=== PATIENT | female | born 1955 | race Caucasian/White ===

== ENCOUNTER → 2017-08-10 06:49 | Outpatient (CLI) | payer OTHER, SELFPAY ==
[2017-07-29 10:19] VITALS: BP 130/80; BMI 18.7
--- NOTE | 2017-08-10 08:55 | STRESSREP_ITS ---
Stress Test Report 61-year-old lady with a history of chest pain and coronary artery disease. Stress protocol: Resting EKG demonstrates normal sinus rhythm with a rate of 60 bpm. Normal intervals noted. Resting blood pressure is 110/72 mmHg. 0.4 mg of regadenoson was infused per usual protocol followed by rapid intravenous saline flush injection. Continuous EKG monitoring was performed. The maximum heart rate attained was 102 bpm which was 64% of maximum predicted heart rate the maximum workload attained was 1 metabolic equivalent. There were no ST or T-wave changes noted to suggest abnormal flow reserve and at peak infusion no ST or T- wave changes were noted to suggest abnormal flow reserve. No clinical angina was noted no arrhythmias were present. Myocardial perfusion protocol. 11.1 mCi of technetium 99m sestamibi was injected at rest. 0.4 mg of regadenoson was infused per usual protocol. At peak infusion 32.1 mCi of technetium 99m sestamibi was injected. Stress images were obtained. Stress and rest images were reconstructed and compared in the short axis vertical long and horizontal long axis. Gated images were also obtained. Perfusion SPECT analysis: Review of the stress images demonstrate normal uptake of tracer noted in all areas of the myocardium. The resting images similarly demonstrated normal uptake of tracer noted in all areas of the myocardium. A previous inferolateral infarct cannot be completely excluded. Conclusion: Normal pharmacologic myocardial perfusion stress test. Previous inferolateral infarct cannot be excluded. Preserved ejection fraction.
== END ==
PROVIDERS: Family Provider Family Medicine; PCP Family Medicine; Visit Provider Physician Assistant Medical
DX: I25.119 Atherosclerotic heart disease of native coronary artery with unspecified angina pectoris (principal); I10 Essential (primary) hypertension
CPT/HCPCS: 78452; 93017; A9500; A4216; J2785

== ENCOUNTER 2017-12-26 08:53 | Day surgery (SDC) | payer OTHER, SELFPAY ==
[2017-12-21 10:19] VITALS: BP 99/65; PULSE 59; RESP 16; TEMP 36.4; O2SAT 98; BMI 18.7
--- NOTE | 2017-12-21 10:43 | SDCEKG_ITS ---
Test Reason : Blood Pressure : / mmHG Vent. Rate : 058 BPM Atrial Rate : 058 BPM P-R Int : 232 ms QRS Dur : 094 ms QT Int : 494 ms P-R-T Axes : 059 045 040 degrees QTc Int : 484 ms Sinus bradycardia with 1st degree A-V block Septal infarct , age undetermined Abnormal ECG Confirmed by RENETTA MATUTE, LAVONNE ([id number]), editor news RUIZ ANDREW ([id number]) on 12/23/2017 9:29:00 AM Referred By: Dao Adkins Confirmed By:LAVONNE JACKSON MD
[2017-12-21 11:06] LABS: Hematocrit 35.3 % (37-47); Hemoglobin 11.6 g/dl (12.0-15.0); Mean Corp Hgb Conc 32.9 g/gl (32-36); Mean Corpuscular Hgb 34.4 pg (27.0-32.0); Mean Corpuscular Volume 104.7 fL (81-99); Platelet Count 166 K/mm3 (150-450); RBC Distribution Width CV 15.3 % (11.6-14.6); RBC Distribution Width SD 58.1 fl (35.1-43.9); Red Blood Count 3.37 M/mm3 (4.2-5.4)
[2017-12-21 11:07] LABS: Scan Indicated on CBC? Y/N NO
[2017-12-21 11:31] LABS: Anion Gap 7 (5-15); BUN 9 mg/dL (7-18); BUN/Creat Ratio 11.1 RATIO (10-20); Calcium,Total 8.1 mg/dL (8.5-10.1); Chloride 104 mmol/L (98-107); Creatinine, Serum 0.81 mg/dL (0.55-1.02); EST Glomerular Filtration Rate 76 mL/min (>60); Est Glom Filt Rate - Afr Amer 92 mL/min (>60); Estimated Creatinine Clearance 61.81 ml/min; Glucose 82 mg/dL (74-106); Potassium 4.1 mmol/L (3.5-5.1); Sodium Level 137 mmol/L (136-145)
[2017-12-26 09:15] VITALS: BP 113/68; PULSE 61; RESP 16; TEMP 36.1; O2SAT 98; BMI 18.7
[2017-12-26] MEDS: Bacitracin 500 UNITS/GM PACKET (10:35)
--- NOTE | 2017-12-26 10:35 | LES_PTH ---
PATIENT: DEEDEE,September [place] [facility] [place][id number] AGE/SX: 62/F ROOM: RE12/26/[address]: Dr. Dao Adkins MD : 1955 BED: DIS: 12/26/2017 SPEC #: [id number] RECD: 12/26/17 10:40 STATUS: SUJATHA ALEX #: [id number] MARY: 12/26/17 10:[address]: Dao Adkins DEPT: SURGICAL PATHOLOGY RECD BY: Odessa Randall ENTERED: 12/26/17 11:18 SP TYPE: Lesion OTHR DR: Dr. Maxx Hewitt, DO Tissues: Skin of external ear, NOS Procedures: Frozen Section (charge) Surgery Specimen Level IV Frozen (no charge) HEADER OPERATION: Excision, lesion, frozen section, ear PRE-OP DIAGNOSIS: Lesion right ear TISSUE SUBMITTED: Lesion right ear for frozen section FROZEN SECTION DIAGNOSIS Lesion right ear, excision: Negative for malignancy, hyperkeratosis SJ:delfino 12/26/17 MICROSCOPIC DIAGNOSIS Right ear lesion, excisional biopsy: Hyperkeratosis, parakeratosis, solar elastosis. Negative for malignancy. DHRUV:dary 12/27/17 MICROSCOPIC DESCRIPTION Slides are reviewed. GROSS DESCRIPTION Received fresh for frozen section diagnosis labeled with the patient's name is a specimen designated lesion right ear. The specimen consists of fung-white skin ellipse measuring 1 x 0.5 x 0.1 cm. This specimen is oriented as follows. Short stitch is inferior at 6 o?clock and long stitch is at 9 o?clock. The specimen is inked as follows: 12 o?clock tip ? yellow, 6 o?clock tip ? green, 3 o?clock margin ? black, 9 o?clock margin ? blue. The specimen is serially sectioned and submitted entirely for frozen section diagnosis in one cassette. DHRUV:dary 12/26/17 TC: 5 CPT: 14469, 66966
--- NOTE | 2017-12-26 10:55 | PCM.DC ---
You will use the following diet at home:: Regular Your food should be the consistency of: Regular Discharge Activity: No Restrictions Additional Activity Instructions:: Remove the band aid tomorrow morning. Apply antibiotic ointment twice a day. May get the sutures wet on Tuesday. Allergies/Adverse Reactions: Allergies codeine Allergy (Verified 12/21/17 10:10) Other STOMACH PAIN sulfamethoxazole [From Septra] Allergy (Verified 12/21/17 10:10) Rash trimethoprim [From Septra] Allergy (Verified 12/21/17 10:10) Unknown prasugrel [From Effient] Adverse Reaction (Severe, Verified 12/21/17 10:10) Not advised in pt's who have had CVA Onset 09/06/2016 Medications to take at Discharge Atorvastatin Calcium [Lipitor] 80 mg PO QHS 10/03/15 Cyanocobalamin [Vitamin B12] 1,000 mcg PO DAILY@0800 10/03/15 Nitroglycerin [Nitrostat] 0.4 mg SUBLINGUAL Q5M PRN 10/03/15 Nortriptyline HCl [Pamelor] 25 mg PO QHS 10/03/15 Potassium 99 mg PO DAILY PRN 10/03/15 Primidone [Mysoline] 50 mg PO BID 10/03/15 Propranolol HCl [Inderal LA] 80 mg PO DAILY 10/03/15 amlodipine 5 mg-benazepril 10 mg capsule 1 cap PO DAILY #90 cap 09/09/17 mirtazapine 15 mg tablet 15 mg PO QHS #90 tab 09/09/17 pantoprazole 40 mg tablet,delayed release 40 mg PO DAILY #90 tab 09/09/17 alprazolam 0.5 mg tablet 0.5 mg PO BID PRN PRN #60 tab 10/07/17 clopidogrel 75 mg tablet 75 mg PO QDAY #90 tab 12/19/17 Mupirocin Calcium [Bactroban] 1 applic TOPICAL BID 12/21/17 Tiotropium [place] [Spiriva 18 MCG] 2 puff INHALATION DAILY 12/21/17 Primary Care Physician: Maxx Hewitt DO [Primary Care Provider] - Test Results:
--- NOTE | 2017-12-26 10:56 | PCM.OPRPT ---
Report of Operation Date of Procedure: 12/26/17 Pre-Operative Diagnosis: right ear wound Post-Operative Diagnosis: same Surgery/Procedure Performed:: excision right ear wound. simple repair (1 x .8 cm) Type of Anesthesia:: General Anesthesiologist: Maverick Haskins Specimen's removed: ear lesion Drains: none Estimated Blood Loss (mL): minimal Description of Procedure: The patient was taken to the OR on 12/26/17. She was placed in the supine position on the OR table. She was given sufficient general anesthesia. The right ear was prepped and draped steriley. The wound was excised in an ellipse with a 15 blade. A short suture was used to sakshi the inferior border and long stitch laterally at 9 oclock. Frozen section came back negative for carcinoma. Extensive undermining was accomplished with iris scissors. The skin was then closed with interrupted 6-0 nylon. Antibiotic ointment was applied as well as bandaid. The patient was then awoken and brought to the recovery room in stable condition. Blood loss minimal. Replacement none. Sponge, needle and instrument count were correct a the end of the procedure.
[2017-12-26 11:00] VITALS: BP 113/68; BP 114/56; PULSE 62; RESP 18; TEMP 36.4; O2SAT 100
[2017-12-26 11:15] VITALS: BP 103/70; BP 113/68; PULSE 64; RESP 18; O2SAT 97
[2017-12-26 11:20] VITALS: BP 112/61; BP 113/68; PULSE 64; RESP 18; TEMP 36.6; O2SAT 97
[2017-12-26 11:54] VITALS: BP 113/68
== END 2017-12-26 12:05 | disposition home or self-care (01) ==
LOC: SDC 08:55 → AC 08:55
PROVIDERS: Family Provider Family Medicine; PCP Family Medicine; Visit Provider Otolaryngology
PROC: (CPT 11442; principal; 2017-12-26 10:15)
DX: L57.0 Actinic keratosis (principal); L57.8 Other skin changes due to chronic exposure to nonionizing radiation; I25.10 Atherosclerotic heart disease of native coronary artery without angina pectoris; I10 Essential (primary) hypertension; J44.9 Chronic obstructive pulmonary disease, unspecified; K21.9 Gastro-esophageal reflux disease without esophagitis; F32.9 Major depressive disorder, single episode, unspecified; F41.9 Anxiety disorder, unspecified; F17.200 Nicotine dependence, unspecified, uncomplicated; Z95.5 Presence of coronary angioplasty implant and graft; Z86.73 Personal history of transient ischemic attack (TIA), and cerebral infarction without residual deficits; Z79.01 Long term (current) use of anticoagulants; Z79.899 Other long term (current) drug therapy
CPT/HCPCS: 00300; 11442; 80048; 85027; 88305; 88331; 93005; J7120; J2405

== ENCOUNTER → 2018-01-24 10:50 | Outpatient (CLI) | payer OTHER, SELFPAY ==
[2018-01-24 11:57] LABS: AST(SGOT) 49 U/L (15-37); Alanine Aminotransfer ALT/SGPT 23 U/L (13-56); Albumin, Serum 2.9 g/dL (3.2-5.0); Alkaline Phosphatase 177 U/L (45-117); Bilirubin, Direct 0.22 mg/dL (0.00-0.30); Cholesterol 87 mg/dL (200); Globulin 4.2 g/dL (2.2-4.2); High Density Lipoprotein 46 mg/dL; Protein, Total 7.1 g/dL (6.4-8.2); Triglycerides 71 mg/dL; Very Low Density Lipoprotein 14 mg/dL (5-40)
== END ==
PROVIDERS: Family Provider Family Medicine; PCP Family Medicine; Visit Provider Nurse Practitioner Family
DX: E78.5 Hyperlipidemia, unspecified (principal); Z79.899 Other long term (current) drug therapy
CPT/HCPCS: 36415; 80061; 80076

== ENCOUNTER → 2018-04-03 08:47 | Outpatient (CLI) | payer OTHER, SELFPAY ==
--- NOTE | 2018-04-03 08:51 | CT_ITS ---
STUDY: CT ABDOMEN AND PELVIS WITH AND WITHOUT CONTRAST REASON FOR EXAM: Female, 62 years old. Hematuria. RADIATION DOSAGE (If Supplied By Facility): CTDIvol = ( 8.14 ) mGy, DLP = ( 650.8 ) mGycm TECHNIQUE: Transaxial images were obtained from the dome of the diaphragm to the symphysis pubis without oral contrast. 100 ml of Isovue 300 contrast was administered. Sagittal and coronal images were reconstructed. Individualized dose optimization techniques were used for this CT. COMPARISON: Prior comparison studies are not available for review at this time. FINDINGS: The visualized lung bases are unremarkable. The visualized portions of the heart are within normal limits. There appears to be a loculated collection adjacent to the distal right lobe the liver. This apparent loculated collection measures approximately 8.4 x 1.6 x 5.8 cm in size. There is gas within this apparent collection. This is located near the hepatic flexure of the colon but does not appear to be connected to the colon. The differential considerations include a contained perforation or abscess. The liver otherwise has a grossly normal appearance. The gallbladder has a grossly normal appearance. There is mild dilatation of the common hepatic duct measuring approximately 7.9 mm in transverse dimension. Normal spleen. There is diffuse atrophy of the pancreas. Normal bilateral adrenal glands. Normal right kidney. Normal left kidney. There is abnormal thickening of the mcgill of the gastric fundus measuring up to 2.8 cm. There is no evidence for dilated bowel, ascites or pneumoperitoneum. The small bowel has a grossly normal appearance. The descending colon is not distended which gives the appearance of mild thickened mcgill. The cecum is distended with gas and stool. There is non-visualization of the appendix. There is diffuse atherosclerotic calcification of the abdominal aorta, without a demonstrated aneurysm. Normal inferior vena cava. Normal retroperitoneum. Normal urinary bladder. There is absence of the uterus consistent with a prior hysterectomy. Normal abdominal wall. The bones appear osteopenic. There is degenerative disc disease at L4-5. There is some chondrocalcinosis of the disc at L5-S1. CT/CT Abd/Pelvis W/WO Contrast IMPRESSION: Apparent loculated collection located lateral to the right lobe of liver. This does not have the typical appearance of the hepatic flexure of the colon and it is unclear if this is actually connected to the colon. Differential considerations include contained perforation or abscess. Abnormal appearing hepatic flexure of the colon is possible as well but no previous studies are available for comparison. N.B. : The above information has been verbally conveyed by Deyanira Davis MD to LASHON SHERIDAN MD, on 04/03/2018 12:01:08 (ET). Electronically Signed: Deyanira Davis MD at 12:10 EDT , Service support ,
[2018-04-03 09:01] LABS: CREATININE FINGERSTICK 0.7 mg/dL (0.55-1.02); EGFR FINGERSTICK > 60.0000 mL/min (>60)
== END ==
PROVIDERS: Family Provider Family Medicine; PCP Family Medicine; Referring Provider Urology; Visit Provider Urology
DX: R31.0 Gross hematuria (principal)
CPT/HCPCS: 74178; Q9967

== ENCOUNTER 2018-04-03 13:05 | Emergency (ER) | payer OTHER, SELFPAY ==
[2018-04-03 13:06] VITALS: BP 135/64; PULSE 70; RESP 18; TEMP 37.1; O2SAT 100; BMI 17.9
[2018-04-03 15:40] VITALS: BP 113/63; PULSE 67; RESP 16; O2SAT 99
[2018-04-03 16:02] LABS: Absolute Lymphocyte Count 1.61 X10^3/ul (0.83-4.51); Absolute Neutrophil Count 3.1 X10^3/uL (2.0-7.7); Basophil# 0.03 X10^3/uL; Basophil% 0.6 % (0-1); Eosinophil# 0.07 X10^3/uL; Eosinophils% 1.3 % (0-5); Hematocrit 30.8 % (37-47); Hemoglobin 10.6 g/dl (12.0-15.0); Lymphocyte # 1.61 X10^3/ul (4.0); Lymphocyte % 29.6 % (19-41); Mean Corp Hgb Conc 34.4 g/gl (32-36); Mean Corpuscular Hgb 37.7 pg (27.0-32.0); Mean Corpuscular Volume 109.6 fL (81-99); Mean Platelet Vol. 9.1 fl (6.2-12.0); Monocyte# 0.67 X10^3/uL; Monocyte% 12.3 % (0-10); Neutrophil # 3.05 X10^3/uL (2.7-7.7); Platelet Count 177 K/mm3 (150-450); RBC Distribution Width CV 15.9 % (11.6-14.6); Red Blood Count 2.81 M/mm3 (4.2-5.4); White Blood Count 5.4 K/mm3 (4.4-11.0)
[2018-04-03 16:04] LABS: POSITIVE COUNT NO; POSITIVE DIFFERENTIAL NO; POSITIVE MORPHOLOGY NO
[2018-04-03 16:06] LABS: ALB/GLOB Ratio 0.8 RATIO (0.9-2.4); AST(SGOT) 44 U/L (15-37); Alanine Aminotransfer ALT/SGPT 23 U/L (13-56); Albumin, Serum 3.1 g/dL (3.2-5.0); Alkaline Phosphatase 174 U/L (45-117); Anion Gap 7 (5-15); BUN 8 mg/dL (7-18); BUN/Creat Ratio 10.8 RATIO (10-20); Calcium,Total 8.5 mg/dL (8.5-10.1); Chloride 103 mmol/L (98-107); Creatinine, Serum 0.74 mg/dL (0.55-1.02); EST Glomerular Filtration Rate 83 mL/min (>60); Est Glom Filt Rate - Afr Amer 101 mL/min (>60); Globulin 4.1 g/dL (2.2-4.2); Glucose 94 mg/dL (74-106); Lipase 35 U/L (73-393); Potassium 3.9 mmol/L (3.5-5.1); Protein, Total 7.2 g/dL (6.4-8.2); Sodium Level 137 mmol/L (136-145)
--- NOTE | 2018-04-03 16:28 | ED.VISSUMM ---
- ER Visit Summary Date of Service: 04/03/18 Chief Complaint: abnormal CT findings History of Present Illness: The patient is a 62 F who has no symptoms other than dyspareunia, she presents with abnormal CT findings, she was seen by her urologist, CT was ordered for delineation of her pelvic contents, it was found that the patient has a loculated collection lateral to the right lobe of the right liver. Again patient has no right upper quadrant pain, no lower quadrant pain she has no abdominal pain, she has no fever or chills she has no back pain. She has no chest pain or shortness of breath. Physical Examination: Not appear in acute distress. Moist mucous membranes, no obvious facial deformity No C-spine tenderness supple neck. Regular rate and rhythm without any obvious murmurs Clear lungs bilaterally speaking in full sentences without any obvious respiratory distress Abdomen soft and nontender no guarding or rebound. Pelvic exam is deferred Moves all extremities without any difficulty or pain. Skin does not show any obvious rashes or lesions, no trauma. Alert oriented ?3 with no gross focal deficit Emergency Department Course and Treatment: Patient has a normal white count of 5 without any shift. She has no abdominal pain does not look toxic appears well. She needs interventional radiology to drain the cystic structure, I talked to general surgery is for the patient to get a repeat CT with p.o. contrast and follow-up with Dr. Hogan. If she has fever chills or pain she needs to return. She understands this. Disposition: [Discharge stable condition] Impression: [Abnormal CT findings] This note was generated with [employer] dictation software. It may contain incorrect words, spelling, and punctuation that were not noted in review of the chart prior to signing ED Disposition - Plan for ED Patient: Disposition: Home or Assisted Living Chief Complaint: Abn Labs Referrals: Marina Meadows MD [STAFF PHYSICIAN] - 3-5 Days Additional Instructions: Fever chills he needs to return to the emergency department. If you develop any abdominal pain need to return to the emergency department. You will need to get a CAT scan with oral contrast, he will need to wait at least 2 hours before getting the CAT scan after he drink contrast.
[2018-04-03 17:27] VITALS: BP 115/71; PULSE 78; RESP 16; O2SAT 99
== END 2018-04-03 17:28 | disposition home or self-care (01) ==
PROVIDERS: Emergency Provider Emergency Medicine; Family Provider Family Medicine; PCP Family Medicine
DX: R93.5 Abnormal findings on diagnostic imaging of other abdominal regions, including retroperitoneum (principal); I25.10 Atherosclerotic heart disease of native coronary artery without angina pectoris; I10 Essential (primary) hypertension; Z79.899 Other long term (current) drug therapy; Z72.0 Tobacco use; Z86.73 Personal history of transient ischemic attack (TIA), and cerebral infarction without residual deficits
CPT/HCPCS: 80053; 83690; 85025; 99282; A4216

== ENCOUNTER → 2018-04-05 09:26 | Outpatient (CLI) | payer OTHER, SELFPAY ==
--- NOTE | 2018-04-05 09:28 | CT_ITS ---
STUDY: CT ABDOMEN AND PELVIS WITHOUT CONTRAST REASON FOR EXAM: Female, 62 years old. Abdominal abscess. Follow-up prior CT scan. RADIATION DOSAGE (If Supplied By Facility): CTDIvol = ( 6.04 ) mGy, DLP = ( 294.46 ) mGycm TECHNIQUE: Transaxial images were obtained from the dome of the diaphragm to the symphysis pubis with oral contrast, and without intravenous contrast. Sagittal and coronal images were reconstructed. Individualized dose optimization techniques were used for this CT. COMPARISON: CT abdomen and pelvis 04/03/2018. FINDINGS: Body wall soft tissues: No acute process. Osseous structures: No acute process. Inferior chest: No acute process. Hepatobiliary: Minimal intrahepatic biliary ductal ectasia. Slight ectasia of the common bile duct, stable. Normal gallbladder. Normal liver parenchyma. Pancreas: Moderate atrophy. Spleen: Normal. Adrenal glands: Normal. Urogenital: Normal kidneys, collecting systems, ureters, urinary bladder. Uterus absent. No adnexal mass or cyst or cul-de-sac free fluid. Pelvic floor and sidewalls and retroperitoneum: No mass or adenopathy. Vasculature: No acute process. Stomach: No acute process. Small bowel and mesentery: No acute process. Large bowel: There is mild circumferential thickening of the wall of the sigmoid colon and ascending colon, normalizing in the hepatic flexure. No acute inflammatory induration the surrounding fat. On the prior study of 04/03/2018 There is diverticulosis of the proximal to mid sigmoid without diverticulitis. There is mild chronic-appearing thickening of the wall the sigmoid colon with low-density fatty infiltration that is most consistent with sequela from prior inflammation without evidence of acute inflammation at this time. The rectum is normal. Free fluid or free air: None. CT/Abdomen/Pelvis without Cont IMPRESSION: No definitive acute abdominopelvic process is evident at this time. Notably, there is no abscess. The apparent loculated complex fluid collection adjacent to the lateral margin of the distal right liver was a loop of the patient's cecum, deflected upward at the time of that examination, and presenting a very unusual appearance. The sigmoid colon has now dropped inferiorly into a more normal position in the right paracolic gutter. Also on the study of 04/03/2018, there was evidence of mild acute inflammation of the terminal ileum, and of the ascending colon, an appearance consistent with mild colitis and terminal ileitis that appears to be resolved at this time. Electronically Signed: Robby Izaguirre, at 14:27 EDT Tel , Service support ,
== END ==
PROVIDERS: Family Provider Family Medicine; PCP Family Medicine; Referring Provider Surgery; Visit Provider Surgery
DX: L02.211 Cutaneous abscess of abdominal wall (principal)
CPT/HCPCS: 74176

== ENCOUNTER 2018-04-11 08:03 | Day surgery (SDC) | payer OTHER, SELFPAY ==
[2018-04-11] VITALS (11 sets, daily range): BP systolic 86–127; BP diastolic 53–79; PULSE 64–75; RESP 14–16; TEMP 35.9–37.3; O2SAT 92–100; BMI 17.2
--- NOTE | 2018-04-11 | FLU_PTH ---
PATIENT: DEEDEE,September [place] [facility] [facility] [place][id number] AGE/SX: 62/F ROOM: RE04/11/[address]: Dr. Ariadna Yang MD : 1955 BED: DIS: 04/11/2018 SPEC #: [id number] RECD: 04/11/18 11:28 STATUS: SUJATHA ALEX #: [id number] MARY: 04/11/18 00:[address]: Ariadna Yang DEPT: CYTOLOGY RECD BY: Asa Monge ENTERED: 04/11/18 11:29 SP TYPE: Fluid OTHR DR: Dr. Maxx Hewitt DO Tissues: A - Ureter, NOS B - Ureter, NOS C - Urinary bladder, NOS Procedures: Pap Stain (control) Special Stain Group II Surgery Specimen Level IV Cell Block Cytospin Fluid HEADER OPERATION: Cysto, pelvic exam under anesthesia, urethral dilation PRE-OP DIAGNOSIS: Urethral stricture, gross hematuria TISSUE SUBMITTED: A - Ureter fluid, B - Ureter fluid, C - Urinary bladder fluid for cytology DIAGNOSIS CYTOLOGY A. Ureteral fluid for cytology (cytospin and cell block): Negative for malignant cells. See cytology study and comment. B. Ureteral fluid for cytology (cytospin and cell block): Negative for malignant cells. See cytology study and comment. C. Bladder fluid for cytology (cytospin and cell block): Negative for malignant cells. See cytology study and comment. SJ:radhika 04/12/18 COMMENT Correlation with clinical, cystoscopic findings and appropriate follow up are necessary. CYTOLOGY STUDY Slides are reviewed. A. The specimen consists of clusters of benign urothelial cells. B. The specimen is paucicellular and consists of benign urothelial cells. C. The specimen is bloody and consists of benign urothelial cells. CYTOLOGY GROSS A - Received is 5 ml of cloudy fluid labeled with the patient's name and and designated per the requisition as ureter. Submitted for cytology preparation including cell block. B - Received is 1 ml of cloudy fluid labeled with the patient's name and and designated per the requisition as ureter. Submitted for cytology preparation including cell block. C - Received is 15 ml of pink cloudy fluid labeled with the patient's name and and designated per the requisition as urinary bladder. Submitted for cytology preparation including cell block. 04/11/18 TC:5 CPT: 43662 x3, 82233 x3
[2018-04-11] MEDS: Cefazolin 2 GM in 0.9% Normal Saline 100 ML IV (08:59)
--- NOTE | 2018-04-11 09:47 | DCINST_ITS ---
Discharge Diet: No Restrictions Discharge Activity: Return to Normal Activity, May not drive while taking narcotic pain medications. May resume sexual activity in: 1 week Additional Activity Instructions:: ok to shower, no tub bath for 1 week Call your doctor if you observe: Fever of 101 or Higher, Inability to urinate, Inability to have a bowel movement, Shortness of breath, Chest pain, Calf discomfort, Uncontrolled pain Allergies/Adverse Reactions: Allergies codeine Allergy (Verified 04/11/18 08:24) Other STOMACH PAIN sulfamethoxazole [From Septra] Allergy (Verified 04/11/18 08:24) Rash trimethoprim [From Septra] Allergy (Verified 04/11/18 08:24) Unknown prasugrel [From Effient] Adverse Reaction (Severe, Verified 04/11/18 08:24) Not advised in pt's who have had CVA Onset 09/06/2016 Medications to take at Discharge Cyanocobalamin [Vitamin B12] 1,000 mcg PO DAILY@0800 10/03/15 Nitroglycerin [Nitrostat] 0.4 mg SUBLINGUAL Q5M PRN 10/03/15 Nortriptyline HCl [Pamelor] 25 mg PO QHS 10/03/15 Potassium 99 mg PO DAILY PRN 10/03/15 Primidone [Mysoline] 50 mg PO BID 10/03/15 Propranolol HCl [Inderal LA] 80 mg PO DAILY 10/03/15 amlodipine 5 mg-benazepril 10 mg capsule 1 cap PO DAILY #90 cap 09/09/17 mirtazapine 15 mg tablet 15 mg PO QHS #90 tab 09/09/17 pantoprazole 40 mg tablet,delayed release 40 mg PO DAILY #90 tab 09/09/17 clopidogrel 75 mg tablet 75 mg PO QDAY #90 tab 12/19/17 albuterol sulfate 90 mcg/actuation breath activated powder inhaler 2 puff INHALATION Q6H PRN #1 ea 03/08/18 alprazolam 0.5 mg tablet 0.5 mg PO BID PRN PRN #60 tab 03/08/18 dicyclomine 20 mg tablet 20 mg PO TID #60 tab 03/15/18 tiotropium bromide 2.5 mcg/actuation mist for inhalation 2 puff INHALATION DAILY #4 g 03/15/18 atorvastatin 80 mg tablet 80 mg PO QHS #30 tab 03/20/18 Eluxadoline [Viberzi] 75 mg PO DAILY 04/04/18 Primary Care Physician: Maxx Hewitt DO [Primary Care Provider] - Test Results: Test results from this visit will be discussed in further detail at your follow- up appointment, if applicable. Please Follow Up With: Ariadna Yang MD When: 1 week, call for appt Proposed Discharge Date: 04/11/18
--- NOTE | 2018-04-11 09:47 | PCM.IMDPSTOP ---
Immediate Post-Op Note Date of Procedure: 04/11/18 Primary Surgeon/Physician: Ariadna Yang MD playground worker: Ariadna Yang Pre-Operative Diagnosis: gross hematuria, urethral stricture Post-Operative Diagnosis: same Surgery/Procedure Performed:: cystoscopy, urethral dilation, bilateral renal pelvic washings Description of Surgical Findings:: urethra dilated to 26Fr. cystoscopy normal. ureteral catheters used for bilateral renal pelvic washings, and cytology also sent from bladder. Estimated Blood Loss: 2cc Specimen's removed: urine for cytology from each kidney and bladder Type of Anesthesia:: MAC Special Medications: ancef - Admit VTE Documentation VTE Present on Admission: Yes VTE Mechan Device Prophylaxis: SCD's VTE Pharm Prophylaxis ordered?: No Reason prophylaxis not ordered:: Treatment Not Indicated
--- NOTE | 2018-04-11 09:50 | OP.PN_ITS ---
Immediate Post-Op Note Date of Procedure: 04/11/18 Primary Surgeon/Physician: Ariadna Yang MD assistant plant control operator: Ariadna Yang Pre-Operative Diagnosis: gross hematuria, urethral stricture Post-Operative Diagnosis: same Surgery/Procedure Performed:: cystoscopy, urethral dilation, bilateral renal pelvic washings Description of Surgical Findings:: urethra dilated to 26Fr. cystoscopy normal. ureteral catheters used for bilateral renal pelvic washings, and cytology also sent from bladder. Estimated Blood Loss: 2cc Specimen's removed: urine for cytology from each kidney and bladder Type of Anesthesia:: MAC Special Medications: ancef - Admit VTE Documentation VTE Present on Admission: Yes VTE Mechan Device Prophylaxis: SCD's VTE Pharm Prophylaxis ordered?: No Reason prophylaxis not ordered:: Treatment Not Indicated
[2018-04-11 10:13] LABS: Cytology, Body Fluid / CSF SEE PATHOLOGY REPORT
--- NOTE | 2018-04-11 11:33 | OP.PCM_ITS ---
Problem List (1) Gross hematuria Status: Acute (2) Urethral stricture Status: Acute Report of Operation Date of Procedure: 04/11/18 Pre-Operative Diagnosis: gross hematuria, urethral stricture Post-Operative Diagnosis: same Surgery/Procedure Performed:: cystoscopy, urethral dilation, bilateral renal pelvic washings Description of Surgical Findings:: urethra dilated to 26Fr. cystoscopy normal. ureteral catheters used for bilateral renal pelvic washings, and cytology also sent from bladder. wireless sales manager: Ariadna Yang Type of Anesthesia:: MAC Special Medications: ancef Specimen's removed: urine for cytology from each kidney and bladder Estimated Blood Loss (mL): 2cc Description of Procedure: Patient is a 62-year-old female who I am evaluating for gross hematuria. We were unable to proceed with cystoscopy in the office secondary to a tight urethral meatus. After discussing the risks benefits and alternatives, she agreed to proceed with urethral dilation and cystoscopy under anesthesia. The patient was taken to the operating room and placed in the operating room table. Anesthesia monitored the head, neck, airway and IV access throughout the case. Once anesthesia was appropriately administered the patient was placed into dorsal lithotomy position was prepped and draped in usual sterile fashion. The urethra was then dilated from 16 Japanese to 26 Japanese without difficulty. The cystoscope with 70 degree lens was inserted into the urinary bladder under direct visualization. The bladder in its entirety was inspected. There were no masses, lesions, areas of erythema or ulceration, or foreign bodies identified. At this time using a 30 degree lens, a an open ended ureteral catheter was inserted into the patient's right renal pelvis and washings were obtained and sent for cytologic evaluation. Using a brand-new ureteral catheter and 10 cc syringe, this process was repeated on the patient's left side. Cytology was also sent from the urinary bladder. At this time the patient's bladder was emptied and she was awakened and taken to the recovery room in good condition. There were no complications during this procedure. Grafts/Implants Used: none - Complications none - Admit VTE Documentation VTE Present on Admission: Yes VTE Mechan Device Prophylaxis: SCD's VTE Pharm Prophylaxis ordered?: No Reason prophylaxis not ordered:: Treatment Not Indicated
== END 2018-04-11 10:45 | disposition home or self-care (01) ==
LOC: SDC 08:03 → AC 08:04
PROVIDERS: Family Provider Family Medicine; PCP Family Medicine; Referring Provider Urology; Visit Provider Urology
PROC: 0TJB8ZZ Inspection of Bladder, Via Natural or Artificial Opening Endoscopic (ICD-10-PCS; CPT 52000; principal; 2018-04-11 09:10)
DX: N35.92 Unspecified urethral stricture, female (principal); N94.10 Unspecified dyspareunia; N39.3 Stress incontinence (female) (male); N95.2 Postmenopausal atrophic vaginitis; N76.0 Acute vaginitis; R31.0 Gross hematuria; I10 Essential (primary) hypertension; F17.210 Nicotine dependence, cigarettes, uncomplicated; Z95.5 Presence of coronary angioplasty implant and graft; Z79.899 Other long term (current) drug therapy; Z86.73 Personal history of transient ischemic attack (TIA), and cerebral infarction without residual deficits
CPT/HCPCS: 52281; 88108; 88305; 88313; J7120; C1758; J2405

== ENCOUNTER → 2018-10-23 09:09 | Outpatient (CLI) | payer MEDICARE, OTHER, SELFPAY ==
[2018-10-17 11:03] VITALS: BMI 17.9
[2018-10-23 12:50] LABS: AST(SGOT) 41 U/L (15-37); Alanine Aminotransfer ALT/SGPT 28 U/L (13-56); Albumin, Serum 3.2 g/dL (3.2-5.0); Alkaline Phosphatase 197 U/L (45-117); Bilirubin, Direct 0.06 mg/dL (0.00-0.30); Cholesterol 125 mg/dL (200); Globulin 4.5 g/dL (2.2-4.2); High Density Lipoprotein 49 mg/dL; Protein, Total 7.7 g/dL (6.4-8.2); Triglycerides 102 mg/dL; Very Low Density Lipoprotein 20 mg/dL (5-40)
== END ==
PROVIDERS: Family Provider Family Medicine; PCP Family Medicine; Visit Provider Nurse Practitioner Family
DX: E78.5 Hyperlipidemia, unspecified (principal)
CPT/HCPCS: 36415; 80061; 80076

== ENCOUNTER → 2018-12-26 11:07 | Outpatient (CLI) | payer MEDICARE, SELFPAY ==
[2018-12-26 10:37] VITALS: BMI 17.8
--- NOTE | 2018-12-26 11:09 | VDLE_ITS ---
Reason For Study: pain Procedure LEFT Exam performed in department. GSV is normal. The exam was diagnostic. CFV is compressible, spontaneous, phasic, A preliminary report was called and/or faxed competent, and demonstrates normal to Dr. Hewitt. augmentation. FV is compressible, spontaneous, phasic, competent and demonstrates normal augmentation. POP V is compressible, spontaneous, phasic, competent and demonstrates normal augmentation. T/P Trunk is compressible. PTV is compressible. LT PerV is compressible. Interpretation Summary There is no evidence of left lower extremity deep vein thrombosis. Left greater saphenous vein appears patent and compressible segmentally. Ordering Physician: Maxx Hewitt Performed By: Gibran Heaton RVT
== END ==
PROVIDERS: Family Provider Family Medicine; PCP Family Medicine; Referring Provider Family Medicine; Visit Provider Family Medicine
DX: M79.89 Other specified soft tissue disorders (principal)
CPT/HCPCS: 93971

== ENCOUNTER → 2019-01-08 | Outpatient (CLI) | payer MEDICARE, SELFPAY ==
[2019-01-04 13:14] VITALS: BMI 17.8
--- NOTE | 2019-01-08 13:01 | ART_ITS ---
Reason For Study: bilateral leg pain Procedure A bilateral lower extremity continuous wave Doppler with analog waveform analysis and ankle brachial indexes. Left Segmental Pressures Left brachial= 127mmHg. Left posterior tibial artery = 138mmHg. Left dorsalis pedis artery = 142mmHg. The left dorsalis pedis waveforms are triphasic. The left posterior tibial artery waveforms are triphasic. Right Segmental Pressures Right brachial= 132mmHg. Right posterior tibial artery = 135mmHg. Right dorsalis pedis artery = 129mmHg. The right dorsalis pedis waveforms are triphasic. The right posterior tibial artery waveforms are triphasic. Indices The right ankle brachial index by the dorsalis pedis is 0.98. The right ankle brachial index by the posterior tibial artery is 1.02. The left ankle brachial index by the dorsalis pedis is 1.08. The left ankle brachial index by the posterior tibial artery is 1.05. Interpretation Summary Normal bilateral lower extremity ankle brachial indices and waveforms. No evidence for clinically significant disease at rest. Ordering Physician: Maxx Hewitt Referring Physician: Maxx Hewitt Performed By: Elizabeth Diaz RVT, RDCS
== END | disposition home or self-care (01) ==
LOC: CVS 13:00
PROVIDERS: Family Provider Family Medicine; PCP Family Medicine; Referring Provider Family Medicine; Visit Provider Family Medicine
DX: I73.9 Peripheral vascular disease, unspecified (principal); M79.604 Pain in right leg; M79.605 Pain in left leg
CPT/HCPCS: 93922

== ENCOUNTER → 2019-01-24 12:04 | Outpatient (CLI) | payer MEDICARE, SELFPAY ==
[2019-01-24 11:08] VITALS: BMI 17.8
--- NOTE | 2019-01-24 12:18 | RAD_ITS ---
STUDY: X-RAY - PELVIS REASON FOR EXAM: Female, 63 years old. Hip pain TECHNIQUE: One view of the pelvis was obtained. COMPARISON: None. FINDINGS: There is a non-specific bowel gas pattern. Normal visualized soft tissue structures. Normal bilateral iliac wings, sacroiliac joints and visualized sacrum. Normal visualized bilateral superior and inferior pubic rami. Normal pubic symphysis. Normal ischial tuberosities. Normal visualized right femoral head. Normal right acetabulum. Normal right hip joint. Normal visualized left femoral head. Normal left acetabulum. Normal left hip joint. RAD/Pelvis 1 or 2 Views IMPRESSION: Normal x-ray examination of the pelvis. Electronically Signed: Robby Dubose MD at 13:13 EDT Tel , Service support ,
--- NOTE | 2019-01-24 12:18 | RAD_ITS ---
STUDY: X-RAY - LEFT FEMUR REASON FOR STUDY: Female, 63 years old. Pain TECHNIQUE: 2 view(s) of the femur. COMPARISON: None. FINDINGS: Normal visualized femur. Normal visualized soft tissue structure. RAD/Femur Min 2 Views IMPRESSION: Normal x-ray examination of the femur. Electronically Signed: Robby Dubose MD at 13:13 EDT Tel , Service support ,
--- NOTE | 2019-01-24 12:21 | RAD_ITS ---
STUDY: X-RAY - RIGHT FEMUR REASON FOR STUDY: Female, 63 years old. Pain TECHNIQUE: 2 view(s) of the femur. COMPARISON: None. FINDINGS: Normal visualized femur. Normal visualized soft tissue structure. RAD/Femur Min 2 Views IMPRESSION: Normal x-ray examination of the femur. Electronically Signed: Robby Dubose MD at 13:12 EDT Tel , Service support ,
== END ==
PROVIDERS: Family Provider Family Medicine; PCP Family Medicine; Referring Provider Family Medicine; Visit Provider Family Medicine
DX: M79.605 Pain in left leg (principal); M79.604 Pain in right leg; M79.89 Other specified soft tissue disorders
CPT/HCPCS: 72170; 73552

== ENCOUNTER → 2019-01-25 11:10 | Outpatient (CLI) | payer MEDICARE, SELFPAY ==
[2019-01-24 11:08] VITALS: BMI 17.8
[2019-01-25 13:02] LABS: Rheumatoid Factor < 10.0 IU/mL (<15)
[2019-01-25 13:09] LABS: Erythrocyte Sedimentation Rate 43 mm/hr (0-30)
[2019-01-29 10:21] LABS: ANTINUCLEAR ANTIBODIES DIRECT Negative (Negative)
== END ==
PROVIDERS: Family Provider Family Medicine; PCP Family Medicine; Visit Provider Family Medicine
DX: M79.605 Pain in left leg (principal); R10.31 Right lower quadrant pain; R10.32 Left lower quadrant pain
CPT/HCPCS: 36415; 85652; 86038; 86431

== ENCOUNTER 2019-01-28 10:47 | Emergency (ER) | payer MEDICARE, SELFPAY ==
[2019-01-24 11:08] VITALS: BMI 17.8
[2019-01-28 10:47] VITALS: BP 121/74; PULSE 81; RESP 18; TEMP 36.5; O2SAT 100; BMI 18.1
--- NOTE | 2019-01-28 11:20 | RAD_ITS ---
STUDY: X-RAY CHEST REASON FOR EXAM: Female, 63 years old. Anasarca, swelling TECHNIQUE: AP COMPARISON: 10/06/2015 FINDINGS: The lungs are clear and expanded. There is no demonstrated pleural abnormality. Normal size heart. Normal mediastinum and quinton. Normal visualized pulmonary arteries. Normal visualized aortic arch and descending thoracic aorta. Normal visualized thoracic spine. Normal visualized ribs, clavicles, and shoulders. There is no demonstrated abnormality of the visualized soft tissue structures of the upper abdomen. RAD/Chest 1 View (Portable) IMPRESSION: Stable, nonacute portable x-ray examination of the chest. Electronically Signed: Chris De Oliveira MD at 12:25 EDT , Service support ,
--- NOTE | 2019-01-28 11:20 | EKG12_ITS ---
Test Reason : ILLNESS Blood Pressure : / mmHG Vent. Rate : 069 BPM Atrial Rate : 069 BPM P-R Int : 202 ms QRS Dur : 076 ms QT Int : 390 ms P-R-T Axes : 062 053 055 degrees QTc Int : 417 ms Normal sinus rhythm Septal infarct (cited on or before 21-DEC-2017), age undetermined Abnormal ECG Confirmed by LISA MATUTE, JOSE ([id number]), metropolitan editor ALFONZO HILL ([id number]) on 01/31/2019 10:16:33 AM Referred By: CL Confirmed By:JOSE GONZALEZ MD
[2019-01-28 11:46] LABS: Absolute Lymphocyte Count 1.37 X10^3/uL (0.83-4.51); Basophil# 0.04 X10^3/uL; Basophil% 0.7 % (0-1); Eosinophil# 0.91 X10^3/uL; Eosinophils% 15.6 % (0-5); Hematocrit 28.6 % (37-47); Hemoglobin 9.6 g/dL (12.0-15.0); Lymphocyte # 1.37 X10^3/ul (4.0); Lymphocyte % 23.5 % (19-41); Mean Corp Hgb Conc 33.6 g/dL (32-36); Mean Corpuscular Hgb 31.9 pg (27.0-32.0); Mean Platelet Vol. 9.2 fl (6.2-12.0); Monocyte# 0.48 X10^3/uL; Monocyte% 8.2 % (0-10); NRBC Flagged by Analyzer 0 % (0-5); Neutrophil % 51.7 % (47-70); Platelet Count 258 K/mm3 (150-450); RBC Distribution Width CV 12.8 % (11.6-14.6); RBC Distribution Width SD 44.2 fl (35.1-43.9); Red Blood Count 3.01 M/mm3 (4.2-5.4); White Blood Count 5.8 K/mm3 (4.4-11.0)
[2019-01-28 12:04] LABS: ALB/GLOB Ratio 0.6 RATIO (0.9-2.4); AST(SGOT) 191 U/L (15-37); Alanine Aminotransfer ALT/SGPT 105 U/L (13-56); Albumin, Serum 2.2 g/dL (3.2-5.0); Alkaline Phosphatase 167 U/L (45-117); Anion Gap 5 (5-15); BUN 10 mg/dL (7-18); BUN/Creat Ratio 16.4 RATIO (10-20); Chloride 104 mmol/L (98-107); Creatinine, Serum 0.61 mg/dL (0.55-1.02); EST Glomerular Filtration Rate 105 mL/min (>60); Est Glom Filt Rate - Afr Amer 127 mL/min (>60); Estimated Creatinine Clearance 78.74 ml/min; Globulin 3.9 g/dL (2.2-4.2); Glucose 86 mg/dL (74-106); Protein, Total 6.1 g/dL (6.4-8.2); Sodium Level 135 mmol/L (136-145)
[2019-01-28 12:28] LABS: Mucous, Urine 0 SEEN /hpf (<or=2+); Red Blood Cells-Urine 0 SEEN /hpf (0-5); White Blood Cells 0 SEEN /hpf (0-5)
[2019-01-28 12:34] LABS: Color, Urine Yellow (Yellow); Glucose, Dipstick Normal (Normal); Ketone-Dipstick Negative (Negative); Leukocyte Esterase-Dipstick Negative /ul (Negative); Nitrite-Dipstick Negative (Negative); Occult Blood-Urine Negative /ul (Negative); Protein-Dipstick Negative (Negative); Specific Gravity, Urine 1.005 (1.002-1.030); Urine Bilirubin Dipstick Negative (Negative); Urine Clarity Clear (Clear); Urine Urobilinogen Normal (Normal)
[2019-01-28 12:37] LABS: Bacteria RARE /hpf (None Seen); Squamous Epithelial Cells - UA 0-5 SEEN /hpf (5-10)
[2019-01-28 12:44] LABS: International Normalized Ratio 1.1; Prothrombin Time (Protime)PT. 13.9 SECONDS (11.7-14.9)
[2019-01-28 12:54] VITALS: BP 111/62; PULSE 71; RESP 18; O2SAT 100
--- NOTE | 2019-01-28 13:05 | ED.VIS.GEN ---
History of Present Illness Informant: Patient Narrative: 63-year-old female with concern for swelling. States that she has had swelling in her lower extremities as well as arms over the past 1 month. States that she did have an episode when she is approximately 11 where she is losing protein through her urine. [place] any other symptoms at this time including chest pain, shortness of breath, nausea, vomiting, abdominal pain, urinary symptoms. Spoke with primary care physician's office who directed her to the emergency department. States that she drinks 3 alcoholic beverages per night which she has a small amount of wine with 7-Up. Denies any drugs or alcohol. <Naveen Bean - Last Filed: 01/28/19 13:15> <Samy Balderrama - Last Filed: 01/28/19 13:35> Chief Complaint: General Illness Past Medical History Prior records reviewed: Yes Smoking Status: Light Smoker (<10/day) <Naveen Bean - Last Filed: 01/28/19 13:15> <Samy Balderrama - Last Filed: 01/28/19 13:35> - Allergies and Home Meds Allergies/Adverse Reactions: Allergies codeine Allergy (Verified 01/28/19 10:47) Other STOMACH PAIN sulfamethoxazole [From Septra] Allergy (Verified 01/28/19 10:47) Rash trimethoprim [From Septra] Allergy (Verified 01/28/19 10:47) Unknown prasugrel [From Effient] Adverse Reaction (Severe, Verified 01/28/19 10:47) Not advised in pt's who have had CVA Onset 09/06/2016 Primary Care Physician: Maxx Hewitt DO [Primary Care Provider] - Review of Systems General: Denies: Chills, Fever, Sweats Eyes: Denies: Visual changes - bilaterally, Diplopia ENT: Denies: Rhinorrhea, Sore throat Cardiovascular: Denies: Chest pain, Palpitations Respiratory: Denies: Dyspnea, Cough, Dyspnea on exertion Gastrointestinal: Denies: Abdominal pain, Nausea, Vomiting, Diarrhea, Melena, Hematochezia Genitourinary: Denies: Dysuria, Hematuria, Frequency Musculoskeletal: Reports: Swelling. Denies: Back pain, Extremity Pain Skin: Denies: Rash, Wounds Neurological: Denies: Headache, Weakness, Numbness <Naveen Bean - Last Filed: 01/28/19 13:15> Physical Exam Vital Signs/Narrative: Vital Signs Temp Pulse Resp BP Pulse Ox 01/28/19 12:54 71 18 111/62 100 01/28/19 10:47 97.7 F L 81 18 121/74 H 100 Inital Vital Signs reviewed: Yes General: Well nourished, Well developed, No Acute Distress Head: Normocephalic, Atraumatic Eyes: Perrl, EOMI ENT: Moist mucous membranes, No rhinorrhea Neck: Supple, Nontender Cardiovascular: Regular rate, Regular rhythm, No murmurs Respiratory: No distress, CTA bilaterally, Chest nontender Abdomen: Soft, Nontender, Nondistended, Normal bowel sounds Back: Nontender, Normal Inspection Extremities: Nontender, Edema Skin: Normal color, No rash Neurological: Alert, Oriented x3, Cranial nerves II-XII grossly intact, Normal Strength, Normal Sensation Psychological: Normal affect, Normal Mood <Naveen Bean - Last Filed: 01/28/19 13:15> Vital Signs/Narrative: Vital Signs Temp Pulse Resp BP Pulse Ox 01/28/19 12:54 71 18 111/62 100 01/28/19 10:47 97.7 F L 81 18 121/74 H 100 <Samy Balderrama - Last Filed: 01/28/19 13:35> Diagnostic/Tx/Re-eval Chest X-Ray - ED: 1 View, Normal - Rhythm Strip Rhythm Strip: Sinus Rhythm Rate: 69 Ectopy: None - EKG Initial EKG Interpretation: Sinus Rhythm, - - Normal sinus rhythm at 69 bpm. VA interval 202 ms. QTc 417 ms. T wave inversion in V2. No evidence of ST elevation or depression. - Medical Decision Making Patient appears well nontoxic. Vital signs within normal limits. 1+ pitting edema bilaterally. No tenderness to the calf. Urine shows no evidence of proteinuria. Transaminitis present without elevation in INR. Hepatitis panel pending. I did discuss with the patient alcohol abuse after discussion patient does wish to be discharged home. She will follow-up with her primary care provider Dr. Hewitt within the next 2 days. Asked to return for new or worsening symptoms. Patient was discharged home in stable condition Home stable. Impression: 1. weakness 2. transaminitis 3. alcohol abuse <Naveen Bean - Last Filed: 01/28/19 13:15> - Medical Decision Making The patient was seen with Dr. Park I agree with history and physical as above complaining of generalized edema her lungs clear heart tones normal abdomen soft she has 2+ to 3+ edema lower extremities that really seem old and chronic in nature as she reports her doctors have working up for all the above at this time screening labs we obtained and will proceed with further management see the note for full details <Samy Balderrama - Last Filed: 01/28/19 13:35> ED Disposition <Naveen Bean - Last Filed: 01/28/19 13:15> <Samy Balderrama - Last Filed: 01/28/19 13:35> - Plan for ED Patient: Disposition: Home or Assisted Living Diagnosis: Transaminitis Instructions: ED Peripheral Edema, Bilateral Referrals: Maxx Hewitt DO [Primary Care Provider] -
[2019-01-28 13:42] VITALS: RESP 16
[2019-01-30 04:07] LABS: HEPATITIS B SURFACE AG Negative (Negative); Hepatitis A IgM Antibody Negative (Negative); Hepatitis B Core AB IgM Negative (Negative)
[2019-01-30 16:49] LABS: Hep C Antibodies <0.1 s/co ratio (0.0-0.9)
== END 2019-01-28 13:43 | disposition home or self-care (01) ==
PROVIDERS: Emergency Provider Emergency Medicine; Family Provider Family Medicine; PCP Family Medicine
DX: R53.1 Weakness (principal); R74.0 Nonspecific elevation of levels of transaminase and lactic acid dehydrogenase [LDH]; F10.10 Alcohol abuse, uncomplicated; F17.200 Nicotine dependence, unspecified, uncomplicated
CPT/HCPCS: 71045; 80053; 80074; 81001; 84484; 85025; 85610; 93005; 99283; A4216

== ENCOUNTER → 2019-01-29 15:25 | Outpatient (CLI) | payer MEDICARE, SELFPAY ==
[2019-01-24 11:08] VITALS: BMI 17.8
[2019-01-28 10:47] VITALS: BMI 18.1
--- NOTE | 2019-01-29 15:27 | MRI_ITS ---
HISTORY:BILATERAL Leg Weakness AND SWELLING , MUSCLE TIGHTNESS, X 30 DAYS MR Spine Lumbar W/O Contrast Technique:Sagittal T1-T2 and STIR and axial T1 and T2-weighted imaging # of images including paperwork:108 Comparison:none Findings: The conus ends at the T12-L1 disc space and appears within normal limits. T12-L1: Only imaged in the sagittal plane Disc height and hydration are preserved. There is no evidence of the disc contour abnormality or canal stenosis. No significant neural foraminal narrowing or nerve root impingement. L1-2:Minimal annular bulge. There is a Schmorl's node at this level. No canal stenosis or neural foraminal narrowing. No nerve root impingement L2-3:Mild annular bulge effacing the ventral thecal sac but no evidence of canal stenosis or neuroforaminal narrowing. No nerve impingement L3-4:There is grade 1 anterior spondylolisthesis of L3 on L4 with diffuse annual bulge asymmetric to the left. There is a trefoil appearance the canal. Facet arthrosis. No significant nerve impingement L4-5:Modic type II changes at the endplates. There is a right foraminal disc protrusion. This does extend laterally. There is effacement of the right L4 nerve root within the neural foramen. There is also diffuse annular bulge asymmetric to the left. There is mild to moderate left neuroforaminal narrowing. There is effacement of left greater than right L5 nerve roots within thecal sac L5-S1:There is central and left central disc protrusion with disc material extending into the neural foramen on the left. Moderate left and mild right neural foraminal narrowing. There is effacement of the left L5 nerve root within the foramen as well as abutment of the left S1 nerve root as it exits the thecal sac MRI/Spine Lumbar (Routine) IMPRESSION: Grade 1 anterior spondylolisthesis L3 on L4. Trefoil appearance the canal. L4-5 right foraminal disc protrusion extending laterally. Effacement of the right L4 nerve root within the neural foramen. Diffuse annual bulge asymmetric to the left with mild to moderate left neuroforaminal narrowing effacement of the left greater than right L5 nerve roots within the thecal sac L5-S1 central and left central disc protrusion with disc material extending into the neural foramen on the left. Effacement of the left L5 nerve root within the foramen and abutment of the left S1 nerve root as exits the thecal sac at 1821 Reported and signed by: Leticia Rolon DO Electronically Signed: Leticia Rolon DO at 18:20 EDT Tel , Service support ,
== END ==
PROVIDERS: Family Provider Family Medicine; PCP Family Medicine; Referring Provider Family Medicine; Visit Provider Family Medicine
DX: M43.16 Spondylolisthesis, lumbar region (principal); M51.27 Other intervertebral disc displacement, lumbosacral region; R26.2 Difficulty in walking, not elsewhere classified
CPT/HCPCS: 72148

== ENCOUNTER → 2020-01-22 09:44 | Outpatient (CLI) | payer MEDICARE, SELFPAY ==
[2020-01-02 14:52] VITALS: BMI 18.1
--- NOTE | 2020-01-22 10:05 | RAD_ITS ---
STUDY: X-RAY CHEST REASON FOR EXAM: Female, 64 years old. SOB HX OF PA 01/08/2020 HX OF 3 STENTS PLACED. TECHNIQUE: PA and lateral views of the chest. COMPARISON: Comparison is made with prior study dated 01-28-19. FINDINGS: Hyperinflation. The lungs are clear. There is no demonstrated pleural abnormality. There is evidence of coronary artery stenting. Normal mediastinum and quinton. Normal visualized pulmonary arteries. There is atherosclerotic calcification of the aortic arch with tortuosity. There are diffuse degenerative changes of the visualized thoracic spine. Normal visualized ribs, clavicles, and shoulders. There is no demonstrated abnormality of the visualized soft tissue structures of the upper abdomen. RAD/Chest PA and Lateral IMPRESSION: No acute abnormalities. Electronically Signed: Félix Sofia, at 14:55 EDT , Service support ,
[2020-01-22 10:31] LABS: Absolute Lymphocyte Count 1.47 X10^3/uL (0.83-4.51); Absolute Neutrophil Count 2.1 X10^3/uL (2.0-7.7); Basophil# 0.02 X10^3/uL; Basophil% 0.4 % (0-1); Eosinophil# 0.18 X10^3/uL; Hematocrit 29.6 % (37-47); Hemoglobin 9.4 g/dL (12.0-15.0); Lymphocyte # 1.47 X10^3/ul (4.0); Lymphocyte % 32.7 % (19-41); Mean Corp Hgb Conc 31.8 g/dL (32-36); Mean Corpuscular Hgb 30.2 pg (27.0-32.0); Mean Corpuscular Volume 95.2 fL (81-99); Mean Platelet Vol. 9.3 fl (6.2-12.0); Monocyte# 0.72 X10^3/uL; NRBC Flagged by Analyzer 0 % (0-5); Neutrophil # 2.09 X10^3/uL (2.7-7.7); Neutrophil % 46.7 % (47-70); Platelet Count 504 K/mm3 (150-450); RBC Distribution Width CV 16.1 % (11.6-14.6); RBC Distribution Width SD 55.7 fl (35.1-43.9); Red Blood Count 3.11 M/mm3 (4.2-5.4); White Blood Count 4.5 K/mm3 (4.4-11.0)
[2020-01-22 10:48] LABS: BNP,B-Type NATRIURETIC PEPTIDE 4424.2 pg/mL (0-100)
[2020-01-22 10:53] LABS: AST(SGOT) 49 U/L (15-37); Alanine Aminotransfer ALT/SGPT 59 U/L (13-56); Albumin, Serum 3.1 g/dL (3.2-5.0); Alkaline Phosphatase 169 U/L (45-117); Anion Gap 4 (5-15); BUN 4 mg/dL (7-18); Bilirubin, Direct 0.12 mg/dL (0.00-0.30); Calcium,Total 8.7 mg/dL (8.5-10.1); Chloride 109 mmol/L (98-107); Cholesterol 174 mg/dL (200); Creatinine, Serum 0.66 mg/dL (0.55-1.02); EST Glomerular Filtration Rate 94 mL/min (>60); Est Glom Filt Rate - Afr Amer 114 mL/min (>60); Globulin 4.3 g/dL (2.2-4.2); Glucose 92 mg/dL (74-106); High Density Lipoprotein 32 mg/dL; Magnesium 1.7 mg/dL (1.6-2.6); Potassium 3.3 mmol/L (3.5-5.1); Protein, Total 7.4 g/dL (6.4-8.2); Sodium Level 139 mmol/L (136-145); Triglycerides 162 mg/dL; Very Low Density Lipoprotein 32 mg/dL (5-40)
== END ==
PROVIDERS: PCP Family Medicine; Referring Provider Nurse Practitioner Family; Visit Provider Nurse Practitioner Family
DX: E78.5 Hyperlipidemia, unspecified (principal); R06.00 Dyspnea, unspecified; I25.10 Atherosclerotic heart disease of native coronary artery without angina pectoris; Z95.5 Presence of coronary angioplasty implant and graft; R06.02 Shortness of breath
CPT/HCPCS: 36415; 71046; 80048; 80061; 80076; 83735; 83880; 85025

== ENCOUNTER → 2020-01-23 12:26 | Outpatient (CLI) | payer MEDICARE, SELFPAY ==
[2020-01-23 09:42] VITALS: BMI 20.5
--- NOTE | 2020-01-23 12:27 | CT_ITS ---
STUDY: CT BRAIN WITH AND WITHOUT CONTRAST REASON FOR EXAM: Female, 64 years old. HEADACHE, VISION CHANGES RADIATION DOSAGE (If Supplied By Facility): CTDIvol = ( 44.99 ) mGy, DLP = ( 1547.23 ) mGycm TECHNIQUE: Transaxial CT imaging of the brain was performed pre and post contrast administration. The examination was performed with intravenous administration of IV 50mL Isovue-370. Individualized dose optimization techniques were used for this CT. COMPARISON: None. FINDINGS: Normal soft tissue structures. Normal calvarium. There is mild cerebral atrophy with widening of the extra-axial spaces and ventricular dilatation. Normal white matter tracts of the cerebral hemispheres. Small old lacunar infarct in the left thalamus. Normal brainstem. Normal cerebellum. There is no intracranial hemorrhage. There are no findings of an acute ischemic infarction. Normal visualized paranasal sinuses. CT/Brain/Head W/WO Contrast IMPRESSION: Chronic involutional changes of the brain. Small old lacunar infarct in the left thalamus. Electronically Signed: Félix Sofia, at 13:15 EDT , Service support ,
== END ==
PROVIDERS: PCP Family Medicine; Referring Provider Nurse Practitioner Family; Visit Provider Nurse Practitioner Family
DX: R51 Headache (principal)
CPT/HCPCS: 70470; Q9967

== ENCOUNTER → 2020-01-24 14:56 | Outpatient (CLI) | payer MEDICARE, SELFPAY ==
[2020-01-23 09:42] VITALS: BMI 20.5
[2020-01-24 10:04] VITALS: BMI 20.5
--- NOTE | 2020-01-24 14:56 | ECHOCS_ITS ---
Reason For Study: CHF Procedure This was a 2D Doppler, Color Flow transthoracic echocardiogram. Contrast injection was performed. Exam performed in department. Left Ventricle Normal LV size. Moderate concentric left ventricular hypertrophy. The estimated ejection fraction is 47 %. Mild segmental systolic dysfunction (see wall motion). Septal [place] : Hypokinetic. There are regional wall motion abnormalities as specified. Right Ventricle Normal RV size. Normal systolic function. Atria Normal left atrium. Normal right atrium. Mitral Valve Normal mitral valve. Tricuspid Valve Normal tricuspid valve. Unable to estimate RV systolic pressure due to insufficient tricuspid regurgitant envelope. Aortic Valve Normal aortic valve. Trisinus/trileaflet aortic valve. Pulmonic Valve Normal pulmonic valve. Great Vessels Normal aortic root. The pulmonary artery is normal size. Normal inferior vena cava. Pericardium/Pleural Small pericardial effusion. There are no echocardiographic indications of cardiac tamponade. Medication Diluted definity 4ml given slow IV push to enhance endocardial definition. MMode/2D Measurements & Calculations LVIDd: 4.7 cm IVSd: 1.3 cm LAV(MOD-bp): 33.9 ml LVIDs: 2.7 cm LVPWd: 1.4 cm RVDd: 2.7 cm FS: 42.1 % LAV(MOD-bp) Indexed: 19.5 ml/m2 LAV(MOD-sp2): 36.2 ml LAV(MOD-sp4): 31.1 ml LA dimension(2D): 4.0 cm LA A4 area: 13.6 cm2 RA A4 area: 10.8 cm2 Doppler Measurements & Calculations MV E max francesco: 47.2 cm/sec Lat Peak E' Francesco: 4.6 cm/sec Med Peak E' Francesco: 2.8 cm/sec MV A max francesco: 79.6 cm/sec E/E' lat: 10.3 E/E' med: 16.6 MV E/A: 0.59 Ao V2 max: 124.0 cm/sec LV V1 max: 86.4 cm/sec PA V2 max: 96.4 cm/sec Ao max P.2 mmHg LV V1 max P.0 mmHg Ao V2 mean: 82.7 cm/sec Ao mean P.1 mmHg Ao V2 VTI: 20.1 cm Interpretation Summary Normal LV size. Moderate concentric left ventricular hypertrophy. The estimated ejection fraction is 47 %. Mild segmental systolic dysfunction (see wall motion). Small pericardial effusion. There are no echocardiographic indications of cardiac tamponade. Contrast injection was performed. Ordering Physician: Martín Hayes Referring Physician: Maxx Hewitt Performed By: Nadira Hayes RDCS, RVT
== END ==
PROVIDERS: PCP Family Medicine; Referring Provider Nurse Practitioner Family; Visit Provider Nurse Practitioner Family
DX: I50.9 Heart failure, unspecified (principal); I51.7 Cardiomegaly
CPT/HCPCS: 93306; Q9957; A4216; C8929

== ENCOUNTER → 2020-03-06 14:37 | Outpatient (CLI) | payer MEDICARE, SELFPAY ==
[2020-03-06 14:10] VITALS: BMI 20.5
[2020-03-06 16:54] LABS: Absolute Lymphocyte Count 1.97 X10^3/uL (0.83-4.51); Absolute Neutrophil Count 3.1 X10^3/uL (2.0-7.7); Basophil# 0.02 X10^3/uL; Basophil% 0.3 % (0-1); Eosinophil# 0.08 X10^3/uL; Eosinophils% 1.3 % (0-5); Hematocrit 21.8 % (37-47); Hemoglobin 7.2 g/dL (12.0-15.0); Lymphocyte # 1.97 X10^3/ul (4.0); Mean Corpuscular Hgb 31.9 pg (27.0-32.0); Mean Corpuscular Volume 96.5 fL (81-99); Mean Platelet Vol. 8.7 fl (6.2-12.0); Monocyte# 0.72 X10^3/uL; Monocyte% 12.1 % (0-10); NRBC Flagged by Analyzer 0 % (0-5); Neutrophil # 3.14 X10^3/uL (2.7-7.7); Neutrophil % 52.6 % (47-70); Platelet Count 405 K/mm3 (150-450); RBC Distribution Width CV 18.4 % (11.6-14.6); RBC Distribution Width SD 63.6 fl (35.1-43.9); Red Blood Count 2.26 M/mm3 (4.2-5.4)
[2020-03-06 17:02] LABS: Anion Gap 9 (5-15); BUN 28 mg/dL (7-18); Calcium,Total 8.7 mg/dL (8.5-10.1); Chloride 96 mmol/L (98-107); Creatinine, Serum 1.22 mg/dL (0.55-1.02); EST Glomerular Filtration Rate 47 mL/min (>60); Est Glom Filt Rate - Afr Amer 57 mL/min (>60); Glucose 106 mg/dL (74-106); Potassium 4.9 mmol/L (3.5-5.1); Sodium Level 127 mmol/L (136-145)
== END ==
PROVIDERS: PCP Family Medicine; Referring Provider Family Medicine; Visit Provider Family Medicine
DX: E87.6 Hypokalemia (principal); M79.10 Myalgia, unspecified site; T46.6X5A Adverse effect of antihyperlipidemic and antiarteriosclerotic drugs, initial encounter
CPT/HCPCS: 36415; 80048; 85025

== ENCOUNTER → 2020-03-28 | Outpatient (CLI) | payer MEDICARE, SELFPAY ==
[2020-03-27 11:46] VITALS: BMI 19.2
[2020-03-28 15:56] LABS: Amphetamine Urine VISTA NEGATIVE (<1000 ng/mL); Barbiturate Urine VISTA POSITIVE (< 200 ng/mL); Benzodiazepine Urine VISTA POSITIVE (< 200 ng/mL); Cocaine Urine VISTA NEGATIVE (< 300 ng/mL); Ecstacy Urine VISTA NEGATIVE (< 500 ng/mL); Methadone Urine VISTA NEGATIVE (< 300 ng/mL); PCP Urine VISTA NEGATIVE (< 25 ng/mL); THC Urine VISTA NEGATIVE (< 50 ng/mL); Vista UDS pH Range 6
== END | disposition home or self-care (01) ==
PROVIDERS: PCP Family Medicine; Referring Provider Anesthesiology; Visit Provider Anesthesiology
DX: F11.20 Opioid dependence, uncomplicated (principal)
CPT/HCPCS: 80307

== ENCOUNTER → 2020-04-01 07:52 | Outpatient (CLI) | payer MEDICARE, SELFPAY ==
[2020-03-06 14:10] VITALS: BMI 20.5
[2020-03-27 11:46] VITALS: BMI 19.2
--- NOTE | 2020-04-01 07:53 | BI_ITS ---
MAMMOGRAPHY - BILATERAL SCREENING REASON FOR EXAM: Female, 64 years old. Routine annual screening examination. PERTINENT HISTORY: FAM HX OF MOTHER @ AGE 60 Tamp; SISTER @ AGE LATE 50''S - LT EXC BX TECHNIQUE: Digital bilateral breast rosa (3D mammographic acquisition) in the CC and MLO projections. 2-D mediolateral oblique (MLO) and craniocaudad (CC) views of both breasts were obtained. CAD: Full Field Digital Mammography with Computer Added Detection was performed. COMPARISON: 02/03/2018 and 02/18/2017 FINDINGS: Breast Composition: The breasts are heterogeneously dense, which may obscure small masses. There are no dominant masses or suspicious calcifications. No other significant abnormalities are identified. BI/SCREEN MAMM (CAD) W/ROSA BILAT IMPRESSION: Stable bilateral screening mammogram. Yearly follow-up mammogram recommended. (A) ASSESSMENT CATEGORY: BIRADS Category 2: Benign. A letter regarding these results will be sent to the patient by the facility within 30 days. Approximately 10% of breast cancers are not detected by mammography. A normal mammogram should not delay biopsy of a clinically suspicious abnormality. [id number] Electronically Signed: Shona Castillo, at 15:46 EDT Tel , Service support ,
== END ==
PROVIDERS: PCP Family Medicine; Referring Provider Internal Medicine Hematology & Oncology; Visit Provider Internal Medicine Hematology & Oncology
DX: Z12.31 Encounter for screening mammogram for malignant neoplasm of breast (principal)
CPT/HCPCS: 77063; 77067

== ENCOUNTER → 2020-04-08 13:09 | Outpatient (CLI) | payer MEDICARE, SELFPAY ==
[2020-03-13 08:01] VITALS: BMI 19.2
[2020-04-02 10:05] VITALS: BMI 19.8
--- NOTE | 2020-04-08 13:12 | CT_ITS ---
STUDY: LOW DOSE CT LUNG CANCER SCREENING REASON FOR EXAM: Female, 64 years old. Previous smoker. Quit in duly of this year. 1/2 pack a day since she was 12 RADIATION DOSAGE (If Supplied By Facility): CTDIvol = ( 2.01 ) mGy, DLP = ( 66.95 ) mGycm TECHNIQUE: No contrast was administered. Low dose technique was utilized (average mAS-38 and kVp 120). 1.25 mm axial source images with a slice interval of 1.25-mm were reconstructed in lung windows. 2.5 mm axial source images with a slice interval of 2.5-mm were reconstructed in lung windows. 5.0 mm axial source images with a slice interval of 5.0-mm were reconstructed in soft tissue windows. Nodule measured using lung windows on PACS and/or independent workstation with automated measurement of minimum and maximum diameter. Nodule measurement reported as average diameter rounded to the nearest whole number. Growth is defined as an increase ins size of greater than 1.5 mm. COMPARISON: None. NODULES: No suspicious nodule is seen. Emphysema: Hyperinflation. Emphysematous changes seen in the upper lobes. Minimal scarring in the peripheral aspect of the right upper lobe. Endobronchial lesion: No endobronchial lesion is seen. Aorta: Atherosclerotic plaque formation. Coronary arteries: Coronary artery calcification. Heart: Unremarkable. Pulmonary artery: Unremarkable. Mediastinal nodes: Multiple small benign appearing mediastinal lymph nodes. Other chest and abdominal findings: CT/Low Dose CT Lung Screening IMPRESSION: Lung-RADS category 2 - Continue annual screening with LDCT in 12 months. IMPORTANT NOTES FOR USE: ACR Lung-RADS Version 1.0 Assessment Categories Release Date: October 22, 2013 Category: Coded 0-4 bases on nodule(s) with highest degree of suspicion. Negative screen is defined as categories 1 and 2; a positive screen is defined as categories 3 and 4. Category 3 and 4A nodules that are unchanged on interval CT should be coded as category 2, and individuals returned to screening in 12 months. Category 4X: Category 3 or 4 nodules with additional imaging findings that increase the suspicion of lung cancer, such as spiculation, GGN that doubles in size in 1 year, enlarged lymph notes, etc. Category Modifiers: S (significant finding unrelated to lung cancer) and C (prior history of treated lung cancer) may be added to the 0-4 Lung-RADS Electronically Signed: Félix Sofia, at 14:18 EDT , Service support ,
== END ==
PROVIDERS: PCP Family Medicine; Referring Provider Nurse Practitioner Family; Visit Provider Nurse Practitioner Family
DX: Z12.2 Encounter for screening for malignant neoplasm of respiratory organs (principal); Z87.891 Personal history of nicotine dependence
CPT/HCPCS: G0297

== ENCOUNTER 2020-04-28 07:20 | Day surgery (SDC) | payer MEDICARE, SELFPAY ==
[2020-03-25 10:08] VITALS: BMI 19.2
[2020-04-17 13:31] VITALS: BMI 20.2
[2020-04-28 07:43] VITALS: BP 131/67; PULSE 72; RESP 14; TEMP 35.9; O2SAT 100; BMI 20.5
[2020-04-28] MEDS: Lactated Ringers 1,000 ML 100 ML IV (07:57)
--- NOTE | 2020-04-28 08:24 | HP.PCM_ITS ---
History and Physical Date of Admission: 04/28/20 [facility] [address] [place] [address] MR#: [id number] Acct: [id number] Name: JANETT MARK I Rep #: [id number] : 1955 Provider: Dr. Dustin Ricardo MD Age/Sex: 64/F Location: [facility] Status: Signed Intake Vital Signs 03/25/20 BMI 19.2 03/25/20 Height 5 ft 9 in 03/25/20 Weight: 130 lb 03/25/20 BMI 19.2 03/25/20 BP 90/65 03/25/20 Blood Pressure Location Rt brachial 03/25/20 Position Sitting 03/25/20 Respiration 18 03/25/20 Pulse 74 03/25/20 Pulse Source Monitor 03/25/20 Temp 95.6 F L 03/25/20 Temp Source Temporal 03/25/20 Oxygen Delivery Method room air Intake Visit Reasons: Esophagogastroduodenoscopy Chief Complaint: EGD Consult Bakery Worker Required: No Is patient in pain?: No Allergies amlodipine [From Norvasc] Allergy (Verified 03/25/20 10:07) severe BLE edema codeine Allergy (Verified 03/25/20 10:07) Other sulfamethoxazole [From Septra] Allergy (Verified 03/25/20 10:07) Rash trimethoprim [From Septra] Allergy (Verified 03/25/20 10:07) Unknown prasugrel [From Effient] Adverse Reaction (Severe, Verified 03/25/20 10:07) Not advised in pt's who have had CVA Medications aspirin 81 mg tablet,delayed release 81 mg PO DAILY 07/31/18 [History Confirmed 03/25/20] nitroglycerin 0.4 mg sublingual tablet 0.4 mg SUBLINGUAL Q5M PRN #25 tab 06/04/19 [Rx Confirmed 03/25/20] mirtazapine 15 mg tablet 15 mg PO QHS #90 tab 01/08/20 [Rx Confirmed 03/25/20] nicotine 21mg/24hr-14mg/24hr-7mg/24hr daily transderm patch,sequential 1 patch TRANSDERMAL DAILY #56 patch 01/17/20 [Rx Confirmed 03/25/20] clopidogrel 75 mg tablet 75 mg PO QDAY #90 tab 01/23/20 [Rx Confirmed 03/25/20] diphenoxylate-atropine 2.5 mg-0.025 mg tablet 1 tab PO BID 01/24/20 [History Confirmed 03/25/20] nortriptyline 25 mg capsule 25 mg PO DAILY cap 01/24/20 [History Confirmed 03/25/20] sucralfate 1 gram tablet 1 g PO .qid tab 01/24/20 [History Confirmed 03/25/20] albuterol sulfate 90 mcg/actuation aerosol inhaler 2 puff INHALATION Q6H #8 g 02/04/20 [Rx Confirmed 03/25/20] tiotropium bromide 2.5 mcg/actuation mist for inhalation 2 puff INHALATION DAILY #4 g 02/04/20 [Rx Confirmed 03/25/20] albuterol sulfate 90 mcg/actuation breath activated powder inhaler 2 inh INHALATION Q6H PRN #1 ea 03/06/20 [Rx Confirmed 03/25/20] alprazolam 0.5 mg tablet 0.5 mg PO TID PRN #90 tab 03/06/20 [Rx Confirmed 03/25/20] iron, carbonyl 45 mg tablet 45 mg PO DAILY #90 tab 03/06/20 [Rx Confirmed 03/25/20] pantoprazole 40 mg tablet,delayed release See Rx Instructions .ROUTE .COMPLEX #30 tab 03/06/20 [Rx Confirmed 03/25/20] nortriptyline 50 mg capsule 50 mg PO QHS #30 cap 03/20/20 [Rx Confirmed 03/25/20] PFSH Medical History Atherosclerosis of coronary artery of [place] heart without angina pectoris (Chronic) Essential (primary) hypertension (Chronic) Hyperlipidemia (Chronic) CVA (cerebral vascular accident) (Chronic) Iron deficiency anemia (Acute) Atrophic vaginitis (Chronic) IBS (irritable bowel syndrome) (Chronic) Urethral stricture (Chronic) History of benign breast tumor (Resolved) Irritable bowel syndrome with diarrhea (Resolved) Surgical History History of coronary artery stent placement (Chronic 04/12/16) History of ear surgery (Resolved) History of hysterectomy (Resolved) Family History Mother CVA (cerebral vascular accident) Breast cancer Anxiety and depression Grandmother CVA (cerebral vascular accident) Sister Breast cancer Anxiety and depression Social History (Updated 03/25/20 @ 10:[address] Patrick Ricardo MD) Smoking Status: Former smoker alcohol intake: current alcohol intake frequency: a few times a week Alcohol type: wine substance use type: does not use caffeine: No what type of physical activity do you participate in: bicycling frequency: daily seatbelt use: always do you feel safe at home: Yes HPI HPI Surgical H&P: Yes HPI: JANETT MARK, is a 64 F who presents to the office today for Evaluation of iron deficiency anemia due to chronic blood loss.Patient was admitted to [facility] in December 2019. She had a heart attack and underwent a coronary stenting. She was noted to be anemic with guaiac positive stools. She was subsequently transferred 1 unit of packed red blood cells and underwent a an attempted colonoscopy which was incomplete due to redundant colon and a suboptimal prep. It was recommended that she undergo a barium enema which I do not have the results of but reportedly was incomplete as well.She was noted to have sigmoid diverticulosis and hemorrhoids even with the suboptimal prep. A few days following the discharge from the hospitalization she experienced 1 episode of amber red rectal bleeding and no further investigation was done at that time. She was seen by hematology oncology and referred to lung cancer screening program. It was of noted that she had not had a screening mammogram for several years and a mammogram was scheduled. She is going to be converted over to IV iron treatment to get her ferritin over 100. Following back up with hematology in 1 month. She is referred to me for GI work-up. ROS General General: Yes weight change and fatigue; no appetite, colon cancer, breast cancer or weakness HEENT HEENT: No difficulty swallowing, eye injury, eye surgery, swollen glands or hoarseness Endo Endocrine: No thyroid disease, diabetes mellitus, thyroid cancer, Hair loss, heat intolerance or cold intolerance Skin Skin: No rash or changing moles Breast Breast: No left breast lump, right breast lump, nipple discharge, breast pain, abnormal mammogram, abnormal US or breast enlargement Musc Musculoskeletal: Yes back problems and arthritis; no rheumatoid arthritis, gout or joint pain Cardio Cardiovascular: Yes heart disease, heart attack and heart stent; no murmur, pacemaker, atrial fibrillation, high blood pressure, palpitations, shortness of breat with exertion or chest pain Psych Psychiatric: Yes depression and anxiety; no hearing voices Resp Respiratory: Yes shortness of breath, No sleep apnea, No cough, No COPD, No asthma, No emphysema, No wheezing Gastro Gastrointestinal: No abdominal pain, No nausea or vomiting, Yes diarrhea, No constipation, Yes blood in stool, No acid reflux, Yes hemorrhoids, Yes ulcers, No gallbladder problem, No black,tarry stools Additional Details: Pancreatitis Norm Hematologic: Yes blood thinners, No blood disorders, Yes bleeding, No anemia, No blood clots Neuro Neurologic: No system reviewed and no additional complaints, except as docu, No as per HPI, No abnormal walking, No abnormal hearing, No abnormal movements, No abnormal speech, No behavioral changes, No burning sensations, No confusion, No seizure-like activity, No unsteadiness, No dizziness, No localized weakness, No frequent falls, No headache(s), No lack of coordination, No loss of vision, No memory loss, No numbness, No other visual disturbances, No radiating pain, No restless legs, No sensory deficit, No fainting, No tingling, No tremor(s), No weakness, Yes other (Stroke) Exam Const General: no acute distress, well developed, well hydrated Orientation: oriented to person, oriented to place, oriented to time [facility] Head: normocephalic, atraumatic Ears: external ears normal Mouth: moist mucous membranes Eyes Sclera: sclerae normal Pupils: normal by confrontation Neck Neck: no lymphadenopathy noted Neck mass: No Thyroid: thyroid normal, symmetrical Chest Chest palpation & inspection: normal inspection of the chest Breast Palpation: No nipple discharge Resp Effort & Inspection: normal respiratory effort Auscultation: clear to auscultation bilaterally Percussion: percussion normal Cardio Rate: regular rate Rhythm: regular rhythm Heart Sounds: no murmurs GI Palpation: soft, no hepatosplenomegaly, no masses, nontender Rectal Exam: other Other: Rectal exam deferred. Extrem General: normal to inspection, no clubbing, cyanosis or edema Assessment & Plan Problems 1. Iron deficiency anemia due to chronic blood loss D50.0 2. Heme positive stool R19.5 Plan I have discussed the above with the patient. I have offered the patient esophagogastroduodenoscopy for evaluation. I have explained the risks/benefits of the procedure and described the procedure. I have discussed the risks with the patient, including but not limited to: infection, bleeding, perforation of the GI tract requiring emergency surgery, inability to complete the procedure, injury to any internal organs, complications of anesthesia, etc. - the patient understands and agrees to proceed. I have answered all the patient's questions to the patient's satisfaction and the patient has no further questions. The patient has been given instructions for the colon cleansing preparation. I need to retrieve the barium enema report. I am not sure that I am going to do any better with trying to do a colonoscopy on her than she did back in [place] even with a good bowel prep. And probably going to have to reschedule her for a repeat barium enema. We will do a bowel prep for that as well. Coding Level of Care Code Off vis,new,level 3 Diagnoses Iron deficiency anemia due to chronic blood loss D50.0 Heme positive stool R19.5 COVID (Procedure Consent) Procedure Criteria Procedure Criteria: Yes Elective The surgeon/proceduralist and patient have discussed in detail the risk of exposure to and/or potential harm posed by the COVID-19 virus with having a surgery/procedure at this time versus the risk of? delaying the surgery/procedure. It is not possible to know either the risk of delaying the surgery or procedure or chance of getting an infection with perfect accuracy, but a joint decision was made between the patient and the surgeon/proceduralist ?to proceed at this time with the scheduled s urgery/procedure as indicated on the consent form. <Electronically signed by Patrick Ricardo MD> Date _ Patrick Ricardo MD Cosigner Signature: Date (if applicable) CC: Dr. Maxx Hewitt, DO; Dr. Lydia Sparks MD ~ I have re-examined the patient. There are no clinical changes since date of exam.
--- NOTE | 2020-04-28 08:30 | EGD_PTH ---
PATIENT: DEEDEE,September LOC: EN U#:[id number] AGE/SX: 64/F ROOM: RE04/28/[address]: Dr. Patrick Ricardo MD : 1955 BED: DIS: 04/28/2020 SPEC #: [id number] RECD: 04/28/20 11:37 STATUS: SUJATHA ALEX #: [id number] MARY: 04/28/20 08:[address]: Patrick Ricardo DEPT: SURGICAL PATHOLOGY RECD BY: Odessa Randall ENTERED: 04/28/20 13:24 SP TYPE: EGD BIOPSY OTHR DR: Dr. Maxx Hewitt, DO Tissues: Gastric mucous membrane Procedures: Surgery Specimen Level IV HEADER OPERATION: [place] PRE-OP DIAGNOSIS: Iron deficiency anemia, heme-positive stool TISSUE SUBMITTED: Antrum biopsy for histo and H. pylori MICROSCOPIC DIAGNOSIS Antrum biopsy: Mild gastritis. See microscopic description and comment. SJ:radhika 04/29/20 COMMENT The results of immunohistochemistry for Helicobacter pylori will be reported separately ([id number]). MICROSCOPIC DESCRIPTION Slides are reviewed. The specimen shows fragments of gastric mucosa with chronic inflammatory cell infiltrates in the lamina propria consisting of lymphocytes and plasma cells, consistent with mild chronic gastritis. GROSS DESCRIPTION Received in fixative is one container labeled with the patient's name and designated antrum biopsy. The specimen consists of one irregular fragment of light fung soft tissue that measures 0.3 x 0.3 x 0.1 cm. The specimen is totally submitted in one cassette. / DHRUV:radhika 04/28/20 TC:5 CPT: 96920
--- NOTE | 2020-04-28 08:30 | IMM_PTH ---
PATIENT: DEEDEE,September LOC: EN U#:[id number] AGE/SX: 64/F ROOM: RE04/28/[address]: Dr. Patrick Ricardo MD : 1955 BED: DIS: 04/28/2020 SPEC #: [id number] RECD: 04/28/20 13:43 STATUS: SOUDedrick REQ #: [id number] MARY: 04/28/20 08:[address]: Patrick Ricardo DEPT: IMMUNOHISTOCHEMISTRY RECD BY: Guillermina Carter ENTERED: 04/28/20 13:45 SP TYPE: IMMUNO OTHR DR: Dr. Maxx Hewitt, DO Tissues: Stomach, NOS Procedures: H Pylori (initial) PHYSICIAN & INSTITUTION [place] [address] SPECIMEN INFORMATION: Tissue Source: Antrum biopsy Clinical Info: Iron deficiency anemia, heme-positive stool Specimen Number: [id number] CPT code: 83041 METHODOLOGY: Deparaffinized sections of prefer/formalin-fixed tissue or PAP/DQ stained slides are incubated with monoclonal/polyclonal antibodies/oligonucleotide probes. Localization is made via biotin free immunoperoxidase method. Appropriate controls are performed and reacted as expected. Results on target cell population are indicated in the following table: RESULTS: ANTIBODY / CLONE RESULT H Pylori (polyclonal) negative These tests were developed and their performance characteristics determined by [facility]. They may not have been cleared or approved by the U.S. Food and Drug Administration. The FDA has determined that such clearance or approval is not necessary. INTERPRETATION: Antrum biopsy: Negative for Helicobacter pylori organisms. SJ:radhika 04/29/20
--- NOTE | 2020-04-28 08:42 | OP.CCLET_ITS ---
04/28/2020 Maxx Hewitt Re : Upper GI endoscopy procedure for September Lenin Dear Dr. Hewitt This procedure was performed on Tuesday, April 28, 2020. My impressions and recommendations are as follows: Impressions : - Normal esophagus. No specimens collected. - Gastritis. Biopsied. - Normal examined duodenum. No specimens collected. Recommendations : - Discharge patient to home. - Resume previous diet. - Continue present medications. - Await pathology results. - Repeat upper endoscopy (date not yet determined) for surveillance based on pathology results. - Telephone my office for pathology results in 1 week. My findings are described in the full procedure note, which is enclosed. If I can be of further assistance, please feel free to contact me at Doctor phone number(s): , Fax: [phone], Work: . Sincerely, MD Patrick Lopez MD 04/28/2020 8:41:58 AM This report has been signed electronically.
--- NOTE | 2020-04-28 08:42 | OP.EGD_ITS ---
Patient Name: Tyra Phelps Procedure Date: 04/28/2020 8:28 AM Date of : 1955 Age: 64 Procedure: Upper GI endoscopy Indications: Iron deficiency anemia, Heme positive stool Providers: Patrick Ricardo MD Referring MD: Maxx Hewitt Medicines: See the Anesthesia note for documentation of the administered medications Patient Profile: This is a 64 year old female. Refer to note in patient chart for documentation of history and physical. Complications: No immediate complications. Procedure: Pre-Anesthesia Assessment: - Prior to the procedure, a History and Physical was performed, and patient medications and allergies were reviewed. The patient's tolerance of previous anesthesia was also reviewed. The risks and benefits of the procedure and the sedation options and risks were discussed with the patient. All questions were answered, and informed consent was obtained. Prior Anticoagulants: The patient has taken aspirin, last dose was 7 days prior to procedure. ASA Grade Assessment: II - A patient with mild systemic disease. After reviewing the risks and benefits, the patient was deemed in satisfactory condition to undergo the procedure. After obtaining informed consent, the endoscope was passed under direct vision. Throughout the procedure, the patient's blood pressure, pulse, and oxygen saturations were monitored continuously. The Endoscope was introduced through the mouth, and advanced to the second part of duodenum. The upper GI endoscopy was accomplished without difficulty. The patient tolerated the procedure well. Scope In: 8:34:44 AM Scope Out: 8:37:36 AM Total Procedure Duration Time 0 hours 2 minutes 52 seconds Findings: The examined esophagus was normal. No biopsies or other specimens were collected for this exam. Localized mild inflammation characterized by congestion (edema), erythema and granularity was found in the prepyloric region of the stomach. Biopsies were taken with a cold forceps for Helicobacter pylori testing. The examined duodenum was normal. No biopsies or other specimens were collected for this exam. Impression: - Normal esophagus. No specimens collected. - Gastritis. Biopsied. - Normal examined duodenum. No specimens collected. Recommendation: - Discharge patient to home. - Resume previous diet. - Continue present medications. - Await pathology results. - Repeat upper endoscopy (date not yet determined) for surveillance based on pathology results. - Telephone my office for pathology results in 1 week. Procedure Code(s): --- Professional --- 45028, Esophagogastroduodenoscopy, flexible, transoral; with biopsy, single or multiple Diagnosis Code(s): --- Professional --- K29.70, Gastritis, unspecified, without bleeding D50.9, Iron deficiency anemia, unspecified R19.5, Other fecal abnormalities CPT copyright 2017 [employer]. All rights reserved. The codes documented in this report are preliminary and upon senior interaction designer review may be revised to meet current compliance requirements. MD Partick Lopez MD 04/28/2020 8:41:58 AM This report has been signed electronically. Number of Addenda: 0 Note Initiated On: 04/28/2020 8:28 AM
[2020-04-28 08:45] VITALS: BP 131/67; BP 143/71; PULSE 76; RESP 16; TEMP 36.8; O2SAT 100
[2020-04-28 08:50] VITALS: BP 126/70; BP 131/67; PULSE 76; RESP 16; O2SAT 100
[2020-04-28 08:55] VITALS: BP 131/67; BP 135/73; PULSE 73; RESP 16; O2SAT 99
[2020-04-28 09:00] VITALS: BP 131/67; BP 138/71; PULSE 73; RESP 16; TEMP 37.1; O2SAT 99
[2020-04-28 09:21] VITALS: BP 131/67
== END 2020-04-28 09:29 | disposition home or self-care (01) ==
LOC: EN 07:20 → AC 07:21
PROVIDERS: Anesthesiology; PCP Family Medicine; Referring Provider Family Medicine; Visit Provider Surgery
PROC: 0DJ08ZZ Inspection of Upper Intestinal Tract, Via Natural or Artificial Opening Endoscopic (ICD-10-PCS; CPT 43235; principal; 2020-04-28 08:25)
DX: K29.70 Gastritis, unspecified, without bleeding (principal); D50.0 Iron deficiency anemia secondary to blood loss (chronic); R19.5 Other fecal abnormalities; K21.9 Gastro-esophageal reflux disease without esophagitis; I25.10 Atherosclerotic heart disease of native coronary artery without angina pectoris; I25.2 Old myocardial infarction; I10 Essential (primary) hypertension; J44.9 Chronic obstructive pulmonary disease, unspecified; E78.00 Pure hypercholesterolemia, unspecified; F32.9 Major depressive disorder, single episode, unspecified; F41.9 Anxiety disorder, unspecified; Z95.5 Presence of coronary angioplasty implant and graft; Z79.82 Long term (current) use of aspirin; Z79.01 Long term (current) use of anticoagulants; Z79.899 Other long term (current) drug therapy; Z20.828 Contact with and (suspected) exposure to other viral communicable diseases; Z87.891 Personal history of nicotine dependence; Z86.73 Personal history of transient ischemic attack (TIA), and cerebral infarction without residual deficits
CPT/HCPCS: 43239; 87635; 88305; 88342; C9803; J7120; U0003

== ENCOUNTER → 2020-06-03 10:33 | Outpatient (CLI) | payer MEDICARE, SELFPAY ==
[2020-06-03 09:34] VITALS: BMI 21.5
--- NOTE | 2020-06-03 10:43 | VDLE_ITS ---
Reason For Study: pain RIGHT LEFT GSV is normal. GSV is normal. CFV is compressible, spontaneous, phasic, CFV is compressible, spontaneous, phasic, competent and demonstrates normal competent, and demonstrates normal augmentation. augmentation. FV is compressible, spontaneous, phasic, FV is compressible, spontaneous, phasic, competent and demonstrates normal competent and demonstrates normal augmentation. augmentation. POP V is compressible, spontaneous, phasic, POP V is compressible, spontaneous, phasic, competent and demonstrates normal competent and demonstrates normal augmentation. augmentation. T/P Trunk is compressible. T/P Trunk is compressible. PTV is compressible. PTV is compressible. RT PerV is compressible. LT PerV is compressible. Procedure This is a venous duplex using B-mode, color flow and spectral Doppler. Exam performed in department. The exam was diagnostic. A preliminary report was called and/or faxed to Liyah Romo. Interpretation Summary No evidence for acute deep venous thrombosis bilateral lower extremities with patent and compressible bilateral great saphenous veins. Ordering Physician: Liyah Romo Performed By: Gibran Heaton, RVT
[2020-06-03 12:01] LABS: BNP,B-Type NATRIURETIC PEPTIDE 79.2 pg/mL (0-100)
[2020-06-03 12:58] LABS: ALB/GLOB Ratio 0.6 RATIO (0.9-2.4); AST(SGOT) 162 U/L (15-37); Alanine Aminotransfer ALT/SGPT 76 U/L (13-56); Albumin, Serum 2.5 g/dL (3.2-5.0); Alkaline Phosphatase 176 U/L (45-117); Anion Gap 11 (5-15); BUN 21 mg/dL (7-18); BUN/Creat Ratio 25.5 RATIO (10-20); CPK Total, Creatine Kinase 6443 U/L (26-192); Calcium,Total 7.1 mg/dL (8.5-10.1); Chloride 83 mmol/L (98-107); Creatinine, Serum 0.82 mg/dL (0.55-1.02); EST Glomerular Filtration Rate 74 mL/min (>60); Est Glom Filt Rate - Afr Amer 89 mL/min (>60); Free T3 2.1 pg/mL (2.18-3.98); Globulin 4.1 g/dL (2.2-4.2); Glucose 103 mg/dL (74-106); Magnesium 1.2 mg/dL (1.6-2.6); Potassium 2.3 mmol/L (3.5-5.1); Protein, Total 6.6 g/dL (6.4-8.2); Sodium Level 126 mmol/L (136-145); T4 Free Direct 1.05 ng/dL (0.76-1.46); Thyroid Stim Hormone (TSH) 1.62 uIU/mL (0.358-3.74)
== END ==
PROVIDERS: PCP Family Medicine; Referring Provider Physician Assistant Medical; Visit Provider Physician Assistant Medical
DX: M79.661 Pain in right lower leg (principal); M79.662 Pain in left lower leg; R60.9 Edema, unspecified; R06.00 Dyspnea, unspecified; E78.00 Pure hypercholesterolemia, unspecified
CPT/HCPCS: 36415; 80053; 82550; 83735; 83880; 84439; 84443; 84481; 93970

== ENCOUNTER → 2020-06-06 11:06 | Outpatient (CLI) | payer MEDICARE, SELFPAY ==
[2020-06-03 09:34] VITALS: BMI 21.5
[2020-06-06 12:54] LABS: Anion Gap 9 (5-15); BUN 17 mg/dL (7-18); BUN/Creat Ratio 24.1 RATIO (10-20); CPK Total, Creatine Kinase 7205 U/L (26-192); Calcium,Total 7.6 mg/dL (8.5-10.1); Chloride 81 mmol/L (98-107); EST Glomerular Filtration Rate 88 mL/min (>60); Est Glom Filt Rate - Afr Amer 107 mL/min (>60); Glucose 105 mg/dL (74-106); Magnesium 1.4 mg/dL (1.6-2.6); Potassium 2.9 mmol/L (3.5-5.1); Sodium Level 119 mmol/L (136-145)
== END ==
PROVIDERS: PCP Family Medicine; Referring Provider Physician Assistant Medical; Visit Provider Physician Assistant Medical
DX: M79.661 Pain in right lower leg (principal); M79.662 Pain in left lower leg; R74.8 Abnormal levels of other serum enzymes
CPT/HCPCS: 36415; 80048; 82550; 83735

== ENCOUNTER → 2020-06-12 14:49 | Outpatient (CLI) | payer MEDICARE, SELFPAY ==
[2020-06-12 14:48] VITALS: BMI 20.2
[2020-06-12 17:44] LABS: Anion Gap 7 (5-15); BUN 16 mg/dL (7-18); BUN/Creat Ratio 25.4 RATIO (10-20); CPK Total, Creatine Kinase 2446 U/L (26-192); Calcium,Total 8.2 mg/dL (8.5-10.1); Chloride 96 mmol/L (98-107); Creatinine, Serum 0.63 mg/dL (0.55-1.02); EST Glomerular Filtration Rate 100 mL/min (>60); Est Glom Filt Rate - Afr Amer 121 mL/min (>60); Glucose 98 mg/dL (74-106); Potassium 5.4 mmol/L (3.5-5.1); Sodium Level 131 mmol/L (136-145)
== END ==
PROVIDERS: PCP Family Medicine; Referring Provider Family Medicine; Visit Provider Family Medicine
DX: E87.1 Hypo-osmolality and hyponatremia (principal); M33.20 Polymyositis, organ involvement unspecified
CPT/HCPCS: 36415; 80048; 82550

== ENCOUNTER → 2020-06-17 14:44 | Outpatient (CLI) | payer MEDICARE, SELFPAY ==
[2020-06-17 14:19] VITALS: BMI 21.8
[2020-06-17 17:01] LABS: Absolute Lymphocyte Count 1.61 X10^3/uL (0.83-4.51); Absolute Neutrophil Count 7.3 X10^3/uL (2.0-7.7); Basophil# 0.02 X10^3/uL; Basophil% 0.2 % (0-1); Eosinophil# 0.06 X10^3/uL; Eosinophils% 0.6 % (0-5); Hematocrit 25.9 % (37-47); Hemoglobin 8.2 g/dL (12.0-15.0); Lymphocyte # 1.61 X10^3/ul (4.0); Lymphocyte % 16.4 % (19-41); Mean Corp Hgb Conc 31.7 g/dL (32-36); Mean Corpuscular Hgb 32.3 pg (27.0-32.0); Mean Platelet Vol. 8.8 fl (6.2-12.0); Monocyte# 0.79 X10^3/uL; NRBC Flagged by Analyzer 0.2 % (0-5); Neutrophil # 7.29 X10^3/uL (2.7-7.7); Neutrophil % 74.1 % (47-70); Platelet Count 226 K/mm3 (150-450); RBC Distribution Width CV 16.8 % (11.6-14.6); RBC Distribution Width SD 62.3 fl (35.1-43.9); Red Blood Count 2.54 M/mm3 (4.2-5.4); White Blood Count 9.8 K/mm3 (4.4-11.0)
[2020-06-17 17:08] LABS: ALB/GLOB Ratio 0.6 RATIO (0.9-2.4); AST(SGOT) 112 U/L (15-37); Alanine Aminotransfer ALT/SGPT 69 U/L (13-56); Albumin, Serum 2.7 g/dL (3.2-5.0); Alkaline Phosphatase 281 U/L (45-117); Anion Gap 7 (5-15); BUN 20 mg/dL (7-18); Calcium,Total 8.3 mg/dL (8.5-10.1); Chloride 97 mmol/L (98-107); Creatinine, Serum 0.84 mg/dL (0.55-1.02); EST Glomerular Filtration Rate 72 mL/min (>60); Est Glom Filt Rate - Afr Amer 88 mL/min (>60); Globulin 4.4 g/dL (2.2-4.2); Glucose 122 mg/dL (74-106); Protein, Total 7.1 g/dL (6.4-8.2); Sodium Level 128 mmol/L (136-145)
== END ==
PROVIDERS: PCP Family Medicine; Referring Provider Nurse Practitioner Family; Visit Provider Nurse Practitioner Family
DX: E53.8 Deficiency of other specified B group vitamins (principal); R06.01 Orthopnea
CPT/HCPCS: 36415; 80053; 83880; 85025

== ENCOUNTER 2020-06-17 15:04 | Inpatient (IN) | payer MEDICARE, SELFPAY ==
[2020-06-17] VITALS (21 sets, daily range): BP systolic 82–110; BP diastolic 41–92; PULSE 79–92; RESP 12–42; TEMP 35.2–36.4; O2SAT 93–100; BMI 21.8; BMI 22.4; BMI 22.5
--- NOTE | 2020-06-17 15:39 | EKG12_ITS ---
Test Reason : AM EKG Blood Pressure : / mmHG Vent. Rate : 093 BPM Atrial Rate : 093 BPM P-R Int : 164 ms QRS Dur : 098 ms QT Int : 366 ms P-R-T Axes : -09 -44 006 degrees QTc Int : 455 ms Normal sinus rhythm Left axis deviation Low voltage QRS ICRBBB Nonspecific T wave abnormality Abnormal ECG Confirmed by LISA MATUTE, JOSE ([id number]), business editor AMINATA SANTIAGO ([id number]) on 06/23/2020 8:09:24 AM Referred By: SAL Confirmed By:JOSE GONZALEZ MD
--- NOTE | 2020-06-17 15:40 | ED.DCSUM_ITS ---
- ER Visit Summary Date of Service: 06/17/20 Chief Complaint: [Shortness of breath and generalized weakness] History of Present Illness: The patient is a 64 F [presents to the emergency department with complaint of shortness of breath over the last 8 days. Patient has had a dry cough. Patient complains of weakness and exertional dyspnea. She describes a chest tightness. Patient with recent diagnosis of polymyositis. Patient states that times over the last week or so she has had numbness and tingling in the hands and feet. Patient states that she tested negative for COVID-19 2 to 3 months ago. She denies any known exposures to COVID-19. Patient has history of prior stroke, coronary artery disease, hypertension, high cholesterol, anxiety, anemia, and B12 deficiency.] Physical Examination: [HEENT-PERRLA, EOMI. Cranial nerves II through XII grossly intact. TMs clear. Mucous membranes moist. No adenopathy. Cardiovascular-regular rate and rhythm without murmur or ectopy Lungs-clear to auscultation, chest wall stable without crepitus or subcu emphysema Abdomen-normoactive bowel sounds, soft, nontender, no rebound or rigidity, no peritoneal signs. Extremities-intact ?4, normal range of motion, normal pulses, atraumatic] Test Results: [EKG obtained arrival shows sinus rhythm with a ventricular rate of 90 bpm with some nonspecific ST changes noted. CBC with differential showed a white count of 9.8, hemoglobin 8.2, hematocrit 26, placed 209. Chemistry showed a sodium 129, potassium 4.5, chloride 97, CO2 24, BUN 20 and creatinine 0.84. Troponin was 13.3. BNP was 3134. Lactate was 2.2. Chest x-ray obtained showed a right lower lobe effusion with early infiltrate.] Emergency Department Course and Treatment: [IV line established on arrival. Patient placed on construction engineering manager. Patient received normal saline. Patient case was discussed with medical equipment repair technician on-call Dr. Carlos Price who recommended heparin drip. Patient will have a CT of the chest to rule out PE and COVID-19 testing ordered and pending.] Treatment Plan: [Care of patient turned over to evening physician awaiting CTA chest and COVID-19 testing. Ultimately patient will require admission for possible heart catheterization for non-ST [place]] Disposition: [Admit] Impression: [Non-ST elevation [place] Dyspnea Pneumonia with left pleural effusion] This note was generated with [employer] dictation software. It may contain incorrect words, spelling, and punctuation that were not noted in review of the chart prior to signing <Brian Dhaliwal - Last Filed: 06/17/20 17:25> - ER Visit Summary This patient was signed out to me to follow-up on COVID-[address] angiogram and reevaluate. COVID-19 testing is negative. CTA shows no evidence of pulmonary embolism. However I was called to the room as the patient had became acutely dyspneic. She suddenly became severely dyspneic pale and diaphoretic. I repeated an EKG which shows sinus rhythm with T wave inversions in V1 V2 similar to prior. A one-view portable chest x-ray was repeated. On my interpretation the shows a right lower infiltrate which appears slightly worse from prior, radiology read pending. I also performed a [id number] bedside transthoracic cardiac ultrasound. This shows a trace pericardial effusion no tamponade. Patient was started on a nitroglycerin infusion. I spoke to Dr. Price. I am concerned given her decompensation symptoms and the fact that we already know she has an NSTEMI with a troponin of 13. Cardiology at bedside evaluating the patient did review the EKGs. This note was generated with [employer] software. It may contain incorrect words, spelling, and punctuation that were not noted in review of the chart prior to signing <Calixto Polk - Last Filed: 06/17/20 20:03> ED Disposition <Brian Dhaliwal - Last Filed: 06/17/20 17:25> <Calixto Polk - Last Filed: 06/17/20 20:03> - Plan for ED Patient: Referrals: Maxx Hewitt, [Primary Care Provider] -
[2020-06-17] MEDS: 0.9% Normal Saline 1,000 ML 150 ML IV (16:02)
[2020-06-17 16:17] LABS: Absolute Lymphocyte Count 1.49 X10^3/uL (0.83-4.51); Absolute Neutrophil Count 7.2 X10^3/uL (2.0-7.7); Basophil# 0.03 X10^3/uL; Basophil% 0.3 % (0-1); Eosinophil# 0.06 X10^3/uL; Eosinophils% 0.6 % (0-5); Hematocrit 25.7 % (37-47); Hemoglobin 8.2 g/dL (12.0-15.0); Lymphocyte # 1.49 X10^3/ul (4.0); Lymphocyte % 15.2 % (19-41); Mean Corp Hgb Conc 31.9 g/dL (32-36); Mean Corpuscular Hgb 32.5 pg (27.0-32.0); Mean Platelet Vol. 8.9 fl (6.2-12.0); Monocyte# 0.94 X10^3/uL; Monocyte% 9.6 % (0-10); NRBC Flagged by Analyzer 0.2 % (0-5); Neutrophil # 7.22 X10^3/uL (2.7-7.7); Neutrophil % 73.5 % (47-70); Platelet Count 209 K/mm3 (150-450); RBC Distribution Width CV 16.7 % (11.6-14.6); RBC Distribution Width SD 61.4 fl (35.1-43.9); Red Blood Count 2.52 M/mm3 (4.2-5.4); White Blood Count 9.8 K/mm3 (4.4-11.0)
--- NOTE | 2020-06-17 16:20 | RAD_ITS ---
STUDY: X-RAY CHEST REASON FOR EXAM: Female, 64 years old. Shortness of breath with fatigue and weakness. TECHNIQUE: Single frontal view of the chest. COMPARISON: 01/22/2020 FINDINGS: Interval development of patchy opacity at the right base with small right pleural effusion. Stable cardiomegaly. Normal mediastinum and quinton. Normal visualized pulmonary arteries. Normal visualized aortic arch and descending thoracic aorta. Normal visualized thoracic spine. Normal visualized ribs, clavicles, and shoulders. There is no demonstrated abnormality of the visualized soft tissue structures of the upper abdomen. RAD/Chest 1 View (Portable) IMPRESSION: Patchy opacity at the right base with small right effusion. Findings are compatible with early/developing right lower lobe pneumonia. Follow-up to resolution recommended. Electronically Signed: Jamey Spears MD at 16:45 EST , Service support ,
[2020-06-17 16:35] LABS: Anion Gap 8 (5-15); BUN 20 mg/dL (7-18); BUN/Creat Ratio 23.8 RATIO (10-20); Calcium,Total 8.1 mg/dL (8.5-10.1); Chloride 97 mmol/L (98-107); Creatinine, Serum 0.84 mg/dL (0.55-1.02); EST Glomerular Filtration Rate 72 mL/min (>60); Est Glom Filt Rate - Afr Amer 87 mL/min (>60); Estimated Creatinine Clearance 68.85 ml/min; Glucose 106 mg/dL (74-106); Potassium 4.5 mmol/L (3.5-5.1); Sodium Level 129 mmol/L (136-145)
[2020-06-17 16:36] LABS: Lactic Acid 2.2 mmol/L (0.4-1.9)
--- NOTE | 2020-06-17 17:00 | CT_ITS ---
STUDY: CTA CHEST REASON FOR EXAM: Female, 64 years old. CHEST PAIN/SOB/COUGH RADIATION DOSAGE (If Supplied By Facility): CTDIvol = ( 19.99 ) mGy, DLP = ( 387.98 ) mGycm TECHNIQUE: The examination was performed with the intravenous administration of IV 100mL Isovue-370. Post-processing of the angiographic images was performed, with multiplanar reformation and 3D reconstruction. Individualized dose optimization techniques were used for this CT. COMPARISON: CT chest dated 04/08/20 FINDINGS: There is a small left pleural effusion moderate right pleural effusion with overlying atelectasis. There is septal thickening in the lungs, consistent with pulmonary vascular congestion. There are no focal infiltrates. There are stable emphysematous changes noted in the lungs. There is no evidence of pulmonary embolus. There is no evidence of thoracic aortic aneurysm. The contrast bolus is insufficient to evaluate for thoracic aortic dissection. The heart is normal in size. There is a small pericardial effusion. There are coronary artery calcifications noted. There is no thoracic lymphadenopathy. Images through the upper abdomen demonstrate trace perihepatic ascites. There are no destructive osseous lesions. CT/CTA Chest W/WO Contrast IMPRESSION: No evidence pulmonary embolus. Mild pulmonary vascular congestion. Moderate right pleural effusion and small left pleural effusion with overlying atelectasis. No focal infiltrates. Stable emphysema. Coronary artery disease. Small pericardial effusion. Trace perihepatic ascites. Electronically Signed: Fidencio Wise, at 17:39 EST Tel , Service support ,
[2020-06-17 17:02] LABS: D-Dimer Quantitative (DVT/PE) 1.99 FEU/ug/m (0.27-0.49)
[2020-06-17] MEDS: Ceftriaxone 1 GM/50 ML BAG IV (17:23)
[2020-06-17 17:24] LABS: CPK Total, Creatine Kinase 2648 U/L (26-192)
--- NOTE | 2020-06-17 17:50 | ED.RN ---
THIS RN CALLED PT TO NOTIFY HIM OF PT WORK UP THUS FAR WITH PT VERBAL CONSENT PERMISSION TO SHARE. PT LIKELY TO BE ADMITTED. AWAITING CT RESULTS.
[2020-06-17] MEDS: HEPARIN/D5w 25,000 UNITS 25,000 UNITS/250 ML IV.SOLN. 10 UNITS IV (18:10)
[2020-06-17 18:22] LABS: Partial Thromboplast Time 31.6 Seconds (24.1-36.2)
--- NOTE | 2020-06-17 19:13 | ED.RN ---
PT rings call light. this rn at bedside. pt reports increased sob. pt diaphoretic. 93% room air. 2l nc applied by meenu goyal rn, spo2 95%. dr. gallegos informed of pt sx repeat ekg ordered. respiratory notified of repeat ekg.
--- NOTE | 2020-06-17 19:22 | RAD_ITS ---
STUDY: X-RAY CHEST REASON FOR EXAM: Female, 64 years old. Shortness of breath TECHNIQUE: Frontal view of the chest COMPARISON: 06/17/20 at 4:12 PM FINDINGS: There is a stable right lower lobe infiltrate with a stable small right pleural effusion. The left lung is clear. There is no pneumothorax. The heart is stable in size. The visualized osseous structures are within normal limits. RAD/Chest 1 View (Portable) IMPRESSION: Stable exam. Electronically Signed: Fidencio Wise, at 19:42 EST Tel , Service support ,
--- NOTE | 2020-06-17 19:34 | PCM.CONS.C ---
Problem List (1) NSTEMI (non-ST elevated myocardial infarction) Status: Acute (2) CAD (coronary artery disease) Status: Chronic Qualifiers: Coronary Disease-Associated Artery/Lesion type: [place] artery [place] vs. transplanted heart: [place] heart (3) History of coronary artery stent placement Status: Chronic Comment: PCI-Cutting Balloon PTCA of ISR Prox LAD w/ BTH-Vtta-Ven LAD w/ 3.5 mm x 20 mm Synergy Stent 10/07/2015; CPX-NOC-Ggkt- Mid LAD 06/15/2011; drug-eluting stent to mid LAD at [facility] on 01/08/2020; (4) CHF (congestive heart failure) Status: Acute Qualifiers: Heart failure type: unspecified Heart failure chronicity: acute Qualified Code(s): I50.9 - Heart failure, unspecified (5) Hyperlipidemia Status: Chronic Qualifiers: (6) Essential (primary) hypertension Status: Chronic (7) Polymyositis Status: Acute (8) Anemia of chronic disease Status: Chronic Reason for Consult Date of Consultation: 06/17/20 History of Present Illness: The patient is a 64 year old white female with a past cardiovascular history of CAD, status post LAD PCI x3 (2010, 2015, and 2019), hyperlipidemia, hypertension, polymyositis, and chronic anemia, who presents for concerns of progressive shortness of breath/dyspnea with findings of abnormal troponin I levels and abnormal ECGs concerning for an acute non-ST segment elevation CO. The patient states over the last week she has been progressively short of breath and dyspneic. She has had an associated discomfort in her chest she states is somewhat different from discomfort she has had in her chest before when she has undergone LAD PCI. Her shortness of breath has been both at rest and with exertion. She has also had orthopnea. She denies any lower extremity peripheral pitting edema. There has been no near syncope or syncope. She states she has been taking her medications as prescribed. She presented to the emergency department this day based upon her ongoing concerns. She was initially found to be hypotensive. Her initial troponin I level was positive. Her initial ECG demonstrated sinus rhythm with low voltage QRS with an incomplete right bundle branch block pattern with ST and T wave abnormality concerning for myocardial ischemia-anteroseptal distribution. Her chest x-ray demonstrated a right sided pleural effusion. She had a chest CT scan performed which demonstrated no thromboembolic disease or great vessel disease. She was being treated with IV fluids and based upon concerns of a possible underlying hidden pulmonary infectious etiology IV antibiotics. She did undergo a COVID-19 PCR test which was resulted as nondetected. During her evaluation she appeared to be more acutely pale and diaphoretic appearing. Her blood pressure was reported as demonstrating systolic blood pressures around 100 mmHg. Is being treated by the ED staff with IV nitroglycerin and IV heparin. She was also being treated with a CPAP device. A repeat chest x-ray was performed which demonstrated no acute changes. According to the [facility] ED staff a quick look hand-held bedside transthoracic echocardiogram was performed that did not demonstrate any obvious compromising pericardial effusion. Her troponin, which initially was 13.3, was repeated at 14.3. Her BNP level was reported greater than 3000. Her CPK level was reported greater than 2000. A repeat ECG was performed which demonstrated continued sinus rhythm with low voltage QRS with an incomplete right bundle branch block pattern and continued nonspecific ST/T wave changes similar to her original ECG. She was referred for cardiovascular evaluation including diagnostic cardiac catheterization. [] Past Medical History Allergies/Adverse Reactions: Allergies amlodipine [From Norvasc] Allergy (Verified 06/17/20 15:08) severe BLE edema codeine Allergy (Verified 06/17/20 15:08) Other STOMACH PAIN sulfamethoxazole [From Septra] Allergy (Verified 06/17/20 15:08) Rash trimethoprim [From Septra] Allergy (Verified 06/17/20 15:08) Unknown prasugrel [From Effient] Adverse Reaction (Severe, Verified 06/17/20 15:08) Not advised in pt's who have had CVA Onset 09/06/2016 Home Medications: Ambulatory Orders Medication Instructions Recorded aspirin 81 mg tablet,delayed 81 mg PO DAILY 07/31/18 release nitroglycerin 0.4 mg sublingual 0.4 mg SUBLINGUAL Q5M PRN #25 tab 06/04/19 tablet mirtazapine 15 mg tablet 15 mg PO QHS #90 tab 01/08/20 albuterol sulfate 90 mcg/actuation 2 puff INHALATION Q6H #8 g 02/04/20 aerosol inhaler tiotropium bromide 2.5 2 puff INHALATION DAILY #4 g 02/04/20 mcg/actuation mist for inhalation albuterol sulfate 90 mcg/actuation 2 inh INHALATION Q6H PRN #1 ea 03/06/20 breath activated powder inhaler Pantoprazole Sodium 40 mg PO DAILY 04/22/20 Primidone [Mysoline] 150 mg PO BID 04/22/20 Propranolol HCl [Inderal Xl] 80 mg PO DAILY 04/22/20 diphenoxylate-atropine 2.5 1 tab PO BID #60 tab 04/29/20 mg-0.025 mg tablet alprazolam 0.5 mg tablet 0.5 mg PO TID PRN #90 tab 06/09/20 Clopidogrel Bisulfate [Clopidogrel] 75 mg PO DAILY 06/17/20 Prednisone See Taper PO DAILY 06/17/20 Past Medical History (Chronic Problems): Chronic Problems (Last Reviewed 06/17/20 @ 14:09 by Patricia Del Valle) B12 deficiency (Chronic) CAD (coronary artery disease) (Chronic) Anemia of chronic disease (Chronic) Iron deficiency anemia due to chronic blood loss (Chronic) Diverticular disease (Chronic) Degenerative joint disease of spine (Chronic) Anemia (Chronic) Chronic diarrhea (Chronic) Leg pain, left (Chronic) Swelling of left lower extremity (Chronic) Given her history and physical examination even though she is on Plavix I think she is a high probability of this being a significant DVT of the left lower extremity venous Doppler studies were ordered and if they are positive will switch her from Plavix to probably Eliquis. Atherosclerosis of coronary artery of [place] heart without angina pectoris (Chronic) PCI-Cutting Balloon PTCA of ISR Prox LAD w/ STP-Lrem-Gwp LAD w/ 3.5 mm x 20 mm Synergy Stent 10/07/2015; QRW-TLP-Biyv- Mid LAD 06/15/2011; drug-eluting stent to mid LAD at [facility] on 01/08/2020; History of coronary artery stent placement (Chronic 10/07/15) PCI-Cutting Balloon PTCA of ISR Prox LAD w/ JLR-Hltf-Lxv LAD w/ 3.5 mm x 20 mm Synergy Stent 10/07/2015; GFJ-QDZ-Tipg- Mid LAD 06/15/2011; drug-eluting stent to mid LAD at [facility] on 01/08/2020; Essential (primary) hypertension (Chronic) Hyperlipidemia (Chronic) CVA (cerebral vascular accident) (Chronic) Lives: Spouse/ Significant Other Smoking Status: Former smoker Alcohol: None Drugs: None Review of Systems - Review of Systems General: Denies: Fever, Night Sweats, Fatigue Cardiovascular: Reports: Chest Discomfort, Chest Discomfort at Rest, Shortness of Breath, Shortness of Breath at Rest, Shortness of Breath with Exertion, Orthopnea Respiratory: Reports: Shortness of Breath Gastrointestinal: Denies: Hematemesis, Hematochezia, Melena Genitourinary: Denies: Dysuria, Hematuria Skin: Denies: Rash Subjectve: Is a 64-year-old white female who appears to be somewhat pale and diaphoretic appearing and uncomfortable appearing. Objective: Vital Signs Temp Pulse Resp BP Pulse Ox 97.6 F L 87 21 H 99/68 93 06/17/20 18:12 06/17/20 18:12 06/17/20 18:12 06/17/20 18:12 06/17/20 18:12 Oxygen Delivery Method Room Air Weight: 148 lb Body Mass Index (BMI) 21.8 Intake and Output for Last 24 Hours 06/15/20 06/16/20 06/17/20 23:59 23:59 23:59 Intake Total 507.5 / 507.5 Balance 507.5 / 507.5 General: Awake, Alert, Oriented x 3, Cooperative, Ill Appearing HEENT: Atraumatic, Normocephalic, PERRL, EOMI, Sclera Non Icteric, Pallor Neck: Supple, Good ROM, No JVD Lungs: Diminished Right Base, Rales - Right Base Cardiovascular: Regular Rhythm, Normal S1, Normal S2 Vascular: No Carotid Bruits Abdomen: Bowel Sounds Present, Soft Extremities: No edema, Cyanosis - Upper extremity digits: Cyanotic appearing Psych/Mental Status: Anxious 06/17/20 15:50: WBC 9.8, RBC 2.52 L, Hgb 8.2 L, Hct 25.7 L, MCV 102.0 H, MCH 32.5 H, MCHC 31.9 L, Plt Count 209, MPV 8.9, Immature Gran % (Auto) 0.800, Neut % (Auto) 73.5 H, Lymph % (Auto) 15.2 L, [place] % (Auto) 9.6, Eos % (Auto) 0.6, Baso % (Auto) 0.3, Absolute Neuts (auto) 7.2, Nucleated RBC % 0.2 06/17/20 15:50: D-Dimer Quant (PE/DVT) 1.99 H* 06/17/20 15:50: Sodium 129 L, Potassium 4.5, Chloride 97 L, Carbon Dioxide 24.0, Anion Gap 8, BUN 20 H, Creatinine 0.84, Est GFR (MDRD) Af Amer 87, Est GFR (MDRD) Non-Af 72, BUN/Creatinine Ratio 23.8 H, Glucose 106, Calcium 8.1 L, Troponin I 13.300 H* 06/17/20 15:50: B-Natriuretic Peptide 3134.8 H 06/17/20 15:50: APTT 31.6 06/17/20 16:01: Lactic Acid 2.2 H* Rhythm: Sinus rhythm EKG: As noted above ECHO: 01-24-2020 Interpretation Summary Normal LV size. Moderate concentric left ventricular hypertrophy. The estimated ejection fraction is 47 %. Mild segmental systolic dysfunction (see wall motion). Small pericardial effusion. There are no echocardiographic indications of cardiac tamponade. Contrast injection was performed. Stress Test: 08-10-2017 Stress Test Report 61-year-old lady with a history of chest pain and coronary artery disease. Stress protocol: Resting EKG demonstrates normal sinus rhythm with a rate of 60 bpm. Normal intervals noted. Resting blood pressure is 110/72 mmHg. 0.4 mg of regadenoson was infused per usual protocol followed by rapid intravenous saline flush injection. Continuous EKG monitoring was performed. The maximum heart rate attained was 102 bpm which was 64% of maximum predicted heart rate the maximum workload attained was 1 metabolic equivalent. There were no ST or T-wave changes noted to suggest abnormal flow reserve and at peak infusion no ST or T-wave changes were noted to suggest abnormal flow reserve. No clinical angina was noted no arrhythmias were present. Myocardial perfusion protocol. 11.1 mCi of technetium 99m sestamibi was injected at rest. 0.4 mg of regadenoson was infused per usual protocol. At peak infusion 32.1 mCi of technetium 99m sestamibi was injected. Stress images were obtained. Stress and rest images were reconstructed and compared in the short axis vertical long and horizontal long axis. Gated images were also obtained. Perfusion SPECT analysis: Review of the stress images demonstrate normal uptake of tracer noted in all areas of the myocardium. The resting images similarly demonstrated normal uptake of tracer noted in all areas of the myocardium. A previous inferolateral infarct cannot be completely excluded. Conclusion: Normal pharmacologic myocardial perfusion stress test. Previous inferolateral infarct cannot be excluded. Preserved ejection fraction. Cardiac Cath: 10-06-2015 CONCLUSION: 1. Normal left main coronary artery. 2. Left anterior descending artery with a previously placed stent with 90-95% in-stent stenosis noted. 3. Left circumflex artery with no high-grade stenosis. 4. Nondominant left circumflex artery with no high-grade stenosis. 5. Dominant right coronary artery with no high-grade stenosis. Based on the above angiographic findings, I would recommend transfer for patient to undergo angioplasty. Cardiac cath: 01-08-2020: [place], [place] Per office notes: Left ventricle: Normal; LVEDP 15 LAD: Mid: 60 to 70% stenosis just distal to the previous placed stent with intravascular ultrasound revealing ulcerated plaque/rupture RCA: 50% stenosis PCI: 01-08-2020: [place], [place] LAD PCI/LUIS ALBERTO CXR: Preliminary evaluation: Right sided pleural effusion: Please see official report Chest CT Scan: FINDINGS: There is a small left pleural effusion moderate right pleural effusion with overlying atelectasis. There is septal thickening in the lungs, consistent with pulmonary vascular congestion. There are no focal infiltrates. There are stable emphysematous changes noted in the lungs. There is no evidence of pulmonary embolus. There is no evidence of thoracic aortic aneurysm. The contrast bolus is insufficient to evaluate for thoracic aortic dissection. The heart is normal in size. There is a small pericardial effusion. There are coronary artery calcifications noted. There is no thoracic lymphadenopathy. Images through the upper abdomen demonstrate trace perihepatic ascites. There are no destructive osseous lesions. CT/CTA Chest W/WO Contrast IMPRESSION: No evidence pulmonary embolus. Mild pulmonary vascular congestion. Moderate right pleural effusion and small left pleural effusion with overlying atelectasis. No focal infiltrates. Stable emphysema. Coronary artery disease. Small pericardial effusion. Trace perihepatic ascites. Electronically Signed: Fidencio Wise, at 17:39 EST Assessment/Plan 1. Non-ST segment elevation CO The patient demonstrates findings between her history, her laboratory studies, and her ECG compatible with an acute non-ST segment elevation CO. The concern is that this may be related to her history of LAD disease status post PCI x3. Thus far there is been no etiology to explain a secondary event. At the present time there is concern based on the patient's ongoing clinical status, appearance, and objective changes, for an unstable cardiovascular event including concerns as to whether or not the patient was attempting some degree of cardiogenic shock, that she should be evaluated in the cardiac catheterization laboratory sooner than later. Based upon her clinical scenario the patient has been recommended for diagnostic cardiac catheterization. Her case was discussed with Dr. Epps interventional cardiology. He agreed to evaluate the patient for cardiac catheterization this day. The procedure and risks were discussed with the patient and she was agreeable to this approach. In the interim the patient will continue medical management as deemed appropriate. She states she already took her aspirin and clopidogrel/Plavix therapy this day along with her beta-chaz. She is receiving IV nitrates and IV heparin. She is also receiving IV diuretics. She has had O2 support with a CPAP device. 2. CAD status post LAD PCI The patient has undergone LAD PCI x3. Her most recent PCI was performed in [place], [place]. That time per the outpatient office note she had an LAD ulcerated plaque just distal to her LAD stent that underwent intravascular ultrasound and subsequent PCI/LUIS ALBERTO. At the present time there is concerned that the patient's clinical scenario may be related to LAD in-stent restenosis which she has experienced twice in the past. At the present time she will continue her evaluation. She will continue medical therapy. She is being recommended for cardiac catheterization this day. 3. CHF/pleural effusion The patient demonstrates findings based upon history and examination and radiologic studies compatible with CHF. This may be secondary to a change in her underlying CAD status and left ventricular wall motion and systolic function and LVEF. From a cardiac standpoint she will continue to be monitored. She will continue her ongoing evaluation. She will continue medical therapy which will include diuretic therapy and respiratory support as deemed appropriate. 4. Hyperlipidemia She reportedly has a history of hyperlipidemia. However she has not been on lipid-lowering therapy based upon concerns of her polymyositis. 5. Hypertension Her blood pressure was noted to be low during her initial evaluation in the emergency department. She did receive IV fluids. Her blood pressure is being followed closely based upon her cardiovascular concerns. 6. Polymyositis He has a history of polymyositis. Her CPK levels have been elevated. She continues to follow with her other physicians for this. 7. Anemia of chronic disease She also has a history of anemia of chronic disease. Her hemoglobin levels have waxed and waned. Depending upon her cardiovascular course and findings she may need to be considered for PRBC transfusion to assist with her oxygen carrying capacity. Procedure Criteria Procedure Type: Elective COVID Risk Discussion: The surgeon/proceduralist and patient have discussed in detail the risk of exposure to and/or potential harm posed by the COVID-19 virus with having a surgery/procedure at this time versus the risk of delaying the surgery/procedure. It is not possible to know either the risk of delaying the surgery or procedure or chance of getting an infection with perfect accuracy, but a joint decision was made between the patient and the surgeon/proceduralist to proceed at this time with the scheduled surgery/procedure as indicated on the consent form.
[2020-06-17] MEDS: Nitroglycerin Infusion 250 ML 3 MG CONT INF (19:59)
[2020-06-17 20:01] LABS: Allen Test Positive; Base Excess -9 mmol/L (-2 to +2); Bicarbonate 14.2 mmol/L (22-26); Blood Gas Specimen Type ART; FI02 100; O2 Delivery Device BiPAP; PEEP 8; PO2 247 mmHG (75-100); PS 14; RR 12; SITE L Radial; SO2 100 % (95-99); Total Carbon Dioxide 15 mmol/L; pCO2 19.4 mmHg (35-45); pH 7.47 (7.35-7.45)
[2020-06-17 20:07] LABS: Reflex Lactate? Y
[2020-06-17] MEDS: Furosemide 40 MG/4 ML Vial IV ×2 (20:10→23:06)
[2020-06-17 20:58] LABS: Lactic Acid 4.4 mmol/L (0.4-1.9)
--- NOTE | 2020-06-17 21:52 | PCM.OP.PRO ---
Procedure Report Periodicals Library Assistant: Yusuf Epps DO History: This is a 64 years old female with past medical history of coronary disease presented inpatient due to an NSTEMI. We have explained to the patient risks and benefits of cardiac catheterization plus any other necessary procedures with a view towards revascularization, if necessary. Risks, including but not limited to anesthesia, infection, organ(s) damage, bleeding, vessel injury, arrhythmia, stroke, PA and , including the need for urgent surgery were discussed in detail. The patient accepts these risks and verbalized understanding and is willing to proceed with the procedure. Viable alternatives if applicable have thoroughly been discussed and the patient agrees with the planned procedure(s). We also discussed with the patient regarding different treatment modalities including but not limited to drug-eluting stent/balloons. The patient was agreeable to any therapy that is considered necessary by my clinical judgment. Pre-op Diagnosis: + NSTEMI Post-op Diagnosis: + Nonobstructive coronary disease + NSTEMI type II Procedures performed: Left Heart Catheterization Right & Left Selective Coronary Angiography Left Ventriculogram Moderate Sedation Right femoral access with Ultrasound guidance Perclose to access site Implants: -see above Estimated Blood Loss (EBL): minimal Specimen Removed: None Supplies: please see list Procedure details: After informed consent was obtained, the patient was brought to the Cardiac Catheterization Lab in a fasting state. All appropriate labs had been reviewed. Femoral and radial regions were prepped and draped in the usual sterile fashion. A time-out procedure was performed with appropriate identification of the patient, procedure, physician, position, and documentation. There were no safety issues raised by the staff. The right femoral area was anesthetized with lidocaine and a 6-[place] vascular sheath was placed via a modified Seldinger technique using Ultrasound guidance. -Left system coronary angiography performed using a JL4 catheter. -Right system coronary angiography performed using a JR4 catheter. -Left heart catheterization and left ventriculography were performed using a pigtail catheter. Following the procedure, all wires & catheters were removed. The arteriotomy site was closed using Perclose with patent hemostasis achieved and the patient was sent to recovery in stable condition. There were no apparent complications. Contrast: See intra-procedure logs. Fluoroscopy: See intra-procedure logs. Anesthesia/medications: See intra-procedure log for details. Under my supervision, Versed and Fentanyl were administered intravenously for moderate sedation. Pulse oximetry, heart rate, and blood pressure were continuously monitored by a labor relations director registered nurse and myself. The history and physical exam were reviewed prior to the procedure and the airway was assessed. Coronary Findings: +Left Main: Patent vessel without any significant focal disease giving rise to LCx and LAD. +Left Anterior Descending: Widely patent stents, type 3 vessel, patent without any significant focal disease. Gives rise to diagonal and septal branches which appear patent. +Left Circumflex: Patent vessel without any significant focal disease. Gives rise to OM1 and OM2 which appear patent. +Right Coronary Artery: Mid: 20 to 30% same as previous angiogram from December,; dominant vessel giving rise to postero-lateral and posterior descending arteries which appear patent. Left Ventriculography: Left ventriculography was performed in 30 degree ROSENBAUM position. The ejection fraction was estimated at 55% %. There was no significant mitral regurgitation. Hemodynamics: -Opening aortic pressure was 115/65. -Left ventricular pressure was 115, left ventricular end-diastolic pressure was 25 mmHg. -Aortic pullback pressure was 115/75. -There was no significant gradient on pullback from the left ventricle into the ascending aorta. Conclusions: + Nonobstructive coronary disease + NSTEMI type II Plan: + We recommend continue with aspirin and Plavix as tolerated. + Recommend continue treating the ongoing illness. + Likewise, we will continue to optimize the patient medical therapy as tolerated. The patient received Lasix and is diuresing well. We do not recommend continue with heparin therapy or nitro therapy at this time. +Ice Access sites twice daily for 15 minutes each time. +Aggressive Risk Factor Modification + Continue with ICU protocol DO GISELE Estevez FASE, JEROME, FASJAZMÍN Date: 06/17/2020 at 9:57PM
--- NOTE | 2020-06-17 22:37 | PCM.HP.STD ---
Problem List (1) COPD (chronic obstructive pulmonary disease) Status: Chronic (2) NSTEMI (non-ST elevated myocardial infarction) Status: Acute (3) CAD (coronary artery disease) Status: Chronic Qualifiers: Coronary Disease-Associated Artery/Lesion type: nome artery Nikolai vs. transplanted heart: nome heart (4) Polymyositis Status: Chronic (5) CHF (congestive heart failure) Status: Acute Qualifiers: Heart failure type: unspecified Heart failure chronicity: acute Qualified Code(s): I50.9 - Heart failure, unspecified (6) Macrocytic anemia Status: Chronic (7) Atherosclerosis of coronary artery of nome heart without angina pectoris Status: Chronic Qualifiers: Coronary Disease-Associated Artery/Lesion type: nome artery Qualified Code(s): I25.10 - Atherosclerotic heart disease of nome coronary artery without angina pectoris Comment: PCI-Cutting Balloon PTCA of ISR Prox LAD w/ MSS-Yxps-Xon LAD w/ 3.5 mm x 20 mm Synergy Stent 10/07/2015; RAO-LJK-Pems- Mid LAD 06/15/2011; drug-eluting stent to mid LAD at [facility] on 01/08/2020; (8) History of coronary artery stent placement Status: Chronic Comment: PCI-Cutting Balloon PTCA of ISR Prox LAD w/ JLY-Spfp-Sfq LAD w/ 3.5 mm x 20 mm Synergy Stent 10/07/2015; LHL-ELH-Alau- Mid LAD 06/15/2011; drug-eluting stent to mid LAD at [facility] on 01/08/2020; (9) Essential (primary) hypertension Status: Chronic (10) Hyperlipidemia Status: Chronic Qualifiers: (11) CVA (cerebral vascular accident) Status: Chronic History of Present Illness Date of Admission: 06/17/20 Chief Complaint: Shortness of breath. The patient is a 64 year old F with past medical history as mentioned above presented to the emergency room because of shortness of breath. Today, patient went to see her PCP for shortness of breath, she was given prescription for tapering prednisone and she was discharged home. She decided to come to the emergency department for evaluation. She states that she has been having this shortness of breath for the last 7 to 8 days, comes on with even minimal exertion, aggravated by activity, somewhat relieved by rest, associated with significant weakness and fatigue as well as mild dry cough and sometimes chest tightness. She denies fever or chills. She denied exposure to COVID-19 or recent travel. She stated that she was tested negative for COVID-19 around 2 to 3 months ago. Upon arrival to ED, she was afebrile, heart rate stable, blood pressure was borderline, pulse ox is 94% on room air. Initial EKG revealed normal sinus rhythm and there was no acute ischemic changes.initial chest x-ray revealed patchy opacity of the right base with small right pleural effusion. While in the ED, patient became acutely dyspneic and tachypneic as well as diaphoretic. She was started on BiPAP. Repeat EKG done and revealed T wave inversion in leads I and V2. Her routine blood work was remarkable for hemoglobin of 8.2 g/dL, sodium of 129. Initial lactic acid was 2.2 and then went up to 4.4. Troponin was elevated at 13.3 and went up to 14.3. BNP was 3134. Repeat chest x-ray showed no significant new changes. COVID-19 PCR was negative. Because of the EKG changes and acute dyspnea and tachypnea, cardiology was consulted and patient underwent emergent cardiac catheterization. Cardiology reported that her coronaries are patent without evidence of acute lesions. Currently, patient is in the ICU. She is afebrile, blood pressure stable, she is off oxygen and maintaining her pulse ox on room air. She is being admitted for acute congestive heart failure, unspecified type, suspected pneumonia and lactic acidosis as well as hyponatremia. Past Medical History Past Medical History (Chronic Problems): Chronic Problems (Last Reviewed 06/17/20 @ 14:09 by Patricia Del Valle) COPD (chronic obstructive pulmonary disease) (Chronic) B12 deficiency (Chronic) CAD (coronary artery disease) (Chronic) Polymyositis (Chronic) Elevated CPK (Chronic) Macrocytic anemia (Chronic) Anemia of chronic disease (Chronic) Iron deficiency anemia due to chronic blood loss (Chronic) Degenerative joint disease of spine (Chronic) Anemia (Chronic) Chronic diarrhea (Chronic) Atherosclerosis of coronary artery of nome heart without angina pectoris (Chronic) PCI-Cutting Balloon PTCA of ISR Prox LAD w/ ZBJ-Mkir-Rsg LAD w/ 3.5 mm x 20 mm Synergy Stent 10/07/2015; UMZ-GTA-Jqmu- Mid LAD 06/15/2011; drug-eluting stent to mid LAD at [facility] on 01/08/2020; History of coronary artery stent placement (Chronic 10/07/15) PCI-Cutting Balloon PTCA of ISR Prox LAD w/ TUA-Ypuk-Cxe LAD w/ 3.5 mm x 20 mm Synergy Stent 10/07/2015; CVQ-TFS-Jjrm- Mid LAD 06/15/2011; drug-eluting stent to mid LAD at [facility] on 01/08/2020; Essential (primary) hypertension (Chronic) Hyperlipidemia (Chronic) CVA (cerebral vascular accident) (Chronic) Medical History: Medical History (Last Reviewed 06/17/20 @ 14:09 by Patricia Del Valle) Atherosclerosis of coronary artery of nome heart without angina pectoris (Chronic) I25.10 PCI-Cutting Balloon PTCA of ISR Prox LAD w/ QTT-Wcbd-Dlv LAD w/ 3.5 mm x 20 mm Synergy Stent 10/07/2015; GUO-XPR-Vuhq- Mid LAD 06/15/2011; drug-eluting stent to mid LAD at [facility] on 01/08/2020; Essential (primary) hypertension (Chronic) I10 Hyperlipidemia (Chronic) E78.5 CVA (cerebral vascular accident) (Chronic) I63.9 Iron deficiency anemia D50.9 Atrophic vaginitis N95.2 IBS (irritable bowel syndrome) K58.9 Urethral stricture History of benign breast tumor Z86.018 Irritable bowel syndrome with diarrhea (Inactive) K58.0 Allergies amlodipine [From Norvasc] Allergy (Verified 06/17/20 15:08) severe BLE edema codeine Allergy (Verified 06/17/20 15:08) Other STOMACH PAIN sulfamethoxazole [From Septra] Allergy (Verified 06/17/20 15:08) Rash trimethoprim [From Septra] Allergy (Verified 06/17/20 15:08) Unknown prasugrel [From Effient] Adverse Reaction (Severe, Verified 06/17/20 15:08) Not advised in pt's who have had CVA Onset 09/06/2016 Home Medications: Ambulatory Orders Medication Instructions Recorded aspirin 81 mg tablet,delayed 81 mg PO DAILY 07/31/18 release nitroglycerin 0.4 mg sublingual 0.4 mg SUBLINGUAL Q5M PRN #25 tab 06/04/19 tablet mirtazapine 15 mg tablet 15 mg PO QHS #90 tab 01/08/20 albuterol sulfate 90 mcg/actuation 2 puff INHALATION Q6H #8 g 02/04/20 aerosol inhaler tiotropium bromide 2.5 2 puff INHALATION DAILY #4 g 02/04/20 mcg/actuation mist for inhalation albuterol sulfate 90 mcg/actuation 2 inh INHALATION Q6H PRN #1 ea 03/06/20 breath activated powder inhaler Pantoprazole Sodium 40 mg PO DAILY 04/22/20 Primidone [Mysoline] 150 mg PO BID 04/22/20 Propranolol HCl [Inderal Xl] 80 mg PO DAILY 04/22/20 diphenoxylate-atropine 2.5 1 tab PO BID #60 tab 04/29/20 mg-0.025 mg tablet alprazolam 0.5 mg tablet 0.5 mg PO TID PRN #90 tab 06/09/20 Clopidogrel Bisulfate [Clopidogrel] 75 mg PO DAILY 06/17/20 Surgical History: Surgical History (Last Reviewed 06/17/20 @ 14:09 by Patricia Del Valle) History of coronary artery stent placement (Chronic) Onset Date: 10/07/15 Z95.5 PCI-Cutting Balloon PTCA of ISR Prox LAD w/ QTB-Wcfk-Gad LAD w/ 3.5 mm x 20 mm Synergy Stent 10/07/2015; FFD-TQS-Tjtn- Mid LAD 06/15/2011; drug-eluting stent to mid LAD at [facility] on 01/08/2020; History of ear surgery Z98.890 2018, Rt ear had an ulcer. History of hysterectomy Z90.710 Surgical History: hysterectomy Psychiatric History: Anxiety Lives: Spouse/ Significant Other Smoking Status: Former smoker Tobacco Use: Non-smoker Alcohol: None Drugs: None - *Family History Maternal Family History: Family History (Last Reviewed 06/17/20 @ 14:09 by Patricia Del Valle) Mother CVA (cerebral vascular accident) Breast cancer Anxiety and depression Grandmother CVA (cerebral vascular accident) Sister Breast cancer Anxiety and depression Review of Systems Constitutional: Reports: Anorexia, Weakness, Fatigue. Denies: Chills, Fever Eyes: Denies: Blurred vision, Double vision, Drainage, Redness HEENT: Denies: Difficulty Hearing, Ear Pain, Eye Pain, Nasal Congestion, Sore Throat Cardiovascular: Denies: Chest Pain, Chest Pressure, Edema, Heaviness, Palpitations, Syncope Respiratory: Reports: Cough, Shortness of Breath, Shortness of breath upon exertion. Denies: Sputum production, Wheezing Gastrointestinal: Denies: Abdominal Pain, Constipation, Diarrhea, Nausea, Vomiting Genitourinary: Denies: Dysuria, Frequency, Hematuria Musculoskeletal: Reports: Back Pain. Denies: Arm Pain, Foot Pain Skin: Denies: Dryness, Rash Neurological: Denies: Balance problems, Blurred vision, Double vision, Change in Speech, Confusion, Headaches, Numbness Psychiatric: Reports: Anxiety. Denies: Depression Endocrine: Denies: Change in Body Habitus, Polydipsia, Polyuria VTE Information - Inpt Only VTE Present on Admission: No VTE Mechan Device Prophylaxis: None VTE Pharm Prophylaxis ordered?: Yes Patient Problems: Active and Suspected Problems (Last Updated 06/17/20 @ 22:[address] Ashlie Thompson MD) NSTEMI (non-ST elevated myocardial infarction) (Acute) CHF (congestive heart failure) (Acute) - Physical Exam Vitals/I&O's: Vital Signs Temp Pulse Resp BP Pulse Ox 96.3 F L 86 20 H 99/70 100 06/17/20 20:49 06/17/20 22:28 06/17/20 20:49 06/17/20 20:49 06/17/20 20:49 Oxygen Delivery Method Bi-pap Weight: 152 lb 4.8 oz Body Mass Index (BMI) 22.4 Intake and Output for Last 24 Hours 06/15/20 06/16/20 06/17/20 23:59 23:59 23:59 Intake Total 507.5 / 507.5 Balance 507.5 / 507.5 General: Alert, Oriented x3, Cooperative, No apparent distress HEENT: Atraumatic, PERRLA, EOMI, Normocephalic Oral: Moist Mucosa, No Gingival or Mucosal Lesions/ Ulcerations Neck: Supple, No JVD, Negative Carotid Bruits, Trachea Midline, Thyroid Normal Size and Texture Lungs: No rhonchi, No wheeze, No rales, Diminished, - - Decreased breath sounds at the bases, more to the right base. Cardiovascular: Regular rate, Regular Rhythm, Normal S1, Normal S2, PMI Normal Abdomen: Bowel Sounds Present, Soft, Non Tender, Non-Distended, No Hepato-splenomegaly Extremities: No clubbing, No cyanosis, No edema Skin: No rashes, No breakdown Lymphatic: No Cervical, Supraclavicular, or Inguinal Adenopathy Neurological: Cranial nerves II-XII grossly intact, Motor Exam 5/5 strength throughout Psych/Mental Status: Normal Affect, Appropriate, Alert and oriented to time, place, person, mood and affect Laboratory Results 06/17/20 15:50: WBC 9.8, RBC 2.52 L, Hgb 8.2 L, Hct 25.7 L, MCV 102.0 H, MCH 32.5 H, MCHC 31.9 L, RDW Std Deviation 61.4 H, RDW Coeff of Sammy 16.7 H, Plt Count 209, MPV 8.9, Immature Gran % (Auto) 0.800, Neut % (Auto) 73.5 H, Lymph % (Auto) 15.2 L, Hernando % (Auto) 9.6, Eos % (Auto) 0.6, Baso % (Auto) 0.3, Absolute Neuts (auto) 7.2, Absolute Lymphs (auto) 1.49, Nucleated RBC % 0.2 06/17/20 15:50: D-Dimer Quant (PE/DVT) 1.99 H* 06/17/20 15:50: Sodium 129 L, Potassium 4.5, Chloride 97 L, Carbon Dioxide 24.0, Anion Gap 8, BUN 20 H, Creatinine 0.84, Estim Creat Clear Calc 68.85, Est GFR (MDRD) Af Amer 87, Est GFR (MDRD) Non-Af 72, BUN/Creatinine Ratio 23.8 H, Glucose 106, Calcium 8.1 L, Troponin I 13.300 H* 06/17/20 15:50: B-Natriuretic Peptide 3134.8 H 06/17/20 15:50: Total Creatine Kinase 2648 H 06/17/20 15:50: APTT 31.6 06/17/20 16:01: Lactic Acid 2.2 H* 06/17/20 16:10: COVID-19 (RICHI) Not Detected 06/17/20 19:45: Troponin I 14.300 H* 06/17/20 19:54: Specimen Type ART, Sample Site L Radial, pH 7.47 H, Bicarbonate Actual 14.2 L, Total CO2 15, Base Excess -9 L, O2 Saturation 100 H, O2 % 100, ABG pCO2 19.4 L, ABG pO2 247 H, Chapito Test Positive, Respiration Rate 12, O2 Delivery Device BiPAP, POC PEEP 8, POC Pressure Suppt 14 06/17/20 20:18: Lactic Acid 4.4 H* Clinical Impression(s) from Imaging Studies Chest X-Ray 06/17/20 16:20 IMPRESSION: Patchy opacity at the right base with small right effusion. Findings are compatible with early/developing right lower lobe pneumonia. Follow-up to resolution recommended. Electronically Signed: Jamey Spears MD at 16:45 EST , Service support , Chest CTA 06/17/20 17:00 IMPRESSION: No evidence pulmonary embolus. Mild pulmonary vascular congestion. Moderate right pleural effusion and small left pleural effusion with overlying atelectasis. No focal infiltrates. Stable emphysema. Coronary artery disease. Small pericardial effusion. Trace perihepatic ascites. Electronically Signed: Fidencio Wise, at 17:39 EST Tel , Service support , Chest X-Ray 06/17/20 19:22 IMPRESSION: Stable exam. Electronically Signed: Fidencio Wise, at 19:42 EST Tel , Service support , Current Medications Albuterol Sulfate (Albuterol 2.5 Mg/3 Ml Vial.Neb.) 2.5 mg INHALATION Q2H PRN PRN PRN Reason: Shortness of breath, wheezing Albuterol/Ipratropium (Ipratropium/Albuterol Sulfate 3 Ml Ampul.Neb) 3 ml INHALATION Q6H.RT ELVIRA Alprazolam (Alprazolam 0.5 Mg Tablet) 0.5 mg PO TID PRN PRN PRN Reason: anxiety Aspirin (Aspirin E.C. 81 Mg Tablet) 81 mg PO DAILY@0800 ELVIRA Clopidogrel Bisulfate (Clopidogrel Bisulfate 75 Mg Tablet) 75 mg PO DAILY ELVIRA Diphenoxylate HCl/Atropine (Diphenoxylate/Atrop 1 Tablet) 1 tablet PO BID ELVIRA Furosemide (Furosemide 40 Mg/4 Ml Vial) 40 mg IV Q12 ELVIRA Azithromycin 500 mg/ Dextrose 255 mls @ 250 mls/hr IV Q24 ELVIRA Ceftriaxone Sodium (Rocephin) 1 gm in 50 mls @ 100 mls/hr IV Q24 ELVIRA Mirtazapine (Mirtazapine 15 Mg Tablet) 15 mg PO QHS ELVIRA Pantoprazole Sodium (Pantoprazole Sodium 40 Mg Tablet) 40 mg PO DAILY ELVIRA Primidone (Primidone 50 Mg Tablet) 150 mg PO BID ELVIRA Sodium Chloride (0.9% Saline Lock 10 Ml Syringe) 10 - 40 ml IV UD PRN PRN Reason: SALINE FLUSH Assessment/Plan All Active Problems (Last Updated 06/17/20 @ 22:[address] Ashlie Thompson MD) NSTEMI (non-ST elevated myocardial infarction) (Acute) CHF (congestive heart failure) (Acute) This is a 64 years old female patient presented to the emergency room because of shortness of breath for 8 days with mild cough, became acutely dyspneic and tachypneic in the ED and developed new EKG changes, found to have elevated troponin consistent with acute non-STEMI, underwent emergent cardiac catheterization and she is being admitted for acute congestive heart failure, suspected community-acquired pneumonia and elevated lactic acid. #1 acute congestive heart failure: Based on chest x-ray findings, highly elevated BNP and patient symptoms. Patient underwent emergent cardiac catheterization and findings are below. Currently, patient is on room air, blood pressure stabilized, afebrile, heart rate stable. Plan: Admit to ICU, complete bedrest, critical care monitoring, start IV Lasix, fluid restriction, 2D echocardiogram, start beta-blockers when blood pressure allows, cardiology consult, repeat CBC and BMP tomorrow morning, PT OT evaluation and treatment. #2 acute non-ST relation CA: Status post emergent cardiac catheterization that revealed patent coronary arteries without evidence of acute lesions. Patient was on IV heparin drip and IV nitroglycerin drip which was discontinued. Currently, she denied any chest pain. Repeat EKG reviewed, was unremarkable. Plan to continue aspirin, Plavix, 2D echocardiogram, cardiology consult which already seen the patient, start beta-blockers when blood pressure allows. #3 suspected community-acquired pneumonia: Chest x-ray reviewed, revealed questionable right basilar infiltrate. Patient has no leukocytosis, afebrile. She received 1 dose of IV Rocephin and Zithromax in the ED. CTA chest showed no PE or dissection. Lactic acid was 2.2, went up to 4.4. Plan: Blood culture, urinalysis, urine culture, start IV Rocephin and Zithromax. #4 lactic acidosis: Not sure if this is due to septic shock because of pneumonia or because of acute hypoxia. Currently, patient is off oxygen, on room air. She is afebrile. Plan: Cultures as above, IV Rocephin and Zithromax, repeat lactic acid. #5 chronic anemia: Combination of iron deficiency and B12 deficiency anemia. Admission hemoglobin as 8.2 g/dL, stable at baseline. No active bleeding. Plan to monitor. #6 CAD status post stents: Plan as above, continue aspirin and Plavix,, start beta-blockers when blood pressure allows. #7 COPD: Currently, she is off oxygen. Plan for albuterol as needed, DuoNeb every 6 hours, incentive spirometer. #8 recent diagnosis of polymyositis: She was referred to rheumatology by her PCP but she did not see the director building yet. #9 hypertension: Currently, blood pressure stable. At home, patient is on Inderal XL which will be held for now. #10 anxiety: Continue alprazolam. #11 DVT prophylaxis: Subcu Lovenox. This note was generated with [employer]ico[employer] dictation software. It may contain incorrect words, spelling, and punctuation that were not noted in checking the note before signing. Inpatient E&M: 55879 Init Hosp L3
[2020-06-17 22:43] LABS: Mucous, Urine 0 SEEN /hpf (<or=2+); Red Blood Cells-Urine 0 SEEN /hpf (0-5); Squamous Epithelial Cells - UA 0 SEEN /hpf (5-10)
[2020-06-17 22:55] LABS: Color, Urine Yellow (Yellow); Glucose, Dipstick Normal (Normal); Ketone-Dipstick Negative (Negative); Leukocyte Esterase-Dipstick 100 /ul (Negative); Nitrite-Dipstick Negative (Negative); Occult Blood-Urine Negative /ul (Negative); Protein-Dipstick 30 mg/dl (Negative); Urine Bilirubin Dipstick Negative (Negative); Urine Clarity Clear (Clear); Urine Urobilinogen Normal (Normal); Urine pH 6.5 (5.0 - 8.0)
--- NOTE | 2020-06-17 22:55 | CPS ---
PT returned from [employer] and bipap not needed.
[2020-06-17 23:04] LABS: Bacteria 1+ /hpf (None Seen); White Blood Cells 0-5 SEEN /hpf (0-5)
[2020-06-17] MEDS: ALPRAZolam 0.5 MG Tablet PO (23:05)
[2020-06-17] MEDS: Mirtazapine 15 MG Tablet PO (23:05)
[2020-06-17] MEDS: Primidone 50 MG Tablet 150 MG PO (23:05)
[2020-06-17] MEDS: 0.9% Saline Lock 10 ML Syringe IV (23:06)
[2020-06-18] VITALS (30 sets, daily range): BP systolic 92–121; BP diastolic 54–82; PULSE 84–104; RESP 12–28; TEMP 36.3–37.3; O2SAT 90–100
[2020-06-18 04:51] LABS: Reflex Lactate? Y
[2020-06-18 05:04] LABS: AST(SGOT) 98 U/L (15-37); Alanine Aminotransfer ALT/SGPT 65 U/L (13-56); Albumin, Serum 2.6 g/dL (3.2-5.0); Alkaline Phosphatase 279 U/L (45-117); Anion Gap 10 (5-15); BUN 22 mg/dL (7-18); BUN/Creat Ratio 25.4 RATIO (10-20); Bilirubin, Direct 0.32 mg/dL (0.00-0.30); CPK Total, Creatine Kinase 1868 U/L (26-192); Chloride 94 mmol/L (98-107); Cholesterol 152 mg/dL (200); Creatinine, Serum 0.87 mg/dL (0.55-1.02); EST Glomerular Filtration Rate 69 mL/min (>60); Est Glom Filt Rate - Afr Amer 84 mL/min (>60); Estimated Creatinine Clearance 66.47 ml/min; Globulin 4.2 g/dL (2.2-4.2); Glucose 99 mg/dL (74-106); High Density Lipoprotein 56 mg/dL; Magnesium 1.6 mg/dL (1.6-2.6); Potassium 4.3 mmol/L (3.5-5.1); Protein, Total 6.8 g/dL (6.4-8.2); Sodium Level 127 mmol/L (136-145); Triglycerides 163 mg/dL; Very Low Density Lipoprotein 33 mg/dL (5-40)
[2020-06-18 05:42] LABS: Lactic Acid 2.3 mmol/L (0.4-1.9)
--- NOTE | 2020-06-18 05:55 | ECHOCS_ITS ---
Reason For Study: S/P [place] Procedure This was a 2D Doppler, Color Flow transthoracic echocardiogram. The study was technically difficult. Contrast injection was performed. Exam performed portable in ICU/CCU. Left Ventricle Normal LV size. Severe concentric left ventricular hypertrophy. Mild segmental systolic dysfunction (see wall motion). The estimated ejection fraction is 45 %. No evidence for diastolic dysfunction. Posterior-Basal: Hypokinetic. Mid-Anterior : Hypokinetic. Mid-Posterior: Hypokinetic. Mid- anteroseptal : Hypokinetic. Anterior Lena : Hypokinetic. Inferior Lena : Hypokinetic. Septal Lena : Hypokinetic. Right Ventricle Normal RV size. Normal systolic function. Atria Normal left atrium. Normal right atrium. No doppler evidence for ASD. Mitral Valve There is no mitral annular calcification. Normal mitral valve. Mild (1+) mitral valve insufficiency. Tricuspid Valve Normal tricuspid valve. Mild tricuspid valve insufficiency. Aortic Valve Trisinus/trileaflet aortic valve. Normal aortic valve. Pulmonic Valve The pulmonic valve is not well visualized. Trivial pulmonic valve insufficiency. Great Vessels The aortic root is not well visualized. Pericardium/Pleural Small pericardial effusion. There are no echocardiographic indications of cardiac tamponade. Medication Diluted definity 3ml given slow IV push to enhance endocardial definition. MMode/2D Measurements & Calculations LVIDd: 4.3 cm IVSd: 1.7 cm LA dimension: 3.9 cm LVIDs: 3.4 cm LVPWd: 2.2 cm FS: 19.5 % LAV(MOD-sp4): 46.5 ml LA A4 area: 18.3 cm2 RA A4 area: 15.9 cm2 Doppler Measurements & Calculations MV E max francesco: 32.3 cm/sec Lat Peak E' Francesco: 3.7 cm/sec Med Peak E' Francesco: 3.5 cm/sec MV A max francesco: 101.5 cm/sec E/E' lat: 8.8 E/E' med: 9.3 MV E/A: 0.32 Ao V2 max: 104.9 cm/sec LV V1 max: 98.8 cm/sec PA V2 max: 58.7 cm/sec Ao max P.4 mmHg LV V1 max P.9 mmHg Interpretation Summary The study was technically difficult. Contrast injection was performed. Mild segmental systolic dysfunction (see wall motion). The estimated ejection fraction is 45 %. Severe concentric left ventricular hypertrophy. Mild (1+) mitral valve insufficiency. Mild tricuspid valve insufficiency. Trivial pulmonic valve insufficiency. Small pericardial effusion. There are no echocardiographic indications of cardiac tamponade. No evidence for diastolic dysfunction. Ordering Physician: Carlos Price Referring Physician: Maxx Hewitt Performed By: Alexandr Mcbride RCS
--- NOTE | 2020-06-18 05:55 | EKG12_ITS ---
Test Reason : Blood Pressure : / mmHG Vent. Rate : 083 BPM Atrial Rate : 083 BPM P-R Int : 174 ms QRS Dur : 096 ms QT Int : 396 ms P-R-T Axes : 070 104 082 degrees QTc Int : 465 ms Normal sinus rhythm Low Voltage QRS Rightward [place] ICRBBB Nonspecific ST/T wave abnormality Abnormal ECG Confirmed by LISA MATUTE, JOSE ([id number]), script editor AMINATA SANTIAGO ([id number]) on 06/23/2020 8:11:01 AM Referred By: SAL Confirmed By:JOSE GONZALEZ MD
[2020-06-18] MEDS: Ipratropium/Albuterol Sulfate 3 ML AMPUL.NEB INHALATION ×2 (07:30→19:40)
[2020-06-18] MEDS: Aspirin E.C. 81 MG Tablet PO (08:06)
[2020-06-18] MEDS: Furosemide 40 MG/4 ML Vial IV ×2 (08:07→21:07)
[2020-06-18] MEDS: 0.9% Saline Lock 10 ML Syringe IV ×2 (08:07→21:12)
[2020-06-18] MEDS: Clopidogrel Bisulfate 75 MG Tablet PO (08:07)
[2020-06-18] MEDS: Primidone 50 MG Tablet 150 MG PO ×2 (08:07→21:07)
[2020-06-18] MEDS: Pantoprazole Sodium 40 MG Tablet PO (08:07)
[2020-06-18] MEDS: Diphenoxylate/Atrop 1 Tablet PO ×2 (08:12→21:11)
[2020-06-18] MEDS: Enoxaparin 30 MG/0.3 ML Syringe SC (08:12)
[2020-06-18] MEDS: predniSONE 20 MG Tablet 40 MG PO (10:06)
[2020-06-18 10:10] LABS: Absolute Lymphocyte Count 1.97 X10^3/uL (0.83-4.51); Absolute Neutrophil Count 7.2 X10^3/uL (2.0-7.7); Basophil# 0.03 X10^3/uL; Basophil% 0.3 % (0-1); Eosinophil# 0.04 X10^3/uL; Eosinophils% 0.4 % (0-5); Hematocrit 25.5 % (37-47); Lymphocyte # 1.97 X10^3/ul (4.0); Mean Corp Hgb Conc 31.4 g/dL (32-36); Mean Corpuscular Hgb 32.1 pg (27.0-32.0); Mean Corpuscular Volume 102.4 fL (81-99); Mean Platelet Vol. 9.2 fl (6.2-12.0); Monocyte# 1.07 X10^3/uL; Monocyte% 10.3 % (0-10); NRBC Flagged by Analyzer 0 % (0-5); Neutrophil # 7.15 X10^3/uL (2.7-7.7); Platelet Count 235 K/mm3 (150-450); RBC Distribution Width CV 17.1 % (11.6-14.6); RBC Distribution Width SD 63.9 fl (35.1-43.9); Red Blood Count 2.49 M/mm3 (4.2-5.4); White Blood Count 10.4 K/mm3 (4.4-11.0)
[2020-06-18] MEDS: Ceftriaxone 1 GM/50 ML BAG IV (10:23)
--- NOTE | 2020-06-18 13:30 | CASEMGMT ---
Addendum entered by Manjit Leyva 06/18/20 16:57: 1520: Call placed to [facility] and spoke w/Javier. He was made aware pt may d/c in 1-2 days. Referral made, packet faxed. Javier called back to this RN CM and able to accept pt. Per Javier, pt was recently active with them. Pt made aware [facility] able to accept her, and that this was the [facility] agency she had previously. Pt states she is agreeable to trying this agency again. Original Note: RN CM [employer]MIN[employer] CM to room to meet with patient for initial transition planning/care coordination assessment. RN CM introduced self and role at [facility].? Pt voices understanding and consents to assessment at this time.? Pt resting in bed in no distress at this time.? BIPAP in place, but pt able to talk to RN CM. Pt is A/O at this time and answers all questions appropriately.?? Care providers, pharmacy, and demographics verified/updated at this time. PCP: Dr Maxx Hewitt Preferred Pharmacy: [facility] Retail Insurance: [employer] Prescription Benefit:? Yes Living Will/HPOA:? States does not have LW or HCPOA .? Interested in more information and would like to talk with SW. Made aware, once pt off of BIPAP, SW may be able to meet with her for AD info. Living Arrangements: Lives w/her and son who is legally blind, lives with them. They live in a 2-story home. [employer]. 5-6 steps to enter. works full-time and is gone most of the day. Pt states usually just sponge baths d/t her is gone a lot and she prefers for him to be home w/her. Son goes with a friend to get groceries. Son/ do meals and laundry. Pt states she is able to manage her own medications and appts. Has 5 sisters who provide emotional support. Transportation: Pt states drives self and states no transportation concerns at this time.? will take her home @ d/c. DME: ? States has the following DME:? shower chair, rails/grab bars, walker. No home O2. Denies preference of DME company if need O2 @ d/c. HHC/SNF: No history of SNF. Hx of [facility]. Pt states would like HHC again, but prefers different agency than she had before, although she does not remember the name of the agency. Pt wishes to return home and states has no concerns with going home at time of discharge.? CM to follow for home oxygen needs and any further discharge planning/needs.? Pt voices no further concerns/needs at this time.? Advised pt to ask for CM if any further questions/concerns/needs arise.? Voices understanding. PLAN: ?Home w/HHC Follow for O2 needs @ d/c. Deborah JIMENEZN RN CM
[2020-06-18] MEDS: ALPRAZolam 0.5 MG Tablet PO ×2 (13:57→21:15)
--- NOTE | 2020-06-18 16:17 | CASEMGMT ---
SW met w/pt briefly, pt on phone. SW gave pt the LW/POA forms, inquired if she wanted to complete them. She does not want to complete them right now, but did accept the information. SW explained can check back with her tomorrow, and also gave her this SW number to call should she want to come back and complete them after discharge. LAURI Lyles
--- NOTE | 2020-06-18 16:49 | NURSING ---
REPORT CALLED TO MIKEY CHANEY RN AT [phone]
--- NOTE | 2020-06-18 16:55 | PN_ITS ---
Patient Problems: Active and Suspected Problems (Last Updated 06/17/20 @ 22:[address] Ashlie Thompson MD) NSTEMI (non-ST elevated myocardial infarction) (Acute) CHF (congestive heart failure) (Acute) Subjective: Feeling much better, breathing much easier after the Lasix today. Vitals/I&O's: Vital Signs Temp Pulse Resp BP Pulse Ox 97.5 F L 100 21 H 116/78 96 06/18/20 12:00 06/18/20 16:00 06/18/20 15:00 06/18/20 15:00 06/18/20 16:21 Oxygen Delivery Method Room Air Weight: 152 lb 4.725 oz Body Mass Index (BMI) 22.4 Intake and Output for Last 24 Hours 06/16/20 06/17/20 06/18/20 23:59 23:59 23:59 Intake Total 627.5 / 627.5 785 / 785 Output Total 500 / 500 1600 / 1600 Balance 127.5 / 127.5 -815 / -815 General: Alert, Oriented x3, Cooperative, No apparent distress HEENT: Atraumatic, PERRLA, EOMI, Normocephalic Oral: Moist Mucosa Neck: Supple, No JVD Lungs: Normal air movement, No rhonchi, No wheeze, No rales, Diminished Cardiovascular: Regular rate, Regular Rhythm, Normal S1, Normal S2, No murmurs Abdomen: Soft, Non Tender, Non-Distended, No Hepato-splenomegaly Extremities: No edema, Capillary Refill Less than 3 Seconds Skin: No rashes, No breakdown Neurological: Neuro grossly intact, Sensory exam intact to light touch and pain Psych/Mental Status: Normal Affect, Appropriate Microbiology Past 72 Hours 06/17/20 22:30 Urine Catheter - Catheter Urine Culture - Preliminary Culture exhibits no growth. Laboratory Results 06/17/20 15:50: MCV 102.0 H, MCHC 31.9 L 06/17/20 15:50: D-Dimer Quant (PE/DVT) 1.99 H* 06/17/20 15:50: Total Creatine Kinase 2648 H 06/17/20 15:50: APTT 31.6 06/17/20 16:10: COVID-19 ([facility]) Not Detected 06/17/20 19:45: Troponin I 14.300 H* 06/17/20 19:54: Specimen Type ART, Sample Site L Radial, pH 7.47 H, Bicarbonate Actual 14.2 L, Total CO2 15, Base Excess -9 L, O2 Saturation 100 H, O2 % 100, ABG pCO2 19.4 L, ABG pO2 247 H, [place] Test Positive, Respiration Rate 12, O2 Delivery Device BiPAP, POC PEEP 8, POC Pressure Suppt 14 06/17/20 20:18: Lactic Acid 4.4 H* 06/17/20 22:30: Urine Color Yellow, Urine Clarity Clear, Urine pH 6.5, Ur Specific [place] 1.010, Urine Protein 30 H, Urine Glucose (UA) Normal, Urine Ketones Negative, Urine Occult Blood Negative, Urine Nitrite Negative, Urine Bilirubin Negative, Urine Urobilinogen Normal, Ur Leukocyte Esterase 100 H, Urine RBC 0 SEEN, Urine WBC 0-5 SEEN, Ur Squamous Epith Cells 0 SEEN, Urine Bacteria 1+, Urine Mucus 0 SEEN 06/18/20 00:15: Lactic Acid 2.0 06/18/20 04:05: WBC 10.4, RBC 2.49 L, Hgb 8.0 L, Hct 25.5 L, MCV 102.4 H, MCH 32.1 H, MCHC 31.4 L, RDW Std Deviation 63.9 H, RDW Coeff of Sammy 17.1 H, Plt Count 235, MPV 9.2, Immature Gran % (Auto) 1.000 H, Neut % (Auto) 69.0, Lymph % (Auto) 19.0, [place] % (Auto) 10.3 H, Eos % (Auto) 0.4, Baso % (Auto) 0.3, Absolute Neuts (auto) 7.2, Absolute Lymphs (auto) 1.97, Nucleated RBC % 0 06/18/20 04:05: Sodium 127 L, Potassium 4.3, Chloride 94 L, Carbon Dioxide 23.0, Anion Gap 10, BUN 22 H, Creatinine 0.87, Estim Creat Clear Calc 66.47, Est GFR (MDRD) Af Amer 84, Est GFR (MDRD) Non-Af 69, BUN/Creatinine Ratio 25.4 H, Glucose 99, Calcium 8.0 L, Magnesium 1.6, Total Bilirubin 0.50, Direct Bilirubin 0.32 H, AST 98 H, ALT 65 H, Alkaline Phosphatase 279 H, Total Creatine Kinase 1868 H, Total Protein 6.8, Albumin 2.6 L, Globulin 4.2, Triglycerides 163, Cholesterol 152, LDL Cholesterol 63, VLDL Cholesterol 33, HDL Cholesterol 56 06/18/20 05:00: Lactic Acid 2.3 H* Current Medications Albuterol Sulfate (Albuterol 2.5 Mg/3 Ml Vial.Neb.) 2.5 mg INHALATION Q2H PRN PRN PRN Reason: Shortness of breath, wheezing Albuterol/Ipratropium (Ipratropium/Albuterol Sulfate 3 Ml Ampul.Neb) 3 ml INHALATION Q6H.RT [facility] Last Admin: 06/18/20 07:30 Dose: 3 ml Documented by: Alprazolam (Alprazolam 0.5 Mg Tablet) 0.5 mg PO TID PRN PRN PRN Reason: anxiety Last Admin: 06/18/20 13:57 Dose: 0.5 mg Documented by: Aspirin (Aspirin E.C. 81 Mg Tablet) 81 mg PO DAILY@0800 [facility] Last Admin: 06/18/20 08:06 Dose: 81 mg Documented by: Clopidogrel Bisulfate (Clopidogrel Bisulfate 75 Mg Tablet) 75 mg PO DAILY [facility] Last Admin: 06/18/20 08:07 Dose: 75 mg Documented by: Diphenoxylate HCl/Atropine (Diphenoxylate/Atrop 1 Tablet) 1 tablet PO BID [facility] Last Admin: 06/18/20 08:12 Dose: 1 tablet Documented by: Enoxaparin Sodium (Enoxaparin 30 Mg/0.3 Ml Syringe) 30 mg SC DAILY [facility] Last Admin: 06/18/20 08:12 Dose: 30 mg Documented by: Furosemide (Furosemide 40 Mg/4 Ml Vial) 40 mg IV Q12 [facility] Last Admin: 06/18/20 08:07 Dose: 40 mg Documented by: Azithromycin 500 mg/ Dextrose 255 mls @ 250 mls/hr IV Q24 [facility] Last Infusion: 06/18/20 11:25 Dose: Infused Documented by: Ceftriaxone Sodium (Rocephin) 1 gm in 50 mls @ 100 mls/hr IV Q24 [facility] Last Infusion: 06/18/20 10:53 Dose: Infused Documented by: Mirtazapine (Mirtazapine 15 Mg Tablet) 15 mg PO QHS [facility] Last Admin: 06/17/20 23:05 Dose: 15 mg Documented by: Pantoprazole Sodium (Pantoprazole Sodium 40 Mg Tablet) 40 mg PO DAILY [facility] Last Admin: 06/18/20 08:07 Dose: 40 mg Documented by: Prednisone (Prednisone 20 Mg Tablet) 40 mg PO DAILY@0800 [facility] Last Admin: 06/18/20 10:06 Dose: 40 mg Documented by: Primidone (Primidone 50 Mg Tablet) 150 mg PO BID [facility] Last Admin: 06/18/20 08:07 Dose: 150 mg Documented by: Sodium Chloride (0.9% Saline Lock 10 Ml Syringe) 10 - 40 ml IV UD PRN PRN Reason: SALINE FLUSH Last Admin: 06/18/20 08:07 Dose: 10 ml Documented by: STROKE Vital Signs/Narrative: Vital Signs Pulse Resp BP Pulse Ox 06/18/20 16:21 96 06/18/20 16:00 100 06/18/20 15:00 100 21 H 116/78 99 06/18/20 14:00 99 22 H 107/54 L 100 06/18/20 13:25 100 28 H 06/18/20 13:22 99 22 H 06/18/20 13:00 99 24 H 94/74 100 Medical Necessity - Tobacco Use Smoking Status: Former smoker Tobacco Use: Non-smoker Assessment/Plan All Active Problems (Last Updated 06/17/20 @ 22:[address] Ashlie Thompson MD) NSTEMI (non-ST elevated myocardial infarction) (Acute) CHF (congestive heart failure) (Acute) 1. Acute respiratory failure secondary to pulmonary edema secondary to acute non-STEMI/CAD status post stents/HTN/lactic acidosis -EF on echo was only mildly reduced but she does have concentric ventricular hypertrophy on the left without any diastolic dysfunction. -The fact that she improved with Lasix lends credence to this diagnosis, her BNP was severely elevated to over 3000 on admission as well as an elevated troponin. -Cardiac cath was not significant for any cardiac lesion that needed stenting -Continue with aspirin and Lasix, she has pleural effusions as well as a small pericardial effusion -She is afebrile without a leukocytosis and on my review of the CTA of the chest, there is dependent atelectasis secondary to the pleural effusions therefore will discontinue antibiotics and monitor -Continue to hold her propranolol 2. Polymyositis -Her creatinine kinase is elevated to over 2000 and is improving -We will start her on prednisone as she is having pain and weakness -She will need to follow-up with her PCP as well as rheumatology as an outpatient 3. COPD -Given her rapid improvement with Lasix I do not believe that this is a COPD exacerbation -Can continue with her home inhalers as necessary 4. Chronic anemia -This combination of vitamin B12 deficiency as well as iron deficiency -She is managing as an outpatient by hematology, does not appear that she is on any iron or B12 supplementation -Need to follow-up with her PCP and her oncologist for this 5. Anxiety/depression -Continue with Ativan and Remeron -Stable DVT: Lovenox Inpatient E&M: 51944 Subs Hosp L2
--- NOTE | 2020-06-18 17:34 | PCS.PANDOC ---
PANDEMIC DOCUMENTATION INITIATED: Date: 06/18/20 Time: 5967
--- NOTE | 2020-06-18 18:15 | PN.CARD_ITS ---
Subjectve: The patient was evaluated earlier this day. She did appear to be symptomatically improved with respect to her respiratory status. She stated she just did not feel good overall with her muscle skeletal discomfort. Objective: Vital Signs Temp Pulse Resp BP Pulse Ox 97.7 F L 95 20 H 108/75 96 06/18/20 17:30 06/18/20 17:30 06/18/20 17:30 06/18/20 17:30 06/18/20 17:30 Oxygen Flow Rate (L/min) 2 Oxygen Delivery Method Nasal Cannula Weight: 152 lb 4.725 oz Body Mass Index (BMI) 22.4 Intake and Output for Last 24 Hours 06/16/20 06/17/20 06/18/20 23:59 23:59 23:59 Intake Total 627.5 / 627.5 785 / 785 Output Total 500 / 500 2049 / 2049 Balance 127.5 / 127.5 -1265 / -1265 General: Awake, Alert, Oriented x 3, Cooperative, Ill Appearing HEENT: Atraumatic, Normocephalic, PERRL, EOMI, Sclera Non Icteric Neck: Supple, No JVD Cardiovascular: Regular Rhythm, Normal S1, Normal S2 Vascular: Normal Femoral Pulses Abdomen: Bowel Sounds Present, Soft Neurological: No Focal Motor or Sensory Deficit Psych/Mental Status: Appropriate 06/17/20 15:50: APTT 31.6 06/17/20 19:45: Troponin I 14.300 H* 06/17/20 19:54: pH 7.47 H, Bicarbonate Actual 14.2 L, Base Excess -9 L, O2 Saturation 100 H, ABG pCO2 19.4 L, ABG pO2 247 H, Chapito Test Positive 06/17/20 20:18: Lactic Acid 4.4 H* 06/17/20 22:30: Urine Color Yellow, Urine Clarity Clear, Urine pH 6.5, Ur Specific [place] 1.010, Urine Protein 30 H, Urine Glucose (UA) Normal, Urine Ketones Negative, Urine Occult Blood Negative, Urine Nitrite Negative, Urine Bilirubin Negative, Urine Urobilinogen Normal, Ur Leukocyte Esterase 100 H, Urine RBC 0 SEEN, Urine WBC 0-5 SEEN 06/18/20 00:15: Lactic Acid 2.0 06/18/20 04:05: WBC 10.4, RBC 2.49 L, Hgb 8.0 L, Hct 25.5 L, MCV 102.4 H, MCH 32.1 H, MCHC 31.4 L, Plt Count 235, MPV 9.2, Immature Gran % (Auto) 1.000 H, Neut % (Auto) 69.0, Lymph % (Auto) 19.0, [place] % (Auto) 10.3 H, Eos % (Auto) 0.4, Baso % (Auto) 0.3, Absolute Neuts (auto) 7.2, Nucleated RBC % 0 06/18/20 04:05: Sodium 127 L, Potassium 4.3, Chloride 94 L, Carbon Dioxide 23.0, Anion Gap 10, BUN 22 H, Creatinine 0.87, Est GFR (MDRD) Af Amer 84, Est GFR (MDRD) Non-Af 69, BUN/Creatinine Ratio 25.4 H, Glucose 99, Calcium 8.0 L, Magnesium 1.6, Total Bilirubin 0.50, Direct Bilirubin 0.32 H, Triglycerides 163, Cholesterol 152, LDL Cholesterol 63, VLDL Cholesterol 33, HDL Cholesterol 56 06/18/20 05:00: Lactic Acid 2.3 H* Rhythm: Sinus rhythm EKG: Sinus rhythm; left axis deviation; low voltage QRS; incomplete right bundle branch block; nonspecific ST/T wave abnormality ECHO: Interpretation Summary The study was technically difficult. Contrast injection was performed. Mild segmental systolic dysfunction (see wall motion). The estimated ejection fraction is 45 %. Severe concentric left ventricular hypertrophy. Mild (1+) mitral valve insufficiency. Mild tricuspid valve insufficiency. Trivial pulmonic valve insufficiency. Small pericardial effusion. There are no echocardiographic indications of cardiac tamponade. No evidence for diastolic dysfunction. Medical Necessity - Tobacco Use Smoking Status: Former smoker Tobacco Use: Non-smoker Assessment/Plan 1. Non-ST segment elevation [place] The patient had laboratory findings compatible with a non-ST segment elevation [place]. She underwent evaluation with diagnostic cardiac catheterization yesterday evening. Her cardiac catheterization did not reveal angiographically significant appearing CAD or LAD in-stent restenosis. She is also had a follow-up transthoracic echocardiogram. Her overall LV systolic function/LVEF remains mildly diminished. At the present time it appears her non-ST segment elevation [place] is a type II event secondary to supply demand mismatch and not from a new CAD lesion/event. She will need continued medical management as she is able to based upon her vital signs, multiple comorbidities, etc. 2. CAD status post LAD PCI The patient has undergone LAD PCI x3. Her most recent PCI was performed in [place], [place]. That time per the outpatient office note she had an LAD ulcerated plaque just distal to her LAD stent that underwent intravascular ultrasound and subsequent PCI/LUIS ALBERTO. She has undergone subsequent evaluation as noted. She will continue medical therapy. 3. CHF/pleural effusion The patient demonstrates findings based upon history and examination and radiologic studies compatible with CHF. Her LV systolic and diastolic function was reviewed. Her LV systolic function remains mildly decreased and her diastolic function appears to be with no evidence of diastolic dysfunction. The exact etiology of her CHF/pleural effusion scenario appears to be somewhat unclear. This may be multifactorial with a combination of her somewhat diminished LV systolic function along with her noncardiac conditions such as her polymyositis with concerns of possible serositis superimposed upon her anemia, etc. At the moment she will need continued medical management such as her diuretics which she has been responding to. 4. Hyperlipidemia She reportedly has a history of hyperlipidemia. However she has not been on lipid-lowering therapy based upon concerns of her polymyositis. 5. Hypertension Her blood pressure will be followed with medications being adjusted as needed. 6. Polymyositis He has a history of polymyositis. Her CPK levels have been elevated. She continues to follow with her other physicians for this. 7. Anemia of chronic disease She also has a history of anemia of chronic disease. Her hemoglobin levels have waxed and waned. Depending upon her cardiovascular course and findings she may need to be considered for PRBC transfusion to assist with her oxygen carrying capacity. Comment: The patient's case has been discussed and reviewed with the patient and Dr. John. This note was generated using a voice recognition system and there may be incorrect words, spelling or punctuation that were not noted when reviewing the office note prior to saving.
[2020-06-18] MEDS: Mirtazapine 15 MG Tablet PO (21:07)
[2020-06-19] VITALS (12 sets, daily range): BP systolic 102–107; BP diastolic 66–73; PULSE 96–110; RESP 16–20; TEMP 36.5–37.5; O2SAT 94–100
[2020-06-19 05:36] LABS: Absolute Lymphocyte Count 1.52 X10^3/uL (0.83-4.51); Absolute Neutrophil Count 8.7 X10^3/uL (2.0-7.7); Basophil# 0.01 X10^3/uL; Basophil% 0.1 % (0-1); Eosinophil# 0.01 X10^3/uL; Eosinophils% 0.1 % (0-5); Hematocrit 25.5 % (37-47); Hemoglobin 8.4 g/dL (12.0-15.0); Lymphocyte # 1.52 X10^3/ul (4.0); Lymphocyte % 12.9 % (19-41); Mean Corp Hgb Conc 32.9 g/dL (32-36); Mean Corpuscular Hgb 32.8 pg (27.0-32.0); Mean Corpuscular Volume 99.6 fL (81-99); Mean Platelet Vol. 9.6 fl (6.2-12.0); Monocyte# 1.39 X10^3/uL; Monocyte% 11.8 % (0-10); NRBC Flagged by Analyzer 0 % (0-5); Neutrophil # 8.74 X10^3/uL (2.7-7.7); Neutrophil % 74.3 % (47-70); Platelet Count 295 K/mm3 (150-450); RBC Distribution Width CV 16.8 % (11.6-14.6); RBC Distribution Width SD 60.4 fl (35.1-43.9); Red Blood Count 2.56 M/mm3 (4.2-5.4); White Blood Count 11.8 K/mm3 (4.4-11.0)
[2020-06-19 06:11] LABS: Anion Gap 10 (5-15); BUN 34 mg/dL (7-18); BUN/Creat Ratio 38.1 RATIO (10-20); CPK Total, Creatine Kinase 3854 U/L (26-192); Calcium,Total 8.2 mg/dL (8.5-10.1); Chloride 95 mmol/L (98-107); Creatinine, Serum 0.89 mg/dL (0.55-1.02); EST Glomerular Filtration Rate 67 mL/min (>60); Est Glom Filt Rate - Afr Amer 81 mL/min (>60); Estimated Creatinine Clearance 64.98 ml/min; Glucose 117 mg/dL (74-106); Potassium 4.3 mmol/L (3.5-5.1); Sodium Level 129 mmol/L (136-145)
--- NOTE | 2020-06-19 09:25 | CASEMGMT ---
SW spoke with patient to see if she would like to complete advance directives. She did not want to do the documents. Sarita GILLIS MSW
--- NOTE | 2020-06-19 09:33 | PN.CARD_ITS ---
Subjectve: The patient is awake and alert. She has been up in the chair. She continues to have an element of shortness of breath and continues to require O2 therapy. Objective: Vital Signs Temp Pulse Resp BP Pulse Ox 97.7 F L 104 H 18 102/70 96 06/19/20 09:32 06/19/20 09:32 06/19/20 09:32 06/19/20 09:32 06/19/20 09:32 Oxygen Flow Rate (L/min) 2 Oxygen Delivery Method Nasal Cannula Weight: 152 lb 4.725 oz Body Mass Index (BMI) 22.4 Intake and Output for Last 24 Hours 06/17/20 06/18/20 06/19/20 23:59 23:59 23:59 Intake Total 627.5 / 627.5 785 / 885 100 / 100 Output Total 500 / 500 2050 / 2150 150 / 150 Balance 127.5 / 127.5 -1265 / -1265 -50 / -50 General: Awake, Alert, Oriented x 3, Cooperative, No Acute Distress HEENT: Atraumatic, Normocephalic, PERRL, EOMI, Sclera Non Icteric Neck: Supple, Good ROM Lungs: Diminished Right Base Cardiovascular: Regular Rhythm, Normal S1, Normal S2 Abdomen: Bowel Sounds Present, Soft Extremities: No edema Psych/Mental Status: Appropriate 06/18/20 04:05: WBC 10.4, RBC 2.49 L, Hgb 8.0 L, Hct 25.5 L, MCV 102.4 H, MCH 32.1 H, MCHC 31.4 L, Plt Count 235, MPV 9.2, Immature Gran % (Auto) 1.000 H, Neut % (Auto) 69.0, Lymph % (Auto) 19.0, [place] % (Auto) 10.3 H, Eos % (Auto) 0.4, Baso % (Auto) 0.3, Absolute Neuts (auto) 7.2, Nucleated RBC % 0 06/19/20 05:25: WBC 11.8 H, RBC 2.56 L, Hgb 8.4 L, Hct 25.5 L, MCV 99.6 H, MCH 32.8 H, MCHC 32.9, Plt Count 295, MPV 9.6, Immature Gran % (Auto) 0.800, Neut % (Auto) 74.3 H, Lymph % (Auto) 12.9 L, [place] % (Auto) 11.8 H, Eos % (Auto) 0.1, Baso % (Auto) 0.1, Absolute Neuts (auto) 8.7 H, Nucleated RBC % 0 06/19/20 05:25: Sodium 129 L, Potassium 4.3, Chloride 95 L, Carbon Dioxide 24.0, Anion Gap 10, BUN 34 H, Creatinine 0.89, Est GFR (MDRD) Af Amer 81, Est GFR (MDRD) Non-Af 67, BUN/Creatinine Ratio 38.1 H, Glucose 117 H, Calcium 8.2 L Rhythm: Sinus rhythm Medical Necessity - Tobacco Use Smoking Status: Former smoker Tobacco Use: Non-smoker Assessment/Plan 1. Non-ST segment elevation [place] The patient had laboratory findings compatible with a non-ST segment elevation [place]. She underwent evaluation with diagnostic cardiac catheterization. Her cardiac catheterization did not reveal angiographically significant appearing CAD or LAD in-stent restenosis. She is also had a follow-up transthoracic echocardiogram. Her overall LV systolic function/LVEF remains mildly diminished. At the present time it appears her non-ST segment elevation [place] is a type II event secondary to supply demand mismatch and not from a new CAD lesion/event. She will need continued medical management as she is able to based upon her vital signs, multiple comorbidities, etc. 2. CAD status post LAD PCI The patient has undergone LAD PCI x3. Her most recent PCI was performed in [place], [place]. That time per the outpatient office note she had an LAD ulcerated plaque just distal to her LAD stent that underwent intravascular ultrasound and subsequent PCI/LUIS ALBERTO. She has undergone subsequent evaluation as noted. She will continue medical therapy. 3. CHF/pleural effusion The patient demonstrates findings based upon history and examination and radiologic studies compatible with CHF. Her LV systolic and diastolic function was reviewed. Her LV systolic function remains mildly decreased and her diastolic function appears to be with no evidence of diastolic dysfunction. The exact etiology of her CHF/pleural effusion scenario appears to be somewhat unclear. This may be multifactorial with a combination of her somewhat dim inished LV systolic function along with her noncardiac conditions such as her polymyositis with concerns of possible serositis superimposed upon her anemia, etc. At the moment she will need continued medical management which will include doing reinitiation of low-dose beta-chaz therapy with carvedilol/Coreg as long as she tolerates this, continuation of diuretic therapy with adjustment as needed, and hopefully if she tolerates her other medications in the future addition of an afterload reducing agent such as an MADDIE inhibitor or ARB or Entresto. Also depending upon her clinical course she may need additional evaluation of her pleural effusion with a thoracentesis to assist with diagnosis and therapy. 4. Hyperlipidemia She reportedly has a history of hyperlipidemia. However she has not been on lipid-lowering therapy based upon concerns of her polymyositis. 5. Hypertension Her blood pressure will be followed with medications being adjusted as needed. 6. Polymyositis He has a history of polymyositis. Her CPK levels have been elevated. She continues to follow with her other physicians for this. 7. Anemia of chronic disease She also has a history of anemia of chronic disease. Her hemoglobin levels have waxed and waned. Depending upon her cardiovascular course and findings she may need to be considered for PRBC transfusion to assist with her oxygen carrying capacity. Comment: The patient's case has been discussed and reviewed with the patient and Dr. John. This note was generated using a voice recognition system and there may be incorrect words, spelling or punctuation that were not noted when reviewing the office note prior to saving.
--- NOTE | 2020-06-19 09:33 | CASEMGMT ---
Pt already set up with [facility] and green sheet left on chart at this time. SStaten RN CM
[2020-06-19] MEDS: Primidone 50 MG Tablet 150 MG PO ×2 (09:36→21:26)
[2020-06-19] MEDS: predniSONE 20 MG Tablet 40 MG PO (09:36)
[2020-06-19] MEDS: Enoxaparin 30 MG/0.3 ML Syringe SC (09:36)
[2020-06-19] MEDS: Aspirin E.C. 81 MG Tablet PO (09:36)
[2020-06-19] MEDS: Clopidogrel Bisulfate 75 MG Tablet PO (09:36)
[2020-06-19] MEDS: Pantoprazole Sodium 40 MG Tablet PO (09:37)
[2020-06-19] MEDS: ALPRAZolam 0.5 MG Tablet PO ×3 (09:41→21:26)
[2020-06-19] MEDS: Furosemide 40 MG Tablet PO ×2 (10:34→17:12)
[2020-06-19] MEDS: Carvedilol 3.125 MG TABLET PO (10:34)
[2020-06-19] MEDS: Diphenoxylate/Atrop 1 Tablet PO ×2 (10:34→21:26)
--- NOTE | 2020-06-19 15:59 | PN_ITS ---
Patient Problems: Active and Suspected Problems (Last Updated 06/17/20 @ 22:[address] Ashlie Thompson MD) NSTEMI (non-ST elevated myocardial infarction) (Acute) CHF (congestive heart failure) (Acute) Subjective: Still feels tired with some back pain now requiring 2 L nasal cannula Vitals/I&O's: Vital Signs Temp Pulse Resp BP Pulse Ox 98.2 F 109 H 16 103/73 98 06/19/20 14:55 06/19/20 15:00 06/19/20 14:55 06/19/20 14:55 06/19/20 14:55 Oxygen Flow Rate (L/min) 2 Oxygen Delivery Method Nasal Cannula Weight: 152 lb 4.725 oz Body Mass Index (BMI) 22.4 Intake and Output for Last 24 Hours 06/17/20 06/18/20 06/19/20 23:59 23:59 23:59 Intake Total 627.5 / 627.5 785 / 885 100 / 100 Output Total 500 / 500 2050 / 2150 150 / 150 Balance 127.5 / 127.5 -1265 / -1265 -50 / -50 General: Alert, Oriented x3, Cooperative, No apparent distress HEENT: Atraumatic, PERRLA, EOMI, Normocephalic Oral: Moist Mucosa Neck: Supple, No JVD Lungs: Normal air movement, No rhonchi, No wheeze, No rales, Diminished Cardiovascular: Regular rate, Regular Rhythm, Normal S1, Normal S2, No murmurs Abdomen: Soft, Non Tender, Non-Distended, No Hepato-splenomegaly Extremities: No edema, Capillary Refill Less than 3 Seconds Skin: No rashes, No breakdown Neurological: Neuro grossly intact, Sensory exam intact to light touch and pain Psych/Mental Status: Normal Affect, Appropriate Microbiology Past 72 Hours 06/17/20 22:30 Urine Catheter - Catheter Urine Culture - Preliminary Culture exhibits no growth. Laboratory Results 06/19/20 05:25: WBC 11.8 H, RBC 2.56 L, Hgb 8.4 L, Hct 25.5 L, MCV 99.6 H, MCH 32.8 H, MCHC 32.9, RDW Std Deviation 60.4 H, RDW Coeff of Sammy 16.8 H, Plt Count 295, MPV 9.6, Immature Gran % (Auto) 0.800, Neut % (Auto) 74.3 H, Lymph % (Auto) 12.9 L, [place] % (Auto) 11.8 H, Eos % (Auto) 0.1, Baso % (Auto) 0.1, Absolute Neuts (auto) 8.7 H, Absolute Lymphs (auto) 1.52, Nucleated RBC % 0 06/19/20 05:25: Sodium 129 L, Potassium 4.3, Chloride 95 L, Carbon Dioxide 24.0, Anion Gap 10, BUN 34 H, Creatinine 0.89, Estim Creat Clear Calc 64.98, Est GFR (MDRD) Af Amer 81, Est GFR (MDRD) Non-Af 67, BUN/Creatinine Ratio 38.1 H, Glucose 117 H, Calcium 8.2 L, Total Creatine Kinase 3854 H Current Medications Albuterol Sulfate (Albuterol 2.5 Mg/3 Ml Vial.Neb.) 2.5 mg INHALATION Q2H PRN PRN PRN Reason: Shortness of breath, wheezing Albuterol/Ipratropium (Ipratropium/Albuterol Sulfate 3 Ml Ampul.Neb) 3 ml INHALATION Q6H.RT [facility] Last Admin: 06/18/20 19:40 Dose: 3 ml Documented by: Alprazolam (Alprazolam 0.5 Mg Tablet) 0.5 mg PO TID PRN PRN PRN Reason: anxiety Last Admin: 06/19/20 15:03 Dose: 0.5 mg Documented by: Aspirin (Aspirin E.C. 81 Mg Tablet) 81 mg PO DAILY@0800 [facility] Last Admin: 06/19/20 09:36 Dose: 81 mg Documented by: Carvedilol ([facility] 3.125 Mg Tablet) [facility] Last Admin: 06/19/20 10:34 Dose: 3.125 mg Documented by: Clopidogrel Bisulfate (Clopidogrel Bisulfate 75 Mg Tablet) 75 mg PO DAILY [facility] Last Admin: 06/19/20 09:36 Dose: 75 mg Documented by: Diphenoxylate HCl/Atropine (Diphenoxylate/Atrop 1 Tablet) 1 tablet PO BID [facility] Last Admin: 06/19/20 10:34 Dose: 1 tablet Documented by: Enoxaparin Sodium (Enoxaparin 30 Mg/0.3 Ml Syringe) 30 mg SC DAILY [facility] Last Admin: 06/19/20 09:36 Dose: 30 mg Documented by: Furosemide (Furosemide 40 Mg Tablet) 40 mg PO BID@1000,1800 [facility] Last Admin: 06/19/20 10:34 Dose: 40 mg Documented by: Mirtazapine (Mirtazapine 15 Mg Tablet) 15 mg PO QHS [facility] Last Admin: 06/18/20 21:07 Dose: 15 mg Documented by: Pantoprazole Sodium (Pantoprazole Sodium 40 Mg Tablet) 40 mg PO DAILY [facility] Last Admin: 06/19/20 09:37 Dose: 40 mg Documented by: Prednisone (Prednisone 20 Mg Tablet) 40 mg PO DAILY@0800 [facility] Last Admin: 06/19/20 09:36 Dose: 40 mg Documented by: Primidone (Primidone 50 Mg Tablet) 150 mg PO BID [facility] Last Admin: 06/19/20 09:36 Dose: 150 mg Documented by: Sodium Chloride (0.9% Saline Lock 10 Ml Syringe) 10 - 40 ml IV UD PRN PRN Reason: SALINE FLUSH Last Admin: 06/18/20 21:12 Dose: 10 ml Documented by: STROKE Vital Signs/Narrative: Vital Signs Temp Pulse Resp BP Pulse Ox 06/19/20 15:00 109 H 06/19/20 14:55 98.2 F 106 H 16 103/73 98 06/19/20 13:25 109 H 16 Medical Necessity - Tobacco Use Smoking Status: Former smoker Tobacco Use: Non-smoker Assessment/Plan All Active Problems (Last Updated 06/17/20 @ 22:[address] Ashlie Thompson MD) NSTEMI (non-ST elevated myocardial infarction) (Acute) CHF (congestive heart failure) (Acute) 1. Acute respiratory failure secondary to pulmonary edema secondary to acute non-STEMI/CAD status post stents/HTN/lactic acidosis -EF on echo was only mildly reduced but she does have concentric ventricular hypertrophy on the left without any diastolic dysfunction. -The fact that she improved with Lasix lends credence to this diagnosis, her BNP was severely elevated to over 3000 on admission as well as an elevated troponin. -Cardiac cath was not significant for any cardiac lesion that needed stenting -Continue with aspirin and Lasix, she has pleural effusions as well as a small pericardial effusion, impression unable to obtain a thoracentesis due to the holidays -She is afebrile without a leukocytosis and on my review of the CTA of the chest, there is dependent atelectasis secondary to the pleural effusions therefore will discontinue antibiotics and monitor -We will discontinue her Coreg and transition her propranolol, as she does appear to have some episode of rebound tachycardia which given her severe concentric hypertrophy on echo may be causing further congestion 2. Polymyositis -Her creatinine kinase is elevated to over 2000 improved to 1800 but today is up to 3800 -We will start her on prednisone but increased from 40 mg to 60 mg to be around 1 mg/kg -She will need to follow-up with her PCP as well as rheumatology as an outpatient 3. COPD -Given her rapid improvement with Lasix I do not believe that this is a COPD exacerbation -Can continue with her home inhalers as necessary 4. Chronic anemia -This combination of vitamin B12 deficiency as well as iron deficiency -She is managing as an outpatient by hematology, does not appear that she is on any iron or B12 supplementation -Need to follow-up with her PCP and her oncologist for this 5. Anxiety/depression -Continue with Ativan and Remeron -Stable DVT: Lovenox Inpatient E&M: 07634 Subs Hosp L2
[2020-06-19] MEDS: Ipratropium/Albuterol Sulfate 3 ML AMPUL.NEB INHALATION (18:54)
[2020-06-19] MEDS: Mirtazapine 15 MG Tablet PO (21:26)
[2020-06-19] MEDS: Propranolol 10 MG Tablet 20 MG PO (21:26)
[2020-06-20] VITALS (11 sets, daily range): BP systolic 92–107; BP diastolic 59–73; PULSE 86–105; RESP 18–22; TEMP 36.6–36.9; O2SAT 92–100
[2020-06-20 06:51] LABS: Absolute Neutrophil Count 6.8 X10^3/uL (2.0-7.7); Basophil# 0.01 X10^3/uL; Basophil% 0.1 % (0-1); Eosinophil# 0.01 X10^3/uL; Eosinophils% 0.1 % (0-5); Hematocrit 23.8 % (37-47); Hemoglobin 7.8 g/dL (12.0-15.0); Lymphocyte % 17.3 % (19-41); Mean Corp Hgb Conc 32.8 g/dL (32-36); Mean Corpuscular Hgb 32.6 pg (27.0-32.0); Mean Corpuscular Volume 99.6 fL (81-99); Mean Platelet Vol. 9.4 fl (6.2-12.0); Monocyte# 1.25 X10^3/uL; Monocyte% 12.7 % (0-10); NRBC Flagged by Analyzer 0.7 % (0-5); Neutrophil # 6.81 X10^3/uL (2.7-7.7); Neutrophil % 69.2 % (47-70); Platelet Count 296 K/mm3 (150-450); RBC Distribution Width CV 16.9 % (11.6-14.6); RBC Distribution Width SD 62.2 fl (35.1-43.9); Red Blood Count 2.39 M/mm3 (4.2-5.4); White Blood Count 9.8 K/mm3 (4.4-11.0)
[2020-06-20 07:16] LABS: Anion Gap 10 (5-15); BUN 36 mg/dL (7-18); BUN/Creat Ratio 41.2 RATIO (10-20); Calcium,Total 8.5 mg/dL (8.5-10.1); Chloride 94 mmol/L (98-107); Creatinine, Serum 0.87 mg/dL (0.55-1.02); EST Glomerular Filtration Rate 69 mL/min (>60); Est Glom Filt Rate - Afr Amer 83 mL/min (>60); Estimated Creatinine Clearance 66.47 ml/min; Glucose 109 mg/dL (74-106); Potassium 4.1 mmol/L (3.5-5.1); Sodium Level 129 mmol/L (136-145)
[2020-06-20 07:45] LABS: CPK Total, Creatine Kinase 4863 U/L (26-192)
--- NOTE | 2020-06-20 07:46 | PCM.PN.HOSP ---
Patient Problems: Active and Suspected Problems (Last Updated 06/17/20 @ 22:[address] Ashlie Thompson MD) NSTEMI (non-ST elevated myocardial infarction) (Acute) CHF (congestive heart failure) (Acute) Subjective: Patient with no acute events overnight per self and per nursing report. Patient continues to complain of dyspnea, worse with exertion and some cough which she notes has been mildly increased with aerosol regimen. Patient today with special procedures nurse and with hospitalist physician noting significant concern for discharge to home as she does not have any help despite living with her and son. Patient initially had declined therapies but this morning was evaluated with recommendation for continued skilled therapies, awaiting clarification but from discussions likely care home facility would be appropriate. Patient denies fevers, chills, nausea, emesis, abdominal pain, chest pain. Objective: Physical Examination: General: awake, alert, oriented x 3 and cooperative, seated upright in the bedside chair, fatigued appearance otherwise no acute distress. Skin: normal color, turgor, no icterus, cyanosis. HEENT: AT/NC, EOMI, PERRLA, MMM. Lungs: Diminished breath sounds, greater bases, right greater, mild rales right base, no obvious rhonchi or wheezing, appropriate effort. Heart: Mildly tachycardic with regular rhythm; no gallop, rub audible. Abdomen: soft, NTTP, ND, normal BS. Extremities: no cyanosis or clubbing, no severe lower extremity edema noted. Neurological: patient awake, alert, oriented as noted; cognitive function intact; pupils equally reactive to light and accomodation; cranial nerves II-XII grossly normal, moving all 4 extremities, no focal deficits, strength moderately to severely global decrease secondary to acute presentation. Psychiatric: affect appears fatigued otherwise normal, no acute evidence of depressive or anxiety feelings, does admit she is not pleased with the assistance she gets at home from her spouse. Vitals/I&O's: Vital Signs Temp Pulse Resp BP Pulse Ox 98.4 F 95 18 107/73 95 06/20/20 02:55 06/20/20 07:00 06/20/20 02:55 06/20/20 02:55 06/20/20 07:29 Oxygen Flow Rate (L/min) 2 Oxygen Delivery Method Nasal Cannula Weight: 152 lb 4.725 oz Body Mass Index (BMI) 22.4 Intake and Output for Last 24 Hours 06/18/20 06/19/20 06/20/20 23:59 23:59 23:59 Intake Total 785 / 885 100 / 100 Output Total 2049 / 2149 150 / 150 Balance -1265 / -1265 -50 / -50 Microbiology Past 72 Hours 06/17/20 16:01 Blood Culture (Wb) #2 - Anticubital Left Blood Culture - Preliminary No growth in 48 hours. 06/17/20 15:50 Blood Culture (Wb) - Anticubital Right Blood Culture - Preliminary No growth in 48 hours. 06/17/20 22:30 Urine Catheter - Catheter Urine Culture - Preliminary Culture exhibits no growth. Laboratory Results 06/20/20 06:30: Sodium 129 L, Potassium 4.1, Chloride 94 L, Carbon Dioxide 25.0, Anion Gap 10, BUN 36 H, Creatinine 0.87, Estim Creat Clear Calc 66.47, Est GFR (MDRD) Af Amer 83, Est GFR (MDRD) Non-Af 69, BUN/Creatinine Ratio 41.2 H, Glucose 109 H, Calcium 8.5 06/20/20 06:30: WBC 9.8, RBC 2.39 L, Hgb 7.8 L, Hct 23.8 L, MCV 99.6 H, MCH 32.6 H, MCHC 32.8, RDW Std Deviation 62.2 H, RDW Coeff of Sammy 16.9 H, Plt Count 296, MPV 9.4, Immature Gran % (Auto) 0.600, Neut % (Auto) 69.2, Lymph % (Auto) 17.3 L, [place] % (Auto) 12.7 H, Eos % (Auto) 0.1, Baso % (Auto) 0.1, Absolute Neuts (auto) 6.8, Absolute Lymphs (auto) 1.70, Nucleated RBC % 0.7 06/20/20 06:30: Total Creatine Kinase 4863 H Current Medications Albuterol Sulfate (Albuterol 2.5 Mg/3 Ml Vial.Neb.) 2.5 mg INHALATION Q2H PRN PRN PRN Reason: Shortness of breath, wheezing Albuterol/Ipratropium (Ipratropium/Albuterol Sulfate 3 Ml Ampul.Neb) 3 ml INHALATION Q6H.RT [facility] Last Admin: 06/19/20 18:54 Dose: 3 ml Documented by: Alprazolam (Alprazolam 0.5 Mg Tablet) 0.5 mg PO TID PRN PRN PRN Reason: anxiety Last Admin: 06/19/20 21:26 Dose: 0.5 mg Documented by: Aspirin (Aspirin E.C. 81 Mg Tablet) 81 mg PO DAILY@0800 [facility] Last Admin: 06/19/20 09:36 Dose: 81 mg Documented by: Clopidogrel Bisulfate (Clopidogrel Bisulfate 75 Mg Tablet) 75 mg PO DAILY [facility] Last Admin: 06/19/20 09:36 Dose: 75 mg Documented by: Diphenoxylate HCl/Atropine (Diphenoxylate/Atrop 1 Tablet) 1 tablet PO BID [facility] Last Admin: 06/19/20 21:26 Dose: 1 tablet Documented by: Enoxaparin Sodium (Enoxaparin 30 Mg/0.3 Ml Syringe) 30 mg SC DAILY [facility] Last Admin: 06/19/20 09:36 Dose: 30 mg Documented by: Furosemide (Furosemide 40 Mg Tablet) 40 mg PO BID@1000,1800 [facility] Last Admin: 06/19/20 17:12 Dose: 40 mg Documented by: Lidocaine (Lidocaine 5% Patch) 1 patch TOPICAL DAILY [facility]; Protocol Mirtazapine (Mirtazapine 15 Mg Tablet) 15 mg PO QHS [facility] Last Admin: 06/19/20 21:26 Dose: 15 mg Documented by: Pantoprazole Sodium (Pantoprazole Sodium 40 Mg Tablet) 40 mg PO DAILY [facility] Last Admin: 06/19/20 09:37 Dose: 40 mg Documented by: Prednisone (Prednisone 20 Mg Tablet) 60 mg PO DAILY@0800 [facility] Primidone (Primidone 50 Mg Tablet) 150 mg PO BID [facility] Last Admin: 06/19/20 21:26 Dose: 150 mg Documented by: Propranolol HCl (Propranolol 10 Mg Tablet) 20 mg PO BID [facility] Last Admin: 06/19/20 21:26 Dose: 20 mg Documented by: Sodium Chloride (0.9% Saline Lock 10 Ml Syringe) 10 - 40 ml IV UD PRN PRN Reason: SALINE FLUSH Last Admin: 06/18/20 21:12 Dose: 10 ml Documented by: STROKE Vital Signs/Narrative: Vital Signs Pulse Pulse Ox 06/20/20 07:29 95 06/20/20 07:00 95 Medical Necessity - Tobacco Use Smoking Status: Former smoker Tobacco Use: Non-smoker Assessment/Plan All Active Problems (Last Updated 06/17/20 @ 22:[address] Ashlie Thompson MD) NSTEMI (non-ST elevated myocardial infarction) (Acute) CHF (congestive heart failure) (Acute) The patient is a 64 y/o F w/ PMHx: Chronic COPD, HTN, HLD, CAD s/p PCI, Known Polymyositis following w/ Rheumatology in [place] but no confirmed muscle bx per her report, Hx prior CVA who presents to the [facility] ED on 06/17/20 secondary to progressively worsening dyspnea with PCP evaluation with recent tapering course of prednisone but not improving. 1. Acute hypoxic respiratory failure, multifactorial, secondary to pulmonary edema with Acute Systolic CHF, complicated by moderate R sided effusion, Acute NSTEMI with underlying CAD status post PCI previously with lactic acidosis: Patient status post PCI at presentation given history with nonobstructive coronary disease with recommended continued aspirin, Plavix, optimization of medical therapy, transition to propranolol from Coreg, if able to tolerate we will add MADDIE inhibitor/ARB, defer any statin therapy given acute on chronic polymyositis as noted, may consider in future, 06/18/2020 echocardiogram with mild segmental systolic dysfunction, EF 45%, severe concentric LVH, mild MVI, mild TVI, trivial PVI, CTPA at presentation with no evidence of pulmonary emboli with mild pulmonary vascular congestion and a moderate right-sided pleural effusion as well as a small left pleural effusion with overlying atelectasis and stable appearing emphysema, small pericardial effusion with no evidence of tamponade, no evidence for diastolic dysfunction, cardiology consulted and following, transition from IV Lasix to oral Lasix 40 mg twice daily with now 06/20/2020 plan transition to single daily dosing per discussion with cardiology. PT/OT/case management consultations with likely care home facility placement needs. Depending on presentation may consider thoracentesis right-sided if necessary following the holiday weekend. 2. Acute on chronic polymyositis: Patient with significantly elevated creatinine kinase, initially improved but upward trend, admission presentation 1867-->06/20/2020 4863, initiated on prednisone therapy, increased to approximately 60 mg daily, plan continued follow-up outpatient with comparison shopper, notes need for biopsy but difficulty obtaining physician to perform in this region. We will continue to trend creatinine kinase and alter regimen as needed, complicates presentation as #1, defer any fluids. 3. Chronic anemia, normocytic, vitamin B12 deficiency and iron deficiency: Following with hematology outpatient although not on any supplementation regimen, requested iron panel, ferritin, vitamin B12 and folic acid levels, initial presentation hemoglobin 8.2, 06/20 hemoglobin 7.8, continue to monitor and add regimen as needed. Given cardiac presentation may require transfusion. 4. Hyponatremia, acute, hypervolemic: Secondary to #1, improving, initial presentation with sodium 127, ongoing diuresis, 06/20/2020 sodium level 129. 5. CAD: Status post prior PCI, recent cardiac catheterization as noted with nonobstructive disease, maximizing therapy, continue aspirin, Plavix, defer any statin given polymyositis with acute presentation as noted, added beta-chaz propranolol per prior hospitalist, if able will attempt MADDIE inhibitor/ARB addition. 6. Hypertension: Continue home regimen including propranolol, add MADDIE inhibitor/ARB if able, PRN hydralazine. 7. Hyperlipidemia: Not on statin, defer to outpatient especially given myositis with elevated creatinine kinase. 8. Chronic COPD: Will maintain on oxygen with wean as tolerated to room air, continue ATC duonebs, PRN albuterol, HOB, IS parameters. 9. Anxiety and depression: We will continue patient home mirtazapine and Xanax regimen. 10. GERD: We will continue PPI. 11. DVT prophylaxis: SCDs, Lovenox. 12. CODE STATUS: Full code. Updated patient spouse, Martín Phelps about her clinical status as well as plan of care including possible SNF placement at discharge. Inpatient E&M: 60629 Subs Hosp L2
[2020-06-20] MEDS: predniSONE 20 MG Tablet 60 MG PO (08:23)
[2020-06-20] MEDS: Aspirin E.C. 81 MG Tablet PO (08:23)
[2020-06-20] MEDS: ALPRAZolam 0.5 MG Tablet PO ×3 (08:26→21:51)
[2020-06-20] MEDS: Propranolol 10 MG Tablet 20 MG PO ×2 (09:18→21:51)
[2020-06-20] MEDS: Furosemide 40 MG Tablet PO (09:18)
[2020-06-20] MEDS: Enoxaparin 30 MG/0.3 ML Syringe SC (09:18)
[2020-06-20] MEDS: Primidone 50 MG Tablet 150 MG PO ×2 (09:18→21:51)
[2020-06-20] MEDS: Diphenoxylate/Atrop 1 Tablet PO ×2 (09:18→21:51)
[2020-06-20] MEDS: Clopidogrel Bisulfate 75 MG Tablet PO (09:18)
[2020-06-20] MEDS: Pantoprazole Sodium 40 MG Tablet PO (09:18)
[2020-06-20] MEDS: Lidocaine 5% Patch 1 PATCH TOPICAL (09:18)
--- NOTE | 2020-06-20 10:25 | PN.CARD_ITS ---
Subjectve: The patient is doing better this morning. She denied typical anginal symptoms. She does have some shortness of breath. She is currently on 2 L. Objective: Vital Signs Temp Pulse Resp BP Pulse Ox 98.3 F 100 18 106/70 97 06/20/20 09:00 06/20/20 09:00 06/20/20 09:00 06/20/20 09:00 06/20/20 09:00 Oxygen Flow Rate (L/min) 2 Oxygen Delivery Method Nasal Cannula Weight: 152 lb 4.725 oz Body Mass Index (BMI) 22.4 Intake and Output for Last 24 Hours 06/18/20 06/19/20 06/20/20 23:59 23:59 23:59 Intake Total 785 / 885 100 / 100 Output Total 2049 / 0 150 / 150 Balance -1265 / -1265 -50 / -50 Physical Exam GENERAL: This is a well-nourished who is appropriate and articulate at the time of evaluation. VITAL SIGNS: please see collected data HEENT: Exam is benign. Normocephalic and atraumatic. Oral mucosa is pink and moist. NECK: Jugular venous pulsations are normal. Carotid upstrokes are palpable bilaterally. There is no audible bruit. LUNGS: Decreased breath sounds to Auscultation Bilaterally, No rales, rhonchi or wheezes CARDIAC: Regular rhythm and rate. S1 and S2 with ACACIA at apex, no rub, or gallop appreciated. The point of maximal impulse is normal. ABDOMEN: Obese, soft with active bowel sounds. No organomegaly. No audible bruit. Nontender To Palpation EXTREMITIES: Femoral pulses were deferred. trace Lower extremities edema. Pulse +2/4 OMM: Patient was examined in supine position; there was no acute tissue changes other stated in Lymphs: No lymphadenopathy Neuro: CN 2-12 are grossly intact, no focal neurological deficit. Psych: anxiety 06/20/20 06:30: Sodium 129 L, Potassium 4.1, Chloride 94 L, Carbon Dioxide 25.0, Anion Gap 10, BUN 36 H, Creatinine 0.87, Est GFR (MDRD) Af Amer 83, Est GFR (MDRD) Non-Af 69, BUN/Creatinine Ratio 41.2 H, Glucose 109 H, Calcium 8.5 06/20/20 06:30: WBC 9.8, RBC 2.39 L, Hgb 7.8 L, Hct 23.8 L, MCV 99.6 H, MCH 32.6 H, MCHC 32.8, Plt Count 296, MPV 9.4, Immature Gran % (Auto) 0.600, Neut % (Auto) 69.2, Lymph % (Auto) 17.3 L, [place] % (Auto) 12.7 H, Eos % (Auto) 0.1, Baso % (Auto) 0.1, Absolute Neuts (auto) 6.8, Nucleated RBC % 0.7 Rhythm: EKG: ECHO: Stress Test: Cardiac Cath: PCI: CT Surgery: Holter monitor: EPS: PPM: CXR: Chest CT Scan: Medical Necessity - Tobacco Use Smoking Status: Former smoker Tobacco Use: Non-smoker Assessment/Plan + June 20, 2020 -The patient is doing better clinically. She does not have any typical anginal symptoms. She is requiring 2 L of oxygen. The patient is currently on Lasix 40 mg twice daily. We recommend changing it to 40 mg daily. Cardiovascular medication include Aspirin 81 mg daily Plavix 75 mg daily Lasix 40 mg daily Toprol 12.5 mg daily We will continue to optimize the patient medical therapy as tolerated. 1. Non-ST segment elevation IN The patient had laboratory findings compatible with a non-ST segment elevation IN. She underwent evaluation with diagnostic cardiac catheterization. Her cardiac catheterization did not reveal angiographically significant appearing CAD or LAD in-stent restenosis. She is also had a follow-up transthoracic echocardiogram. Her overall LV systolic function/LVEF remains mildly diminished. At the present time it appears her non-ST segment elevation IN is a type II event secondary to supply demand mismatch and not from a new CAD lesion/event. She will need continued medical management as she is able to based upon her vital signs, multiple comorbidities, etc. 2. CAD status post LAD PCI The patient has undergone LAD PCI x3. Her most recent PCI was performed in [place], [place]. That time per the outpatient office note she had an LAD ulcerated plaque just distal to her LAD stent that underwent intravascular ultrasound and subsequent PCI/LUIS ALBERTO. She has undergone subsequent evaluation as noted. She will continue medical therapy. 3. CHF/pleural effusion The patient demonstrates findings based upon history and examination and radiolo gic studies compatible with CHF. Her LV systolic and diastolic function was reviewed. Her LV systolic function remains mildly decreased and her diastolic function appears to be with no evidence of diastolic dysfunction. The exact etiology of her CHF/pleural effusion scenario appears to be somewhat unclear. This may be multifactorial with a combination of her somewhat diminished LV systolic function along with her noncardiac conditions such as her polymyositis with concerns of possible serositis superimposed upon her anemia, etc. At the moment she will need continued medical management which will include doing reinitiation of low-dose beta-chaz therapy with carvedilol/Coreg as long as she tolerates this, continuation of diuretic therapy with adjustment as needed, and hopefully if she tolerates her other medications in the future addition of an afterload reducing agent such as an MADDIE inhibitor or ARB or Entresto. Also depending upon her clinical course she may need additional evaluation of her pleural effusion with a thoracentesis to assist with diagnosis and therapy. 4. Hyperlipidemia She reportedly has a history of hyperlipidemia. However she has not been on lipid-lowering therapy based upon concerns of her polymyositis. 5. Hypertension Her blood pressure will be followed with medications being adjusted as needed. 6. Polymyositis He has a history of polymyositis. Her CPK levels have been elevated. She continues to follow with her other physicians for this. 7. Anemia of chronic disease She also has a history of anemia of chronic disease. Her hemoglobin levels have waxed and waned. Depending upon her cardiovascular course and findings she may need to be considered for PRBC transfusion to assist with her oxygen carrying capacity. Comment: The patient's case has been discussed and reviewed with the patient and Dr. John. This note was generated using a voice recognition system and there may be incorrect words, spelling or punctuation that were not noted when reviewing the office note prior to saving.
[2020-06-20] MEDS: Ipratropium/Albuterol Sulfate 3 ML AMPUL.NEB INHALATION ×2 (10:30→18:33)
[2020-06-20 14:15] LABS: Ferritin 363 ng/mL (8-252); Iron 72 ug/dL (50-170); Iron Binding Capacity,Total 272 ug/dL (250-450); PERCENT IRON SATURATION 26.5 % (15.0-55.0)
[2020-06-20] MEDS: Mirtazapine 15 MG Tablet PO (21:51)
[2020-06-21] VITALS (18 sets, daily range): BP systolic 81–129; BP diastolic 56–78; PULSE 81–102; RESP 14–20; TEMP 36.2–37.6; O2SAT 93–100
[2020-06-21] MEDS: Ipratropium/Albuterol Sulfate 3 ML AMPUL.NEB INHALATION ×4 (00:25→19:32)
[2020-06-21 06:39] LABS: Absolute Lymphocyte Count 1.97 X10^3/uL (0.83-4.51); Absolute Neutrophil Count 6.6 X10^3/uL (2.0-7.7); Basophil# 0.02 X10^3/uL; Basophil% 0.2 % (0-1); Eosinophil# 0.04 X10^3/uL; Eosinophils% 0.4 % (0-5); Hematocrit 22.3 % (37-47); Hemoglobin 7.2 g/dL (12.0-15.0); Lymphocyte # 1.97 X10^3/ul (4.0); Lymphocyte % 19.8 % (19-41); Mean Corp Hgb Conc 32.3 g/dL (32-36); Mean Corpuscular Hgb 31.9 pg (27.0-32.0); Mean Corpuscular Volume 98.7 fL (81-99); Monocyte# 1.25 X10^3/uL; Monocyte% 12.6 % (0-10); NRBC Flagged by Analyzer 1.7 % (0-5); Neutrophil % 66.3 % (47-70); Platelet Count 342 K/mm3 (150-450); RBC Distribution Width CV 16.8 % (11.6-14.6); RBC Distribution Width SD 60.5 fl (35.1-43.9); Red Blood Count 2.26 M/mm3 (4.2-5.4)
--- NOTE | 2020-06-21 08:20 | PN_ITS ---
Patient Problems: Active and Suspected Problems (Last Updated 06/17/20 @ 22:[address] Ashlie Thompson MD) NSTEMI (non-ST elevated myocardial infarction) (Acute) CHF (congestive heart failure) (Acute) Subjective: Patient with ongoing issues with dyspnea, primarily when she is exerting herself she notes. She notes if she is up and moving even with supplemental oxygen she needs to sit and rest. She does again note significant concerns for home going plan because her does not assist her much and give several prior hi storical examples from her admission at [facility] earlier the year prior with heart attack at that time. Upon further discussion she is now declining any consideration for prison facility but is amenable to some home health which per discussions with case management is already set up. Given ongoing dyspnea and hemoglobin slight decline discussed with patient and she is amenable to PRBC administration which was also discussed with cardiology. Patient denies fevers, chills, nausea, emesis, abdominal pain, chest pain. Objective: Physical Examination: General: awake, alert, oriented x 3 and cooperative, seated upright in the bed, improved appearance, mildly irritable otherwise no acute distress. Skin: normal color, turgor, no icterus, cyanosis. HEENT: AT/NC, EOMI, PERRLA, MMM. Lungs: Diminished breath sounds, greater bases, right greater, mild rales right base, no obvious rhonchi or wheezing, appropriate effort. Heart: Regular rate and regular rhythm; no gallop, rub audible. Abdomen: soft, NTTP, ND, normal BS. Extremities: no cyanosis or clubbing, no severe lower extremity edema noted. Neurological: patient awake, alert, oriented as noted; cognitive function intact; pupils equally reactive to light and accomodation; cranial nerves II-XII grossly normal, moving all 4 extremities, no focal deficits, strength improving but remains, moderately to severely global decrease secondary to acute presentation. Psychiatric: affect appears irritable otherwise normal, no acute evidence of depressive or anxiety feelings, extremely hesitant to discharge to home but refusing any skilled facility. Vitals/I&O's: Vital Signs Temp Pulse Resp BP Pulse Ox 99.6 F H 93 16 81/56 L 98 06/21/20 05:48 06/21/20 07:20 06/21/20 07:20 06/21/20 05:48 06/21/20 07:20 Oxygen Flow Rate (L/min) 2 Oxygen Delivery Method Nasal Cannula Weight: 150 lb 5.684 oz Body Mass Index (BMI) 22.4 Intake and Output for Last 24 Hours 06/19/20 06/20/20 06/21/20 23:59 23:59 23:59 Intake Total 100 / 100 600 / 600 140 / 140 Output Total 150 / 150 400 / 400 400 / 400 Balance -50 / -50 200 / 200 -260 / -260 Microbiology Past 72 Hours 06/17/20 22:30 Urine Catheter - Catheter Urine Culture - Final Culture exhibits no growth. 06/17/20 16:01 Blood Culture (Wb) #2 - Anticubital Left Blood Culture - Preliminary No growth in 48 hours. 06/17/20 15:50 Blood Culture (Wb) - Anticubital Right Blood Culture - Prelim inary No growth in 48 hours. Laboratory Results 06/20/20 06:30: Vitamin B12 Pending 06/20/20 06:30: Iron 72, TIBC 272, Iron Saturation 26.5, Ferritin 363 H, Folate 4.40 06/21/20 05:55: WBC 10.0, RBC 2.26 L, Hgb 7.2 L, Hct 22.3 L, MCV 98.7, MCH 31.9, MCHC 32.3, RDW Std Deviation 60.5 H, RDW Coeff of Sammy 16.8 H, Plt Count 342, MPV 10.0, Immature Gran % (Auto) 0.700, Neut % (Auto) 66.3, Lymph % (Auto) 19.8, [place] % (Auto) 12.6 H, Eos % (Auto) 0.4, Baso % (Auto) 0.2, Absolute Neuts (auto) 6.6, Absolute Lymphs (auto) 1.97, Nucleated RBC % 1.7 06/21/20 05:55: Sodium Pending, Potassium Pending, Chloride Pending, Carbon Dioxide Pending, Anion Gap Pending, BUN Pending, Creatinine Pending, Est GFR (MDRD) Af Amer Pending, Est GFR (MDRD) Non-Af Pending, BUN/Creatinine Ratio Pending, Glucose Pending, Calcium Pending, Total Bilirubin Pending, AST Pending, ALT Pending, Alkaline Phosphatase Pending, Total Creatine Kinase Pending, Total Protein Pending, Albumin Pending Current Medications Albuterol Sulfate (Albuterol 2.5 Mg/3 Ml Vial.Neb.) 2.5 mg INHALATION Q2H PRN P RN PRN Reason: Shortness of breath, wheezing Albuterol/Ipratropium (Ipratropium/Albuterol Sulfate 3 Ml Ampul.Neb) 3 ml INHALATION Q6H.RT [facility] Last Admin: 06/21/20 07:20 Dose: 3 ml Documented by: Alprazolam (Alprazolam 0.5 Mg Tablet) 0.5 mg PO TID PRN PRN PRN Reason: anxiety Last Admin: 06/20/20 21:51 Dose: 0.5 mg Documented by: Aspirin (Aspirin E.C. 81 Mg Tablet) 81 mg PO DAILY@0800 [facility] Last Admin: 06/20/20 08:23 Dose: 81 mg Documented by: Clopidogrel Bisulfate (Clopidogrel Bisulfate 75 Mg Tablet) 75 mg PO DAILY [facility] Last Admin: 06/20/20 09:18 Dose: 75 mg Documented by: Diphenoxylate HCl/Atropine (Diphenoxylate/Atrop 1 Tablet) 1 tablet PO BID [facility] Last Admin: 06/20/20 21:51 Dose: 1 tablet Documented by: Enoxaparin Sodium (Enoxaparin 30 Mg/0.3 Ml Syringe) 30 mg SC DAILY [facility] Last Admin: 06/20/20 09:18 Dose: 30 mg Documented by: Furosemide (Furosemide 40 Mg Tablet) 40 mg PO DAILY [facility] Last Admin: 06/20/20 10:21 Dose: Not Given Documented by: Lidocaine (Lidocaine 5% Patch) 1 patch TOPICAL DAILY [facility]; Protocol Last Admin: 06/20/20 09:18 Dose: 1 patch Documented by: Metoprolol Succinate (Metoprolol(Xl)Succ 25 Mg Tablet) 12.5 mg PO DAILY [facility] Mirtazapine (Mirtazapine 15 Mg Tablet) 15 mg PO QHS [facility] Last Admin: 06/20/20 21:51 Dose: 15 mg Documented by: Pantoprazole Sodium (Pantoprazole Sodium 40 Mg Tablet) 40 mg PO DAILY [facility] Last Admin: 06/20/20 09:18 Dose: 40 mg Documented by: Prednisone (Prednisone 20 Mg Tablet) 60 mg PO DAILY@0800 [facility] Last Admin: 06/20/20 08:23 Dose: 60 mg Documented by: Primidone (Primidone 50 Mg Tablet) 150 mg PO BID [facility] Last Admin: 06/20/20 21:51 Dose: 150 mg Documented by: Propranolol HCl (Propranolol 10 Mg Tablet) 20 mg PO BID [facility] Last Admin: 06/20/20 21:51 Dose: 20 mg Documented by: Sodium Chloride (0.9% Saline Lock 10 Ml Syringe) 10 - 40 ml IV UD PRN PRN Reason: SALINE FLUSH Last Admin: 06/18/20 21:12 Dose: 10 ml Documented by: STROKE Vital Signs/Narrative: Vital Signs Temp Pulse Resp BP Pulse Ox 06/21/20 07:20 93 16 98 06/21/20 07:00 92 06/21/20 05:48 99.6 F H 90 18 81/56 L 97 Medical Necessity - Tobacco Use Smoking Status: Former smoker Tobacco Use: Non-smoker Assessment/Plan All Active Problems (Last Updated 06/17/20 @ 22:[address] Ashlie Thompson MD) NSTEMI (non-ST elevated myocardial infarction) (Acute) CHF (congestive heart failure) (Acute) The patient is a 64 y/o F w/ PMHx: Chronic COPD, HTN, HLD, CAD s/p PCI, Known Polymyositis following w/ Rheumatology in [place] but no confirmed muscle bx per her report, Hx prior CVA who presents to the [facility] ED on 06/17/20 secondary to progressively worsening dyspnea with PCP evaluation with recent tapering course of prednisone but not improving. 1. Acute hypoxic respiratory failure, multifactorial, secondary to pulmonary edema with Acute Systolic CHF, complicated by moderate R sided effusion, Acute NSTEMI with underlying CAD status post PCI previously with lactic acidosis: Patient status post PCI at presentation given history with nonobstructive coronary disease with recommended continued aspirin, Plavix, optimization of medical therapy, transition to [place] [facility] if able to tolerate we wi ll add MADDIE inhibitor/ARB, defer any statin therapy given acute on chronic polymyositis as noted, may consider in future, 06/18/2020 echocardiogram with mild segmental systolic dysfunction, EF 45%, severe concentric LVH, mild MVI, mild TVI, trivial PVI, CTPA at presentation with no evidence of pulmonary emboli with mild pulmonary vascular congestion and a moderate right-sided pleural effusion as well as a small left pleural effusion with overlying atelectasis and stable appearing emphysema, small pericardial effusion with no evidence of tamponade, no evidence for diastolic dysfunction, cardiology consulted and following, transitioned from IV Lasix to oral Lasix 40 mg twice daily-->06/20/2020 single daily dosing-->06/21/20 D/C per Cardiology recommendation given appropriate diuresed, mild ECHO findings and #2, #3 with onset 06/21/20 lower BPs. 06/21/20 Hgb decreased further to 7.2, discussed with Cardiology and 1 u PRBC ordered, allowance low dose MIVF, d/c lasix. PT/OT/case management consultations with now refusal of any prison facility placement needs. 2. Acute on chronic polymyositis: Patient with significantly elevated creatinine kinase, initially improved but upward trend, admission presentation 1868-->06/20/2020 4863-->06/21/20 3388, initiated on prednisone therapy, increased to approximately 60 mg daily, plan continued follow-up outpatient with [facility], notes need for biopsy but difficulty obtaining physician to perform in this region. Given #1 had been diuresing, discussed with Cardiology 06/21/20 and given PRBC plans with low BP, stopped lasix given non-overloaded appearance and mild ECHO findings with allowance low MIVF, small bolus. Will continue to trend creatinine kinase. 3. Acute on Chronic anemia, normocytic, vitamin B12 deficiency and iron deficiency: Following with hematology outpatient although not on any supplementation regimen, iron panel w/ Fe normal range 72, TIBC 272 low normal range, Fe saturation range low normal range 26.5%, ferritin elevated 363, vitamin B12 pending and folic acid level very low normal range w/ likely combined etiology, initial presentation hemoglobin 8.2-->06/20 hemoglobin 7.8-->06/21/20 Hgb 7.2, discussed with Cardiology and will administer 1 u PRBC, plan repeat HH following. Folic acid supplementation initiated. Patient does receive monthly SC vitamin B12. 4. Hyponatremia, acute, hypervolemic: Secondary to #1, improving, initial presentation with sodium 127, ongoing diuresis, 06/20/2020 sodium level 129. 5. CAD: Status post prior PCI, recent cardiac catheterization as noted with nonobstructive disease, maximizing therapy, continue aspirin, Plavix, defer any statin given polymyositis with acute presentation as noted, added beta-chaz propranolol per prior hospitalist, if able will attempt MADDIE inhibitor/ARB addition. 6. Hypertension: Continue home regimen including propranolol, d/c lasix as noted, add MADDIE inhibitor/ARB if able once BPs improved, PRN hydralazine. 7. Hyperlipidemia: Not on statin, defer to outpatient especially given myositis with elevated creatinine kinase. 8. Chronic COPD: Will maintain on oxygen with wean as tolerated to room air, continue ATC duonebs, PRN albuterol, HOB, IS parameters. 9. Anxiety and depression: We will continue patient home mirtazapine and Xanax regimen. 10. GERD: We will continue PPI. 11. DVT prophylaxis: SCDs, holding Lovenox given PRBC plans and decreased Hgb. 12. CODE STATUS: Full code. Inpatient E&M: 85205 Subs Hosp L3
[2020-06-21 08:22] LABS: ALB/GLOB Ratio 0.6 RATIO (0.9-2.4); AST(SGOT) 174 U/L (15-37); Alanine Aminotransfer ALT/SGPT 99 U/L (13-56); Albumin, Serum 2.5 g/dL (3.2-5.0); Alkaline Phosphatase 277 U/L (45-117); Anion Gap 12 (5-15); BUN 38 mg/dL (7-18); BUN/Creat Ratio 44.9 RATIO (10-20); CPK Total, Creatine Kinase 3388 U/L (26-192); Calcium,Total 8.5 mg/dL (8.5-10.1); Chloride 93 mmol/L (98-107); Creatinine, Serum 0.85 mg/dL (0.55-1.02); EST Glomerular Filtration Rate 71 mL/min (>60); Est Glom Filt Rate - Afr Amer 86 mL/min (>60); Estimated Creatinine Clearance 68.04 ml/min; Globulin 4.3 g/dL (2.2-4.2); Glucose 93 mg/dL (74-106); Potassium 3.7 mmol/L (3.5-5.1); Protein, Total 6.8 g/dL (6.4-8.2); Sodium Level 128 mmol/L (136-145)
[2020-06-21] MEDS: Pantoprazole Sodium 40 MG Tablet PO (09:14)
[2020-06-21] MEDS: Aspirin E.C. 81 MG Tablet PO (09:15)
[2020-06-21] MEDS: predniSONE 20 MG Tablet 60 MG PO (09:15)
[2020-06-21] MEDS: Clopidogrel Bisulfate 75 MG Tablet PO (09:15)
[2020-06-21] MEDS: Lidocaine 5% Patch 1 PATCH TOPICAL (09:15)
[2020-06-21] MEDS: Primidone 50 MG Tablet 150 MG PO ×2 (09:15→21:29)
[2020-06-21] MEDS: Acetaminophen 325 MG Tablet 650 MG PO ×2 (09:55→21:30)
[2020-06-21] MEDS: Diphenoxylate/Atrop 1 Tablet PO (09:55)
[2020-06-21] MEDS: ALPRAZolam 0.5 MG Tablet PO ×3 (09:55→21:29)
[2020-06-21] MEDS: 0.9% Normal Saline 1,000 ML 75 ML IV (10:03)
[2020-06-21] MEDS: 0.9% Saline Lock 10 ML Syringe IV (10:03)
--- NOTE | 2020-06-21 10:57 | PN.CARD_ITS ---
Subjectve: Patient is feeling better. She is breathing better as well. She is working with PT. Objective: Vital Signs Temp Pulse Resp BP Pulse Ox 98.1 F 94 18 89/58 L 99 06/21/20 09:05 06/21/20 09:05 06/21/20 09:05 06/21/20 09:05 06/21/20 09:05 Oxygen Flow Rate (L/min) 2 Oxygen Delivery Method Nasal Cannula Weight: 150 lb 5.684 oz Body Mass Index (BMI) 22.4 Intake and Output for Last 24 Hours 06/19/20 06/20/20 06/21/20 23:59 23:59 23:59 Intake Total 100 / 100 600 / 600 140 / 140 Output Total 150 / 150 400 / 400 400 / 400 Balance -50 / -50 200 / 200 -260 / -260 Physical Exam GENERAL: This is a well-nourished who is appropriate and articulate at the time of evaluation. VITAL SIGNS: please see collected data HEENT: Exam is benign. Normocephalic and atraumatic. Oral mucosa is pink and moist. NECK: Jugular venous pulsations are normal. Carotid upstrokes are palpable bilaterally. There is no audible bruit. LUNGS: Clear to Auscultation Bilaterally, No rales, rhonchi or wheezes CARDIAC: Regular rhythm and rate. S1 and S2 with ACACIA at apex, no rub, or gallop appreciated. The point of maximal impulse is normal. ABDOMEN: Obese, soft with active bowel sounds. No organomegaly. No audible bruit. Nontender To Palpation EXTREMITIES: Femoral pulses were deferred. No Lower extremities edema. Pulse +2/4 OMM: Patient was examined in supine position; there was no acute tissue changes other stated in Lymphs: No lymphadenopathy Neuro: CN 2-12 are grossly intact, no focal neurological deficit. Psych: No anxiety 06/20/20 06:30: Iron 72, TIBC 272, Iron Saturation 26.5, Ferritin 363 H 06/21/20 05:55: WBC 10.0, RBC 2.26 L, Hgb 7.2 L, Hct 22.3 L, MCV 98.7, MCH 31.9, MCHC 32.3, Plt Count 342, MPV 10.0, Immature Gran % (Auto) 0.700, Neut % (Auto) 66.3, Lymph % (Auto) 19.8, [place] % (Auto) 12.6 H, Eos % (Auto) 0.4, Baso % (Auto) 0.2, Absolute Neuts (auto) 6.6, Nucleated RBC % 1.7 06/21/20 05:55: Sodium 128 L, Potassium 3.7, Chloride 93 L, Carbon Dioxide 23.0, Anion Gap 12, BUN 38 H, Creatinine 0.85, Est GFR (MDRD) Af Amer 86, Est GFR (MDRD) Non-Af 71, BUN/Creatinine Ratio 44.9 H, Glucose 93, Calcium 8.5, Total Bilirubin 0.60 Rhythm: EKG: ECHO: Stress Test: Cardiac Cath: PCI: CT Surgery: Holter monitor: EPS: PPM: CXR: Chest CT Scan: Medical Necessity - Tobacco Use Smoking Status: Former smoker Tobacco Use: Non-smoker Assessment/Plan + June 21, 2020 -The patient is doing better clinically. She does not have any typical anginal symptoms. Her breathing is improving. The patient is euvolemic, will stop the Lasix for now. The patient hemoglobin is also trending down. Primary team is giving her 1 unit of blood. We recommend give Lasix afterward blood transfusion. Primary team is working on managing the patient polymyositis. Cardiovascular medication include Aspirin 81 mg daily Plavix 75 mg daily Toprol 12.5 mg daily We will continue to optimize the patient medical therapy as tolerated. 1. Non-ST segment elevation HI The patient had laboratory findings compatible with a non-ST segment elevation HI. She underwent evaluation with diagnostic cardiac catheterization. Her cardiac catheterization did not reveal angiographically significant appearing CAD or LAD in-stent restenosis. She is also had a follow-up transthoracic echocardiogram. Her overall LV systolic function/LVEF remains mildly diminished. At the present time it appears her non-ST segment elevation HI is a type II event secondary to supply demand mismatch and not from a new CAD lesion/event. She will need continued medical management as she is able to based upon her vital signs, multiple comorbidities, etc. 2. CAD status post LAD PCI The patient has undergone LAD PCI x3. Her most recent PCI was performed in [place], [place]. That time per the outpatient office note she had an LAD ul cerated plaque just distal to her LAD stent that underwent intravascular ultrasound and subsequent PCI/LUIS ALBERTO. She has undergone subsequent evaluation as noted. She will continue medical therapy. 3. CHF/pleural effusion The patient demonstrates findings based upon history and examination and radiologic studies compatible with CHF. Her LV systolic and diastolic function was reviewed. Her LV systolic function remains mildly decreased and her diastolic function appears to be with no evidence of diastolic dysfunction. The exact etiology of her CHF/pleural effusion scenario appears to be somewhat unclear. This may be multifactorial with a combination of her somewhat diminished LV systolic function along with her noncardiac conditions such as her polymyositis with concerns of possible serositis superimposed upon her anemia, etc. At the moment she will need continued medical management which will include doing reinitiation of low-dose beta-chaz therapy with carvedilol/Coreg as miguel g as she tolerates this, continuation of diuretic therapy with adjustment as needed, and hopefully if she tolerates her other medications in the future addition of an afterload reducing agent such as an MADDIE inhibitor or ARB or Entresto. Also depending upon her clinical course she may need additional evaluation of her pleural effusion with a thoracentesis to assist with diagnosis and therapy. 4. Hyperlipidemia She reportedly has a history of hyperlipidemia. However she has not been on lipid-lowering therapy based upon concerns of her polymyositis. 5. Hypertension Her blood pressure will be followed with medications being adjusted as needed. 6. Polymyositis He has a history of polymyositis. Her CPK levels have been elevated. She continues to follow with her other physicians for this. 7. Anemia of chronic disease She also has a history of anemia of chronic disease. Her hemoglobin levels have waxed and waned. Depending upon her cardiovascular course and findings she may need to be considered for PRBC transfusion to assist with her oxygen carrying capacity. Comment: The patient's case has been discussed and reviewed with the patient and Dr. John. This note was generated using a voice recognition system and there may be incorrect words, spelling or punctuation that were not noted when reviewing the office note prior to saving.
--- NOTE | 2020-06-21 17:08 | NURSING ---
Notified lab of need to draw post transfusion hbg at 1800.
[2020-06-21] MEDS: Folic Acid 1 MG Tablet PO (17:25)
[2020-06-21 19:50] LABS: Hematocrit 29.3 % (37-47); Hemoglobin 9.5 g/dL (12.0-15.0)
[2020-06-21] MEDS: Mirtazapine 15 MG Tablet PO (21:29)
[2020-06-22] VITALS (7 sets, daily range): BP systolic 110–130; BP diastolic 68–82; PULSE 94–104; RESP 16–18; TEMP 36.8–36.9; O2SAT 91–96
[2020-06-22] MEDS: 0.9% Normal Saline 1,000 ML 75 ML IV (01:11)
[2020-06-22 06:39] LABS: Absolute Neutrophil Count 5.7 X10^3/uL (2.0-7.7); Basophil# 0.01 X10^3/uL; Basophil% 0.1 % (0-1); Eosinophil# 0.03 X10^3/uL; Eosinophils% 0.3 % (0-5); Hematocrit 26.2 % (37-47); Hemoglobin 8.6 g/dL (12.0-15.0); Lymphocyte % 20.8 % (19-41); Mean Corp Hgb Conc 32.8 g/dL (32-36); Mean Corpuscular Hgb 32.5 pg (27.0-32.0); Mean Corpuscular Volume 98.9 fL (81-99); Mean Platelet Vol. 9.6 fl (6.2-12.0); Monocyte# 1.05 X10^3/uL; Monocyte% 12.1 % (0-10); NRBC Flagged by Analyzer 0.9 % (0-5); Neutrophil # 5.68 X10^3/uL (2.7-7.7); Neutrophil % 65.5 % (47-70); Platelet Count 367 K/mm3 (150-450); RBC Distribution Width CV 16.4 % (11.6-14.6); Red Blood Count 2.65 M/mm3 (4.2-5.4); White Blood Count 8.7 K/mm3 (4.4-11.0)
--- NOTE | 2020-06-22 06:54 | PCM.PN.HOSP ---
Patient Problems: Active and Suspected Problems (Last Updated 06/17/20 @ 22:[address] Ashlie Thompson MD) NSTEMI (non-ST elevated myocardial infarction) (Acute) CHF (congestive heart failure) (Acute) Vitals/I&O's: Vital Signs Temp Pulse Resp BP Pulse Ox 98.2 F 102 H 18 110/68 93 06/22/20 03:49 06/22/20 03:49 06/22/20 03:49 06/22/20 03:49 06/22/20 03:49 Oxygen Flow Rate (L/min) 2 Oxygen Delivery Method Room Air Weight: 150 lb 5.684 oz Body Mass Index (BMI) 22.4 Intake and Output for Last 24 Hours 06/20/20 06/21/20 06/22/20 23:59 23:59 23:59 Intake Total 600 / 600 2036.25 / 2036.25 610 / 610 Output Total 400 / 400 700 / 700 Balance 200 / 200 1336.25 / 1336.25 610 / 610 Microbiology Past 72 Hours 06/17/20 22:30 Urine Catheter - Catheter Urine Culture - Final Culture exhibits no growth. 06/17/20 16:01 Blood Culture (Wb) #2 - Anticubital Left Blood Culture - Preliminary No growth in 48 hours. 06/17/20 15:50 Blood Culture (Wb) - Anticubital Right Blood Culture - Preliminary No growth in 48 hours. Laboratory Results 06/21/20 05:55: Sodium 128 L, Potassium 3.7, Chloride 93 L, Carbon Dioxide 23.0, Anion Gap 12, BUN 38 H, Creatinine 0.85, Estim Creat Clear Calc 68.04, Est GFR (MDRD) Af Amer 86, Est GFR (MDRD) Non-Af 71, BUN/Creatinine Ratio 44.9 H, Glucose 93, Calcium 8.5, Total Bilirubin 0.60, AST 174 H, ALT 99 H, Alkaline Phosphatase 277 H, Total Creatine Kinase 3388 H, Total Protein 6.8, Albumin 2.5 L, Globulin 4.3 H, Albumin/Globulin Ratio 0.6 L 06/21/20 09:40: Blood Type O POSITIVE, Antibody Screen NEGATIVE, Crossmatch See Detail 06/21/20 19:35: Hgb 9.5 L, Hct 29.3 L 06/22/20 06:05: WBC 8.7, RBC 2.65 L, Hgb 8.6 L, Hct 26.2 L, MCV 98.9, MCH 32.5 H, MCHC 32.8, RDW Std Deviation 58.0 H, RDW Coeff of Sammy 16.4 H, Plt Count 367, MPV 9.6, Immature Gran % (Auto) 1.200 H, Neut % (Auto) 65.5, Lymph % (Auto) 20.8, [place] % (Auto) 12.1 H, Eos % (Auto) 0.3, Baso % (Auto) 0.1, Absolute Neuts (auto) 5.7, Absolute Lymphs (auto) 1.80, Nucleated RBC % 0.9 06/22/20 06:05: Sodium Pending, Potassium Pending, Chloride Pending, Carbon Dioxide Pending, Anion Gap Pending, BUN Pending, Creatinine Pending, Est GFR (MDRD) Af Amer Pending, Est GFR (MDRD) Non-Af Pending, BUN/Creatinine Ratio Pending, Glucose Pending, Calcium Pending, Total Bilirubin Pending, AST Pending, ALT Pending, Alkaline Phosphatase Pending, Total Creatine Kinase Pending, Total Protein Pending, Albumin Pending Current Medications Acetaminophen (Acetaminophen 325 Mg Tablet) 650 mg PO Q4H PRN PRN PRN Reason: fever, pain 1-10 Last Admin: 06/21/20 21:30 Dose: 650 mg Documented by: Albuterol Sulfate (Albuterol 2.5 Mg/3 Ml Vial.Neb.) 2.5 mg INHALATION Q2H PRN PRN PRN Reason: Shortness of breath, wheezing Albuterol/Ipratropium (Ipratropium/Albuterol Sulfate 3 Ml Ampul.Neb) 3 ml INHALATION Q6H.RT [facility] Last Admin: 06/21/20 19:32 Dose: 3 ml Documented by: Alprazolam (Alprazolam 0.5 Mg Tablet) 0.5 mg PO TID PRN PRN PRN Reason: anxiety Last Admin: 06/21/20 21:29 Dose: 0.5 mg Documented by: Aspirin (Aspirin E.C. 81 Mg Tablet) 81 mg PO DAILY@0800 [facility] Last Admin: 06/21/20 09:15 Dose: 81 mg Documented by: Clopidogrel Bisulfate (Clopidogrel Bisulfate 75 Mg Tablet) 75 mg PO DAILY [facility] Last Admin: 06/21/20 09:15 Dose: 75 mg Documented by: Diphenoxylate HCl/Atropine (Diphenoxylate/Atrop 1 Tablet) 1 tablet PO BID [facility] Last Admin: 06/21/20 21:28 Dose: Not Given Documented by: Enoxaparin Sodium (Enoxaparin 40 Mg/0.4 Ml Syringe) 40 mg SC DAILY [facility] Folic Acid ([facility] 1 Mg [facility]) [facility] Last Admin: 06/21/20 17:25 Dose: 1 mg Documented by: Sodium Chloride () 1,000 mls @ 75 mls/hr IV .[id number] [facility] Last Admin: 06/22/20 01:11 Dose: 75 mls/hr Documented by: Lidocaine (Lidocaine 5% Patch) 1 patch TOPICAL DAILY [facility]; Protocol Last Admin: 06/21/20 09:15 Dose: 1 patch Documented by: Metoprolol Succinate (Metoprolol(Xl)Succ 25 Mg Tablet) 12.5 mg PO DAILY [facility] Last Admin: 06/21/20 09:11 Dose: Not Given Documented by: Mirtazapine (Mirtazapine 15 Mg Tablet) 15 mg PO QHS [facility] Last Admin: 06/21/20 21:29 Dose: 15 mg Documented by: Pantoprazole Sodium (Pantoprazole Sodium 40 Mg Tablet) 40 mg PO DAILY [facility] Last Admin: 06/21/20 09:14 Dose: 40 mg Documented by: Prednisone (Prednisone 20 Mg Tablet) 60 mg PO DAILY@0800 [facility] Last Admin: 06/21/20 09:15 Dose: 60 mg Documented by: Primidone (Primidone 50 Mg Tablet) 150 mg PO BID [facility] Last Admin: 06/21/20 21:29 Dose: 150 mg Documented by: Propranolol HCl (Propranolol 10 Mg Tablet) 20 mg PO BID [facility] Last Admin: 06/21/20 21:27 Dose: Not Given Documented by: Sodium Chloride (0.9% Saline Lock 10 Ml Syringe) 10 - 40 ml IV UD PRN PRN Reason: SALINE FLUSH Last Admin: 06/21/20 10:03 Dose: 10 ml Documented by: STROKE Vital Signs/Narrative: Vital Signs Temp Pulse Resp BP Pulse Ox 06/22/20 03:49 98.2 F 102 H 18 110/68 93 06/22/20 03:00 100 Medical Necessity - Tobacco Use Smoking Status: Former smoker Tobacco Use: Non-smoker Assessment/Plan All Active Problems (Last Updated 06/17/20 @ 22:[address] Ashlie Thompson MD) NSTEMI (non-ST elevated myocardial infarction) (Acute) CHF (congestive heart failure) (Acute)
[2020-06-22] MEDS: Ipratropium/Albuterol Sulfate 3 ML AMPUL.NEB INHALATION (06:55)
[2020-06-22 07:24] LABS: ALB/GLOB Ratio 0.6 RATIO (0.9-2.4); AST(SGOT) 132 U/L (15-37); Alanine Aminotransfer ALT/SGPT 97 U/L (13-56); Albumin, Serum 2.4 g/dL (3.2-5.0); Alkaline Phosphatase 292 U/L (45-117); Anion Gap 9 (5-15); BUN 35 mg/dL (7-18); CPK Total, Creatine Kinase 2236 U/L (26-192); Calcium,Total 8.2 mg/dL (8.5-10.1); Chloride 100 mmol/L (98-107); Creatinine, Serum 0.74 mg/dL (0.55-1.02); EST Glomerular Filtration Rate 83 mL/min (>60); Est Glom Filt Rate - Afr Amer 100 mL/min (>60); Estimated Creatinine Clearance 57.83 ml/min; Glucose 94 mg/dL (74-106); Potassium 3.5 mmol/L (3.5-5.1); Protein, Total 6.4 g/dL (6.4-8.2); Sodium Level 131 mmol/L (136-145)
[2020-06-22] MEDS: Aspirin E.C. 81 MG Tablet PO (08:11)
[2020-06-22] MEDS: Acetaminophen 325 MG Tablet 650 MG PO (08:11)
[2020-06-22] MEDS: Folic Acid 1 MG Tablet PO (08:11)
[2020-06-22] MEDS: predniSONE 20 MG Tablet 60 MG PO (08:11)
[2020-06-22] MEDS: Lidocaine 5% Patch 1 PATCH TOPICAL (08:12)
[2020-06-22] MEDS: ALPRAZolam 0.5 MG Tablet PO (08:21)
--- NOTE | 2020-06-22 09:46 | PCM.DC ---
- Discharge Diagnoses Current Active Problems: Current Active and Chronic Problems (Last Updated 06/17/20 @ 22:[address] Ashlie Thompson MD) 1. Acute hypoxic respiratory failure, multifactorial, secondary to pulmonary edema with Acute Systolic CHF, complicated by moderate R sided effusion, Acute NSTEMI with underlying CAD status post PCI previously with lactic acidosis 2. Acute on chronic polymyositis 3. Acute on Chronic anemia, normocytic, vitamin B12 deficiency and iron deficiency 4. Hyponatremia, acute, hypervolemic 5. CAD s/p prior PCI with stable appearing cardiac catheterization during admission without PCI need 6. Hypertension 7. Hyperlipidemia 8. Chronic COPD 9. Anxiety and depression 10. GERD You will use the following diet at home:: Cardiac Your food should be the consistency of: Regular Your liquids should be the consistency of: Regular/Thin Discharge Activity: - - Encourage routine moderate activity. Usage of devices as needed. Advance activities following evaluation per Cardiology. Call your doctor if you observe: Fever of 101 or Higher, Inability to urinate, Inability to have a bowel movement, Shortness of breath, Dizziness, Fainting spells, Chest pain, Uncontrolled pain Instructions: Heart Attack, Exercise: Measuring Your Effort, Exercising After a Heart Attack, ED Heart Failure, Congestive (CHF), Anemia, ED Anemia, Iron-Deficiency (Adult), Muscle Biopsy Additional Instructions: Please continue newly initiated regimen per Cardiology. May monitor blood pressures and if low normal may contact Cardiology office early prior to visit for alteration plan. Please continue to use your incentive spirometer daily at least 10/x hour every hour from waking to bedtime for the next 3-5 days and then following may discontinue as long as routine activity increasing. Cardiology office will evaluation you at your follow-up and will set you up for cardiac rehab/ongoing therapies. Please follow-up with Rheumatology and in the interim continue taking the prednisone therapy daily. This will be altered per their discretion. They will continue to work on obtaining outpatient muscle biopsy to further investigate the etiology. Continue to follow also with Hematology to continue to treatment and evaluate your ongoing anemia. Allergies/Adverse Reactions: Allergies amlodipine [From Norvasc] Allergy (Verified 06/17/20 15:08) severe BLE edema codeine Allergy (Verified 06/17/20 15:08) Other STOMACH PAIN sulfamethoxazole [From Septra] Allergy (Verified 06/17/20 15:08) Rash trimethoprim [From Septra] Allergy (Verified 06/17/20 15:08) Unknown prasugrel [From Effient] Adverse Reaction (Severe, Verified 06/17/20 15:08) Not advised in pt's who have had CVA Onset 09/06/2016 Medications to take at Discharge aspirin 81 mg tablet,delayed release 81 mg PO DAILY 07/31/18 nitroglycerin 0.4 mg sublingual tablet 0.4 mg SUBLINGUAL Q5M PRN #25 tab 06/04/19 mirtazapine 15 mg tablet 15 mg PO QHS #90 tab 01/08/20 albuterol sulfate 90 mcg/actuation aerosol inhaler 2 puff INHALATION Q6H #8 g 02/04/20 tiotropium bromide 2.5 mcg/actuation mist for inhalation 2 puff INHALATION DAILY #4 g 02/04/20 albuterol sulfate 90 mcg/actuation breath activated powder inhaler 2 inh INHALATION Q6H PRN #1 ea 03/06/20 Pantoprazole Sodium 40 mg PO DAILY 04/22/20 Primidone [Mysoline] 150 mg PO BID 04/22/20 diphenoxylate-atropine 2.5 mg-0.025 mg tablet 1 tab PO BID #60 tab 04/29/20 alprazolam 0.5 mg tablet 0.5 mg PO TID PRN #90 tab 06/09/20 Clopidogrel Bisulfate [Clopidogrel] 75 mg PO DAILY 06/17/20 Folic Acid 1 mg PO BIDCM #60 tab 06/22/20 Metoprolol(XL)Succ [Toprol Xl (Beta Johan)] 12.5 mg PO DAILY #30 tab 06/22/20 predniSONE tablet 60 mg PO DAILY@0800 #90 tab 06/22/20 The following prescriptions were given: Folic Acid 1 mg PO BIDCM #60 tab Transmission Status: [facility]ending to [id number] predniSONE tablet 60 mg PO DAILY@0800 #90 tab Transmission Status: Pending to [id number] Metoprolol(XL)Succ [Toprol Xl (Beta Johan)] 12.5 mg PO DAILY #30 tab Transmission Status: [facility]ending [id number] Primary Care Physician: Maxx Hewitt DO [Primary Care Provider] - Please follow up with your Primary Care Physician in: Follow-up within 3-5 days to review admission. Test Results: Test results from this visit will be discussed in further detail at your follow-up appointment, if applicable. Please Follow Up With: Mary Burciaga MD When: Follow-up within 3-5 days to review admission, discuss recent steroid start Please Follow Up With: Carlos Price MD When: Follow-up within 1 week, may see CONTENT MANAGEMENT CONSULTANT in the office. Please Follow Up With: Lydia Sparks MD When: Follow-up within 1 week, may see CONTENT MANAGEMENT CONSULTANT in the office. Proposed Discharge Date: 06/22/20
--- NOTE | 2020-06-22 09:56 | PCM.DC.SUM ---
Discharge Date and Diagnosis - Problem List Patient Problems: Active and Suspected Problems (Last Updated 06/17/20 @ 22:[address] Ashlie Thompson MD) NSTEMI (non-ST elevated myocardial infarction) (Acute) CHF (congestive heart failure) (Acute) Date of Admission: 06/17/20 Date of Discharge: 06/22/20 - Primary Discharge Diagnosis Acute Problems: Active Problems (Last Updated 06/17/20 @ 22:[address] Ashlie Thompson MD) 1. Acute hypoxic respiratory failure, multifactorial, secondary to pulmonary edema with Acute Systolic CHF, complicated by moderate R sided effusion, Acute NSTEMI with underlying CAD status post PCI previously with lactic acidosis 2. Acute on chronic polymyositis 3. Acute on Chronic anemia, normocytic, vitamin B12 deficiency and iron deficiency 4. Hyponatremia, acute, hypervolemic 5. CAD s/p prior PCI with stable appearing cardiac catheterization during admission without PCI need 6. Hypertension 7. Hyperlipidemia 8. Chronic COPD 9. Anxiety and depression 10. GERD - Secondary Discharge Diagnosis Chronic Problems: Chronic Problems (Last Updated 06/17/20 @ 22:[address] Ashlie Thompson MD) COPD (chronic obstructive pulmonary disease) (Chronic) B12 deficiency (Chronic) CAD (coronary artery disease) (Chronic) Polymyositis (Chronic) Elevated CPK (Chronic) Macrocytic anemia (Chronic) Anemia of chronic disease (Chronic) Iron deficiency anemia due to chronic blood loss (Chronic) Degenerative joint disease of spine (Chronic) Anemia (Chronic) Chronic diarrhea (Chronic) Atherosclerosis of coronary artery of [place] heart without angina pectoris (Chronic) PCI-Cutting Balloon PTCA of ISR Prox LAD w/ [id number]-[id number]-Qsh LAD w/ 3.5 mm x 20 mm Synergy Stent 10/07/2015; TIA-RED-Sbde- Mid LAD 06/15/2011; drug-eluting stent to mid LAD at [facility] on 01/08/2020; History of coronary artery stent placement (Chronic 10/07/15) PCI-Cutting Balloon PTCA of ISR Prox LAD w/ [id number]-Jucl-Ixn LAD w/ 3.5 mm x 20 mm Synergy Stent 10/07/2015; BKJ-WDB-Duqz- Mid LAD 06/15/2011; drug-eluting stent to mid LAD at [facility] on 01/08/2020; Essential (primary) hypertension (Chronic) Hyperlipidemia (Chronic) CVA (cerebral vascular accident) (Chronic) Hospital Course and Treatment Dr. Epps/Dr. Price Cardiology Operations: None Procedures: 2-D Echocardiogram, Blood transfusion, EKG Summary of Care Provided: The patient is a 64 y/o F w/ PMHx: Chronic COPD, HTN, HLD, CAD s/p PCI, Known Polymyositis following w/ Rheumatology in [place] but no confirmed muscle bx per her report, Hx prior CVA who presented to the [facility] ED on 06/17/20 secondary to progressively worsening dyspnea with PCP evaluation with recent tapering course of prednisone but not improving. Patient status post PCI at presentation given history with nonobstructive coronary disease with recommended continued aspirin, Plavix, optimization of medical therapy, transitioned to metoprolol XL per cardiology, given low normal BPs deferred addition of AKI inhibitor/ARB, deferred statin therapy given acute on chronic polymyositis as noted, may consider in future, 06/18/2020 echocardiogram with mild segmental systolic dysfunction, EF 45%, severe concentric LVH, mild MVI, mild TVI, trivial PVI, CTPA at presentation with no evidence of pulmonary emboli with mild pulmonary vascular congestion and a moderate right-sided pleural effusion as well as a small left pleural effusion with overlying atelectasis and stable appearing emphysema, small pericardial effusion with no evidence of tamponade, no evidence for diastolic dysfunction, cardiology consulted and followed. Treated initially with IV lasix, transitioned to oral and eventually discontinued per cardiology recommendation as felt euvolemic. 06/21/20 Hgb decreased further to 7.2, discussed with Cardiology and 1 u PRBC ordered, allowance low dose MIVF, d/c lasix with no continuation plans upon discharge. 06/22/20 Hgb 8.6 with improved oxygenation with transition to room air and no O2 needs with ambulation trial. Patient with significantly elevated creatinine kinase, initially improved but upward trend, admission presentation 1868-->06/20/2020 4863-->06/21/20 3388-->06/22/20 2236, continued on prednisone 60 mg daily, planned continued follow-up outpatient with deputy felony clerk for biopsy. Patient with as noted Acute on Chronic anemia, normocytic, vitamin B12 deficiency and iron deficiency following with hematology outpatient although not on any supplementation regimen however. Repeat labs with iron panel w/ Fe normal range 72, TIBC 272 low normal range, Fe saturation range low normal range 26.5%, ferritin elevated 363, vitamin B12 pending and folic acid level very low normal range w/ likely combined etiology, initial presentation hemoglobin 8.2-->06/20 hemoglobin 7.8-->06/21/20 Hgb 7.2, 1 u PRBC, 06/22/20 Hgb 8.6. Folic acid supplementation initiated as well as Fe supplementation. Patient does receive monthly SC vitamin B12. Given clinical improvement, patient discharged to home with home health requested on room air given successful oxygenation trial with altered new regimen as noted per Cardiology request with follow-up with Cardiology, Hematology, Rheumatology. DAY OF DISCHARGE PROGRESS NOTE: Subjective: Patient without acute event overnight per self and nursing report. Patient still complaint of dyspnea, worse with exertion but comfortable appearing with oxygenation trial. Patient denies fever, chills, nausea, emesis, abdominal pain, chest pain. Patient agreeable to discharge to home with planned home health usage. Patient will be discharged with follow-up with primary care physician within 3-5 days in addition to follow-up with Cardiology, Rheumatology, Hematology as noted. Objective: T 98.4, heart rate 98, BP 119/82, respiratory rate 16, 93% on room air at rest and noted to be 95 to 96% with ambulation. Physical Examination: General: awake, alert, oriented x 3 and cooperative, seated upright in the bed, improved appearance, NAD. Skin: normal color, turgor, no icterus, cyanosis. HEENT: AT/NC, EOMI, PERRLA, MMM. Lungs: Diminished breath sounds, greater bases, right greater, mild rales right base, no obvious rhonchi or wheezing, appropriate effort. Heart: Regular rate and regular rhythm; no gallop, rub audible. Abdomen: soft, NTTP, ND, normal BS. Extremities: no cyanosis, clubbing or edema noted. Neurological: patient awake, alert, oriented as noted; cognitive function intact; pupils equally reactive to light and accomodation; cranial nerves II-XII grossly normal, moving all 4 extremities, no focal deficits, strength improving but remains, moderately globally decreased secondary to acute presentation. Psychiatric: affect appears improved, normal, no acute evidence of depressive or anxiety feelings. Assessment and Plan: Please see hospital summary above. Patient Problems: Active and Suspected Problems (Last Updated 06/17/20 @ 22:[address] Ashlie Thompson MD) NSTEMI (non-ST elevated myocardial infarction) (Acute) CHF (congestive heart failure) (Acute) - Physical Exam Vitals/I&O's: Vital Signs Temp Pulse Resp BP Pulse Ox 98.4 F 98 16 119/82 H 95 06/22/20 09:40 06/22/20 09:40 06/22/20 09:40 06/22/20 09:40 06/22/20 09:40 Oxygen Flow Rate (L/min) 2 Oxygen Delivery Method Room Air Weight: 150 lb 5.684 oz Body Mass Index (BMI) 22.4 Orthostatic Vital Signs Start: 06/22/20 08:54 Freq: X1 Status: Active Protocol: Activity Type Activity Date Activity User E-Sign Co-Sign Detail Recorded Client Recorded Date Recorded By Document 06/22/20 08:56 [id number] 06/22/20 09:03 AMAURI 06/22/20 08:56 Orthostatic Vitals Standing -Blood Pressure (90/60-120/80) 130/75 H -Extremity Use Left Arm -Pulse Rate (60-100) 94 Sitting -Blood Pressure (90/60-120/80) 128/70 H -Extremity Use Left Arm -Pulse Rate (60-100) 104 H Lying -Blood Pressure (90/60-120/80) 117/68 -Extremity Use Left Arm -Pulse Rate (60-100) 100 Intake and Output for Last 24 Hours 06/20/20 06/21/20 06/22/20 23:59 23:59 23:59 Intake Total 600 / 600 2036.25 / 2036.25 850 / 850 Output Total 400 / 400 700 / 700 Balance 200 / 200 1336.25 / 1336.25 850 / 850 Microbiology Past 72 Hours 06/17/20 22:30 Urine Catheter - Catheter Urine Culture - Final Culture exhibits no growth. 06/17/20 16:01 Blood Culture (Wb) #2 - Anticubital Left Blood Culture - Preliminary No growth in 48 hours. 06/17/20 15:50 Blood Culture (Wb) - Anticubital Right Blood Culture - Preliminary No growth in 48 hours. Laboratory Results 12/26/20 09:40: Blood Type O POSITIVE, Antibody Screen NEGATIVE, Crossmatch See Detail 06/21/20 19:35: Hgb 9.5 L, Hct 29.3 L 06/22/20 06:05: WBC 8.7, RBC 2.65 L, Hgb 8.6 L, Hct 26.2 L, MCV 98.9, MCH 32.5 H, MCHC 32.8, RDW Std Deviation 58.0 H, RDW Coeff of Sammy 16.4 H, Plt Count 367, MPV 9.6, Immature Gran % (Auto) 1.200 H, Neut % (Auto) 65.5, Lymph % (Auto) 20.8, [place] % (Auto) 12.1 H, Eos % (Auto) 0.3, Baso % (Auto) 0.1, Absolute Neuts (auto) 5.7, Absolute Lymphs (auto) 1.80, Nucleated RBC % 0.9 06/22/20 06:05: Sodium 131 L, Potassium 3.5, Chloride 100, Carbon Dioxide 22.0, Anion Gap 9, BUN 35 H, Creatinine 0.74, Estim Creat Clear Calc 57.83, Est GFR (MDRD) Af Amer 100, Est GFR (MDRD) Non-Af 83, BUN/Creatinine Ratio 47.0 H, Glucose 94, Calcium 8.2 L, Total Bilirubin 0.70, AST 132 H, ALT 97 H, Alkaline Phosphatase 292 H, Total Creatine Kinase 2236 H, Total Protein 6.4, Albumin 2.4 L, Globulin 4.0, Albumin/Globulin Ratio 0.6 L Current Medications Acetaminophen (Acetaminophen 325 Mg Tablet) 650 mg PO Q4H PRN PRN PRN Reason: fever, pain 1-10 Last Admin: 06/22/20 08:11 Dose: 650 mg Documented by: Albuterol Sulfate (Albuterol 2.5 Mg/3 Ml Vial.Neb.) 2.5 mg INHALATION Q2H PRN PRN PRN Reason: Shortness of breath, wheezing Albuterol/Ipratropium (Ipratropium/Albuterol Sulfate 3 Ml Ampul.Neb) 3 ml INHALATION Q6H.RT ELVIRA Last Admin: 06/22/20 06:55 Dose: 3 ml Documented by: Alprazolam (Alprazolam 0.5 Mg Tablet) 0.5 mg PO TID PRN PRN PRN Reason: anxiety Last Admin: 06/22/20 08:21 Dose: 0.5 mg Documented by: Aspirin (Aspirin E.C. 81 Mg Tablet) 81 mg PO DAILY@0800 [facility] Last Admin: 06/22/20 08:11 Dose: 81 mg Documented by: Clopidogrel Bisulfate (Clopidogrel Bisulfate 75 Mg Tablet) 75 mg PO DAILY [facility] Last Admin: 06/21/20 09:15 Dose: 75 mg Documented by: Diphenoxylate HCl/Atropine (Diphenoxylate/Atrop 1 Tablet) 1 tablet PO BID [facility] Last Admin: 06/21/20 21:28 Dose: Not Given Documented by: Enoxaparin Sodium (Enoxaparin 40 Mg/0.4 Ml Syringe) 40 mg SC DAILY [facility] Folic Acid ([facility] 1 Mg [facility]) [facility] Last Admin: 06/22/20 08:11 Dose: 1 mg Documented by: Lidocaine (Lidocaine 5% Patch) 1 patch TOPICAL DAILY [facility]; Protocol Last Admin: 06/22/20 08:12 Dose: 1 patch Documented by: Metoprolol Succinate (Metoprolol(Xl)Succ 25 Mg Tablet) 12.5 mg PO DAILY [facility] Last Admin: 06/21/20 09:11 Dose: Not Given Documented by: Mirtazapine (Mirtazapine 15 Mg Tablet) 15 mg PO QHS [facility] Last Admin: 06/21/20 21:29 Dose: 15 mg Documented by: Pantoprazole Sodium (Pantoprazole Sodium 40 Mg Tablet) 40 mg PO DAILY [facility] Last Admin: 06/21/20 09:14 Dose: 40 mg Documented by: Prednisone (Prednisone 20 Mg Tablet) 60 mg PO DAILY@0800 [facility] Last Admin: 06/22/20 08:11 Dose: 60 mg Documented by: Primidone (Primidone 50 Mg Tablet) 150 mg PO BID [facility] Last Admin: 06/21/20 21:29 Dose: 150 mg Documented by: Sodium Chloride (0.9% Saline Lock 10 Ml Syringe) 10 - 40 ml IV UD PRN PRN Reason: SALINE FLUSH Last Admin: 06/21/20 10:03 Dose: 10 ml Documented by: Discharge Activity: - - Encourage routine moderate activity. Usage of devices as needed. Advance activities following evaluation per Cardiology. Call your doctor if you observe: Fever of 101 or Higher, Inability to urinate, Inability to have a bowel movement, Shortness of breath, Dizziness, Fainting spells, Chest pain, Uncontrolled pain Home Medications: Medications to take at Discharge aspirin 81 mg tablet,delayed release 81 mg PO DAILY 07/31/18 nitroglycerin 0.4 mg sublingual tablet 0.4 mg SUBLINGUAL Q5M PRN #25 tab 06/04/19 mirtazapine 15 mg tablet 15 mg PO QHS #90 tab 01/08/20 albuterol sulfate 90 mcg/actuation aerosol inhaler 2 puff INHALATION Q6H #8 g 02/04/20 tiotropium bromide 2.5 mcg/actuation mist for inhalation 2 puff INHALATION DAILY #4 g 02/04/20 albuterol sulfate 90 mcg/actuation breath activated powder inhaler 2 inh INHALATION Q6H PRN #1 ea 03/06/20 Pantoprazole Sodium 40 mg PO DAILY 04/22/20 Primidone [Mysoline] 150 mg PO BID 04/22/20 diphenoxylate-atropine 2.5 mg-0.025 mg tablet 1 tab PO BID #60 tab 04/29/20 alprazolam 0.5 mg tablet 0.5 mg PO TID PRN #90 tab 06/09/20 Clopidogrel Bisulfate [Clopidogrel] 75 mg PO DAILY 06/17/20 Folic Acid 1 mg PO BIDCM #60 tab 06/22/20 Metoprolol(XL)Succ [Toprol Xl (Beta Johan)] 12.5 mg PO DAILY #30 tab 06/22/20 predniSONE tablet 60 mg PO DAILY@0800 #90 tab 06/22/20 Following Prescriptions Were Given to Patient: Folic Acid 1 mg PO BIDCM #60 tab Transmission Status: [id number] predniSONE tablet 60 mg PO DAILY@0800 #90 tab Transmission Status: [id number] Metoprolol(XL)Succ [Toprol Xl (Beta Johan)] 12.5 mg PO DAILY #30 tab Transmission Status: [id number] Primary Care Physician: Maxx Hewitt DO [Primary Care Provider] - Please follow up with your Primary Care Physician in: Follow-up within 3-5 days to review admission. Please Follow Up With: Mary Burciaga MD When: Follow-up within 3-5 days to review admission, discuss recent steroid start Please Follow Up With: Carlos Price MD When: Follow-up within 1 week, may see QUALITY CONTROL HEAD in the office. Please Follow Up With: Lydia Sparks MD When: Follow-up within 1 week, may see QUALITY CONTROL HEAD in the office. Patient Instructions: Anemia, Heart Attack, Muscle Biopsy, Exercise: Measuring Your Effort, Exercising After a Heart Attack, ED Anemia, Iron-Deficiency (Adult), ED Heart Failure, Congestive (CHF) Disposition: Home with Home Health Minutes spent on discharge:: 35 Medical Necessity - Tobacco Use Smoking Status: Former smoker Tobacco Use: Non-smoker Meaningful Use Info Meaningful Use Diagnoses (Choose all that apply): AMI, CHF - AMI/Post PCI/Angioplasty Aspirin given w/in 24hrs of arrival?: Yes ASA at discharge?: Yes Antiplatelet Therapy at Discharge:: Yes Statins at discharge?: No Reason statins not ordered:: Allergy Aki/ARB at discharge?: No Reason Aki/ARB not ordered:: Hypotension Beta Johan at discharge?: Yes Done w/ Acute [place] measure.: Yes Documented LVEF (%): 45 - CHF AKI/ARB ordered at discharge?: No Reason AKI/ARB not ordered?: Hypotension Documented LVEF (%): 45 Inpatient E&M: 43612 Disch Hosp
[2020-06-22] MEDS: Metoprolol(XL)Succ 25 MG Tablet 12.5 MG PO (10:04)
[2020-06-22] MEDS: Primidone 50 MG Tablet 150 MG PO (10:04)
[2020-06-22] MEDS: Pantoprazole Sodium 40 MG Tablet PO (10:05)
[2020-06-22] MEDS: Clopidogrel Bisulfate 75 MG Tablet PO (10:05)
[2020-06-22] MEDS: Enoxaparin 40 MG/0.4 ML Syringe SC (10:06)
--- NOTE | 2020-06-22 10:41 | PN.CARD_ITS ---
Subjectve: The patient is feeling better. She is working with the physical therapist. The patient has no recurrent chest discomfort. He does admit to some shortness of breath. Objective: Vital Signs Temp Pulse Resp BP Pulse Ox 98.4 F 96 16 119/82 H 95 06/22/20 09:40 06/22/20 10:04 06/22/20 09:40 06/22/20 09:40 06/22/20 09:40 Oxygen Flow Rate (L/min) 2 Oxygen Delivery Method Room Air Weight: 150 lb 5.684 oz Body Mass Index (BMI) 22.4 Orthostatic Vital Signs Start: 06/22/20 08:54 Freq: X1 Status: Active Protocol: Activity Type Activity Date Activity User E-Sign Co-Sign Detail Recorded Client Recorded Date Recorded By Document 06/22/20 08:56 AMAURI [id number] 06/22/20 09:03 AMAURI 06/22/20 08:56 Orthostatic Vitals Standing -Blood Pressure (90/60-120/80) 130/75 H -Extremity Use Left Arm -Pulse Rate (60-100) 94 Sitting -Blood Pressure (90/60-120/80) 128/70 H -Extremity Use Left Arm -Pulse Rate (60-100) 104 H Lying -Blood Pressure (90/60-120/80) 117/68 -Extremity Use Left Arm -Pulse Rate (60-100) 100 Intake and Output for Last 24 Hours 06/20/20 06/21/20 06/22/20 23:59 23:59 23:59 Intake Total 600 / 600 2036.25 / 2036.25 1517.5 / 1517.5 Output Total 400 / 400 700 / 700 Balance 200 / 200 1336.25 / 1336.25 1517.5 / 1517.5 Physical Exam GENERAL: This is a well-nourished who is appropriate and articulate at the time of evaluation. VITAL SIGNS: please see collected data HEENT: Exam is benign. Normocephalic and atraumatic. Oral mucosa is pink and moist. NECK: Jugular venous pulsations are normal. Carotid upstrokes are palpable bilaterally. There is no audible bruit. LUNGS: Clear to Auscultation Bilaterally, No rales, rhonchi or wheezes CARDIAC: Regular rhythm and rate. S1 and S2 with ACACIA at apex, no rub, or gallop appreciated. The point of maximal impulse is normal. ABDOMEN: Obese, soft with active bowel sounds. No organomegaly. No audible bruit. Nontender To Palpation EXTREMITIES: Femoral pulses were deferred. No Lower extremities edema. Pulse +2/4 OMM: Patient was examined in supine position; there was no acute tissue changes other stated in Lymphs: No lymphadenopathy Neuro: CN 2-12 are grossly intact, no focal neurological deficit. Psych: No anxiety 06/21/20 19:35: Hgb 9.5 L, Hct 29.3 L 06/22/20 06:05: WBC 8.7, RBC 2.65 L, Hgb 8.6 L, Hct 26.2 L, MCV 98.9, MCH 32.5 H , MCHC 32.8, Plt Count 367, MPV 9.6, Immature Gran % (Auto) 1.200 H, Neut % (Auto) 65.5, Lymph % (Auto) 20.8, [place] % (Auto) 12.1 H, Eos % (Auto) 0.3, Baso % (Auto) 0.1, Absolute Neuts (auto) 5.7, Nucleated RBC % 0.9 06/22/20 06:05: Sodium 131 L, Potassium 3.5, Chloride 100, Carbon Dioxide 22.0, Anion Gap 9, BUN 35 H, Creatinine 0.74, Est GFR (MDRD) Af Amer 100, Est GFR (MDRD) Non-Af 83, BUN/Creatinine Ratio 47.0 H, Glucose 94, Calcium 8.2 L, Total Bilirubin 0.70 Rhythm: EKG: ECHO: Stress Test: Cardiac Cath: PCI: CT Surgery: Holter monitor: EPS: PPM: CXR: Chest CT Scan: Medical Necessity - Tobacco Use Smoking Status: Former smoker Tobacco Use: Non-smoker Assessment/Plan + June 22, 2020 -The patient is doing better clinically. She does not have any typical anginal symptoms. Her breathing is improving. The patient received blood transfusion and her hemoglobin is much better. The patient also feels better. The patient's been working with physical therapy and is able to walk quite a few steps. The patient has some shortness of breath. Primary team is working on managing the patient polymyositis. Cardiovascular medication include Aspirin 81 mg daily Plavix 75 mg daily Toprol 12.5 mg daily Sublingual nitro as needed It is difficult for us to losartan, spironolactone therapy to the patient current heart failure therapy due to the patient labile blood pressure. Patient is to follow-up with her interventional cardiologist outpatient for further work-up and optimization of the patient medical therapy. 1. Non-ST segment elevation MN The patient had laboratory findings compatible with a non-ST segment elevation MN. She underwent evaluation with diagnostic cardiac catheterization. Her cardiac catheterization did not reveal angiographically significant appearing CAD or LAD in-stent restenosis. She is also had a follow-up transthoracic echocardiogram. Her overall LV systolic function/LVEF remains mildly diminished. At the present time it appears her non-ST segment elevation MN is a type II event secondary to supply demand mismatch and not from a new CAD lesion/event. She will need continued medical management as she is able to based upon her vital signs, multiple comorbidities, etc. 2. CAD status post LAD PCI The patient has undergone LAD PCI x3. Her most recent PCI was performed in [place], [place]. That time per the outpatient office note she had an LAD ulcera tania plaque just distal to her LAD stent that underwent intravascular ultrasound and subsequent PCI/LUIS ALBERTO. She has undergone subsequent evaluation as noted. She will continue medical therapy. 3. Acute exacerbation of systolic heart failure with reduced LVEF of 45% The patient demonstrates findings based upon history and examination and radiologic studies compatible with CHF. Her LV systolic and diastolic function was reviewed. Her LV systolic function remains mildly decreased and her diastolic function appears to be with no evidence of diastolic dysfunction. The exact etiology of her CHF/pleural effusion scenario appears to be somewhat unclear. This may be multifactorial with a combination of her somewhat diminished LV systolic function along with her noncardiac conditions such as her polymyositis with concerns of possible serositis superimposed upon her anemia, etc. At the moment she will need continued medical management which will include doing reinitiation of low-dose beta-chaz therapy with carvedilol/Coreg as long as she tolerates this, continuation of diuretic therapy with adjustment as needed, and hopefully if she tolerates her other medications in the future ad dition of an afterload reducing agent such as an MADDIE inhibitor or ARB or Entresto. Also depending upon her clinical course she may need additional evaluation of her pleural effusion with a thoracentesis to assist with diagnosis and therapy. 4. Hyperlipidemia She reportedly has a history of hyperlipidemia. However she has not been on lipid-lowering therapy based upon concerns of her polymyositis. 5. Hypertension Her blood pressure will be followed with medications being adjusted as needed. 6. Polymyositis He has a history of polymyositis. Her CPK levels have been elevated. She cont inues to follow with her other physicians for this. 7. Anemia of chronic disease She also has a history of anemia of chronic disease. Her hemoglobin levels have waxed and waned. Depending upon her cardiovascular course and findings she may need to be considered for PRBC transfusion to assist with her oxygen carrying capacity. Comment: The patient's case has been discussed and reviewed with the patient and Dr. John. This note was generated using a voice recognition system and there may be incorrect words, spelling or punctuation that were not noted when reviewing the office note prior to saving.
[2020-06-23 09:37] LABS: Vitamin B12 680 pg/mL (211-911)
--- NOTE | 2020-06-24 11:07 | CASEMGMT ---
DAYSI PRADO NOTE: Call received from Javier @ [facility]. He was made aware pt was discharged home on 06/22. He states he will contact pt today and plans for start of care tomorrow. Discharge summary and instructions faxed to [facility] at this time. Deborah WAGGONER RN CM
--- NOTE | 2020-06-24 13:16 | CASEMGMT ---
DAYSI PRADO Discharge Follow-Up Phone Call. [place]: 12 Strata: 3 Discharge Date: 06/22/20 Adm Dx: Suspected septic shock, PNA, NSTEMI Call to pt to inquire about how she has been doing since being discharged from the hospital. She states she is still tired and weak, but states it is about what I was like when I was in the hospital. Pt states she has dificulty getting off the couch or the commode on her own, but her son is with her 17/01, is supportive, and has been helping her. She states [facility] nurse was to her house today to start services and therapy plans to call her this afternoon to set up appt for them to come start working with her. She states her face is puffing up again. She has called Dr Sauceda's office to notify them and they are having her start taking Lasix again. She has a f/u appt with Dr Sauceda tomorrow as well as with her PCP/Dr Hewitt. The [facility] nurse has already instructed her to take her weight daily. She states her scale is old and not accurate and she plans to get a new one. She was able to mushroom picker all the new prescriptions and denies having questions about them or her other meds. She states she also has scheduled all of the other doctor appts as instructed. She denies having other questions/concerns/needs at this time. DAYSI PRADO thanked pt for choosing [facility]. Deborah WAGGONER RN, CM
== END 2020-06-22 12:21 | disposition home or self-care (01) | DRG 280 ==
LOC: ED 15:44 → ICU 21:10 → PCU 06-18 17:28
PROVIDERS: Emergency Medicine; Family Medicine; Internal Medicine Cardiovascular Disease; Admitting Provider Hospitalist; Emergency Provider Emergency Medicine; PCP Family Medicine; Visit Provider Family Medicine
DX: I25.10 Atherosclerotic heart disease of native coronary artery without angina pectoris (principal); I21.A1 Myocardial infarction type 2; I50.23 Acute on chronic systolic (congestive) heart failure; J96.01 Acute respiratory failure with hypoxia; J18.9 Pneumonia, unspecified organism; E87.2 Acidosis; M33.20 Polymyositis, organ involvement unspecified; E87.1 Hypo-osmolality and hyponatremia; I31.3 Pericardial effusion (noninflammatory); J98.11 Atelectasis; I45.19 Other right bundle-branch block; I11.0 Hypertensive heart disease with heart failure; F32.9 Major depressive disorder, single episode, unspecified; F41.9 Anxiety disorder, unspecified; K21.9 Gastro-esophageal reflux disease without esophagitis; I25.2 Old myocardial infarction; E78.00 Pure hypercholesterolemia, unspecified; J43.9 Emphysema, unspecified; D63.8 Anemia in other chronic diseases classified elsewhere; D50.0 Iron deficiency anemia secondary to blood loss (chronic); K52.9 Noninfective gastroenteritis and colitis, unspecified; Z95.5 Presence of coronary angioplasty implant and graft; Z79.02 Long term (current) use of antithrombotics/antiplatelets; Z79.82 Long term (current) use of aspirin; Z79.899 Other long term (current) drug therapy; Z87.891 Personal history of nicotine dependence; Z86.73 Personal history of transient ischemic attack (TIA), and cerebral infarction without residual deficits
CPT/HCPCS: 36415; 36600; 51702; 71045; 71275; 80048; 80053; 80061; 80076; 81001; 82550; 82607; 82728; 82746; 82803; 83540; 83550; 83605; 83735; 83880; 84484; 85014; 85018; 85025; 85379; 85730; 86850; 86900; 86901; 86920; 86922; 87040; 87086; 87635; 93005; 93306; 93458; 94002; 94003; 94640; 97110; 97116; 97162; 97166; 97530; 97535; 99152; 99251; 99285; 99406; J7030; J7040; J7050; P9016; Q9957; Q9967; A4216; C1760; C1769; C8929; G0463; J1940; U0002

== ENCOUNTER → 2020-06-25 11:37 | Outpatient (CLI) | payer MEDICARE, SELFPAY ==
[2020-06-17 22:16] VITALS: BMI 22.4
[2020-06-25 12:24] LABS: Anion Gap 10 (5-15); BUN 21 mg/dL (7-18); BUN/Creat Ratio 25.8 RATIO (10-20); Chloride 99 mmol/L (98-107); Creatinine, Serum 0.82 mg/dL (0.55-1.02); EST Glomerular Filtration Rate 75 mL/min (>60); Est Glom Filt Rate - Afr Amer 90 mL/min (>60); Glucose 114 mg/dL (74-106); Potassium 3.3 mmol/L (3.5-5.1); Sodium Level 133 mmol/L (136-145)
== END ==
PROVIDERS: PCP Family Medicine; Referring Provider Nurse Practitioner Family; Visit Provider Nurse Practitioner Family
DX: I50.9 Heart failure, unspecified (principal)
CPT/HCPCS: 36415; 80048

== ENCOUNTER 2020-06-30 14:14 | Inpatient (IN) | payer MEDICARE, SELFPAY ==
[2020-06-26 12:10] VITALS: BMI 21.8
[2020-06-30] VITALS (11 sets, daily range): BP systolic 123–128; BP diastolic 85–87; PULSE 75–87; RESP 18–28; TEMP 36.1–36.8; O2SAT 94–99; BMI 22.4
--- NOTE | 2020-06-30 15:03 | EKG12_ITS ---
Test Reason : SOB Blood Pressure : / mmHG Vent. Rate : 077 BPM Atrial Rate : 077 BPM P-R Int : 178 ms QRS Dur : 100 ms QT Int : 450 ms P-R-T Axes : 061 027 047 degrees QTc Int : 509 ms Normal sinus rhythm Incomplete right bundle branch block Nonspecific ST and T wave abnormality Abnormal ECG Confirmed by LISA MATUTE, JOSE ([id number]), editor in chief ALFONZO HILL ([id number]) on 07/02/2020 9:40:38 AM Referred By: CUONG Confirmed By:JOSE GONZALEZ MD
--- NOTE | 2020-06-30 15:09 | ED.VISSUMM ---
- ER Visit Summary Date of Service: 06/30/20 Chief Complaint: Shortness of breath History of Present Illness: The patient is a 64 F presenting with shortness of breath. Per home nurse her pulse ox was 77% on room air. Patient had an admission from 06/17-06/22 for NSTEMI and CHF. She states she has been short of breath since leaving the hospital but continues to worsen. She was seen by her reinforcing iron and rebar workers in the office on June 26. During her admission she underwent a heart catheterization which showed patent stents. She had an EF of 45%. She was tested for Covid and was negative. She denies fever or chest pain. Physical Examination: Vitals are stable. Patient is afebrile. Alert no acute distress. Pulse ox 88% at rest. HEENT exam is unremarkable. Neck is supple. Lungs are diminished bilaterally. Tachypnea Heart is regular rate and rhythm. Abdomen is soft nontender nondistended. Extremities trace symmetric edema Skin is warm and dry. No focal neurologic deficit. Remainder of exam is unremarkable. Emergency Department Course and Treatment: With ambulation her pulse ox is 86% on room air. Chest x-ray read by myself and radiology shows Increasing right pleural effusion with possible basilar infiltrate. EKG is sinus rhythm rate of 77 with no acute ischemic changes. CBC shows hemoglobin 10.5, platelet 455. Chemistries show glucose 123. Alk phos 206. AST 160. Troponin 1.16 which is trending down. BNP over 5000. Lactic acid 2.2. Covid is negative. Discussed with hospitalist for admission. Disposition: Admission Impression: CHF, right pleural effusion, hypoxia This note was generated with [employer] dictation software. It may contain incorrect words, spelling, and punctuation that were not noted in review of the chart prior to signing ED Disposition - Plan for ED Patient: Referrals: Maxx Hewitt, [Primary Care Provider] -
[2020-06-30 15:27] LABS: Absolute Lymphocyte Count 0.89 X10^3/uL (0.83-4.51); Absolute Neutrophil Count 5.2 X10^3/uL (2.0-7.7); Basophil# 0.01 X10^3/uL; Basophil% 0.2 % (0-1); Hematocrit 33.2 % (37-47); Hemoglobin 10.5 g/dL (12.0-15.0); Lymphocyte # 0.89 X10^3/ul (4.0); Lymphocyte % 13.9 % (19-41); Mean Corp Hgb Conc 31.6 g/dL (32-36); Mean Corpuscular Hgb 32.3 pg (27.0-32.0); Mean Corpuscular Volume 102.2 fL (81-99); Mean Platelet Vol. 9.4 fl (6.2-12.0); Monocyte# 0.27 X10^3/uL; Monocyte% 4.2 % (0-10); NRBC Flagged by Analyzer 0 % (0-5); Neutrophil # 5.18 X10^3/uL (2.7-7.7); Neutrophil % 81.2 % (47-70); Platelet Count 455 K/mm3 (150-450); RBC Distribution Width CV 16.1 % (11.6-14.6); RBC Distribution Width SD 59.1 fl (35.1-43.9); Red Blood Count 3.25 M/mm3 (4.2-5.4); White Blood Count 6.4 K/mm3 (4.4-11.0)
[2020-06-30] MEDS: Ipratropium/Albuterol Sulfate 3 ML AMPUL.NEB INHALATION ×2 (15:36→20:14)
[2020-06-30 15:48] LABS: ALB/GLOB Ratio 0.8 RATIO (0.9-2.4); AST(SGOT) 160 U/L (15-37); Alanine Aminotransfer ALT/SGPT 99 U/L (13-56); Alkaline Phosphatase 206 U/L (45-117); Anion Gap 9 (5-15); BUN 9 mg/dL (7-18); BUN/Creat Ratio 12.9 RATIO (10-20); Calcium,Total 8.2 mg/dL (8.5-10.1); Chloride 102 mmol/L (98-107); EST Glomerular Filtration Rate 89 mL/min (>60); Est Glom Filt Rate - Afr Amer 108 mL/min (>60); Estimated Creatinine Clearance 57.83 ml/min; Globulin 3.9 g/dL (2.2-4.2); Glucose 123 mg/dL (74-106); Potassium 3.8 mmol/L (3.5-5.1); Protein, Total 6.9 g/dL (6.4-8.2); Sodium Level 136 mmol/L (136-145)
[2020-06-30 15:50] LABS: BNP,B-Type NATRIURETIC PEPTIDE > 5000.0 pg/mL (0-100)
--- NOTE | 2020-06-30 15:55 | RAD_ITS ---
STUDY: X-RAY CHEST REASON FOR EXAM: Female, 64 years old. sob and weakness. TECHNIQUE: Frontal view COMPARISON: 06/17/2020 FINDINGS: The lungs are expanded. Increasing right pleural effusion with possible basilar infiltrate. Normal size heart. Normal mediastinum and quinton. Normal visualized pulmonary arteries. Normal visualized aortic arch and descending thoracic aorta. Normal visualized thoracic spine. Normal visualized ribs, clavicles, and shoulders. There is no demonstrated abnormality of the visualized soft tissue structures of the upper abdomen. RAD/Chest 1 View (Portable) IMPRESSION: Increasing right pleural effusion with possible basilar infiltrate. Electronically Signed: Jose Eduardo Carrero DO at 16:21 EST Tel [phone], Service support ,
[2020-06-30 16:33] LABS: Lactic Acid 2.2 mmol/L (0.4-1.9)
--- NOTE | 2020-06-30 17:28 | PCM.HP.STD ---
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 Status: Chronic (6) History of coronary artery stent placement Status: Chronic Comment: JRQ-XKM-Guun-Mid LAD w/ 3.5 x 18 mm Promus Stent 06/15/2011; PCI-Cutting Balloon PTCA of ISR Prox LAD w/ PKB-Qnoo-Kbu LAD w/ 3.5 mm x 20 mm Synergy Stent 10/07/2015; PCI-LUIS ALBERTO-Mid LAD w/ 3.5 x 23 mm Xience Kayce Stent 01/08/2020 (7) Essential (primary) hypertension Status: Chronic (8) Hyperlipidemia Status: Chronic (9) Hyponatremia Status: Chronic (10) CVA (cerebral vascular accident) Status: Chronic (11) COPD (chronic obstructive pulmonary disease) Status: Chronic (12) Polymyositis Status: Chronic (13) Elevated LFTs Status: Chronic (14) Elevated CPK Status: Chronic (15) Iron deficiency anemia due to chronic blood loss Status: Chronic (16) Anemia of chronic disease Status: Chronic History of Present Illness Date of Admission: 06/30/20 Chief Complaint: Shortness of breath. The patient is a 64 year old F who presents to the emergency room due to shortness of breath. Patient states this has been ongoing since her recent discharge from the hospital 06/22/2020 where she was treated for acute systolic heart failure. She denies weight gain or edema. Denies chest pain. She states she is not on oxygen at home. She reports she has been able to lie flat at night to sleep however wakes up short of breath. She states shortness of breath has worsened over the past few days. She denies cough, fever, chills. States her ribs bilaterally feel sore. Denies other associated symptoms or complaints. She has a past medical history of chronic systolic CHF, chronic polymyositis, chronic normocytic anemia, CAD with history of PCI, hypertension, hyperlipidemia, chronic COPD, anxiety, depression, GERD, history of tobacco use. Past Medical History Past Medical History (Chronic Problems): Chronic Problems (Last Reviewed 06/26/20 @ 12:[address] 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) History of coronary artery stent placement (Chronic 01/08/20) LZU-CAA-Xwng-Mid LAD w/ 3.5 x 18 mm Promus Stent 06/15/2011; PCI-Cutting Balloon PTCA of ISR Prox LAD w/ PCX-Jepd-Gll LAD w/ 3.5 mm x 20 mm Synergy Stent 10/07/2015; PCI-LUIS ALBERTO-Mid LAD w/ 3.5 x 23 mm Xience Kayce Stent 01/08/2020 Essential (primary) hypertension (Chronic) Hyperlipidemia (Chronic) Hyponatremia (Chronic) CVA (cerebral vascular accident) (Chronic) COPD (chronic obstructive pulmonary disease) (Chronic) Polymyositis (Chronic) Elevated LFTs (Chronic) Elevated CPK (Chronic) Iron deficiency anemia due to chronic blood loss (Chronic) Anemia of chronic disease (Chronic) Medical History: Medical History (Last Reviewed 06/26/20 @ 12:[address] Thad Sauceda MD) Atherosclerosis of coronary artery of [place] heart without angina pectoris (Chronic) I25.[address] elevation myocardial infarction (STEMI) (Resolved) Onset Date: 01/08/20 I25.2 History of non-ST elevation myocardial infarction (NSTEMI) (Resolved) Onset Date: 06/17/20 I25.2 Chronic systolic (congestive) heart failure (Chronic) I50.22 Old anterolateral wall myocardial infarction (Chronic) Onset Date: 01/08/20 I25.2 Essential (primary) hypertension (Chronic) I10 Hyperlipidemia (Chronic) E78.5 Hyponatremia (Chronic) E87.1 CVA (cerebral vascular accident) (Chronic) I63.9 COPD (chronic obstructive pulmonary disease) (Chronic) J44.9 Polymyositis (Chronic) M33.20 Elevated LFTs (Chronic) R79.89 Elevated CPK (Chronic) R74.8 Iron deficiency anemia due to chronic blood loss (Chronic) D50.0 Anemia of chronic disease (Chronic) D63.8 Atrophic vaginitis N95.2 B12 deficiency E53.8 Chronic diarrhea K52.9 Degenerative joint disease of spine M47.9 IBS (irritable bowel syndrome) K58.9 Iron deficiency anemia D50.9 Macrocytic anemia D53.9 Urethral stricture Acute systolic (congestive) heart failure (Resolved) Onset Date: 06/17/20 I50.21 History of benign breast tumor Z86.018 Rhabdomyolysis Onset Date: 01/08/20 M62.82 Irritable bowel syndrome with diarrhea (Inactive) K58.0 Allergies amlodipine [From Norvasc] Allergy (Verified 06/30/20 14:14) severe BLE edema codeine Allergy (Verified 06/30/20 14:14) Other STOMACH PAIN sulfamethoxazole [From Septra] Allergy (Verified 06/30/20 14:14) Rash trimethoprim [From Septra] Allergy (Verified 06/30/20 14:14) Unknown prasugrel [From Effient] Adverse Reaction (Severe, Verified 06/30/20 14:14) Not advised in pt's who have had CVA Onset 09/06/2016 Home Medications: Ambulatory Orders Medication Instructions Recorded aspirin 81 mg tablet,delayed 81 mg PO DAILY 07/31/18 release nitroglycerin 0.4 mg sublingual 0.4 mg SUBLINGUAL Q5M PRN #25 tab 06/04/19 tablet mirtazapine 15 mg tablet 15 mg PO QHS #90 tab 01/08/20 tiotropium bromide 2.5 2 puff INHALATION DAILY #4 g 02/04/20 mcg/actuation mist for inhalation Primidone [Mysoline] 150 mg PO BID 04/22/20 diphenoxylate-atropine 2.5 1 tab PO BID #60 tab 04/29/20 mg-0.025 mg tablet alprazolam 0.5 mg tablet 0.5 mg PO TID PRN #90 tab 06/09/20 Clopidogrel Bisulfate [Clopidogrel] 75 mg PO DAILY 06/17/20 Folic Acid 1 mg PO BIDCM #60 tab 06/22/20 Metoprolol(XL)Succ [Toprol Xl 12.5 mg PO DAILY #30 tab 06/22/20 (Beta Johan)] predniSONE tablet 60 mg PO DAILY@0800 #90 tab 06/22/20 albuterol sulfate 90 mcg/actuation 2 puff INHALATION Q6H #8 g 06/25/20 aerosol inhaler atorvastatin 80 mg tablet 80 mg PO QHS 06/25/20 iron, carbonyl 45 mg tablet 45 mg PO DAILY tab 06/26/20 propranolol 80 mg capsule,24 80 mg PO DAILY cap 06/26/20 hr,extended release Surgical History: Surgical History (Last Reviewed 06/30/20 @ 17:41 by Margot Vee 411 DIRECTORY ASSISTANCE OPERATOR, 411 DIRECTORY ASSISTANCE OPERATOR-C) History of coronary artery stent placement (Chronic) Onset Date: 01/08/20 Z95.5 NMQ-TXH-Fpxg-Mid LAD w/ 3.5 x 18 mm Promus Stent 06/15/2011; PCI-Cutting Balloon PTCA of ISR Prox LAD w/ LNR-Xyxw-Piz LAD w/ 3.5 mm x 20 mm Synergy Stent 10/07/2015; PCI-LUIS ALBERTO-Mid LAD w/ 3.5 x 23 mm Xience Kayce Stent 01/08/2020 History of ear surgery Z98.890 2018, Rt ear had an ulcer. 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 Lives: Spouse/ Significant Other Smoking Status: Former smoker Alcohol: None Drugs: None - *Family History Maternal Family History: Family History (Last Reviewed 06/30/20 @ 17:42 by Margot Vee NP, 411 DIRECTORY ASSISTANCE OPERATOR-C) Mother CVA (cerebral vascular accident) Breast cancer Anxiety and depression Grandmother CVA (cerebral vascular accident) Sister Breast cancer Anxiety and depression Paternal Family History: Family History (Last Reviewed 06/30/20 @ 17:42 by Margot Vee NP, 411 DIRECTORY ASSISTANCE OPERATOR-C) Mother CVA (cerebral vascular accident) Breast cancer Anxiety and depression Grandmother CVA (cerebral vascular accident) Sister Breast cancer Anxiety and depression History Items: - - Denies known paternal medical history including cardiac history. Review of Systems Constitutional: Reports: Weakness. Denies: Chills, Fever, Weight Change HEENT: Denies: Head Aches, Sinus Congestion, Sinus Drainage Cardiovascular: Denies: Chest Pain, Edema, Light Headedness, Palpitations, Syncope Respiratory: Reports: Shortness of Breath. Denies: Cough, Sputum production, Wheezing Gastrointestinal: Denies: Abdominal Pain, Nausea, Vomiting Genitourinary: Denies: Dysuria Musculoskeletal: Reports: - - Chronic leg pain. Denies: Joint Pain, Joint Tenderness Skin: Denies: Rash, Wounds Neurological: Denies: Numbness, Tingling, Focal weakness Psychiatric: Reports: Anxiety, Depression. Denies: Homicidal Ideations, Suicidal Ideations VTE Information - Inpt Only VTE Present on Admission: No VTE Mechan Device Prophylaxis: None VTE Pharm Prophylaxis ordered?: Yes - Physical Exam Vitals/I&O's: Vital Signs Temp Pulse Resp BP Pulse Ox 98.2 F 78 22 H 123/87 H 97 06/30/20 17:06 06/30/20 17:06 06/30/20 17:06 06/30/20 17:06 06/30/20 17:06 Oxygen Flow Rate (L/min) 2 Oxygen Delivery Method Nasal Cannula Weight: 151 lb 12.8 oz Body Mass Index (BMI) 22.4 General: Alert, Oriented x3, Cooperative, - - Appears older than stated age HEENT: Atraumatic, PERRLA, EOMI, Normocephalic Neck: Supple, No JVD, Negative Carotid Bruits Lungs: Clear to auscultation, Normal air movement Cardiovascular: Regular rate, No murmurs Abdomen: Bowel Sounds Present, Soft, Non Tender, Non-Distended Extremities: No clubbing, No cyanosis, No edema, Capillary Refill Less than 3 Seconds Skin: No rashes, No breakdown Musculoskeletal: No Tenderness to Palpation of Joints or Extremities Neurological: Cranial nerves II-XII grossly intact, Neuro grossly intact Psych/Mental Status: Normal Affect, Appropriate Microbiology Past 72 Hours 06/30/20 15:45 Mucosa - Nose SARS-CoV-2 Antigen (Rapid) - Final Laboratory Results 06/30/20 15:10: WBC 6.4, RBC 3.25 L, Hgb 10.5 L, Hct 33.2 L, MCV 102.2 H, MCH 32.3 H, MCHC 31.6 L, RDW Std Deviation 59.1 H, RDW Coeff of Sammy 16.1 H, Plt Count 455 H, MPV 9.4, Immature Gran % (Auto) 0.500, Neut % (Auto) 81.2 H, Lymph % (Auto) 13.9 L, O'Brien % (Auto) 4.2, Eos % (Auto) 0.0, Baso % (Auto) 0.2, Absolute Neuts (auto) 5.2, Absolute Lymphs (auto) 0.89, Nucleated RBC % 0 06/30/20 15:10: Sodium 136, Potassium 3.8, Chloride 102, Carbon Dioxide 25.0, Anion Gap 9, BUN 9, Creatinine 0.70, Estim Creat Clear Calc 57.83, Est GFR (MDRD) Af Amer 108, Est GFR (MDRD) Non-Af 89, BUN/Creatinine Ratio 12.9, Glucose 123 H, Calcium 8.2 L, Total Bilirubin 0.40, AST 160 H, ALT 99 H, Alkaline Phosphatase 206 H, Troponin I 1.160 H*, Total Protein 6.9, Albumin 3.0 L, Globulin 3.9, Albumin/Globulin Ratio 0.8 L 06/30/20 15:10: Lactic Acid 2.2 H* 06/30/20 15:10: B-Natriuretic Peptide > 5000.0 H Assessment/Plan All Active Problems (Last Reviewed 06/26/20 @ 12:[address] Thad Sauceda MD) History of ST elevation myocardial infarction (STEMI) (Resolved 01/08/20) History of non-ST elevation myocardial infarction (NSTEMI) (Resolved 06/17/20) Acute systolic (congestive) heart failure (Resolved 06/17/20) 1. Acute hypoxic respiratory insufficiency secondary to acute on chronic systolic CHF-BNP greater than 5000. Chest x-ray with increasing right pleural effusion, possible basilar infiltrate. IV Lasix. Strict I&O. Daily weight. Recent echocardiogram 06/18/2020 demonstrated an EF of 45%, mild mitral valve insufficiency, small pericardial effusion, severe left ventricular hypertrophy. Continue supplemental oxygen to maintain O2 sat above 90%. Walking pulse ox prior to discharge. 2. Abnormal troponin-suspect demand ischemia as a result of #1. Trend enzymes. Previous troponin recent admission May 2020 >14. . 3. Lactic acidosis-suspect reactive. No leukocytosis or fever. Repeat lactic acid per protocol. 4. Chronic polymyositis-upcoming follow-up with rheumatology, Dr. Burciaga. On prednisone. 5. Chronic normocytic anemia/B12 deficiency/iron deficiency anemia-appears at baseline, trend CBC. Continue iron, folic acid supplementation. 6. CAD with history of PCI- follows with Dr. Sauceda. Continue aspirin, statin, Plavix, metoprolol. 7. Hypertension-stable, continue metoprolol. 8. Hyperlipidemia-continue statin. 9. Chronic COPD-no exacerbation. Continue as needed albuterol aerosol. 10. Anxiety/depression-on as needed alprazolam, mirtazapine. 11. GERD- not on regimen. DVT prophylaxis-Lovenox subcu This patient was seen by CHIN Bullock under the supervision of Dr. Block. <Ricardo Block - Last Filed: 06/30/20 18:19> History of Present Illness The patient is a 64 year old F presents with worsening shortness of breath. Oxygen by home RN was 77%. Contacted her PCP who advised she come to the ED. In ED she was placed on oxygen. Troponin 1.16 and BNP >5000. CXR showed worsening RLL effusion.[] Past Medical History Medical History: Medical History (Last Reviewed 06/30/20 @ 18:[address] Ricardo Block, DO) Atherosclerosis of coronary artery of [place] heart without angina pectoris (Chronic) I25.[address] elevation myocardial infarction (STEMI) (Resolved) Onset Date: 01/08/20 I25.2 History of non-ST elevation myocardial infarction (NSTEMI) (Resolved) Onset Date: 06/17/20 I25.2 Chronic systolic (congestive) heart failure (Chronic) I50.22 Old anterolateral wall myocardial infarction (Chronic) Onset Date: 01/08/20 I25.2 Essential (primary) hypertension (Chronic) I10 Hyperlipidemia (Chronic) E78.5 Hyponatremia (Chronic) E87.1 CVA (cerebral vascular accident) (Chronic) I63.9 COPD (chronic obstructive pulmonary disease) (Chronic) J44.9 Polymyositis (Chronic) M33.20 Elevated LFTs (Chronic) R79.89 Elevated CPK (Chronic) R74.8 Iron deficiency anemia due to chronic blood loss (Chronic) D50.0 Anemia of chronic disease (Chronic) D63.8 Atrophic vaginitis N95.2 B12 deficiency E53.8 Chronic diarrhea K52.9 Degenerative joint disease of spine M47.9 IBS (irritable bowel syndrome) K58.9 Iron deficiency anemia D50.9 Macrocytic anemia D53.9 Urethral stricture Acute systolic (congestive) heart failure (Resolved) Onset Date: 06/17/20 I50.21 History of benign breast tumor Z86.018 Rhabdomyolysis Onset Date: 01/08/20 M62.82 Irritable bowel syndrome with diarrhea (Inactive) K58.0 Allergies amlodipine [From Norvasc] Allergy (Verified 06/30/20 14:14) severe BLE edema codeine Allergy (Verified 06/30/20 14:14) Other STOMACH PAIN sulfamethoxazole [From Septra] Allergy (Verified 06/30/20 14:14) Rash trimethoprim [From Septra] Allergy (Verified 06/30/20 14:14) Unknown prasugrel [From Effient] Adverse Reaction (Severe, Verified 06/30/20 14:14) Not advised in pt's who have had CVA Onset 09/06/2016 Surgical History: Surgical History (Last Reviewed 06/30/20 @ 18:[address] Ricardo Block DO) History of coronary artery stent placement (Chronic) Onset Date: 01/08/20 Z95.5 NOV-SXR-Gjiv-Mid LAD w/ 3.5 x 18 mm Promus Stent 06/15/2011; PCI-Cutting Balloon PTCA of ISR Prox LAD w/ ETW-Fbfi-Poo LAD w/ 3.5 mm x 20 mm Synergy Stent 10/07/2015; PCI-LUIS ALBERTO-Mid LAD w/ 3.5 x 23 mm Xience Kayce Stent 01/08/2020 History of ear surgery Z98.890 2018, Rt ear had an ulcer. 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 Ricardo Block DO) Mother CVA (cerebral vascular accident) Breast cancer Anxiety and depression Grandmother CVA (cerebral vascular accident) Sister Breast cancer Anxiety and depression Paternal Family History: Family History (Last Reviewed 06/30/20 @ 18:[address] Ricardo Block DO) Mother CVA (cerebral vascular accident) Breast cancer Anxiety and depression Grandmother CVA (cerebral vascular accident) Sister Breast cancer Anxiety and depression Review of Systems Constitutional: Reports: Weakness. Denies: Chills, Fever, Weight Change HEENT: Denies: Sinus Congestion, Sinus Drainage Cardiovascular: Denies: Chest Pain, Edema, Palpitations, Syncope Respiratory: Reports: Shortness of Breath. Denies: Cough, Sputum production, Wheezing Gastrointestinal: Denies: Abdominal Pain, Nausea, Vomiting Genitourinary: Denies: Dysuria Musculoskeletal: Reports: -. Denies: Joint Pain, Joint Tenderness Skin: Denies: Rash, Wounds Neurological: Denies: Focal weakness, Numbness, Tingling Psychiatric: Reports: Anxiety, Depression. Denies: Homicidal Ideations, Suicidal Ideations VTE Information - Inpt Only VTE Present on Admission: No VTE Mechan Device Prophylaxis: None VTE Pharm Prophylaxis ordered?: Yes - Physical Exam Vitals/I&O's: Vital Signs Temp Pulse Resp BP Pulse Ox 36.8 C 78 22 H 123/87 H 97 06/30/20 17:06 06/30/20 17:06 06/30/20 17:06 06/30/20 17:06 06/30/20 17:06 Oxygen Flow Rate (L/min) 2 Oxygen Delivery Method Nasal Cannula Weight: 68.855 kg Body Mass Index (BMI) 22.4 General: Alert, Cooperative, - HEENT: Atraumatic, Normocephalic Lungs: Clear to auscultation, Normal air movement, - - diminished in RLL with DTP in RLL Cardiovascular: Regular rate, Regular Rhythm, Normal S1, Normal S2, No murmurs Abdomen: Bowel Sounds Present, Soft, Non Tender, Non-Distended Extremities: No edema, No Calf Tenderness Skin: No rashes, No breakdown Psych/Mental Status: Normal Affect, Appropriate Microbiology Past 72 Hours 06/30/20 15:45 Mucosa - Nose SARS-CoV-2 Antigen (Rapid) - Final Laboratory Results 06/30/20 15:10: WBC 6.4, RBC 3.25 L, Hgb 10.5 L, Hct 33.2 L, MCV 102.2 H, MCH 32.3 H, MCHC 31.6 L, RDW Std Deviation 59.1 H, RDW Coeff of Sammy 16.1 H, Plt Count 455 H, MPV 9.4, Immature Gran % (Auto) 0.500, Neut % (Auto) 81.2 H, Lymph % (Auto) 13.9 L, O'Brien % (Auto) 4.2, Eos % (Auto) 0.0, Baso % (Auto) 0.2, Absolute Neuts (auto) 5.2, Absolute Lymphs (auto) 0.89, Nucleated RBC % 0 06/30/20 15:10: Sodium 136, Potassium 3.8, Chloride 102, Carbon Dioxide 25.0, Anion Gap 9, BUN 9, Creatinine 0.70, Estim Creat Clear Calc 57.83, Est GFR (MDRD) Af Amer 108, Est GFR (MDRD) Non-Af 89, BUN/Creatinine Ratio 12.9, Glucose 123 H, Calcium 8.2 L, Total Bilirubin 0.40, AST 160 H, ALT 99 H, Alkaline Phosphatase 206 H, Troponin I 1.160 H*, Total Protein 6.9, Albumin 3.0 L, Globulin 3.9, Albumin/Globulin Ratio 0.8 L 06/30/20 15:10: Lactic Acid 2.2 H* 06/30/20 15:10: B-Natriuretic Peptide > 5000.0 H CXR personally reviewed and showed a worsening RLL effusion. EKG reviewed and NSR w RBBB and low voltage. Current Medications Acetaminophen (Acetaminophen 325 Mg Tablet) 650 mg PO Q6H PRN PRN PRN Reason: Pain Score 1-10/Temp > 100.7 F Albuterol/Ipratropium (Ipratropium/Albuterol Sulfate 3 Ml Ampul.Neb) 3 ml INHALATION Q6HWA.RT [facility] Alprazolam (Alprazolam 0.5 Mg Tablet) 0.5 mg PO TID PRN PRN Reason: anxiety Aspirin (Aspirin E.C. 81 Mg Tablet) 81 mg PO DAILYCM [facility] Atorvastatin Calcium (Atorvastatin Calcium 80 Mg Tablet) 80 mg PO QHS [facility] Clopidogrel Bisulfate (Clopidogrel Bisulfate 75 Mg Tablet) 75 mg PO DAILY [facility] Diphenoxylate HCl/Atropine (Diphenoxylate/Atrop 1 Tablet) 1 tablet PO BID [facility] Enoxaparin Sodium (Enoxaparin 40 Mg/0.4 Ml Syringe) 40 mg SC DAILY [facility] Folic Acid (Folic Acid 1 Mg Tablet) 1 mg PO BIDCM [facility] Furosemide (Furosemide 40 Mg/4 Ml Vial) 40 mg IV BID@1000,1800 [facility] Iron (Iron Carbonyl 45 Mg Capsule) 45 mg PO DAILYCM [facility] Metoprolol Succinate (Metoprolol(Xl)Succ 25 Mg Tablet) 12.5 mg PO DAILY [facility] Mirtazapine (Mirtazapine 15 Mg Tablet) 15 mg PO QHS [facility] Nitroglycerin (Nitroglycerin (Inpatient Use) 0.4 Mg Tab.Subl) 0.4 mg SUBLINGUAL Q5M PRN PRN Reason: CHEST Ondansetron HCl (Ondansetron 4 Mg/2 Ml Vial) 4 mg IV Q8H PRN PRN PRN Reason: NAUSEA/VOMITING Prednisone (Prednisone 20 Mg Tablet) 60 mg PO DAILY@0800 [facility] Primidone (Primidone 50 Mg Tablet) 150 mg PO BID [facility] Propranolol HCl (Propranolol La 80 Mg Capsule) 80 mg PO DAILY [facility] Assessment/Plan Pt seen and examined independently. I agree with the above, history, physical and A/P by the nurse practitioner above. 1. Acute HFrEF: EF 45%. IV furosemide. 2. Elevated troponin: doubt new event. Likely trending down from recent NSTEMI. Cycle enzymes 3. Acute hypoxic respiratory insufficiency: 2/2 CHF and effusion. Wean oxygen as tolerated. Consider ambulatory pulse ox eval prior to DC. 4. Recent NSTEMI: LHC on 06/17 showed non-obstructive CAD. Medical mgmt. Inpatient E&M: 55940 Init Hosp L3
[2020-06-30 19:20] LABS: Reflex Lactate? Y
[2020-06-30] MEDS: Furosemide 40 MG/4 ML Vial IV (19:39)
[2020-06-30] MEDS: Atorvastatin Calcium 80 MG Tablet PO (20:22)
[2020-06-30] MEDS: Primidone 50 MG Tablet 150 MG PO (20:22)
[2020-06-30] MEDS: Mirtazapine 15 MG Tablet PO (20:36)
[2020-06-30 21:01] LABS: Lactic Acid 2.7 mmol/L (0.4-1.9)
[2020-06-30] MEDS: ALPRAZolam 0.5 MG Tablet PO (22:47)
[2020-06-30] MEDS: Acetaminophen 325 MG Tablet 650 MG PO (22:47)
[2020-06-30] MEDS: Nortriptyline 25 MG Capsule 50 MG PO (23:31)
[2020-07-01] VITALS (12 sets, daily range): BP systolic 108–134; BP diastolic 71–93; PULSE 69–88; RESP 16–24; TEMP 36.1–36.6; O2SAT 93–100
[2020-07-01] MEDS: Ipratropium/Albuterol Sulfate 3 ML AMPUL.NEB INHALATION ×3 (01:25→12:58)
[2020-07-01 03:22] LABS: Reflex Lactate? Y
[2020-07-01 03:56] LABS: Absolute Lymphocyte Count 2.54 X10^3/uL (0.83-4.51); Absolute Neutrophil Count 4.6 X10^3/uL (2.0-7.7); Basophil# 0.02 X10^3/uL; Basophil% 0.3 % (0-1); Eosinophil# 0.06 X10^3/uL; Eosinophils% 0.8 % (0-5); Hematocrit 31.3 % (37-47); Hemoglobin 9.8 g/dL (12.0-15.0); Lymphocyte # 2.54 X10^3/ul (4.0); Lymphocyte % 32.4 % (19-41); Mean Corp Hgb Conc 31.3 g/dL (32-36); Mean Corpuscular Hgb 31.7 pg (27.0-32.0); Mean Corpuscular Volume 101.3 fL (81-99); Mean Platelet Vol. 9.4 fl (6.2-12.0); Monocyte# 0.56 X10^3/uL; Monocyte% 7.1 % (0-10); NRBC Flagged by Analyzer 0 % (0-5); Neutrophil # 4.64 X10^3/uL (2.7-7.7); Platelet Count 419 K/mm3 (150-450); RBC Distribution Width SD 58.4 fl (35.1-43.9); Red Blood Count 3.09 M/mm3 (4.2-5.4); White Blood Count 7.9 K/mm3 (4.4-11.0)
[2020-07-01 04:16] LABS: Lactic Acid 1.1 mmol/L (0.4-1.9)
[2020-07-01 04:20] LABS: Anion Gap 8 (5-15); BUN 13 mg/dL (7-18); BUN/Creat Ratio 21.2 RATIO (10-20); Calcium,Total 8.2 mg/dL (8.5-10.1); Chloride 104 mmol/L (98-107); Creatinine, Serum 0.61 mg/dL (0.55-1.02); EST Glomerular Filtration Rate 103 mL/min (>60); Est Glom Filt Rate - Afr Amer 125 mL/min (>60); Estimated Creatinine Clearance 57.83 ml/min; Glucose 103 mg/dL (74-106); Potassium 3.5 mmol/L (3.5-5.1); Sodium Level 136 mmol/L (136-145)
--- NOTE | 2020-07-01 04:24 | PCS.PANDOC ---
PANDEMIC DOCUMENTATION INITIATED: Date: 06/30/20 Time: 19:00
[2020-07-01] MEDS: Primidone 50 MG Tablet 150 MG PO ×2 (09:00→21:36)
[2020-07-01] MEDS: Aspirin E.C. 81 MG Tablet PO (09:00)
[2020-07-01] MEDS: Folic Acid 1 MG Tablet PO ×2 (09:00→17:11)
[2020-07-01] MEDS: Enoxaparin 40 MG/0.4 ML Syringe SC (09:01)
[2020-07-01] MEDS: Propranolol LA 80 MG Capsule PO (09:01)
[2020-07-01] MEDS: predniSONE 20 MG Tablet 60 MG PO (09:01)
[2020-07-01] MEDS: Furosemide 40 MG/4 ML Vial IV ×2 (09:02→17:11)
[2020-07-01] MEDS: Metoprolol(XL)Succ 25 MG Tablet 12.5 MG PO (09:03)
[2020-07-01] MEDS: Clopidogrel Bisulfate 75 MG Tablet PO (09:04)
[2020-07-01] MEDS: ALPRAZolam 0.5 MG Tablet PO ×3 (09:10→22:32)
--- NOTE | 2020-07-01 11:29 | ART_ITS ---
Reason For Study: decreased pedal pulses Procedure A bilateral lower extremity continuous wave Doppler with analog waveform analysis,segmental pressures,and ankle brachial indexes without exercise. Left Segmental Pressures Left posterior tibial artery = 139mmHg. Left dorsalis pedis artery = 123mmHg. The left dorsalis pedis waveforms are triphasic. The left posterior tibial artery waveforms are triphasic. No flow in the great toe. Right Segmental Pressures Right brachial= 114mmHg. Right posterior tibial artery = 123mmHg. Right dorsalis pedis artery = 119mmHg. The right dorsalis pedis waveforms are triphasic. The right posterior tibial artery waveforms are triphasic. No flow in the great toe. Indices The right ankle brachial index by the dorsalis pedis is 1.04. The right ankle brachial index by the posterior tibial artery is 1.08. The left ankle brachial index by the dorsalis pedis is 1.08. The left ankle brachial index by the posterior tibial artery is 1.22. Interpretation Summary Resting ankle-brachial indices appear bilaterally normal. Bilateral posterior tibial and dorsalis pedis Doppler waveforms are triphasic at rest Absent great toe pressures bilaterally due to no flow identified. This would be concerning for severe small vessel occlusive disease or severe vasospasm. Clinical correlation would be appropriate. Ordering Physician: Margot Vee Performed By: MARGARETTE COLVIN [facility]
--- NOTE | 2020-07-01 12:10 | PN_ITS ---
<MariuszMargot SCHEDULING COORDINATOR - Last Filed: 07/01/20 12:23> Subjective: Patient seen and examined. Reports mild improvement in shortness of breath. Complains of cold hands and feet that she states intermittently turn bluish color. Complains of right foot toe pain. - Physical Exam Vitals/I&O's: Vital Signs Temp Pulse Resp BP Pulse Ox 97.0 F L 87 18 131/71 H 100 07/01/20 08:57 07/01/20 09:03 07/01/20 08:57 07/01/20 09:03 07/01/20 08:57 Oxygen Flow Rate (L/min) 2 Oxygen Delivery Method Nasal Cannula Weight: 151 lb 7.321 oz Body Mass Index (BMI) 22.4 Intake and Output for Last 24 Hours 06/29/20 06/30/20 07/01/20 23:59 23:59 23:59 Intake Total 240 / 240 Output Total 100 / 100 Balance 140 / 140 General: Alert, Oriented x3, Cooperative, - - Appears older than stated age HEENT: Atraumatic, PERRLA, EOMI, Normocephalic Neck: Supple, No JVD, Negative Carotid Bruits Lungs: Clear to auscultation, Diminished Cardiovascular: Regular rate, No murmurs Abdomen: Bowel Sounds Present, Soft, Non Tender, Non-Distended Extremities: No clubbing, No cyanosis, No edema, Capillary Refill Less than 3 Seconds Skin: No rashes, No breakdown, - - Dusky appearing distal right first and second toes as well as plantar surface of left foot. Pulses intact. Musculoskeletal: No Tenderness to Palpation of Joints or Extremities Neurological: Cranial nerves II-XII grossly intact, Neuro grossly intact Psych/Mental Status: Normal Affect, Appropriate Microbiology Past 72 Hours 06/30/20 15:45 Mucosa - Nose SARS-CoV-2 Antigen (Rapid) - Final Laboratory Results 06/30/20 15:10: WBC 6.4, RBC 3.25 L, Hgb 10.5 L, Hct 33.2 L, MCV 102.2 H, MCH 32.3 H, MCHC 31.6 L, RDW Std Deviation 59.1 H, RDW Coeff of Sammy 16.1 H, Plt Count 455 H, MPV 9.4, Immature Gran % (Auto) 0.500, Neut % (Auto) 81.2 H, Lymph % (Auto) 13.9 L, [place] % (Auto) 4.2, Eos % (Auto) 0.0, Baso % (Auto) 0.2, Absolute Neuts (auto) 5.2, Absolute Lymphs (auto) 0.89, Nucleated RBC % 0 06/30/20 15:10: Sodium 136, Potassium 3.8, Chloride 102, Carbon Dioxide 25.0, Anion Gap 9, BUN 9, Creatinine 0.70, Estim Creat Clear Calc 57.83, Est GFR (MDRD) Af Amer 108, Est GFR (MDRD) Non-Af 89, BUN/Creatinine Ratio 12.9, Glucose 123 H, Calcium 8.2 L, Total Bilirubin 0.40, AST 160 H, ALT 99 H, Alkaline Phosphatase 206 H, Troponin I 1.160 H*, Total Protein 6.9, Albumin 3.0 L, Globulin 3.9, Albumin/Globulin Ratio 0.8 L 06/30/20 15:10: Lactic Acid 2.2 H* 06/30/20 15:10: B-Natriuretic Peptide > 5000.0 H 06/30/20 18:31: Troponin I 1.020 H* 06/30/20 19:52: Lactic Acid 2.7 H* 06/30/20 21:15: Troponin I 1.030 H* 06/30/20 23:18: Lactic Acid 2.0 07/01/20 03:40: WBC 7.9, RBC 3.09 L, Hgb 9.8 L, Hct 31.3 L, MCV 101.3 H, MCH 31.7, MCHC 31.3 L, RDW Std Deviation 58.4 H, RDW Coeff of Sammy 16.0 H, Plt Count 419, MPV 9.4, Immature Gran % (Auto) 0.400, Neut % (Auto) 59.0, Lymph % (Auto) 32.4, [place] % (Auto) 7.1, Eos % (Auto) 0.8, Baso % (Auto) 0.3, Absolute Neuts (auto) 4.6, Absolute Lymphs (auto) 2.54, Nucleated RBC % 0 07/01/20 03:40: Sodium 136, Potassium 3.5, Chloride 104, Carbon Dioxide 24.0, Anion Gap 8, BUN 13, Creatinine 0.61, Estim Creat Clear Calc 57.83, Est GFR (MDRD) Af Amer 125, Est GFR (MDRD) Non-Af 103, BUN/Creatinine Ratio 21.2 H, Glucose 103, Calcium 8.2 L 07/01/20 03:40: Lactic Acid 1.1 Current Medications Acetaminophen (Acetaminophen 325 Mg Tablet) 650 mg PO Q6H PRN PRN PRN Reason: Pain Score 1-10/Temp > 100.7 F Last Admin: 06/30/20 22:47 Dose: 650 mg Documented by: Albuterol/Ipratropium (Ipratropium/Albuterol Sulfate 3 Ml Ampul.Neb) 3 ml INHALATION Q6HWA.RT [facility] Last Admin: 07/01/20 07:28 Dose: 3 ml Documented by: Alprazolam (Alprazolam 0.5 Mg Tablet) 0.5 mg PO TID PRN PRN Reason: anxiety Last Admin: 07/01/20 09:10 Dose: 0.5 mg Documented by: Aspirin (Aspirin E.C. 81 Mg Tablet) [facility] Last Admin: 07/01/20 09:00 Dose: 81 mg Documented by: Atorvastatin Calcium (Atorvastatin Calcium 80 Mg Tablet) 80 mg PO QHS [facility] Last Admin: 06/30/20 20:22 Dose: 80 mg Documented by: Clopidogrel Bisulfate (Clopidogrel Bisulfate 75 Mg Tablet) 75 mg PO DAILY [facility] Last Admin: 07/01/20 09:04 Dose: 75 mg Documented by: Diphenoxylate HCl/Atropine (Diphenoxylate/Atrop 1 Tablet) 1 tablet PO BID [facility] Last Admin: 07/01/20 09:03 Dose: Not Given Documented by: Enoxaparin Sodium (Enoxaparin 40 Mg/0.4 Ml Syringe) 40 mg SC DAILY [facility] Last Admin: 07/01/20 09:01 Dose: 40 mg Documented by: Folic Acid (Folic Acid 1 Mg Tablet) [facility] Last Admin: 07/01/20 09:00 Dose: 1 mg Documented by: Furosemide (Furosemide 40 Mg/4 Ml Vial) 40 mg IV BID@1000,1800 [facility] Last Admin: 07/01/20 09:02 Dose: 40 mg Documented by: Iron (Iron Carbonyl 45 Mg Capsule) [facility] Last Admin: 07/01/20 09:00 Dose: 45 mg Documented by: Metoprolol Succinate (Metoprolol(Xl)Succ 25 Mg Tablet) 12.5 mg PO DAILY [facility] Last Admin: 07/01/20 09:03 Dose: 12.5 mg Documented by: Mirtazapine (Mirtazapine 15 Mg Tablet) 15 mg PO QHS [facility] Last Admin: 06/30/20 20:36 Dose: 15 mg Documented by: Nitroglycerin (Nitroglycerin (Inpatient Use) 0.4 Mg Tab.Subl) 0.4 mg SUBLINGUAL Q5M PRN PRN Reason: CHEST Nortriptyline HCl (Nortriptyline 25 Mg Capsule) 50 mg PO QHS [facility] Last Admin: 06/30/20 23:31 Dose: 50 mg Documented by: Ondansetron HCl (Ondansetron 4 Mg/2 Ml Vial) 4 mg IV Q8H PRN PRN PRN Reason: NAUSEA/VOMITING Prednisone (Prednisone 20 Mg Tablet) 60 mg PO DAILY@0800 [facility] Last Admin: 07/01/20 09:01 Dose: 60 mg Documented by: Primidone (Primidone 50 Mg Tablet) 150 mg PO BID [facility] Last Admin: 07/01/20 09:00 Dose: 150 mg Documented by: Propranolol HCl (Propranolol La 80 Mg Capsule) 80 mg PO DAILY [facility] Last Admin: 07/01/20 09:01 Dose: 80 mg Documented by: Medical Necessity - Tobacco Use Smoking Status: Former smoker Assessment/Plan 1. Acute hypoxic respiratory insufficiency secondary to acute on chronic syst olic CHF-BNP greater than 5000. Chest x-ray with increasing right pleural effusion, possible basilar infiltrate. IV Lasix. Strict I&O. Daily weight. Recent echocardiogram 06/18/2020 demonstrated an EF of 45%, mild mitral valve insufficiency, small pericardial effusion, severe left ventricular hypertrophy. Continue supplemental oxygen to maintain O2 sat above 90%. Walking pulse ox prior to discharge. 2. Abnormal troponin-suspect demand ischemia as a result of #1. Enzymes did not trend. Previous troponin recent admission May 2020 >14. 3. Lactic acidosis-suspect reactive. No leukocytosis or fever. Resolved. 4. Chronic polymyositis-upcoming follow-up with rheumatology, Dr. Burciaga. On prednisone. 5. Suspected PAD-patient reports pain and intermittent blue discoloration of her feet. Arterial studies ordered. 6. CAD with history of PCI- follows with Dr. Sauceda. Continue aspirin, statin, Plavix, metoprolol. 7. Hypertension-stable, continue metoprolol. 8. Hyperlipidemia-continue statin. 9. Chronic COPD-no exacerbation. Continue as needed albuterol aerosol. 10. Anxiety/depression-on as needed alprazolam, mirtazapine. 11. GERD- not on regimen. 12. Chronic normocytic anemia/B12 deficiency/iron deficiency anemia-appears at baseline, trend CBC. Continue iron, folic acid supplementation. DVT prophylaxis-Lovenox subcu This patient was seen by CHIN Bullock under the supervision of Dr. Thompson. <Ashlie Thompson E - Last Filed: 07/01/20 13:03> - Physical Exam Vitals/I&O's: Vital Signs Temp Pulse Resp BP Pulse Ox 97.0 F L 87 18 131/71 H 100 07/01/20 08:57 07/01/20 09:03 07/01/20 08:57 07/01/20 09:03 07/01/20 08:57 Oxygen Flow Rate (L/min) 2 Oxygen Delivery Method Nasal Cannula Weight: 151 lb 7.321 oz Body Mass Index (BMI) 22.4 Intake and Output for Last 24 Hours 06/29/20 06/30/20 07/01/20 23:59 23:59 23:59 Intake Total 240 / 240 Output Total 100 / 100 Balance 140 / 140 Microbiology Past 72 Hours 06/30/20 15:45 Mucosa - Nose SARS-CoV-2 Antigen (Rapid) - Final Laboratory Results 06/30/20 15:10: WBC 6.4, RBC 3.25 L, Hgb 10.5 L, Hct 33.2 L, MCV 102.2 H, MCH 32.3 H, MCHC 31.6 L, RDW Std Deviation 59.1 H, RDW Coeff of Sammy 16.1 H, Plt Count 455 H, MPV 9.4, Immature Gran % (Auto) 0.500, Neut % (Auto) 81.2 H, Lymph % (Auto) 13.9 L, [place] % (Auto) 4.2, Eos % (Auto) 0.0, Baso % (Auto) 0.2, Absolute Neuts (auto) 5.2, Absolute Lymphs (auto) 0.89, Nucleated RBC % 0 06/30/20 15:10: Sodium 136, Potassium 3.8, Chloride 102, Carbon Dioxide 25.0, Anion Gap 9, BUN 9, Creatinine 0.70, Estim Creat Clear Calc 57.83, Est GFR (MDRD) Af Amer 108, Est GFR (MDRD) Non-Af 89, BUN/Creatinine Ratio 12.9, Glucose 123 H, Calcium 8.2 L, Total Bilirubin 0.40, AST 160 H, ALT 99 H, Alkaline Phosphatase 206 H, Troponin I 1.160 H*, Total Protein 6.9, Albumin 3.0 L, Globulin 3.9, Albumin/Globulin Ratio 0.8 L 06/30/20 15:10: Lactic Acid 2.2 H* 06/30/20 15:10: B-Natriuretic Peptide > 5000.0 H 06/30/20 18:31: Troponin I 1.020 H* 06/30/20 19:52: Lactic Acid 2.7 H* 06/30/20 21:15: Troponin I 1.030 H* 06/30/20 23:18: Lactic Acid 2.0 07/01/20 03:40: WBC 7.9, RBC 3.09 L, Hgb 9.8 L, Hct 31.3 L, MCV 101.3 H, MCH 31.7, MCHC 31.3 L, RDW Std Deviation 58.4 H, RDW Coeff of Sammy 16.0 H, Plt Count 419, MPV 9.4, Immature Gran % (Auto) 0.400, Neut % (Auto) 59.0, Lymph % (Auto) 32.4, [place] % (Auto) 7.1, Eos % (Auto) 0.8, Baso % (Auto) 0.3, Absolute Neuts (auto) 4.6, Absolute Lymphs (auto) 2.54, Nucleated RBC % 0 07/01/20 03:40: Sodium 136, Potassium 3.5, Chloride 104, Carbon Dioxide 24.0, Anion Gap 8, BUN 13, Creatinine 0.61, Estim Creat Clear Calc 57.83, Est GFR (MDRD) Af Amer 125, Est GFR (MDRD) Non-Af 103, BUN/Creatinine Ratio 21.2 H, Glucose 103, Calcium 8.2 L 07/01/20 03:40: Lactic Acid 1.1 Current Medications Acetaminophen (Acetaminophen 325 Mg Tablet) 650 mg PO Q6H PRN PRN PRN Reason: Pain Score 1-10/Temp > 100.7 F Last Admin: 06/30/20 22:47 Dose: 650 mg Documented by: Albuterol/Ipratropium (Ipratropium/Albuterol Sulfate 3 Ml Ampul.Neb) 3 ml INHALATION Q6HWA.RT [facility] Last Admin: 07/01/20 07:28 Dose: 3 ml Documented by: Alprazolam (Alprazolam 0.5 Mg Tablet) 0.5 mg PO TID PRN PRN Reason: anxiety Last Admin: 07/01/20 12:50 Dose: 0.5 mg Documented by: Aspirin (Aspirin E.C. 81 Mg Tablet) [facility] Last Admin: 07/01/20 09:00 Dose: 81 mg Documented by: Atorvastatin Calcium (Atorvastatin Calcium 80 Mg Tablet) 80 mg PO QHS [facility] Last Admin: 06/30/20 20:22 Dose: 80 mg Documented by: Clopidogrel Bisulfate (Clopidogrel Bisulfate 75 Mg Tablet) 75 mg PO DAILY [facility] Last Admin: 07/01/20 09:04 Dose: 75 mg Documented by: Diphenoxylate HCl/Atropine (Diphenoxylate/Atrop 1 Tablet) 1 tablet PO BID [facility] Last Admin: 07/01/20 09:03 Dose: Not Given Documented by: Enoxaparin Sodium (Enoxaparin 40 Mg/0.4 Ml Syringe) 40 mg SC DAILY [facility] Last Admin: 07/01/20 09:01 Dose: 40 mg Documented by: Folic Acid (Folic Acid 1 Mg Tablet) [facility] Last Admin: 07/01/20 09:00 Dose: 1 mg Documented by: Furosemide (Furosemide 40 Mg/4 Ml Vial) 40 mg IV BID@1000,1800 [facility] Last Admin: 07/01/20 09:02 Dose: 40 mg Documented by: Iron (Iron Carbonyl 45 Mg Capsule) [facility] Last Admin: 07/01/20 09:00 Dose: 45 mg Documented by: Loperamide HCl (Loperamide 2 Mg Capsule) 2 mg PO Q2H PRN PRN PRN Reason: Diarrhea Last Admin: 07/01/20 12:50 Dose: 2 mg Documented by: Metoprolol Succinate (Metoprolol(Xl)Succ 25 Mg Tablet) 12.5 mg PO DAILY [facility] Last Admin: 07/01/20 09:03 Dose: 12.5 mg Documented by: Mirtazapine (Mirtazapine 15 Mg Tablet) 15 mg PO QHS [facility] Last Admin: 06/30/20 20:36 Dose: 15 mg Documented by: Nitroglycerin (Nitroglycerin (Inpatient Use) 0.4 Mg Tab.Subl) 0.4 mg SUBLINGUAL Q5M PRN PRN Reason: CHEST Nortriptyline HCl (Nortriptyline 25 Mg Capsule) 50 mg PO QHS [facility] Last Admin: 06/30/20 23:31 Dose: 50 mg Documented by: Ondansetron HCl (Ondansetron 4 Mg/2 Ml Vial) 4 mg IV Q8H PRN PRN PRN Reason: NAUSEA/VOMITING Prednisone (Prednisone 20 Mg Tablet) 60 mg PO DAILY@0800 [facility] Last Admin: 07/01/20 09:01 Dose: 60 mg Documented by: Primidone (Primidone 50 Mg Tablet) 150 mg PO BID [facility] Last Admin: 07/01/20 09:00 Dose: 150 mg Documented by: Propranolol HCl (Propranolol La 80 Mg Capsule) 80 mg PO DAILY [facility] Last Admin: 07/01/20 09:01 Dose: 80 mg Documented by: Assessment/Plan Hospitalist note: I am seeing this patient in conjunction with Margot Vee. I independently seen and examined the patient. Progress note above, laboratory data and imaging studies reviewed and I concur with above treatment plan. Patient mentioned that her breathing is getting better little bit but still gets very winded upon ambulation. She complains of bilateral foot pain which has been chronic but she is getting more pain to her left big toe. Her legs are chronically cold. She denied any chest pain. She is afebrile, blood pressure and heart rate are stable, pulse ox is 100% on 2 L. - Physical Exam General: Alert, Oriented x3, Cooperative, minimal shortness of breath. HEENT: Atraumatic, PERRLA, EOMI. Neck: Supple, No JVD, Negative Carotid Bruits, Trachea Midline, Thyroid Normal. Lungs: Decreased breath sounds at the bases, faint crackles no rhonchi, No wheeze. Cardiovascular: Regular rate, Regular Rhythm, Normal S1, Normal S2, PMI Normal. Abdomen: Bowel Sounds Present, Soft, Non Tender, Non-Distended, No Hepato- splenomegaly. Extremities: No clubbing, No cyanosis, No edema. Dusky colored right first and second toes as well as plantar surface of the left foot, pulses are diminished. Skin: No rashes, No breakdown Neurological: Cranial nerves are intact, neuro grossly intact Vital Signs are stable. Assessment and plan: #1 acute on chronic systolic CHF: She is on IV Lasix and p.o. metoprolol. She is on minimal oxygen, other vital signs are stable. She had 2D echocardiogram on May, that showed ejection fraction of 45%, other findings reviewed. Plan to continue IV diuresis. #2 acute hypoxic respiratory insufficiency: Secondary to #1, she is requiring oxygen of up to 2 L. Plan as above. #3 abnormal cardiac enzymes: Troponin is up to 1.16. Her troponin was up to 14.3 on June 17, 2020 when she had non-STEMI. Denied any chest pain. EKG without acute segment changes. It is trending down. She is on aspirin, statin and Plavix as well as metoprolol. #4 suspected peripheral vascular disease: Not sure if the dusky color of her both feet and coldness is due to peripheral vascular disease versus Raynaud's phenomenon. Arterial duplex of both legs ordered. #5 other chronic medical problems: Stable, continue current medication as above. This note was generated with [email or web address] dictation software. It may contain incorrect words, spelling, and punctuation that were not noted in checking the note before signing. Inpatient E&M: 46461 Subs Hosp L2
[2020-07-01] MEDS: Loperamide 2 MG Capsule PO (12:50)
--- NOTE | 2020-07-01 14:10 | CASEMGMT ---
Readmission chart review: Pt was intially admitted 06/17-06/22/2020 for Septic shock, pna, NSTEMI and was discharged home with [facility] for SN, PT/OT. Pt had a heart cath which showed patent stents during this admit and her EF was 45%. Pt did not qualify for home oxygen at discharge. During f/u call, pt states was still tired/weak but states her son is with her 17/01 and had been assisting her. Pt had f/u appt's scheduled. Pt returned to [facility] ED on 06/30/20 with SOB and her sat was 99% on room air at presentation. Pt states her [facility] nurse stated her sat was 77% on RA. Pt is on 40mg lasix twice daily iv at this time. CM to follow therapy notes and for any further discharge planning/needs. Alejandro TAVAREZ CM
[2020-07-01] MEDS: Diphenoxylate/Atrop 1 Tablet PO (21:36)
[2020-07-01] MEDS: Atorvastatin Calcium 80 MG Tablet PO (21:36)
[2020-07-01] MEDS: Mirtazapine 15 MG Tablet PO (21:36)
[2020-07-01] MEDS: Acetaminophen 325 MG Tablet 650 MG PO (22:32)
[2020-07-01] MEDS: Nortriptyline 25 MG Capsule 50 MG PO (22:33)
[2020-07-02] VITALS (10 sets, daily range): BP systolic 99–121; BP diastolic 63–80; PULSE 69–81; RESP 17–20; TEMP 35.9–36.5; O2SAT 95–100
[2020-07-02] MEDS: Ipratropium/Albuterol Sulfate 3 ML AMPUL.NEB INHALATION ×3 (01:28→12:37)
[2020-07-02 04:50] LABS: Hematocrit 31.7 % (37-47); Hemoglobin 9.8 g/dL (12.0-15.0); Mean Corp Hgb Conc 30.9 g/dL (32-36); Mean Corpuscular Hgb 31.5 pg (27.0-32.0); Mean Corpuscular Volume 101.9 fL (81-99); Mean Platelet Vol. 9.3 fl (6.2-12.0); Platelet Count 373 K/mm3 (150-450); RBC Distribution Width CV 15.9 % (11.6-14.6); RBC Distribution Width SD 58.6 fl (35.1-43.9); Red Blood Count 3.11 M/mm3 (4.2-5.4); White Blood Count 6.6 K/mm3 (4.4-11.0)
[2020-07-02 05:09] LABS: Anion Gap 10 (5-15); BUN 17 mg/dL (7-18); BUN/Creat Ratio 25.2 RATIO (10-20); Calcium,Total 7.9 mg/dL (8.5-10.1); Chloride 102 mmol/L (98-107); Creatinine, Serum 0.68 mg/dL (0.55-1.02); EST Glomerular Filtration Rate 93 mL/min (>60); Est Glom Filt Rate - Afr Amer 112 mL/min (>60); Estimated Creatinine Clearance 57.83 ml/min; Glucose 87 mg/dL (74-106); Potassium 3.1 mmol/L (3.5-5.1); Sodium Level 136 mmol/L (136-145)
[2020-07-02] MEDS: Clopidogrel Bisulfate 75 MG Tablet PO (08:57)
[2020-07-02] MEDS: Folic Acid 1 MG Tablet PO (08:57)
[2020-07-02] MEDS: Aspirin E.C. 81 MG Tablet PO (08:57)
[2020-07-02] MEDS: Primidone 50 MG Tablet 150 MG PO (08:58)
[2020-07-02] MEDS: predniSONE 20 MG Tablet 60 MG PO (08:58)
[2020-07-02] MEDS: Propranolol LA 80 MG Capsule PO (08:58)
[2020-07-02] MEDS: Metoprolol(XL)Succ 25 MG Tablet 12.5 MG PO (08:58)
[2020-07-02] MEDS: Furosemide 40 MG/4 ML Vial IV (08:59)
[2020-07-02] MEDS: Enoxaparin 40 MG/0.4 ML Syringe SC (08:59)
[2020-07-02] MEDS: ALPRAZolam 0.5 MG Tablet PO ×2 (09:11→13:13)
[2020-07-02] MEDS: Acetaminophen 325 MG Tablet 650 MG PO (09:34)
--- NOTE | 2020-07-02 09:46 | CASEMGMT ---
Addendum entered by Ebonie Patel 07/02/20 15:51: D/C summ/instructions faxed to [facility] at this time. Call to [facility] to notify of discharge at this time, voices understanding. Alejandro TAVAREZ CM Original Note: Pt was sent home with [facility] and they apparently sent her back into ED. H&P, facesheet, and VILMA order faxed to [facility] at this time. Alejandro TAVAREZ CM
--- NOTE | 2020-07-02 12:36 | RAD_ITS ---
STUDY: X-RAY - LEFT FOOT CLINICAL: Left foot pain, no specific injury. TECHNIQUE: 3 view(s) of the foot. COMPARISON: None. FINDINGS: There is a small plantar calcaneal enthesophyte. Otherwise, unremarkable talus, calcaneus, and tarsal bones. Normal visualized subtalar, talonavicular, calcaneocuboid, tarsal and tarsometatarsal articulations. There are postsurgical changes of the first metatarsal from bunionectomy with an orthopedic screw in the distal diaphysis. Normal metatarsophalangeal joint of the great toe. Normal tibial and fibular sesamoid bones. Normal interphalangeal joint of the great toe. Normal phalanges of the great toe. Normal second through fifth metatarsophalangeal joints. Normal interphalangeal joints and phalanges of the lesser toes. The soft tissue structures are unremarkable. RAD/Foot min 3 Views IMPRESSION: Postoperative changes of the first metatarsal. Small plantar calcaneal enthesophyte. Electronically Signed: Marcial West MD at 14:40 EST Tel , Service support ,
[2020-07-02] MEDS: oxyCODONE 5 MG Tablet PO (12:59)
--- NOTE | 2020-07-02 15:21 | DCINST_ITS ---
- Discharge Diagnoses Current Active Problems: Current Active and Chronic Problems (Last Updated 07/01/20 @ 12:[address] 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) History of coronary artery stent placement (Chronic 01/08/20) [id number]-[id number]-Tito-Mid LAD w/ 3.5 x 18 mm Promus Stent 06/15/2011; PCI-Cutting Balloon PTCA of ISR Prox LAD w/ [id number] LAD w/ 3.5 mm x 20 mm Synergy Stent 10/07/2015; PCI-LUIS ALBERTO-Mid LAD w/ 3.5 x 23 mm Xience Kayce Stent 01/08/2020 Essential (primary) hypertension (Chronic) Hyperlipidemia (Chronic) Hyponatremia (Chronic) CVA (cerebral vascular accident) (Chronic) COPD (chronic obstructive pulmonary disease) (Chronic) Polymyositis (Chronic) Elevated LFTs (Chronic) Elevated CPK (Chronic) Iron deficiency anemia due to chronic blood loss (Chronic) Anemia of chronic disease (Chronic) You will use the following diet at home:: Cardiac Discharge Activity: Return to Normal Activity Call your doctor if you observe: Shortness of breath, Dizziness, Fainting spells, Chest pain Allergies/Adverse Reactions: Allergies amlodipine [From Norvasc] Allergy (Verified 06/30/20 14:14) severe BLE edema codeine Allergy (Verified 06/30/20 14:14) Other STOMACH PAIN sulfamethoxazole [From Septra] Allergy (Verified 06/30/20 14:14) Rash trimethoprim [From Septra] Allergy (Verified 06/30/20 14:14) Unknown prasugrel [From Effient] Adverse Reaction (Severe, Verified 06/30/20 14:14) Not advised in pt's who have had CVA Onset 09/06/2016 Medications to take at Discharge aspirin 81 mg tablet,delayed release 81 mg PO DAILY 07/31/18 nitroglycerin 0.4 mg sublingual tablet 0.4 mg SUBLINGUAL Q5M PRN #25 tab 06/04/19 mirtazapine 15 mg tablet 15 mg PO QHS #90 tab 01/08/20 tiotropium bromide 2.5 mcg/actuation mist for inhalation 2 puff INHALATION DAILY #4 g 02/04/20 Primidone [Mysoline] 150 mg PO BID 04/22/20 diphenoxylate-atropine 2.5 mg-0.025 mg tablet 1 tab PO BID #60 tab 04/29/20 alprazolam 0.5 mg tablet 0.5 mg PO TID PRN #90 tab 06/09/20 Clopidogrel Bisulfate [Clopidogrel] 75 mg PO DAILY 06/17/20 Folic Acid 1 mg PO BIDCM #60 tab 06/22/20 Metoprolol(XL)Succ [Toprol Xl (Beta Johan)] 12.5 mg PO DAILY #30 tab 06/22/20 predniSONE tablet 60 mg PO DAILY@0800 #90 tab 06/22/20 albuterol sulfate 90 mcg/actuation aerosol inhaler 2 puff INHALATION Q6H #8 g 06/25/20 atorvastatin 80 mg tablet 80 mg PO QHS 06/25/20 iron, carbonyl 45 mg tablet 45 mg PO DAILY tab 06/26/20 propranolol 80 mg capsule,24 hr,extended release 80 mg PO DAILY cap 06/26/20 Nortriptyline HCl 50 mg PO QHS 06/30/20 Furosemide [Lasix] 40 mg PO BIDLX #60 tab 07/02/20 Oxycodone [Oxyir] 5 mg PO Q4H PRN PRN 3 Days #12 tablet 07/02/20 Potassium Chloride [K-Dur] 40 meq PO DAILY #60 tab 07/02/20 The following prescriptions were given: Potassium Chloride [K-Dur] 40 meq PO DAILY #60 tab Transmission Status: Pending to [id number] Furosemide [Lasix] 40 mg PO BIDLX #60 tab Transmission Status: Pending to [id number] Oxycodone [Oxyir] 5 mg PO Q4H PRN PRN 3 Days #12 tablet PRN Reason: Pain Score 6-10 Transmission Status: Received by [id number] Primary Care Physician: Maxx Hewitt DO [Primary Care Provider] - Please follow up with your Primary Care Physician in: As scheduled 07/03/2020 Test Results: Test results from this visit will be discussed in further detail at your follow- up appointment, if applicable. Please Follow Up With: Mary Burciaga MD When: As scheduled 06/15/2021 Please Follow Up With: Liyah Romo, PA When: 1-2 Weeks Please Follow Up With: Jerord Burt MD - Vascular surgery When: Call for appointment Proposed Discharge Date: 07/02/20
--- NOTE | 2020-07-02 15:25 | PCM.DC.SUM ---
<Margot Vee PHARMACY INFORMATICS MANAGER - Last Filed: 07/02/20 15:31> Discharge Date and Diagnosis Date of Admission: 06/30/20 Date of Discharge: 07/02/20 - Primary Discharge Diagnosis Acute Problems: 1. Acute hypoxic respiratory insufficiency secondary to acute on chronic systolic CHF 2. Abnormal troponin-suspect demand ischemia as a result of #1. 3. Lactic acidosis- reactive. 4. Chronic polymyositis 5. Suspected PAD 6. CAD with history of PCI 7. Hypertension 8. Hyperlipidemia 9. Chronic COPD 10. Anxiety/depression 11. GERD 12. Chronic normocytic anemia/B12 deficiency/iron deficiency anemia - Secondary Discharge Diagnosis Chronic Problems: Chronic Problems (Last Updated 07/01/20 @ 12:[address] 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) History of coronary artery stent placement (Chronic 01/08/20) DDE-CKD-Nqre-Mid LAD w/ 3.5 x 18 mm Promus Stent 06/15/2011; PCI-Cutting Balloon PTCA of ISR Prox LAD w/ ZRH-Cuka-Nyb LAD w/ 3.5 mm x 20 mm Synergy Stent 10/07/2015; PCI-LUIS ALBERTO-Mid LAD w/ 3.5 x 23 mm Xience Kayce Stent 01/08/2020 Essential (primary) hypertension (Chronic) Hyperlipidemia (Chronic) Hyponatremia (Chronic) CVA (cerebral vascular accident) (Chronic) COPD (chronic obstructive pulmonary disease) (Chronic) Polymyositis (Chronic) Elevated LFTs (Chronic) Elevated CPK (Chronic) Iron deficiency anemia due to chronic blood loss (Chronic) Anemia of chronic disease (Chronic) Hospital Course and Treatment Imaging Results: Diagnostic Data Chest X-Ray 06/30/20 15:55 IMPRESSION: Increasing right pleural effusion with possible basilar infiltrate. Electronically Signed: Jose Eduardo Carrero DO at 16:21 EST Tel [phone], Service support , Foot X-Ray 07/02/20 12:36 IMPRESSION: Postoperative changes of the first metatarsal. Small plantar calcaneal enthesophyte. Electronically Signed: Marcial West MD at 14:40 EST Tel , Service support , Operations: None Procedures: None Summary of Care Provided: The patient is a 64 year old F admitted 06/30/2020 due to shortness of breath. 1. Acute hypoxic respiratory insufficiency secondary to acute on chronic systolic CHF-BNP greater than 5000. Chest x-ray with increasing right pleural effusion, possible basilar infiltrate. IV Lasix during admission, transition to Lasix 40 mg p.o twice daily at discharge. Recent echocardiogram 06/18/2020 demonstrated an EF of 45%, mild mitral valve insufficiency, small pericardial effusion, severe left ventricular hypertrophy. Walking pulse ox completed prior to discharge and patient's oxygen remained 99% with ambulation on room air and 100% at rest on room air. Continue Lasix at discharge as noted above. Supplemental potassium ordered. Follow-up with cardiology in 2 weeks. Patient has follow-up with PCP tomorrow which I recommended her to keep appointment for close follow-up. 2. Abnormal troponin-suspect demand ischemia as a result of #1. Enzymes did not trend. Previous troponin recent admission May 2020 >14. 3. Lactic acidosis-suspect reactive. No leukocytosis or fever. Resolved. 4. Chronic polymyositis-upcoming follow-up with rheumatology, Dr. Burciaga. On prednisone. Follow-up with rheumatology 07/16/2020. 5. Severe small vessel occlusive disease-vascular studies show normal resting ankle-brachial indexes. Absent great toe pressures bilaterally. Referred to vascular for outpatient follow-up. 6. CAD with history of PCI- follows with Dr. Sauceda. Continue aspirin, statin, Plavix, metoprolol. 7. Hypertension-stable, continue metoprolol. 8. Hyperlipidemia-continue statin. 9. Chronic COPD-no exacerbation. Continue as needed albuterol aerosol. 10. Anxiety/depression-on as needed alprazolam, mirtazapine. 11. GERD- not on regimen. 12. Chronic normocytic anemia/B12 deficiency/iron deficiency anemia General: Alert, Oriented x3, Cooperative, - - Appears older than stated age HEENT: Atraumatic, PERRLA, EOMI, Normocephalic Neck: Supple, No JVD, Negative Carotid Bruits Lungs: Clear to auscultation, Diminished Cardiovascular: Regular rate, No murmurs Abdomen: Bowel Sounds Present, Soft, Non Tender, Non-Distended Extremities: No clubbing, No cyanosis, No edema, Capillary Refill Less than 3 Seconds Skin: No rashes, No breakdown, - - Dusky appearing distal right first and second toes as well as plantar surface of left foot. Pulses intact. Musculoskeletal: No Tenderness to Palpation of Joints or Extremities Neurological: Cranial nerves II-XII grossly intact, Neuro grossly intact Psych/Mental Status: Normal Affect, Appropriate Patient seen and examined prior to discharge. Physical assessment as noted above. Patient is stable for discharge with follow up recommendations as noted above. This patient was seen by CHIN Bullock under the supervision of Dr. Thompson. - Physical Exam Vitals/I&O's: Vital Signs Temp Pulse Resp BP Pulse Ox 97.5 F L 81 18 99/63 99 07/02/20 14:57 07/02/20 14:57 07/02/20 14:57 07/02/20 14:57 07/02/20 14:57 Oxygen Flow Rate (L/min) [ 0 AMBULATING on Room Air] Oxygen Flow Rate (L/min) [At 0 REST on Room Air] Oxygen Flow Rate (L/min) 0 Oxygen Delivery Method Room Air Weight: 151 lb 7.321 oz Body Mass Index (BMI) 22.4 Intake and Output for Last 24 Hours 06/30/20 07/01/20 07/02/20 23:59 23:59 23:59 Intake Total 960 / 960 240 / 240 Output Total 1100 / 1100 400 / 400 Balance -140 / -140 -160 / -160 Microbiology Past 72 Hours 06/30/20 15:45 Mucosa - Nose SARS-CoV-2 Antigen (Rapid) - Final Laboratory Results 07/02/20 04:20: WBC 6.6, RBC 3.11 L, Hgb 9.8 L, Hct 31.7 L, MCV 101.9 H, MCH 31.5, MCHC 30.9 L, RDW Std Deviation 58.6 H, RDW Coeff of Sammy 15.9 H, Plt Count 373, MPV 9.3 07/02/20 04:20: Sodium 136, Potassium 3.1 L, Chloride 102, Carbon Dioxide 24.0, Anion Gap 10, BUN 17, Creatinine 0.68, Estim Creat Clear Calc 57.83, Est GFR (MDRD) Af Amer 112, Est GFR (MDRD) Non-Af 93, BUN/Creatinine Ratio 25.2 H, Glucose 87, Calcium 7.9 L Current Medications Acetaminophen (Acetaminophen 325 Mg Tablet) 650 mg PO Q6H PRN PRN PRN Reason: Pain Score 1-10/Temp > 100.7 F Last Admin: 07/02/20 09:34 Dose: 650 mg Documented by: Albuterol/Ipratropium (Ipratropium/Albuterol Sulfate 3 Ml Ampul.Neb) 3 ml INHALATION Q6HWA.RT [facility] Last Admin: 07/02/20 12:37 Dose: 3 ml Documented by: Alprazolam (Alprazolam 0.5 Mg Tablet) 0.5 mg PO TID PRN PRN Reason: anxiety Last Admin: 07/02/20 13:13 Dose: 0.5 mg Documented by: Aspirin (Aspirin E.C. 81 Mg Tablet) [facility] Admin: 07/02/20 08:57 Dose: 81 mg Documented by: Atorvastatin Calcium (Atorvastatin Calcium 80 Mg Tablet) 80 mg PO QHS [facility] Last Admin: 07/01/20 21:36 Dose: 80 mg Documented by: Clopidogrel Bisulfate (Clopidogrel Bisulfate 75 Mg Tablet) 75 mg PO DAILY [facility] Last Admin: 07/02/20 08:57 Dose: 75 mg Documented by: Diphenoxylate HCl/Atropine (Diphenoxylate/Atrop 1 Tablet) 1 tablet PO BID [facility] Last Admin: 07/02/20 09:00 Dose: Not Given Documented by: Enoxaparin Sodium (Enoxaparin 40 Mg/0.4 Ml Syringe) 40 mg SC DAILY [facility] Last Admin: 07/02/20 08:59 Dose: 40 mg Documented by: Folic Acid ([facility]olic Acid 1 Mg Tablet) [facility] Last Admin: 07/02/20 08:57 Dose: 1 mg Documented by: Furosemide (Furosemide 40 Mg/4 Ml Vial) 40 mg IV BID@1000,1800 [facility] Last Admin: 07/02/20 08:59 Dose: 40 mg Documented by: Iron (Iron Carbonyl 45 Mg Capsule) [facility] Last Admin: 07/02/20 08:58 Dose: 45 mg Documented by: Loperamide HCl (Loperamide 2 Mg Capsule) 2 mg PO Q2H PRN PRN PRN Reason: Diarrhea Last Admin: 07/01/20 12:50 Dose: 2 mg Documented by: Metoprolol Succinate (Metoprolol(Xl)Succ 25 Mg Tablet) 12.5 mg PO DAILY [facility] Last Admin: 07/02/20 08:58 Dose: 12.5 mg Documented by: Mirtazapine (Mirtazapine 15 Mg Tablet) 15 mg PO QHS [facility] Last Admin: 07/01/20 21:36 Dose: 15 mg Documented by: Nitroglycerin (Nitroglycerin (Inpatient Use) 0.4 Mg Tab.Subl) 0.4 mg SUBLINGUAL Q5M PRN PRN Reason: CHEST Nortriptyline HCl (Nortriptyline 25 Mg Capsule) 50 mg PO QHS [facility] Last Admin: 07/01/20 22:33 Dose: 50 mg Documented by: Ondansetron HCl (Ondansetron 4 Mg/2 Ml Vial) 4 mg IV Q8H PRN PRN PRN Reason: NAUSEA/VOMITING Oxycodone HCl (Oxycodone 5 Mg Tablet) 5 mg PO Q4H PRN PRN PRN Reason: Pain Score 6-10 Last Admin: 07/02/20 12:59 Dose: 5 mg Documented by: Prednisone (Prednisone 20 Mg Tablet) 60 mg PO DAILY@0800 [facility] Last Admin: 07/02/20 08:58 Dose: 60 mg Documented by: Primidone (Primidone 50 Mg Tablet) 150 mg PO BID [facility] Last Admin: 07/02/20 08:58 Dose: 150 mg Documented by: Propranolol HCl (Propranolol La 80 Mg Capsule) 80 mg PO DAILY [facility] Last Admin: 07/02/20 08:58 Dose: 80 mg Documented by: Discharge Diet: Low fat/ Low Cholesterol Discharge Activity: Return to Normal Activity Call your doctor if you observe: Shortness of breath, Dizziness, Fainting spells, Chest pain Home Medications: Medications to take at Discharge aspirin 81 mg tablet,delayed release 81 mg PO DAILY 07/31/18 nitroglycerin 0.4 mg sublingual tablet 0.4 mg SUBLINGUAL Q5M PRN #25 tab 06/04/19 mirtazapine 15 mg tablet 15 mg PO QHS #90 tab 01/08/20 tiotropium bromide 2.5 mcg/actuation mist for inhalation 2 puff INHALATION DAILY #4 g 02/04/20 Primidone [Mysoline] 150 mg PO BID 04/22/20 diphenoxylate-atropine 2.5 mg-0.025 mg tablet 1 tab PO BID #60 tab 04/29/20 alprazolam 0.5 mg tablet 0.5 mg PO TID PRN #90 tab 06/09/20 Clopidogrel Bisulfate [Clopidogrel] 75 mg PO DAILY 06/17/20 Folic Acid 1 mg PO BIDCM #60 tab 06/22/20 Metoprolol(XL)Succ [Toprol Xl (Beta Johan)] 12.5 mg PO DAILY #30 tab 06/22/20 albuterol sulfate 90 mcg/actuation aerosol inhaler 2 puff INHALATION Q6H #8 g 06/25/20 atorvastatin 80 mg tablet 80 mg PO QHS 06/25/20 iron, carbonyl 45 mg tablet 45 mg PO DAILY tab 06/26/20 propranolol 80 mg capsule,24 hr,extended release 80 mg PO DAILY cap 06/26/20 Nortriptyline HCl 50 mg PO QHS 06/30/20 Oxycodone [Oxyir] 5 mg PO Q4H PRN PRN 3 Days #12 tab 07/02/20 Potassium Chloride [K-Dur] 40 meq PO DAILY #60 tab 07/02/20 furosemide 40 mg tablet 40 mg PO DAILY #60 tab 07/03/20 Following Prescriptions Were Given to Patient: Potassium Chloride [K-Dur] 40 meq PO DAILY #60 tab Transmission Status: Received by [id number] Oxycodone [Oxyir] 5 mg PO Q4H PRN PRN 3 Days #12 tab PRN Reason: Pain Score 6-10 Transmission Status: Received by [id number] Primary Care Physician: Maxx Hewitt DO [Primary Care Provider] - Please follow up with your Primary Care Physician in: As scheduled 07/03/2020 Please Follow Up With: Mary Burciaga MD When: As scheduled 06/15/2021 Please Follow Up With: Liyah Romo PA When: 1-2 Weeks Please Follow Up With: Jerrod Burt MD - Vascular surgery When: Call for appointment Disposition: Home with Home Health Minutes spent on discharge:: 35 Patient Condition:: Stable Medical Necessity - Tobacco Use Smoking Status: Former smoker Meaningful Use Info Meaningful Use Diagnoses (Choose all that apply): CHF - CHF MADDIE/ARB ordered at discharge?: Yes Documented LVEF (%): 45 <Ashlie Thompson - Last Filed: 07/03/20 12:04> Discharge Date and Diagnosis - Secondary Discharge Diagnosis Chronic Problems: Chronic Problems (Last Updated 07/01/20 @ 12:[address] 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) History of coronary artery stent placement (Chronic 01/08/20) ISX-GOS-Asfx-Mid LAD w/ 3.5 x 18 mm Promus Stent 06/15/2011; PCI-Cutting Balloon PTCA of ISR Prox LAD w/ IUS-Kydb-Gyn LAD w/ 3.5 mm x 20 mm Synergy Stent 10/07/2015; PCI-LUIS ALBERTO-Mid LAD w/ 3.5 x 23 mm Xience Kayce Stent 01/08/2020 Essential (primary) hypertension (Chronic) Hyperlipidemia (Chronic) Hyponatremia (Chronic) CVA (cerebral vascular accident) (Chronic) COPD (chronic obstructive pulmonary disease) (Chronic) Polymyositis (Chronic) Elevated LFTs (Chronic) Elevated CPK (Chronic) Iron deficiency anemia due to chronic blood loss (Chronic) Anemia of chronic disease (Chronic) Hospital Course and Treatment Imaging Results: 07/02/20 12:36 Foot min 3 Views [RAD] Urgent Summary of Care Provided: Hospitalist note: Discharge summary above reviewed and I concur with above discharge and treatment plan. Patient presented to the emergency room because of worsening shortness of breath and she was found to have acute on chronic systolic CHF with acute hypoxic respite insufficiency. Her EKG revealed no evidence of acute segment changes. Her troponin was abnormal, was high up to 1.16. Her troponin was up to 14.3 on June 17, 2020 when she had non-ST elevation PA. Troponin has been trending down. Patient treated with IV Lasix for diuresis and beta-blockers. She had 2D echocardiogram on May, that showed ejection fraction of 45%. She was found to have elevated lactic acid which is attributed to hypoxia and demand ischemia, patient was afebrile and she had no leukocytosis. Infection ruled out. Patient complained of bilateral foot pain, bluish discoloration of her feet and toes. Arterial Doppler done and revealed severe small vessel occlusive disease, no evidence of major peripheral vascular disease. Her symptoms could be due to Raynaud's phenomena as on the second day, her legs were warm and red. With IV diuresis, symptoms improved and she was able to come off oxygen. She was ambulated and she did well on room air and her pulse ox was 100% with ambulation. Patient discharged home in a stable condition, discharged on Lasix 40 mg p.o. daily with potassium supplement, continued back on her previous home medications without any changes, recommended follow-up with PCP as scheduled, follow-up with cardiology in 1 to 2 weeks and recommended to follow-up with vascular surgery as outpatient. - Physical Exam General: Alert, Oriented x3, Cooperative, minimal shortness of breath. HEENT: Atraumatic, PERRLA, EOMI. Neck: Supple, No JVD, Negative Carotid Bruits, Trachea Midline, Thyroid Normal. Lungs: Decreased breath sounds at the bases, faint crackles no rhonchi, No wheeze. Cardiovascular: Regular rate, Regular Rhythm, Normal S1, Normal S2, PMI Normal. Abdomen: Bowel Sounds Present, Soft, Non Tender, Non-Distended, No Hepato-splenomegaly. Extremities: No clubbing, No cyanosis, No edema. Both legs are warm, no bluish discoloration. Neurological: Cranial nerves are intact, neuro grossly intact Vital Signs are stable. This note was generated with [employer] dictation software. It may contain incorrect words, spelling, and punctuation that were not noted in checking the note before signing. - Physical Exam Vitals/I&O's: Vital Signs Temp Pulse Resp BP Pulse Ox 97.5 F L 81 18 99/63 99 07/02/20 14:57 07/02/20 15:00 07/02/20 14:57 07/02/20 14:57 07/02/20 14:57 Oxygen Flow Rate (L/min) [ 0 AMBULATING on Room Air] Oxygen Flow Rate (L/min) [At 0 REST on Room Air] Oxygen Flow Rate (L/min) 0 Oxygen Delivery Method Room Air Weight: 151 lb 7.321 oz Body Mass Index (BMI) 22.4 Intake and Output for Last 24 Hours 06/30/20 07/01/20 07/02/20 23:59 23:59 23:59 Intake Total 960 / 960 240 / 240 Output Total 1100 / 1100 400 / 400 Balance -140 / -140 -160 / -160 Microbiology Past 72 Hours 06/30/20 15:45 Mucosa - Nose SARS-CoV-2 Antigen (Rapid) - Final Laboratory Results 07/02/20 04:20: WBC 6.6, RBC 3.11 L, Hgb 9.8 L, Hct 31.7 L, MCV 101.9 H, MCH 31.5, MCHC 30.9 L, RDW Std Deviation 58.6 H, RDW Coeff of Sammy 15.9 H, Plt Count 373, MPV 9.3 07/02/20 04:20: Sodium 136, Potassium 3.1 L, Chloride 102, Carbon Dioxide 24.0, Anion Gap 10, BUN 17, Creatinine 0.68, Estim Creat Clear Calc 57.83, Est GFR (MDRD) Af Amer 112, Est GFR (MDRD) Non-Af 93, BUN/Creatinine Ratio 25.2 H, Glucose 87, Calcium 7.9 L Disposition: Home with Home Health Minutes spent on discharge:: 32 Patient Condition:: Stable Meaningful Use Info Meaningful Use Diagnoses (Choose all that apply): CHF - CHF MADDIE/ARB ordered at discharge?: Yes Documented LVEF (%): 45 Inpatient E&M: [id number] Disch Hosp
--- NOTE | 2020-07-02 16:09 | CASEMGMT ---
SW met with patient. Introduced self and role at [facility]. SW went over Palliative Care with patient. She seemed very interested and was open to SW making a referral. GAVIN will follow up with Palliative Care tomorrow. Sarita GREENWOOD
--- NOTE | 2020-07-03 08:54 | CASEMGMT ---
GAVIN faxed referral to [facility]. Sarita GILLIS PLASTER MACHINE OPERATOR
--- NOTE | 2020-07-03 13:06 | CASEMGMT ---
DAYSI PRADO Discharge F/U Phone Call LACE: 12 Strata:3 Discharge date: 07/02/20 Call date: 07/03/20 Call time: [id number] Admission dx: CHF Pt states has been 'doing fine' since discharge. Pt states no questions regarding discharge instructions/medications at this time. Pt states has been working on getting f/u appt's set up today. Pt states [facility] came out this am to resume care. Pt states she also got her meds from the pharmacy. Pt states no suggestions for [facility] at this time. Pt voices no further questions/concerns/needs at this time. SStaten DAYSI PRADO
--- NOTE | 2020-07-15 13:49 | CASEMGMT ---
SW received a call from Dorina with [facility]. She spoke with patient about Palliative and she is declining at this time stating she is starting to see a [employer]ile Partition Erector tomorrow and does not want to add too many doctors. Sarita GILLIS MSW
== END 2020-07-02 16:35 | disposition home or self-care (01) | DRG 292 ==
LOC: ED 15:22 → PCU 17:33
PROVIDERS: Internal Medicine; Nurse Practitioner Family; Emergency Provider Emergency Medicine; PCP Family Medicine; Visit Provider Hospitalist
DX: I11.0 Hypertensive heart disease with heart failure (principal); I24.8 Other forms of acute ischemic heart disease; E87.2 Acidosis; M33.20 Polymyositis, organ involvement unspecified; E87.1 Hypo-osmolality and hyponatremia; I50.23 Acute on chronic systolic (congestive) heart failure; R06.89 Other abnormalities of breathing; R09.02 Hypoxemia; I25.10 Atherosclerotic heart disease of native coronary artery without angina pectoris; E78.5 Hyperlipidemia, unspecified; F32.9 Major depressive disorder, single episode, unspecified; F41.9 Anxiety disorder, unspecified; K21.9 Gastro-esophageal reflux disease without esophagitis; J44.9 Chronic obstructive pulmonary disease, unspecified; I25.2 Old myocardial infarction; E53.8 Deficiency of other specified B group vitamins; D50.0 Iron deficiency anemia secondary to blood loss (chronic); D63.8 Anemia in other chronic diseases classified elsewhere; Z95.5 Presence of coronary angioplasty implant and graft; Z79.02 Long term (current) use of antithrombotics/antiplatelets; Z79.82 Long term (current) use of aspirin; Z87.891 Personal history of nicotine dependence; Z79.899 Other long term (current) drug therapy; Z86.73 Personal history of transient ischemic attack (TIA), and cerebral infarction without residual deficits
CPT/HCPCS: 36415; 71045; 73630; 80048; 80053; 83605; 83880; 84484; 85025; 85027; 87040; 87426; 93005; 93923; 94640; 97802; 99285; 99406; A4216; J1940

== ENCOUNTER → 2020-07-17 11:09 | Outpatient (CLI) | payer MEDICARE, SELFPAY ==
[2020-07-09 15:26] VITALS: BMI 21.1
--- NOTE | 2020-07-17 11:44 | RAD_ITS ---
STUDY: X-RAY - PELVIS REASON FOR EXAM: Female, 64 years old. INFLAMMATORY POLYARTHROPATHY. PATIENT HAD A STROKE ABOUT 20 YEARS AGO AND HIPS/LEGS HAVE NOT WORKED WELL SINCE. TECHNIQUE: One view of the pelvis was obtained. COMPARISON: None. FINDINGS: There is a non-specific bowel gas pattern. Normal visualized soft tissue structures. Normal bilateral iliac wings, sacroiliac joints and visualized sacrum. Normal visualized bilateral superior and inferior pubic rami. Normal pubic symphysis. Normal ischial tuberosities. Normal visualized right femoral head. Normal right acetabulum. Normal right hip joint. Normal visualized left femoral head. Normal left acetabulum. Normal left hip joint. RAD/Pelvis 1 or 2 Views IMPRESSION: Normal x-ray examination of the pelvis. Electronically Signed: Félix Sofia MD at 13:19 EST , Service support ,
[2020-07-17 11:49] LABS: Absolute Lymphocyte Count 2.51 X10^3/uL (0.83-4.51); Absolute Neutrophil Count 1.5 X10^3/uL (2.0-7.7); Basophil# 0.02 X10^3/uL; Basophil% 0.4 % (0-1); Eosinophil# 0.12 X10^3/uL; Eosinophils% 2.5 % (0-5); Hematocrit 34.6 % (37-47); Hemoglobin 11.4 g/dL (12.0-15.0); Lymphocyte # 2.51 X10^3/ul (4.0); Mean Corp Hgb Conc 32.9 g/dL (32-36); Mean Corpuscular Hgb 32.3 pg (27.0-32.0); Mean Platelet Vol. 9.1 fl (6.2-12.0); Monocyte# 0.68 X10^3/uL; Monocyte% 14.1 % (0-10); NRBC Flagged by Analyzer 0 % (0-5); Neutrophil # 1.49 X10^3/uL (2.7-7.7); Neutrophil % 30.8 % (47-70); Platelet Count 334 K/mm3 (150-450); RBC Distribution Width CV 14.7 % (11.6-14.6); RBC Distribution Width SD 52.7 fl (35.1-43.9); Red Blood Count 3.53 M/mm3 (4.2-5.4); White Blood Count 4.8 K/mm3 (4.4-11.0)
[2020-07-17 11:59] LABS: Erythrocyte Sedimentation Rate 36 mm/hr (0-30)
[2020-07-17 12:50] LABS: ALB/GLOB Ratio 0.7 RATIO (0.9-2.4); AST(SGOT) 32 U/L (15-37); Alanine Aminotransfer ALT/SGPT 30 U/L (13-56); Albumin, Serum 3.1 g/dL (3.2-5.0); Alkaline Phosphatase 174 U/L (45-117); Anion Gap 4 (5-15); BUN 16 mg/dL (7-18); BUN/Creat Ratio 21.1 RATIO (10-20); CPK Total, Creatine Kinase 112 U/L (26-192); CRP 6.89 mg/L (0.0-3.0); Calcium,Total 8.5 mg/dL (8.5-10.1); Chloride 106 mmol/L (98-107); Creatinine, Serum 0.76 mg/dL (0.55-1.02); EST Glomerular Filtration Rate 81 mL/min (>60); Est Glom Filt Rate - Afr Amer 98 mL/min (>60); Globulin 4.4 g/dL (2.2-4.2); Glucose 94 mg/dL (74-106); Potassium 4.2 mmol/L (3.5-5.1); Protein, Total 7.5 g/dL (6.4-8.2); Rheumatoid Factor < 10.0 IU/mL (<15); Sodium Level 136 mmol/L (136-145)
[2020-07-17 14:20] LABS: Hepatitis B Surface Antibody Non-Reactive; Hepatitis B Surface Antigen Non-Reactive (Nonreactive); Hepatitis C Antibody Non-Reactive (Nonreactive)
[2020-07-18 20:42] LABS: ANTINUCLEAR ANTIBODIES DIRECT Negative (Negative)
[2020-07-19 09:28] LABS: CCP IgG Antibodies 5 units (0-19)
== END ==
PROVIDERS: PCP Family Medicine; Referring Provider Internal Medicine Rheumatology; Visit Provider Internal Medicine Rheumatology
DX: R74.8 Abnormal levels of other serum enzymes (principal); M06.4 Inflammatory polyarthropathy; I25.10 Atherosclerotic heart disease of native coronary artery without angina pectoris; I11.0 Hypertensive heart disease with heart failure; I50.9 Heart failure, unspecified; E78.5 Hyperlipidemia, unspecified; K58.0 Irritable bowel syndrome with diarrhea; J44.9 Chronic obstructive pulmonary disease, unspecified; K57.90 Diverticulosis of intestine, part unspecified, without perforation or abscess without bleeding
CPT/HCPCS: 36415; 72170; 80053; 82085; 82550; 85025; 85652; 86038; 86140; 86200; 86431; 86706; 86707; 86803; 87340; 87350

== ENCOUNTER → 2020-08-08 12:54 | Outpatient (CLI) | payer MEDICARE, SELFPAY ==
[2020-07-22 13:04] VITALS: BMI 21.4
--- NOTE | 2020-08-08 13:00 | ART_ITS ---
Reason For Study: Atherosclerosis Procedure A bilateral lower extremity continuous wave Doppler with analog waveform analysis and ankle brachial indexes. Left Segmental Pressures Left brachial= 107mmHg. Left posterior tibial artery = 128mmHg. Left dorsalis pedis artery = 107mmHg. Left digit = 89 mmHg. The left dorsalis pedis waveforms are triphasic. The left posterior tibial artery waveforms are triphasic. Right Segmental Pressures Right brachial= 111mmHg. Right posterior tibial artery = 98mmHg. Right dorsalis pedis artery = 101mmHg. The right dorsalis pedis waveforms are triphasic. The right posterior tibial artery waveforms are triphasic. Indices The right ankle brachial index by the dorsalis pedis is 0.91. The right ankle brachial index by the posterior tibial artery is 0.88. The left ankle brachial index by the dorsalis pedis is 0.96. The left ankle brachial index by the posterior tibial artery is 1.15. The left digital-brachial index is 0.80. Interpretation Summary Bilateral triphasic flow wht BRANDAN 0.91 and 1.15. Ordering Physician: Jerrod Burt Referring Physician: Silas Hewitt M.D. Performed By: Ebonie Tse RVT
--- NOTE | 2020-08-08 13:00 | ADUL_ITS ---
Reason For Study: Atherosclerosis Right Velocities Ext. Iliac Artery, dist = 177.6 cm./sec. Common Femoral Artery, mid = 331.6 cm./sec. Supf Femoral Artery, prox = 105.2 cm./sec. Supf Femoral Artery, mid = 81.8 cm./sec. Supf Femoral Artery, dist. = 44 cm./sec. Profunda Femoral Artery = 76 cm./sec. Popliteal Artery, prox. = 42.4 cm./sec. Popliteal Artery, mid = 42.4 cm./sec. Popliteal Artery, dist = 52 cm./sec. Post. Tibial Artery, prox = 38.9 cm./sec. Post. Tibial Artery, mid = 38 cm./sec. Post. Tibial Artery, dist = 48.5 cm./sec. Peroneal Artery, prox = 44.1 cm./sec. Peroneal Artery, mid = 34.5 cm./sec. Peroneal Artery,dist = 35.4 cm./sec. Ant. Tibial Artery, prox = 53.7 cm./sec. Ant. Tibial Artery, mid = 57.2 cm./sec. Ant. Tibial Artery, dist = 69.4 cm./sec. Procedure Exam performed in department. Interpretation Summary Severe stenosis right CARPENTER but triphasic flow maintained below. Ordering Physician: Jerrod Burt Referring Physician: Silas Hewitt M.D. Performed By: Ebonie Tse RVT
== END ==
PROVIDERS: PCP Family Medicine; Referring Provider Surgery Vascular Surgery; Visit Provider Surgery Vascular Surgery
DX: I77.1 Stricture of artery (principal); I70.213 Atherosclerosis of native arteries of extremities with intermittent claudication, bilateral legs
CPT/HCPCS: 93922; 93926

== ENCOUNTER 2020-08-19 09:00 | Day surgery (SDC) | payer MEDICARE, SELFPAY ==
[2020-08-13 10:16] VITALS: BMI 21.9
[2020-08-19] VITALS (7 sets, daily range): BP systolic 85–131; BP diastolic 39–69; PULSE 66–70; RESP 12–16; TEMP 36.1–36.2; O2SAT 98–99; BMI 21.6
--- NOTE | 2020-08-19 09:02 | HP_ITS ---
Intake Vital Signs 08/13/20 Height 5 ft 9 in 08/13/20 Weight: 149 lb 08/13/20 BMI 21.9 08/13/20 BP 105/69 08/13/20 Blood Pressure Location Rt brachial 08/13/20 Position Sitting 08/13/20 Respiration 16 Intake Visit Reasons: anemia, cscope Chief Complaint: anemia Smelter Liner Required: No Is patient in pain?: Yes (right foot ) Allergies amlodipine [From Norvasc] Allergy (Verified 08/13/20 10:17) severe BLE edema codeine Allergy (Verified 08/13/20 10:17) Other sulfamethoxazole [From Septra] Allergy (Verified 08/13/20 10:17) Rash trimethoprim [From Septra] Allergy (Verified 08/13/20 10:17) Unknown prasugrel [From Effient] Adverse Reaction (Severe, Verified 08/13/20 10:17) Not advised in pt's who have had CVA Medications aspirin 81 mg tablet,delayed release 81 mg PO DAILY 07/31/18 [History Confirmed 08/13/20] nitroglycerin 0.4 mg sublingual tablet 0.4 mg SUBLINGUAL Q5M PRN #25 tab 06/04/19 [Rx Confirmed 08/13/20] mirtazapine 15 mg tablet 15 mg PO QHS #90 tab 01/08/20 [Rx Confirmed 08/13/20] tiotropium bromide 2.5 mcg/actuation mist for inhalation 2 puff INHALATION DAILY #4 g 02/04/20 [Rx Confirmed 08/13/20] Primidone [Mysoline] 150 mg PO BID 04/22/20 [History Confirmed 08/13/20] albuterol sulfate 90 mcg/actuation aerosol inhaler 2 puff INHALATION Q6H #8 g 06/25/20 [Rx Confirmed 08/13/20] atorvastatin 80 mg tablet 80 mg PO QHS 06/25/20 [History Confirmed 08/13/20] iron, carbonyl 45 mg tablet 45 mg PO DAILY tab 06/26/20 [History Confirmed 08/13/20] propranolol 80 mg capsule,24 hr,extended release 80 mg PO DAILY cap 06/26/20 [History Confirmed 08/13/20] Nortriptyline HCl 50 mg PO QHS 06/30/20 [History Confirmed 08/13/20] Potassium Chloride Oral Tablet [K-Dur] 40 meq PO DAILY #60 tab 07/02/20 [Rx Confirmed 08/13/20] diphenoxylate-atropine 2.5 mg-0.025 mg tablet 1 tab PO BID #60 tab 07/08/20 [Rx Confirmed 08/13/20] alprazolam 0.5 mg tablet 0.5 mg PO TID PRN #90 tab 07/11/20 [Rx Confirmed 08/13/20] clopidogrel 75 mg tablet 75 mg PO DAILY #90 tab 07/22/20 [Rx Confirmed 08/13/20] furosemide 40 mg tablet 40 mg PO DAILY #90 tab 07/22/20 [Rx Confirmed 08/13/20] metoprolol succinate 25 mg tablet,extended release 24 hr 12.5 mg PO DAILY #90 tab 07/22/20 [Rx Confirmed 08/13/20] folic acid 1 mg tablet 1 mg PO .twice daily #180 tab 07/23/20 [Rx Confirmed 08/13/20] gabapentin 300 mg capsule 300 mg PO DAILY 08/13/20 [History Confirmed 08/13/20] [facility] Medical History Atherosclerosis of coronary artery of [place] heart without angina pectoris (Chronic) History of ST elevation myocardial infarction (STEMI) (Chronic 01/08/20) History of non-ST elevation myocardial infarction (NSTEMI) (Chronic 06/17/20) Chronic systolic (congestive) heart failure (Chronic) 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) Essential (primary) hypertension (Chronic) Hyperlipidemia (Chronic) Hyponatremia (Chronic) CVA (cerebral vascular accident) (Chronic) COPD (chronic obstructive pulmonary disease) (Chronic) Elevated LFTs (Chronic) Elevated CPK (Chronic) Iron deficiency anemia due to chronic blood loss (Chronic) Anemia of chronic disease (Chronic) Atrophic vaginitis (Chronic) B12 deficiency (Chronic) Chronic diarrhea (Chronic) Degenerative joint disease of spine (Chronic) IBS (irritable bowel syndrome) (Chronic) Iron deficiency anemia (Chronic) Polymyositis (Chronic) Urethral stricture (Chronic) History of benign breast tumor (Resolved) Macrocytic anemia (Resolved) Rhabdomyolysis (Resolved 01/08/20) Irritable bowel syndrome with diarrhea (Inactive) Surgical History History of coronary artery stent placement (Chronic 01/08/20) History of ear surgery (Resolved) History of hysterectomy (Resolved) History of left heart catheterization (Resolved 06/17/20) Family History Mother CVA (cerebral vascular accident) Breast cancer Anxiety and depression Grandmother CVA (cerebral vascular accident) Sister Breast cancer Anxiety and depression Social History (Updated 08/13/20 @ 11:[address] Nickolas Juarez MD) Smoking Status: Former smoker alcohol intake: current alcohol intake frequency: a few times a week Alcohol type: wine substance use type: does not use caffeine: No what type of physical activity do you participate in: bicycling frequency: daily seatbelt use: always do you feel safe at home: Yes HPI HPI HPI: JANETT MARK, is a 64 F who presents to the office today for HPI HPI Surgical H&P: Yes HPI: JANETT MRAK, is a 64 F who presents to the office today for Rectal bleeding. The patient had rectal bleeding when she was in the hospital in December for her heart attack and they were unable to complete a colonoscopy. She also did a subsequent EGD which showed gastritis. The patient reports that a few weeks ago she had 3 episodes of bright red blood per rectum and this was a large amount. Patient notes no active bleeding currently. She denied having any abdominal pain. She reports no pain with defecation. ROS General General: Yes weight change and fatigue Cardio Cardiovascular: Yes heart disease, atrial fibrillation, high blood pressure, heart attack and heart stent; no murmur, pacemaker, palpitations, shortness of breat with exertion or chest pain Psych Psychiatric: Yes depression and anxiety Resp Respiratory: No shortness of breath, No sleep apnea, No cough, Yes COPD, No asthma, No emphysema, No wheezing Gastro Gastrointestinal: No abdominal pain, Yes nausea or vomiting, No diarrhea, No constipation, Yes blood in stool, No acid reflux, Yes hemorrhoids, Yes ulcers, No gallbladder problem, No black,tarry stools Norm Hematologic: Yes blood thinners, Yes bleeding, Yes anemia Exam Const General: cooperative Orientation: alert, oriented x3 Resp Effort & Inspection: normal respiratory effort Auscultation: clear to auscultation bilaterally Cardio Rate: regular rate Rhythm: regular rhythm Heart Sounds: no murmurs GI Inspection: non-distended Palpation: soft, nontender Assessment & Plan Problems 1. Rectal/anal hemorrhage K62.5 Plan The patient has anemia with a history of rectal bleeding a few weeks ago. The patient had large amounts of blood. The patient had unsuccessful colonoscopy over the summer with a normal EGD. I would recommend repeating both studies with this current bleeding. I will plan for EGD and colonoscopy. I explained endoscopy in detail to the patient. I explained the risks including but not limited to stroke or heart attack with anesthesia, perforation of the GI tract, bleeding, infection. I explained that any of these could necessitate further emergency surgery. The patient understands and all questions were answered sufficiently. The patient wishes to proceed with procedure. Nickolas Juarez MD Pager: [facility] [address] [place] [address], [address] [place] [address] Office: Orders Orders: Colonoscopy Today K62.5 EGD Today K62.5 Coding Level of Care Code Off vis,est,level 3 Diagnoses Rectal/anal hemorrhage K62.5 I have re-examined the patient. There are no clinical changes since date of exam.
[2020-08-19] MEDS: Lactated Ringers 1,000 ML 100 ML IV (09:51)
--- NOTE | 2020-08-19 10:15 | IMM_PTH ---
PATIENT: DEEDEE,September LOC: EN U#:[id number] AGE/SX: 64/F ROOM: RE08/19/[address]: Dr. Nickolas Juarez MD : 1955 BED: DIS: 08/19/2020 SPEC #: [id number] RECD: 08/19/20 14:34 STATUS: SUJATHA REIsaac #: [id number] MARY: 08/19/20 10:[address]: Nickolas Juarez DEPT: IMMUNOHISTOCHEMISTRY RECD BY: Guillermina Carter ENTERED: 08/19/20 14:35 SP TYPE: IMMUNO OTHR DR: Dr. Maxx Hewitt, DO Tissues: A - Stomach, NOS Procedures: H Pylori (initial) PHYSICIAN & INSTITUTION [place] [id number] SPECIMEN INFORMATION: Tissue Source: A - Antrum biopsy Clinical Info: Anemia, GI bleed Specimen Number: [id number] CPT code: 18166 METHODOLOGY: Deparaffinized sections of prefer/formalin-fixed tissue or PAP/DQ stained slides are incubated with monoclonal/polyclonal antibodies/oligonucleotide probes. Localization is made via biotin free immunoperoxidase method. Appropriate controls are performed and reacted as expected. Results on target cell population are indicated in the following table: RESULTS: ANTIBODY / CLONE RESULT Block A H Pylori (polyclonal) negative These tests were developed and their performance characteristics determined by [facility]. They may not have been cleared or approved by the U.S. Food and Drug Administration. The FDA has determined that such clearance or approval is not necessary. INTERPRETATION: A. Antrum, biopsy: Negative for Helicobacter pylori organisms. AM:radhika 08/20/2020
--- NOTE | 2020-08-19 10:15 | EGD_PTH ---
PATIENT: DEEDEE,September LOC: EN U#:[id number] AGE/SX: 64/F ROOM: RE08/19/[address]: Dr. Nickolas Juarez MD : 1955 BED: DIS: 08/19/2020 SPEC #: [id number] RECD: 08/19/20 13:03 STATUS: SUJATHA ALEX #: [id number] MARY: 08/19/20 10:[address]: Nickolas Juarez DEPT: SURGICAL PATHOLOGY RECD BY: Laura Hewitt ENTERED: 08/19/20 13:41 SP TYPE: EGD BIOPSY FELIZ DR: Dr. Maxx Hewitt, DO Tissues: A - Gastric mucous membrane B - Cecum, NOS Procedures: Surgery Specimen Level IV HEADER OPERATION: Colonoscopy, EGD ([facility]) PRE-OP DIAGNOSIS: Anemia, GI bleed TISSUE SUBMITTED: A - Antrum biopsy for H. pylori and path, B - Biopsies of cecum MICROSCOPIC DIAGNOSIS A. Gastric antrum, biopsy: Chronic gastritis. See comment. B. Cecum, biopsy: No pathologic change. See comment AM:radhika 08/20/2020 COMMENT A. The results of immunohistochemistry for Helicobacter pylori will be reported separately ([id number]). B. Eosinophils are mildly increased in the mucosa. The significance of this is unclear. Clinical correlation is suggested. MICROSCOPIC DESCRIPTION Slides are reviewed. GROSS DESCRIPTION A - Received in fixative is one container labeled with the patient's name and designated antrum biopsy. The specimen consists of multiple irregular fragments of light fung soft tissue that in aggregate measure 0.6 x 0.3 x 0.1 cm. The specimen is totally submitted in one cassette. B - Received in fixative is one container labeled with the patient's name and designated biopsy of cecum. The specimen consists of multiple irregular fragments of light fung soft tissue that in aggregate measure 1 x 0.5 x 0.1 cm. The specimen is totally submitted in one cassette. / SJ:radhika 08/19/20 TC:3 [facility]: [id number] x2
--- NOTE | 2020-08-19 10:31 | OP.CCLET_ITS ---
08/19/2020 Maxx Hewitt Re : Upper GI endoscopy procedure for September Dear Dr. Hewitt This procedure was performed on Wednesday, August 19, 2020. My impressions and recommendations are as follows: Impressions : - Gastritis with hemorrhage. Biopsied. - Normal examined duodenum. - Normal esophagus. Recommendations : - Discharge patient to home. - Resume previous diet. - Continue present medications. - Use Prilosec (omeprazole) 20 mg PO BID for 2 months. - Use sucralfate tablets 1 gram PO QID for 1 month. My findings are described in the full procedure note, which is enclosed. If I can be of further assistance, please feel free to contact me at Doctor phone number(s): , Work: . Sincerely, Nickolas Juarez MD 08/19/2020 10:31:02 AM This report has been signed electronically.
--- NOTE | 2020-08-19 10:31 | OP.EGD_ITS ---
Patient Name: Tyra Phelps Procedure Date: 08/19/2020 10:00 AM Date of : 1955 Age: 64 Procedure: Upper GI endoscopy Indications: Iron deficiency anemia, Hematochezia Providers: Nickolas Juarez MD Referring MD: Maxx Hewitt Medicines: Monitored Anesthesia Care Patient Profile: This is a 64 year old female. Refer to note in patient chart for documentation of history and physical. Complications: No immediate complications. Estimated blood loss: Minimal. Procedure: Pre-Anesthesia Assessment: - Prior to the procedure, a History and Physical was performed, and patient medications and allergies were reviewed. The patient's tolerance of previous anesthesia was also reviewed. The risks and benefits of the procedure and the sedation options and risks were discussed with the patient. All questions were answered, and informed consent was obtained. Prior Anticoagulants: The patient has taken Plavix (clopidogrel), last dose was 5 days prior to procedure. After reviewing the risks and benefits, the patient was deemed in satisfactory condition to undergo the procedure. After obtaining informed consent, the endoscope was passed under direct vision. Throughout the procedure, the patient's blood pressure, pulse, and oxygen saturations were monitored continuously. The gastroscope was introduced through the mouth, and advanced to the third part of duodenum. The upper GI endoscopy was accomplished without difficulty. The patient tolerated the procedure well. Scope In: 10:08:40 AM Scope Out: 10:10:47 AM Total Procedure Duration Time 0 hours 2 minutes 7 seconds Findings: Localized mild inflammation with hemorrhage characterized by adherent blood was found in the stomach. Biopsies were taken with a cold forceps for histology. The examined duodenum was normal. The esophagus was normal. Impression: - Gastritis with hemorrhage. Biopsied. - Normal examined duodenum. - Normal esophagus. Recommendation: - Discharge patient to home. - Resume previous diet. - Continue present medications. - Use Prilosec (omeprazole) 20 mg PO BID for 2 months. - Use sucralfate tablets 1 gram PO QID for 1 month. Procedure Code(s): --- Professional --- 78828, Esophagogastroduodenoscopy, flexible, transoral; with biopsy, single or multiple Diagnosis Code(s): --- Professional --- K29.71, Gastritis, unspecified, with bleeding D50.9, Iron deficiency anemia, unspecified K92.1, Melena (includes Hematochezia) CPT copyright 2017 [employer]. All rights reserved. The codes documented in this report are preliminary and upon candy separator enrobing review may be revised to meet current compliance requirements. Nickolas Juarez MD 08/19/2020 10:31:02 AM This report has been signed electronically. Number of Addenda: 0 Note Initiated On: 08/19/2020 10:00 AM
--- NOTE | 2020-08-19 10:35 | OP.COLON_ITS ---
Patient Name: Tyra Phelps Procedure Date: 08/19/2020 10:11 AM Date of : 1955 Age: 64 Procedure: Colonoscopy Indications: Hematochezia, Iron deficiency anemia Providers: Nickolas Juarez MD Referring MD: Maxx Hewitt Medicines: Monitored Anesthesia Care Patient Profile: This is a 64 year old female. Refer to note in patient chart for documentation of history and physical. Last Colonoscopy: 1 year ago. Complications: No immediate complications. Estimated blood loss: Minimal. Procedure: Pre-Anesthesia Assessment: - Prior to the procedure, a History and Physical was performed, and patient medications and allergies were reviewed. The patient's tolerance of previous anesthesia was also reviewed. The risks and benefits of the procedure and the sedation options and risks were discussed with the patient. All questions were answered, and informed consent was obtained. Prior Anticoagulants: The patient has taken Plavix (clopidogrel), last dose was 5 days prior to procedure. After reviewing the risks and benefits, the patient was deemed in satisfactory condition to undergo the procedure. After I obtained informed consent, the scope was passed under direct vision. Throughout the procedure, the patient's blood pressure, pulse, and oxygen saturations were monitored continuously. The colonoscope was introduced through the anus and advanced to the cecum, identified by appendiceal orifice and ileocecal valve. The colonoscopy was performed without difficulty. The patient tolerated the procedure well. The quality of the bowel preparation was good. Scope In: 10:12:47 AM Scope Withdrawal Time 0 hours 6 minutes 2 seconds Scope Out: 10:27:36 AM Total Procedure Duration Time 0 hours 14 minutes 49 seconds Findings: A scattered area of moderately friable mucosa with spontaneous bleeding was found in the cecum. Biopsies were taken with a cold forceps for histology. The exam was otherwise without abnormality on direct and retroflexion views. One small angioectasia without bleeding was found in the sigmoid colon. Impression: - Friability with spontaneous bleeding in the cecum. Biopsied. - The examination was otherwise normal on direct and retroflexion views. - One non-bleeding colonic angioectasia. Recommendation: - Discharge patient to home. - Resume previous diet. - Continue present medications. - Await pathology results. - Repeat colonoscopy in 10 years for screening purposes. Procedure Code(s): --- Professional --- 10080, Colonoscopy, flexible; with biopsy, single or multiple Diagnosis Code(s): --- Professional --- K92.2, Gastrointestinal hemorrhage, unspecified K55.20, Angiodysplasia of colon without hemorrhage K92.1, Melena (includes Hematochezia) D50.9, Iron deficiency anemia, unspecified CPT copyright 2017 [employer]. All rights reserved. The codes documented in this report are preliminary and upon tissue specialist review may be revised to meet current compliance requirements. Nickolas Juarez MD 08/19/2020 10:34:51 AM This report has been signed electronically. Number of Addenda: 0 Note Initiated On: 08/19/2020 10:11 AM
--- NOTE | 2020-08-19 10:35 | OP.CCLET_ITS ---
08/19/2020 Maxx Hewitt Re : Colonoscopy procedure for September Dear Dr. Hewitt This procedure was performed on Wednesday, August 19, 2020. My impressions and recommendations are as follows: Impressions : - Friability with spontaneous bleeding in the cecum. Biopsied. - The examination was otherwise normal on direct and retroflexion views. - One non-bleeding colonic angioectasia. Recommendations : - Discharge patient to home. - Resume previous diet. - Continue present medications. - Await pathology results. - Repeat colonoscopy in 10 years for screening purposes. My findings are described in the full procedure note, which is enclosed. If I can be of further assistance, please feel free to contact me at Doctor phone number(s): , Work: . Sincerely, Nickolas Juarez MD 08/19/2020 10:34:51 AM This report has been signed electronically.
== END 2020-08-19 11:32 | disposition home or self-care (01) ==
LOC: EN 09:00 → AC 09:01
PROVIDERS: PCP Family Medicine; Referring Provider Family Medicine; Visit Provider Surgery
PROC: 0DJD8ZZ Inspection of Lower Intestinal Tract, Via Natural or Artificial Opening Endoscopic (ICD-10-PCS; CPT 45378; principal; 2020-08-19 10:10)
DX: K29.51 Unspecified chronic gastritis with bleeding (principal); K55.20 Angiodysplasia of colon without hemorrhage; K92.1 Melena; D50.0 Iron deficiency anemia secondary to blood loss (chronic); D63.8 Anemia in other chronic diseases classified elsewhere; K21.9 Gastro-esophageal reflux disease without esophagitis; I25.10 Atherosclerotic heart disease of native coronary artery without angina pectoris; I11.0 Hypertensive heart disease with heart failure; I50.22 Chronic systolic (congestive) heart failure; I25.2 Old myocardial infarction; J44.9 Chronic obstructive pulmonary disease, unspecified; E78.00 Pure hypercholesterolemia, unspecified; E87.1 Hypo-osmolality and hyponatremia; F32.9 Major depressive disorder, single episode, unspecified; F41.9 Anxiety disorder, unspecified; Z95.5 Presence of coronary angioplasty implant and graft; Z79.82 Long term (current) use of aspirin; Z79.02 Long term (current) use of antithrombotics/antiplatelets; Z79.899 Other long term (current) drug therapy; Z87.891 Personal history of nicotine dependence; Z20.822 Contact with and (suspected) exposure to COVID-19; Z86.73 Personal history of transient ischemic attack (TIA), and cerebral infarction without residual deficits
CPT/HCPCS: 43239; 45380; 87426; 88305; 88342; C9803; J7120; J2405

== ENCOUNTER → 2020-10-02 08:01 | Outpatient (CLI) | payer MEDICARE, SELFPAY ==
[2020-08-20 10:39] VITALS: BMI 21.6
[2020-09-22 11:13] VITALS: BMI 22.8
--- NOTE | 2020-10-02 08:04 | CT_ITS ---
STUDY: CTA OF THE ABDOMINAL AORTA AND BILATERAL LOWER EXTREMITIES REASON FOR EXAM: Female, 64 years old. ATHEROSCLEROSIS/STRICTURE OF ARTERY/DEPRESSION/GANGRENE/HTN/ -- HEART ATTACK/STROKE/PVD RADIATION DOSAGE (If Supplied By Facility): CTDIvol = ( 6.37 ) mGy, DLP = ( 1302.40 ) mGycm TECHNIQUE: Axial CT angiography multi-detector data acquisition was obtained from the diaphragm to the feet following intravenous administration of IV 100mL Isovue-370. Axial images and MIP images were reconstructed from the axial data set. Post-processing of the angiographic images was performed, with multiplanar reformation and 3D reconstruction. Individualized dose optimization techniques were used for this CT. TECHNICAL QUALITY: Good COMPARISON: None. FINDINGS: Abdominal aorta: Moderate atherosclerotic calcifications. No demonstrated narrowing. No aneurysm. Celiac and superior mesenteric arteries: No demonstrated narrowing. Inferior mesenteric artery: No demonstrated narrowing. Right renal artery(arteries): There is mild narrowing at the ostium due to atherosclerosis. Left renal artery(arteries): There is mild narrowing at the ostium due to atherosclerosis. Right common iliac artery: There is mild diffuse narrowing due to atherosclerosis. Right external iliac artery: No demonstrated narrowing. Right internal iliac artery: No demonstrated narrowing. Left common iliac artery: There is mild diffuse narrowing due to atherosclerosis. Left external iliac artery: No demonstrated narrowing. Left internal iliac artery: No demonstrated narrowing. RIGHT LOWER EXTREMITY Right common femoral artery: No demonstrated narrowing. Right profundus femoris: No demonstrated narrowing. Right superficial femoral: No demonstrated narrowing. Right popliteal artery: No demonstrated narrowing. Right tibioperoneal trunk: No demonstrated narrowing. Right anterior tibial artery: No demonstrated narrowing. Right posterior tibial artery: No demonstrated narrowing. Right peroneal artery: No demonstrated narrowing. LEFT LOWER EXTREMITY Left common femoral artery: No demonstrated narrowing. Left profundus femoris: No demonstrated narrowing. Left superficial femoral: No demonstrated narrowing. Left popliteal artery: No demonstrated narrowing. Left tibioperoneal trunk: No demonstrated narrowing. Left anterior tibial artery: No demonstrated narrowing. Left posterior tibial artery: No demonstrated narrowing. Left peroneal artery: No demonstrated narrowing. OTHER: Emphysematous changes in the lung bases. Scattered colonic diverticula. Postsurgical changes in the bilateral first metatarsals. CT/CTA Abd w/Runoff W/WO Contrast IMPRESSION: Atherosclerotic calcifications of the abdominal aorta and its branches causing mild narrowing at the ostium of the bilateral renal arteries and mild narrowing of the bilateral common iliac arteries. Otherwise, no hemodynamically significant stenosis of the remaining lower extremity arteries. Electronically Signed: Lalito Fernández MD at 19:10 EDT Tel , Service support ,
== END ==
PROVIDERS: PCP Family Medicine; Referring Provider Surgery Vascular Surgery; Visit Provider Surgery Vascular Surgery
DX: I70.213 Atherosclerosis of native arteries of extremities with intermittent claudication, bilateral legs (principal); I77.1 Stricture of artery; F32.9 Major depressive disorder, single episode, unspecified; E78.00 Pure hypercholesterolemia, unspecified; I10 Essential (primary) hypertension; I25.2 Old myocardial infarction; Z86.73 Personal history of transient ischemic attack (TIA), and cerebral infarction without residual deficits
CPT/HCPCS: 75635; Q9967

== ENCOUNTER → 2020-10-23 09:50 | Outpatient (CLI) | payer MEDICARE, SELFPAY ==
[2020-10-23 09:01] VITALS: BMI 22.7
[2020-10-23 10:54] LABS: Anion Gap 7 (5-15); BUN 15 mg/dL (7-18); BUN/Creat Ratio 14.6 RATIO (10-20); Calcium,Total 7.6 mg/dL (8.5-10.1); Chloride 96 mmol/L (98-107); Creatinine, Serum 1.03 mg/dL (0.55-1.02); EST Glomerular Filtration Rate 57 mL/min (>60); Est Glom Filt Rate - Afr Amer 69 mL/min (>60); Glucose 105 mg/dL (74-106); Potassium 2.6 mmol/L (3.5-5.1); Sodium Level 136 mmol/L (136-145)
== END ==
PROVIDERS: PCP Family Medicine; Referring Provider Nurse Practitioner Family; Visit Provider Nurse Practitioner Family
DX: I50.22 Chronic systolic (congestive) heart failure (principal); Z79.899 Other long term (current) drug therapy
CPT/HCPCS: 36415; 80048

== ENCOUNTER → 2020-10-27 10:56 | Outpatient (CLI) | payer MEDICARE, SELFPAY ==
[2020-10-23 09:01] VITALS: BMI 22.7
[2020-10-27 11:51] LABS: Anion Gap 8 (5-15); BUN 17 mg/dL (7-18); BUN/Creat Ratio 17.1 RATIO (10-20); Calcium,Total 8.2 mg/dL (8.5-10.1); Chloride 99 mmol/L (98-107); EST Glomerular Filtration Rate 59 mL/min (>60); Est Glom Filt Rate - Afr Amer 71 mL/min (>60); Glucose 107 mg/dL (74-106); Potassium 4.2 mmol/L (3.5-5.1); Sodium Level 137 mmol/L (136-145)
== END ==
PROVIDERS: PCP Family Medicine; Referring Provider Nurse Practitioner Family; Visit Provider Nurse Practitioner Family
DX: E87.6 Hypokalemia (principal)
CPT/HCPCS: 36415; 80048

== ENCOUNTER → 2021-01-05 06:39 | Outpatient (CLI) | payer MEDICARE, SELFPAY ==
[2020-12-23 11:11] VITALS: BMI 21.9
--- NOTE | 2021-01-05 15:57 | STRESSREP ---
Stress Test Report Pharmacologic myocardial perfusion stress test. 65-year-old lady with a history of chest pain. Stress protocol: Resting EKG demonstrates normal sinus rhythm with a rate of 71 bpm normal intervals are noted resting blood pressure is 132/78 mmHg. 0.4 mg of regadenoson was infused per usual protocol followed by rapid intravenous saline flush injection continuous EKG monitoring was performed. The maximum heart rate attained was 100 bpm which was 65% of maximum predicted heart rate. The maximum workload was 1 metabolic equivalent. At rest there were no ST or T wave changes noted to suggest abnormal flow reserve. Myocardial perfusion protocol. 10.8 mCi of technetium 99m sestamibi was injected at rest. 0.4 mg of regadenoson was infused per usual protocol. At peak infusion 32.7 mCi of technetium 99m sestamibi was injected stress images were obtained stress and rest images were reconstructed and compared in the short axis vertical long and horizontal long axis. Gated images were also obtained. Perfusion SPECT analysis: Review of the stress images demonstrated normal uptake of tracer noted in all areas of the myocardium. The resting images similarly demonstrated normal uptake of tracer noted in all areas of the myocardium. No reversibility is noted to suggest ischemia. No previous infarct is noted. Gated SPECT analysis: The gated ejection fraction is 61%. Conclusion: Normal pharmacologic myocardial perfusion stress test. Preserved ejection fraction.
== END ==
PROVIDERS: PCP Family Medicine; Referring Provider Internal Medicine Cardiovascular Disease; Visit Provider Internal Medicine Cardiovascular Disease
DX: R07.9 Chest pain, unspecified (principal); I25.10 Atherosclerotic heart disease of native coronary artery without angina pectoris; I50.22 Chronic systolic (congestive) heart failure; I10 Essential (primary) hypertension; E78.5 Hyperlipidemia, unspecified; R74.8 Abnormal levels of other serum enzymes; I25.2 Old myocardial infarction; Z95.5 Presence of coronary angioplasty implant and graft
CPT/HCPCS: 78452; 93017; A9500; A4216; J2785

== ENCOUNTER → 2021-04-14 10:56 | Outpatient (CLI) | payer MEDICARE, SELFPAY ==
--- NOTE | 2021-04-14 10:57 | BI_ITS ---
MAMMOGRAPHY - BILATERAL SCREENING REASON FOR EXAM: Female, 65 years old. Routine annual screening examination. PERTINENT HISTORY: Remote left excisional breast biopsies. Sister with breast cancer. Mother with breast cancer. TECHNIQUE: Digital bilateral breast rosa (3D mammographic acquisition) in the CC and MLO projections. 2-D mediolateral oblique (MLO) and craniocaudad (CC) views of both breasts were obtained. CAD: Full Field Digital Mammography with Computer Added Detection was performed. COMPARISON: Comparison is made with prior study dated 04/01/2020. FINDINGS: Breast Composition: The breasts are heterogeneously dense, which may obscure small masses. There are no dominant masses or suspicious calcifications. Stable benign-appearing bilateral axillary lymph nodes. No other significant abnormalities are identified. There has been no significant change since the prior study. BI/SCRN MAMM (CAD)W/ROSA BILAT IMPRESSION: Stable bilateral screening mammogram. Yearly follow-up mammogram recommended. (A) ASSESSMENT CATEGORY: BIRADS Category 2: Benign. A letter regarding these results will be sent to the patient by the facility within 30 days. Approximately 10% of breast cancers are not detected by mammography. A normal mammogram should not delay biopsy of a clinically suspicious abnormality. [id number] Electronically Signed: Félix Sofia MD at 12:31 EDT , Service support ,
== END ==
PROVIDERS: PCP Family Medicine; Referring Provider Internal Medicine Hematology & Oncology; Visit Provider Internal Medicine Hematology & Oncology
DX: Z12.31 Encounter for screening mammogram for malignant neoplasm of breast (principal); Z80.3 Family history of malignant neoplasm of breast
CPT/HCPCS: 77063; 77067

== ENCOUNTER → 2021-04-21 13:25 | Outpatient (CLI) | payer MEDICARE, SELFPAY ==
--- NOTE | 2021-04-21 13:28 | CT_ITS ---
STUDY: LOW DOSE CT LUNG CANCER SCREENING REASON FOR EXAM: Female, 65 years old. Lung cancer screening -- and gt;30pc yr history;former smoker;asymptomatic RADIATION DOSAGE (If Supplied By Facility): CTDIvol = ( 1.59 ) mGy, DLP = ( 53.41 ) mGycm TECHNIQUE: No contrast was administered. Low dose technique was utilized (average mAS-38 and kVp 120). 1.25 mm axial source images with a slice interval of 1.25-mm were reconstructed in lung windows. 2.5 mm axial source images with a slice interval of 2.5-mm were reconstructed in lung windows. 5.0 mm axial source images with a slice interval of 5.0-mm were reconstructed in soft tissue windows. Nodule measured using lung windows on PACS and/or independent workstation with automated measurement of minimum and maximum diameter. Nodule measurement reported as average diameter rounded to the nearest whole number. Growth is defined as an increase ins size of greater than 1.5 mm. COMPARISON: Comparison is made with prior examination dated 04/08/2020. NODULES: There is a new focal nodular alveolar infiltrate in the peripheral lateral aspect of the right upper lobe as seen on axial image #95. This measures 1.3 cm x 0.7 cm. Emphysema: Hyperinflation. Stable emphysematous changes with findings suggestive of centrilobular emphysema more prominent in the upper lobes. Endobronchial lesion: None Aorta: Minimal calcific atherosclerotic plaques of the aortic arch. Coronary arteries: Coronary artery calcification. Heart: Unremarkable Pulmonary artery: Unremarkable Mediastinal nodes: Small mediastinal lymph nodes. Other chest and abdominal findings: CT/Low Dose CT Lung Screening IMPRESSION: Lung-RADS category 3 - Continue screening with LDCT in 6 months. IMPORTANT NOTES FOR USE: ACR Lung-RADS Version 1.1 Assessment Categories Release Date: 2018 Category: Coded 0-4 bases on nodule(s) with highest degree of suspicion. Negative screen is defined as categories 1 and 2; a positive screen is defined as categories 3 and 4. Category 3 and 4A nodules that are unchanged on interval CT should be coded as category 2, and individuals returned to screening in 12 months. Category 4X: Category 3 or 4 nodules with additional imaging findings that increase the suspicion of lung cancer, such as spiculation, GGN that doubles in size in 1 year, enlarged lymph notes, etc. Category Modifiers: S (significant finding unrelated to lung cancer) Electronically Signed: Félix Sofia MD at 14:11 EDT , Service support ,
== END ==
PROVIDERS: PCP Family Medicine; Referring Provider Nurse Practitioner Family; Visit Provider Nurse Practitioner Family
DX: Z12.2 Encounter for screening for malignant neoplasm of respiratory organs (principal); Z87.891 Personal history of nicotine dependence
CPT/HCPCS: 71271

== ENCOUNTER → 2021-05-14 13:04 | Outpatient (CLI) | payer MEDICARE, SELFPAY ==
--- NOTE | 2021-05-15 13:10 | PFT ---
INTRODUCTION: The patient is a 65-year-old female that presents for pulmonary function studies secondary to a diagnosis of nicotine dependency. Respiratory therapy reported good patient effort. Bronchodilators were used during testing. INTERPRETATION: Forced expiration spirometry demonstrates the presence of a mild large airways obstructive ventilatory defect. There was no significant response to aerosolized bronchodilators. Spirograms are of good quality but do not plateau indicating slow emptying of the lungs. Body plethysmography was performed and revealed an elevated TLC and RV, indicative of underlying hyperinflation and air trapping. Diffusing capacity by single breath CO is disproportionately reduced to 51% of predicted. IMPRESSION: Irreversible mild large airways obstructive ventilatory defect with associated hyperinflation, air trapping and disproportionate reduction in diffusing capacity.
== END ==
PROVIDERS: PCP Family Medicine; Referring Provider Internal Medicine Critical Care Medicine; Visit Provider Internal Medicine Critical Care Medicine
DX: F17.211 Nicotine dependence, cigarettes, in remission (principal)
CPT/HCPCS: 94060; 94726; 94729

== ENCOUNTER 2021-07-16 09:53 | Inpatient (IN) | payer MEDICARE, SELFPAY ==
[2021-07-16 09:55] VITALS: BP 112/88; PULSE 89; RESP 16; TEMP 35.9; O2SAT 100; BMI 21.3
--- NOTE | 2021-07-16 10:19 | EDS_ITS ---
HPI HPI - GI History of Present Illness Chief Complaint: GI Bleed Detail of Chief Complaint: Rectal bleeding Informant: patient Narrative Narrative: Patient presents with rectal bleeding that started in the middle of the night around 1 AM. Initially she went to the restroom at that time and when she wiped she noted some bright red blood on the toilet paper. This morning she had another attempted bowel movement the past mostly blood. She describes some upper abdomen pain. About a year ago she had similar episodes of bleeding that required blood transfusions. Patient had upper and lower scopes that showed bleeding from the stomach apparently. Patient on omeprazole. Patient does complain of some mild upper abdomen pain. She had no vomiting or hematemesis. Prior similar symptoms: Yes [facility] Medical History Acute blood loss anemia Anemia of chronic disease Atherosclerosis of coronary artery of [place] heart without angina pectoris Atrophic vaginitis B12 deficiency Chronic diarrhea Chronic systolic (congestive) heart failure COPD (chronic obstructive pulmonary disease) CVA (cerebral vascular accident) Degenerative joint disease of spine Elevated CPK Elevated LFTs Encounter for screening for malignant neoplasm of lung in former smoker who quit in past 15 years with 30 pack year history or greater Essential (primary) hypertension History of benign breast tumor History of non-ST elevation myocardial infarction (NSTEMI) (06/17/20) History of tobacco use Hyperlipidemia Hyponatremia IBS (irritable bowel syndrome) Iron deficiency anemia Iron deficiency anemia due to chronic blood loss Irritable bowel syndrome with diarrhea Lung infiltrate Macrocytic anemia Old anterolateral wall myocardial infarction (01/08/20) Polymyositis Pulmonary nodule 1 cm or greater in diameter Rhabdomyolysis (01/08/20) Urethral stricture Vitamin B12 deficiency anemia Home Medications nitroglycerin 0.4 mg sublingual tablet 0.4 mg SUBLINGUAL Q5M PRN #25 tab 06/04/19 [Rx Last Taken Unknown] primidone 150 mg PO BID 04/22/20 [History Last Taken 06/30/20] furosemide 40 mg tablet 40 mg PO DAILY #90 tab 10/27/20 [Rx Last Taken Unknown] diphenoxylate-atropine 2.5 mg-0.025 mg tablet 1 tab PO BID #60 tab 11/26/20 [Rx Last Taken Unknown] metoprolol succinate 25 mg tablet,extended release 24 hr 12.5 mg PO DAILY #90 tab 01/29/21 [Rx Last Taken Unknown] nortriptyline 50 mg capsule 50 mg PO QHS #90 cap 02/17/21 [Rx Last Taken Unknown] potassium chloride 20 mEq tablet,extended release(part/cryst) 40 meq PO DAILY tab 02/19/21 [History Last Taken Unknown] gabapentin 100 mg capsule 100 mg PO QHS #60 cap 04/17/21 [Rx Last Taken Unknown] alprazolam 0.5 mg tablet 0.5 mg PO BID PRN #60 tablet 04/27/21 [Rx Last Taken Unknown] hydrocodone-acetaminophen 5-325mg 5mg-325mg 2 tab PO PRN PRN tab 06/04/21 [History Last Taken Unknown] albuterol sulfate 90 mcg/actuation aerosol inhaler 2 puff INHALATION Q6H PRN #18 gm 06/10/21 [Rx Last Taken Unknown] atorvastatin 80 mg tablet 80 mg PO QHS #90 tab 06/10/21 [Rx Last Taken Unknown] clopidogrel 75 mg tablet 75 mg PO DAILY #90 tab 06/10/21 [Rx Last Taken Unknown] omeprazole 20 mg tablet,delayed release 20 mg PO BID #60 tablet. 06/10/21 [Rx Last Taken Unknown] tiotropium bromide 2.5 mcg/actuation mist for inhalation 2 puff INHALATION DAILY PRN #4 g 06/10/21 [Rx Last Taken Unknown] folic acid 1 mg tablet 1 mg PO BID #180 tab 06/12/21 [Rx Last Taken Unknown] Allergy/AdvReac Type Severity Reaction Status Date / Time codeine Allergy Severe Other Verified 07/16/21 09:55 sulfamethoxazole Allergy Severe Rash Verified 07/16/21 09:55 [From Septra] trimethoprim [From Septra] Allergy Severe Unknown Verified 07/16/21 09:55 amlodipine [From Norvasc] Allergy Mild severe BLE Verified 07/16/21 09:55 edema prasugrel [From Effient] AdvReac Severe Not Verified 07/16/21 09:55 advised in pt's who have had CVA Family History Mother CVA (cerebral vascular accident) Breast cancer Anxiety and depression Grandmother CVA (cerebral vascular accident) Sister Breast cancer Anxiety and depression Surgical History H/O colonoscopy H/O esophagogastroduodenoscopy History of coronary artery stent placement (01/08/20) History of ear surgery History of hysterectomy History of left heart catheterization (06/17/20) Social History Smoking Status: Former smoker quit date: 12/26/19 pack-years: 50 Tobacco: How many years used: 50 how long ago did patient quit smokin year 4 months second hand exposure: No alcohol intake: current alcohol intake frequency: a few times a week Alcohol type: wine details: occasionally substance use type: does not use diet: low salt well-balanced diet: other details: having hard time figuring out what to eat (no salt) caffeine: No eating out: rarely or never during the past year weight has: increased > 10 lbs what type of physical activity do you participate in: walking and bicycling frequency: 1-2 times per week seatbelt use: always do you feel safe at home: Yes ROS ROS ED Constitutional Constitutional ED: Reports systems reviewed and no addt'l complaints, except as documented; Denies body ache(s), change in weight or chills Eyes Eyes: Denies acute decrease in peripheral vision, change in vision, double vision or loss of vision ENT ENT ED: Reports none; Denies ear pain, lip swelling, loss taste/smell, neck pain, otalgia or sore throat Cardiovascular Cardiovascular: Reports none; Denies abdominal pain, chest pain with activity, leg edema, lightheadedness, palpitations, rapid heart rate or syncope Respiratory/Chest Respiratory/Chest: Reports none; Denies change in mental status, dry cough, dyspnea, hemoptysis, shortness of breath at rest or shortness of breath with exertion Gastrointestinal Gastrointestinal: Reports none, abdominal pain and other Details: Rectal bleeding ; Denies change in stool character, diarrhea, hematemesis, hematochezia, melena, rectal bleeding or vomiting Genitourinary Genitourinary ED: Reports none; Denies abdominal discomfort, anuria, dysuria, genital pain or polyuria Musculoskeletal Musculoskeletal: Reports none; Denies arthralgias, back pain, difficulty walking, extremity pain, muscle weakness or myalgias Integumentary Reports none; Denies abscess or rash Neurologic Neurologic: Reports none; Denies abnormal gait, confusion, focal weakness, frequent falls, headache(s), loss of vision, numbness, paresthesias, radicular pain, vertigo or weakness Psychiatric Psychiatric: Reports systems reviewed and no addt'l complaints, except as documented and none; Denies behavioral changes, confusion, difficulty concentrating, hallucinations, suicidal ideation, tactile hallucinations or visual hallucinations Endocrine Endocrinology: Denies none, cold intolerance, excessive sweating, fatigue or heat intolerance Hematologic/Lymphatic Hematologic/Lymphatic: Reports none; Denies anemia, easy bleeding or easy bruising Allergic/Immunologic Allergic/Immunologic ED: Denies as per HPI, none, lip swelling, mouth swelling, throat swelling, tongue swelling or hives EXAM Physical Exam Const Vital Signs: 07/16/21 09:55 Temperature 96.6 F L Temperature Source Temporal Pulse Rate 89 Respiratory Rate 16 Blood Pressure 112/88 H Blood Pressure Mean 96 Pulse Ox 100 Oxygen Delivery Method Room Air Positive well nourished and well developed General Appearance ED: well developed and NAD HEENT Reports TM's clear and moist mucous membranes normocephalic and atraumatic; Negative for trauma or tenderness Tympanic Membrane ED: Yes TM's clear Eyes PERRL and EOMs intact bilaterally General Eye ED: Negative for pale conjunctiva or scleral icterus Neck no lymphadenopathy, supple and no JVD General: Negative for tenderness Chest Wall inspection of chest normal and palpation of chest normal Chest: Negative for tenderness Resp normal respiratory effort and clear to auscultation bilaterally Effort and Inspection: Negative for respiratory distress or pain with movement Auscultation: Negative for rhonchi, wheezes or diminished lung sounds Cardio regular rate, regular rhythm, S1 normal heart sound, S2 normal heart sound and no murmurs Peripheral Pulses: pulses 2+ throughout GI normal to inspection, nondistended, normoactive bowel sounds, soft to palpation, non-distended and no masses GI Narrative: Patient with some mild tenderness over the epigastric region and upper abdomen. No rebound, rigidity, or peritoneal signs. On rectal exam patient had maroon-colored stool. No fissures or hemorrhoids noted. Back/Spine no CVA tenderness and no thoracic nor lumbar tenderness Extremity normal to inspection General Extremety ED: Negative for edema General Extremity: Negative for edema Neuro oriented x3, CN's II-XII intact bilaterally, no sensory deficits noted and gait normal Sensorium / Orientation: awake, alert, oriented to person, oriented to place and oriented to time Motor Exam: strength 5/5 throughout and strength abnormal Psych mental status grossly normal Skin no rashes or lesions noted and no wounds MDM MDM MDM Narrative Medical decision making narrative: IV line established on arrival. Patient started on a Protonix drip. After blood work was obtained I discussed case with who was in the operating room and spoke through one of the OR nurses. We will admit patient to medicine and will consult. At this point her hemoglobin is around her baseline therefore will not transfuse. I did review her endoscopy from July 2020 which did note gastritis with bleeding at that time. At this point I suspect possibly an upper GI bleed again based on the location of her epigastric pain. Patient's stool is more maroon- colored rather than bright red. Lab Data Attestation: I reviewed the patient's lab results. Labs: Laboratory Results - last 24 hr 07/16/21 07/16/21 07/16/21 10:08 10:08 10:08 WBC 9.9 RBC 3.19 L Hgb 9.6 L Hct 30.5 L MCV 95.6 MCH 30.1 MCHC 31.5 L RDW Std Deviation 60.2 H RDW Coeff of Sammy 17.4 H Plt Count 320 MPV 8.8 Immature Gran % (Auto) 0.400 Neut % (Auto) 69.1 Lymph % (Auto) 18.4 L [place] % (Auto) 9.8 Eos % (Auto) 2.1 Baso % (Auto) 0.2 Absolute Neuts (auto) 6.8 Absolute Lymphs (auto) 1.81 Nucleated RBC % 0 Sodium 137 Potassium 4.0 Chloride 108 H Carbon Dioxide 21.0 Anion Gap 8 BUN 18 Creatinine 1.01 Estim Creat Clear Calc 55.97 Est GFR (MDRD) Af Amer 70 Est GFR (MDRD) Non-Af 58 L BUN/Creatinine Ratio 17.8 Glucose 99 Lactic Acid 1.8 Calcium 8.8 Total Bilirubin 0.20 AST 32 ALT 34 Alkaline Phosphatase 285 H Total Protein 8.1 Albumin 3.3 Globulin 4.8 H Albumin/Globulin Ratio 0.7 L Discharge Plan Dx/Rx/DC Orders Clinical Impression: Acute GI bleeding Disposition Disposition: Acute Care [facility]
[2021-07-16] MEDS: Lactated Ringers 500 ML IV.SOLN. 1000 ML IV (10:30)
[2021-07-16 10:38] LABS: Absolute Lymphocyte Count 1.81 X10^3/uL (0.83-4.51); Absolute Neutrophil Count 6.8 X10^3/uL (2.0-7.7); Basophil# 0.02 X10^3/uL; Basophil% 0.2 % (0-1); Eosinophil# 0.21 X10^3/uL; Eosinophils% 2.1 % (0-5); Hematocrit 30.5 % (37-47); Hemoglobin 9.6 g/dL (12.0-15.0); Lymphocyte # 1.81 X10^3/ul (0.83-4.51); Lymphocyte % 18.4 % (19-41); Mean Corp Hgb Conc 31.5 g/dL (32-36); Mean Corpuscular Hgb 30.1 pg (27.0-32.0); Mean Corpuscular Volume 95.6 fL (81-99); Mean Platelet Vol. 8.8 fl (6.2-12.0); Monocyte# 0.97 X10^3/uL; Monocyte% 9.8 % (0-10); NRBC Flagged by Analyzer 0 % (0-5); Neutrophil # 6.81 X10^3/uL (2.7-7.7); Neutrophil % 69.1 % (47-70); Platelet Count 320 K/mm3 (150-450); RBC Distribution Width CV 17.4 % (11.6-14.6); RBC Distribution Width SD 60.2 fl (35.1-43.9); Red Blood Count 3.19 M/mm3 (4.2-5.4); White Blood Count 9.9 K/mm3 (4.4-11.0)
[2021-07-16 10:51] LABS: ALB/GLOB Ratio 0.7 RATIO (0.9-2.4); AST(SGOT) 32 U/L (15-37); Alanine Aminotransfer ALT/SGPT 34 U/L (13-56); Albumin, Serum 3.3 g/dL (3.2-5.0); Alkaline Phosphatase 285 U/L (45-117); Anion Gap 8 (5-15); BUN 18 mg/dL (7-18); BUN/Creat Ratio 17.8 RATIO (10-20); Calcium,Total 8.8 mg/dL (8.5-10.1); Chloride 108 mmol/L (98-107); Creatinine, Serum 1.01 mg/dL (0.55-1.02); EST Glomerular Filtration Rate 58 mL/min (>60); Est Glom Filt Rate - Afr Amer 70 mL/min (>60); Estimated Creatinine Clearance 55.97 ml/min; Globulin 4.8 g/dL (2.2-4.2); Glucose 99 mg/dL (74-106); Protein, Total 8.1 g/dL (6.4-8.2); Sodium Level 137 mmol/L (136-145)
[2021-07-16 11:04] LABS: Lactic Acid 1.8 mmol/L (0.4-1.9)
--- NOTE | 2021-07-16 11:30 | HP.PCM.HOS_ITS ---
HPI - General General Date of Admission: 07/16/21 Date of Service: 07/16/21 Chief Complaint: Upper abdominal pain and maroon-colored blood today. HPI Narrative JANETT MARK, is a 65 F with history of previous GI bleed, had EGD and colon oscopy about a year ago came to ER with maroon-colored blood that is started about 1 AM today. She said he started pouring down in the toilet bowl and had twice after that. She had similar episode about a year ago which required a blood transfusion. She had EGD and colonoscopy about a year ago which showed gastric inflammation, friable cecum possible AV malformation sigmoid colon. She follows Dr. Juarez. She is on PPI. She also complains of upper abdominal, epigastric pain, mild discomfort without radiation, 3-5/intensity. No fever or chills. She denies dizziness, lightheadedness on standing up from supine position. No chest pain/pressure or shortness of breath. In ED, heart rate and blood pressure in normal range. No hypoxia or tachypnea. H&H 9.6. Platelet count 320,000. Patient follows Dr. Sauceda for history of coronary artery status post stents, chronic systolic failure and Dr. Hewitt for lung nodule.. PFT on April 2021 showed showed mild large airways obstructive ventilatory defect with air trapping and disproportionate reduction in diffusion capacity. [facility] Medical History Acute blood loss anemia Anemia of chronic disease Anxiety Atherosclerosis of coronary artery of [place] heart without angina pectoris Atrophic vaginitis B12 deficiency Chronic diarrhea Chronic systolic (congestive) heart failure Congestive heart failure (CHF) COPD (chronic obstructive pulmonary disease) Coronary artery disease CVA (cerebral vascular accident) Degenerative joint disease of spine Elevated CPK Elevated LFTs Encounter for screening for malignant neoplasm of lung in former smoker who quit in past 15 years with 30 pack year history or greater Essential (primary) hypertension Former smoker GI bleed History of benign breast tumor History of non-ST elevation myocardial infarction (NSTEMI) (06/17/20) History of tobacco use Hyperlipidemia Hypertension Hyponatremia IBS (irritable bowel syndrome) Iron deficiency anemia Iron deficiency anemia due to chronic blood loss Irritable bowel syndrome with diarrhea Lung infiltrate Macrocytic anemia Old anterolateral wall myocardial infarction (01/08/20) Polymyositis Pulmonary nodule 1 cm or greater in diameter Rhabdomyolysis (01/08/20) Urethral stricture Vitamin B12 deficiency anemia Home Medications nitroglycerin 0.4 mg sublingual tablet 0.4 mg SUBLINGUAL Q5M PRN #25 tab 06/04/19 [Rx Last Taken Unknown] primidone 150 mg PO BID 04/22/20 [History Last Taken 07/16/21] metoprolol succinate 25 mg tablet,extended release 24 hr 12.5 mg PO DAILY #90 tab 01/29/21 [Rx Last Taken 07/16/21] nortriptyline 50 mg capsule 50 mg PO QHS #90 cap 02/17/21 [Rx Last Taken 2] potassium chloride 20 mEq tablet,extended release(part/cryst) 20 meq PO BID tab 02/19/21 [History Last Taken 07/16/21] alprazolam 0.5 mg tablet 0.5 mg PO BID PRN #60 tablet 04/27/21 [Rx Last Taken 07/16/21] hydrocodone-acetaminophen 5-325mg 5mg-325mg 2 tab PO PRN PRN tab 06/04/21 [History Last Taken Unknown] albuterol sulfate 90 mcg/actuation aerosol inhaler 2 puff INHALATION Q6H PRN #18 gm 06/10/21 [Rx Last Taken Unknown] atorvastatin 80 mg tablet 80 mg PO QHS #90 tab 06/10/21 [Rx Last Taken 07/15/21] clopidogrel 75 mg tablet 75 mg PO DAILY #90 tab 06/10/21 [Rx Last Taken 07/16/21] omeprazole 20 mg tablet,delayed release 20 mg PO BID #60 tablet. 06/10/21 [Rx Last Taken 07/16/21] tiotropium bromide 2.5 mcg/actuation mist for inhalation 2 puff INHALATION DAILY PRN #4 g 06/10/21 [Rx Last Taken Unknown] diphenoxylate-atropine 1 tab PO DAILY PRN 07/16/21 [History Last Taken Unknown] folic acid 1 mg PO BID 07/16/21 [History Last Taken 07/16/21] furosemide 40 mg PO DAILY PRN 07/16/21 [History Last Taken Unknown] gabapentin 200 mg PO QHS 07/16/21 [History Last Taken 07/15/21] Allergy/AdvReac Type Severity Reaction Status Date / Time codeine Allergy Severe Other Verified 07/16/21 09:55 sulfamethoxazole Allergy Severe Rash Verified 07/16/21 09:55 [From Septra] trimethoprim [From Septra] Allergy Severe Unknown Verified 07/16/21 09:55 amlodipine [From Norvasc] Allergy Mild severe BLE Verified 07/16/21 09:55 edema prasugrel [From Effient] AdvReac Severe Not Verified 07/16/21 09:55 advised in pt's who have had CVA Family History Mother CVA (cerebral vascular accident) Breast cancer Anxiety and depression Grandmother CVA (cerebral vascular accident) Sister Breast cancer Anxiety and depression Surgical History H/O colonoscopy H/O esophagogastroduodenoscopy History of appendectomy History of coronary artery stent placement (01/08/20) History of ear surgery History of hysterectomy History of left heart catheterization (06/17/20) Social History Smoking Status: Former smoker quit date: 12/26/19 pack-years: 50 Tobacco: How many years used: 50 how long ago did patient quit smokin year 4 months second hand exposure: No alcohol intake: current alcohol intake frequency: a few times a week Alcohol type: wine details: occasionally substance use type: does not use diet: low salt well-balanced diet: other details: having hard time figuring out what to eat (no salt) caffeine: No eating out: rarely or never during the past year weight has: increased > 10 lbs what type of physical activity do you participate in: walking and bicycling frequency: 1-2 times per week seatbelt use: always do you feel safe at home: Yes ROS ROS Narrative Constitutional: Reports fatigue and weakness. No fever HEENT: Reports systems reviewed and no addt'l complaints, except as documented Respiratory/Chest: Mild dyspnea on exertion, chronic. Denies chest pain or shortness of breath at rest. Gastrointestinal: As mentioned in HPI. No hematemesis or vomiting. Genitourinary: Denies burning urination or new urinary tract symptoms Musculoskeletal: Mild chronic joint pain and limited range of motion Neurologic: Denies seizure-like activity skin: No ulcer. No rash Endocrinology: Reports systems reviewed and no addt'l complaints, except as documented Hematologic/Lymphatic: History of chronic anemia and follows Dr. Sparks. As per reports systems reviewed and no addt'l complaints, except as documented Rest 14 ROS are negative except as mentioned in HPI Vital Signs Vital Signs Vital Signs: 07/16/21 09:55 Temperature 96.6 F L Temperature Source Temporal Pulse Rate 89 Respiratory Rate 16 Blood Pressure 112/88 H Blood Pressure Mean 96 Pulse Ox 100 Oxygen Delivery Method Room Air Weight Weight: 144 lb 9.972 oz Body Mass Index (BMI) 21.3 Physical Exam Narrative General: Alert, Oriented x3, Cooperative HEENT: Atraumatic, PERRLA, EOMI, Normocephalic Oral: No Gingival or Mucosal Lesions/ Ulcerations Neck: Supple, No JVD, Negative Carotid Bruits Lungs: Air entry diminished in bilateral lung bases. No crepitation/rhonchi/wheezing Cardiovascular: Regular rate, Regular Rhythm, Normal S1, Normal S2, No murmurs Abdomen: Mild tenderness over epigastrium. Bowel Sounds Present, Soft, Non- Distended. No palpable mass : No renal angle tenderness. No suprapubic tenderness. Extremities: No edema, Capillary Refill Less than 3 Seconds Skin: No rashes, No breakdown Musculoskeletal: No Tenderness to Palpation of Joints or Extremities. ROM limited. Neurological: Cranial nerves II-XII grossly intact, DTR 2+/4 and Symmetrical, Neuro grossly intact Psych/Mental Status: Normal Affect, Appropriate. Results Lab / Micro Data Result Diagrams: 07/16/21 10:08 07/16/21 10:08 Labs: Laboratory Results - last 24 hr 07/16/21 10:08: WBC 9.9, RBC 3.19 L, Hgb 9.6 L, Hct 30.5 L, MCV 95.6, MCH 30.1, MCHC 31.5 L, RDW Std Deviation 60.2 H, RDW Coeff of Sammy 17.4 H, Plt Count 320, MPV 8.8, Immature Gran % (Auto) 0.400, Neut % (Auto) 69.1, Lymph % (Auto) 18.4 L , [place] % (Auto) 9.8, Eos % (Auto) 2.1, Baso % (Auto) 0.2, Absolute Neuts (auto) 6.8, Absolute Lymphs (auto) 1.81, Nucleated RBC % 0 07/16/21 10:08: Sodium 137, Potassium 4.0, Chloride 108 H, Carbon Dioxide 21.0, Anion Gap 8, BUN 18, Creatinine 1.01, Estim Creat Clear Calc 55.97, Est GFR (MDRD) Af Amer 70, Est GFR (MDRD) Non-Af 58 L, BUN/Creatinine Ratio 17.8, Glucose 99, Calcium 8.8, Total Bilirubin 0.20, AST 32, ALT 34, Alkaline Phosphatase 285 H, Total Protein 8.1, Albumin 3.3, Globulin 4.8 H, Albumin/Globulin Ratio 0.7 L 07/16/21 10:08: Lactic Acid 1.8 Assessment & Plan Assessment/Plan (1) Rectal/anal hemorrhage: PLAN: 1. Acute GI bleed possibility upper as she has epigastric pain with rapid transit: [facility] Monitor H&H in the evening. Hemoglobin 9.6/30.5. Platelet count trended 320,000. Surgeon Dr. Ramon is consulted. Plan for EGD and colonoscopy tomorrow AM. On PPI drip. Monitor vitals, intake and output. 2 chronic normocytic normochromic, iron deficiency and B12 anemia: Hemoglobin is on baseline 9.6. RDW 17.4%. Platelet count is 320,000. Patient follows Dr. Terrell Bauer and has chronic iron deficiency, and B12 deficiency. Continue iron supplement and B12. 3. Cardiac conditions: Coronary artery disease status post stents, chronic systolic heart failure, ischemic cardiomyopathy: Patient follows Dr. Sauceda. Last office visit, January 2021 reviewed. Last echo in May 2020 showed shows EF 45% with severe concentric LVH. Chronic dyspnea on exertion on going up steps. Hold Plavix. Continue atorvastatin, metoprolol succinate with holding parameters. And nitroglycerin sublingual as needed with holding parameters. repeat lactic acid. 4. COPD and history of lung nodule: PFT on April 2021 showed showed mild large airways obstructive ventilatory defect with air trapping and disproportionate reduction in diffusion capacity.she does not require oxygen. Patient follows net developer programmer, Dr. Hewitt for lung nodule. History of 50 pack years of smoking. Quit in December 2019. 5. Polymyositis: She was referred to pack train driver but did not see it. 6. Hypertension: Currently, blood pressure is in normal limit. 7. Anxiety: Continue alprazolam. 8. DVT prophylaxis: Pharmacological prophylaxis controlled in view of GI bleed. Bilateral SCDs. Living will/advanced directive/end of life care: Patient does have living will or advanced directive. Her is power of civil litigation attorney for health. After discussion of benefits/risks procedures involved with full code, DNR CC arrest and DNR CC, the patient opted for full code. Patient does want artificial life support including intubation, tube feed, ventilator and/chest compression, central venous catheter, vasopressor and DC shock if needed Total time spent in [id number] encounter in discussion of advanced directive 16 minutes. Charges/Coding Visit Charges Inpatient E&M: 03652 Init Hosp L3 Procedures Hospitalists Procedures: 15772 Advncd Care Plan 30 Min
[2021-07-16 11:34] VITALS: BP 128/77; PULSE 82; RESP 16; TEMP 36.3; O2SAT 97
--- NOTE | 2021-07-16 12:00 | CASEMGMT ---
DAYSI CM to room to meet with patient for initial transition planning/care coordination assessment. DAYSI PRADO introduced self and role at [facility]. Patient voices understanding and consents to assessment at this time. Patient's Martín present at bedside. Patient is alert and oriented, lying on ER cart in no apparent distress and answers all questions appropriately. Care providers, pharmacy, and demographics verified/updated at this time. PCP: Maxx Hewitt Specialists: Maxxus- hem/onc, Komal- cardio, Basali- pain management Preferred Pharmacy: [facility] Insurance: [employer] [facility] Prescription Benefit: yes Living Will/HPOA: Patient denies having a living will or HPOA. LNOK: , Martín Phelps Living Arrangements: Patient lives with and son in one story house with 3 steps to enter the home and a handrail present. Patient states independent with ADLs prior to hospitalization. Smoking/ETOH/Drug Use: Former smoker (quit December 2020 following [place]), admits to drinking one glass of wine daily, denies drug use Transportation: Patient drives self and denies transportation concerns. DME/HHC/SNF: Patient ambulates independently without the use of an assistive device. Available DME in home: shower chair, raised toilet seat, grab bars. Previous HHC but unsure of agency name. Denies previous SNF stays. Patient has no concerns with going home at time of discharge. CM to follow for any discharge planning/needs. Patient and voice no concerns/needs at this time. Advised patient and to ask for CM if any questions/concerns/needs arise. Voices understanding. Plan: home
--- NOTE | 2021-07-16 12:49 | EX.PCM.CON.S ---
Assessment & Plan Assessment/Plan (1) Acute GI bleeding: PLAN: The patient had EGD and colonoscopy 1 year ago which did show friable cecum and a possible AV malformation in the sigmoid. Patient reports bleeding started yesterday and her hemoglobin appears adequate. I would like her admitted and continue clear liquid and bowel prep today and I will perform EGD and colonoscopy tomorrow. Patient is on Plavix. Patient is also on a PPI. I explained endoscopy in detail to the patient. I explained the risks including but not limited to stroke or heart attack with anesthesia, perforation of the GI tract, bleeding, infection. I explained that any of these could necessitate further emergency surgery. The patient understands and all questions were answered sufficiently. The patient wishes to proceed with procedure. Nickolas Juarez MD Pager: [facility] [address] [place] [address], [address] [place] [address] Office: HPI Consult Data Date of Consult: 07/16/21 HPI Narrative HPI Narrative: JANETT MARK, is a 65 F who presents with abdominal pain and bleeding. The patient was seen 1 year ago with anemia. She had EGD and colonoscopy. Colonoscopy revealed friable cecum although biopsies were normal. Patient reports that she is having epigastric pain and started having bleeding last night. She reports the bleeding is maroon in color. She has been getting iron transfusions for her anemia. [facility] Medical History Acute blood loss anemia Anemia of chronic disease Atherosclerosis of coronary artery of [place] heart without angina pectoris Atrophic vaginitis B12 deficiency Chronic diarrhea Chronic systolic (congestive) heart failure COPD (chronic obstructive pulmonary disease) CVA (cerebral vascular accident) Degenerative joint disease of spine Elevated CPK Elevated LFTs Encounter for screening for malignant neoplasm of lung in former smoker who quit in past 15 years with 30 pack year history or greater Essential (primary) hypertension History of benign breast tumor History of non-ST elevation myocardial infarction (NSTEMI) (06/17/20) History of tobacco use Hyperlipidemia Hyponatremia IBS (irritable bowel syndrome) Iron deficiency anemia Iron deficiency anemia due to chronic blood loss Irritable bowel syndrome with diarrhea Lung infiltrate Macrocytic anemia Old anterolateral wall myocardial infarction (01/08/20) Polymyositis Pulmonary nodule 1 cm or greater in diameter Rhabdomyolysis (01/08/20) Urethral stricture Vitamin B12 deficiency anemia Home Medications nitroglycerin 0.4 mg sublingual tablet 0.4 mg SUBLINGUAL Q5M PRN #25 tab 06/04/19 [Rx Last Taken Unknown] primidone 150 mg PO BID 04/22/20 [History Last Taken 06/30/20] furosemide 40 mg tablet 40 mg PO DAILY #90 tab 10/27/20 [Rx Last Taken Unknown] diphenoxylate-atropine 2.5 mg-0.025 mg tablet 1 tab PO BID #60 tab 11/26/20 [Rx Last Taken Unknown] metoprolol succinate 25 mg tablet,extended release 24 hr 12.5 mg PO DAILY #90 tab 01/29/21 [Rx Last Taken Unknown] nortriptyline 50 mg capsule 50 mg PO QHS #90 cap 02/17/21 [Rx Last Taken Unknown] potassium chloride 20 mEq tablet,extended release(part/cryst) 40 meq PO DAILY tab 02/19/21 [History Last Taken Unknown] gabapentin 100 mg capsule 100 mg PO QHS #60 cap 04/17/21 [Rx Last Taken Unknown] alprazolam 0.5 mg tablet 0.5 mg PO BID PRN #60 tablet 04/27/21 [Rx Last Taken Unknown] hydrocodone-acetaminophen 5-325mg 5mg-325mg 2 tab PO PRN PRN tab 06/04/21 [History Last Taken Unknown] albuterol sulfate 90 mcg/actuation aerosol inhaler 2 puff INHALATION Q6H PRN #18 gm 06/10/21 [Rx Last Taken Unknown] atorvastatin 80 mg tablet 80 mg PO QHS #90 tab 06/10/21 [Rx Last Taken Unknown] clopidogrel 75 mg tablet 75 mg PO DAILY #90 tab 06/10/21 [Rx Last Taken Unknown] omeprazole 20 mg tablet,delayed release 20 mg PO BID #60 tablet. 06/10/21 [Rx Last Taken Unknown] tiotropium bromide 2.5 mcg/actuation mist for inhalation 2 puff INHALATION DAILY PRN #4 g 06/10/21 [Rx Last Taken Unknown] folic acid 1 mg tablet 1 mg PO BID #180 tab 06/12/21 [Rx Last Taken Unknown] Allergy/AdvReac Type Severity Reaction Status Date / Time codeine Allergy Severe Other Verified 07/16/21 09:55 sulfamethoxazole Allergy Severe Rash Verified 07/16/21 09:55 [From Septra] trimethoprim [From Septra] Allergy Severe Unknown Verified 07/16/21 09:55 amlodipine [From Norvasc] Allergy Mild severe BLE Verified 07/16/21 09:55 edema prasugrel [From Effient] AdvReac Severe Not Verified 07/16/21 09:55 advised in pt's who have had CVA Family History Mother CVA (cerebral vascular accident) Breast cancer Anxiety and depression Grandmother CVA (cerebral vascular accident) Sister Breast cancer Anxiety and depression Surgical History H/O colonoscopy H/O esophagogastroduodenoscopy History of coronary artery stent placement (01/08/20) History of ear surgery History of hysterectomy History of left heart catheterization (06/17/20) Social History Smoking Status: Former smoker quit date: 12/26/19 pack-years: 50 Tobacco: How many years used: 50 how long ago did patient quit smokin year 4 months second hand exposure: No alcohol intake: current alcohol intake frequency: a few times a week Alcohol type: wine details: occasionally substance use type: does not use diet: low salt well-balanced diet: other details: having hard time figuring out what to eat (no salt) caffeine: No eating out: rarely or never during the past year weight has: increased > 10 lbs what type of physical activity do you participate in: walking and bicycling frequency: 1-2 times per week seatbelt use: always do you feel safe at home: Yes ROS Constitutional Constitutional: Denies anorexia or fatigue Eyes Eyes: Denies blurry vision ENT HEENT: Denies abnormal hearing Cardiovascular Cardiovascular: Denies chest pain Respiratory/Chest Respiratory/Chest: Denies cough Gastrointestinal Gastrointestinal: Reports abdominal pain and rectal bleeding; Denies nausea or vomiting Genitourinary Genitourinary: Denies change in urinary stream Musculoskeletal Musculoskeletal: Denies back pain Integumentary Integumentary: Denies new lesions Neurologic Neurologic: Denies abnormal gait Psychiatric Psychiatric: Denies anxiety Hematologic/Lymphatic Hematologic/Lymphatic: Reports easy bleeding Physical Exam Const alert and oriented x3 General Appearance: cooperative HEENT normocephalic Eyes PERRL Neck full ROM Resp normal respiratory effort Cardio Rate: regular rate Rhythm: regular rhythm GI soft to palpation Palpation: tender epigastric Extremity normal to inspection Neuro CN's II-XII intact bilaterally Lab / Micro Data Result Diagrams: 07/16/21 10:08 07/16/21 10:08 Labs: Laboratory Results - last 24 hr 07/16/21 10:08: WBC 9.9, RBC 3.19 L, Hgb 9.6 L, Hct 30.5 L, MCV 95.6, MCH 30.1, MCHC 31.5 L, RDW Std Deviation 60.2 H, RDW Coeff of Sammy 17.4 H, Plt Count 320, MPV 8.8, Immature Gran % (Auto) 0.400, Neut % (Auto) 69.1, Lymph % (Auto) 18.4 L, [place] % (Auto) 9.8, Eos % (Auto) 2.1, Baso % (Auto) 0.2, Absolute Neuts (auto) 6.8, Absolute Lymphs (auto) 1.81, Nucleated RBC % 0 07/16/21 10:08: Sodium 137, Potassium 4.0, Chloride 108 H, Carbon Dioxide 21.0, Anion Gap 8, BUN 18, Creatinine 1.01, Estim Creat Clear Calc 55.97, Est GFR (MDRD) Af Amer 70, Est GFR (MDRD) Non-Af 58 L, BUN/Creatinine Ratio 17.8, Glucose 99, Calcium 8.8, Total Bilirubin 0.20, AST 32, ALT 34, Alkaline Phosphatase 285 H, Total Protein 8.1, Albumin 3.3, Globulin 4.8 H, Albumin/Globulin Ratio 0.7 L 07/16/21 10:08: Lactic Acid 1.8 07/16/21 10:24: Blood Type O POSITIVE, Antibody Screen NEGATIVE
[2021-07-16 12:53] VITALS: BMI 21.1
[2021-07-16 13:13] VITALS: BP 142/62; PULSE 77; RESP 18; TEMP 36.6; O2SAT 99
[2021-07-16 13:23] LABS: Magnesium 1.7 mg/dL (1.6-2.6)
--- NOTE | 2021-07-16 14:33 | PCS.PANDOC ---
PANDEMIC DOCUMENTATION INITIATED: Date: 02/09/2021 Time: 190
[2021-07-16] MEDS: Bisacodyl 5 MG Tablet 20 MG PO (14:41)
[2021-07-16] MEDS: Lactated Ringers 1,000 ML 50 ML IV (14:42)
[2021-07-16] MEDS: Acetaminophen 325 MG Tablet 650 MG PO (14:42)
[2021-07-16 16:04] VITALS: O2SAT 99
[2021-07-16] MEDS: Polyethylene Glycol 3350 BOWEL PREP PO (17:37)
[2021-07-16 17:51] VITALS: BP 144/74; PULSE 61; RESP 16; TEMP 36.7; O2SAT 100
[2021-07-16 19:27] LABS: Hematocrit 31.3 % (37-47); Hemoglobin 9.6 g/dL (12.0-15.0)
[2021-07-16] MEDS: Primidone 50 MG Tablet 150 MG PO (20:45)
[2021-07-16] MEDS: Folic Acid 1 MG Tablet PO (20:46)
[2021-07-16] MEDS: Nortriptyline 25 MG Capsule 50 MG PO (20:46)
[2021-07-16] MEDS: Atorvastatin Calcium 80 MG Tablet PO (20:46)
[2021-07-16] MEDS: Gabapentin 100 MG Capsule 200 MG PO (20:47)
[2021-07-16 23:31] LABS: Hematocrit 30.6 % (37-47); Hemoglobin 9.6 g/dL (12.0-15.0)
[2021-07-16] MEDS: ALPRAZolam 0.5 MG Tablet PO (23:41)
[2021-07-17] VITALS (12 sets, daily range): BP systolic 112–145; BP diastolic 50–85; PULSE 59–77; RESP 16–19; TEMP 36.3–37.1; O2SAT 97–100; BMI 20.8
[2021-07-17 04:27] LABS: Absolute Lymphocyte Count 1.82 X10^3/uL (0.83-4.51); Absolute Neutrophil Count 4.5 X10^3/uL (2.0-7.7); Basophil# 0.02 X10^3/uL; Basophil% 0.3 % (0-1); Eosinophil# 0.27 X10^3/uL; Eosinophils% 3.6 % (0-5); Hematocrit 25.8 % (37-47); Hemoglobin 7.8 g/dL (12.0-15.0); Lymphocyte # 1.82 X10^3/ul (0.83-4.51); Lymphocyte % 24.5 % (19-41); Mean Corp Hgb Conc 30.2 g/dL (32-36); Mean Corpuscular Volume 95.9 fL (81-99); Monocyte% 10.8 % (0-10); NRBC Flagged by Analyzer 0 % (0-5); Neutrophil % 60.4 % (47-70); Platelet Count 279 K/mm3 (150-450); RBC Distribution Width CV 17.2 % (11.6-14.6); RBC Distribution Width SD 58.9 fl (35.1-43.9); Red Blood Count 2.69 M/mm3 (4.2-5.4); White Blood Count 7.4 K/mm3 (4.4-11.0)
--- NOTE | 2021-07-17 05:00 | EKG12_ITS ---
Test Reason : AM EKG Blood Pressure : / mmHG Vent. Rate : 083 BPM Atrial Rate : 083 BPM P-R Int : 194 ms QRS Dur : 094 ms QT Int : 406 ms P-R-T Axes : 034 088 059 degrees QTc Int : 477 ms Normal sinus rhythm Incomplete right bundle branch block Confirmed by LISA MATUTE, JOSE ([id number]), editorial project manager ALFONZO HILL ([id number]) on 07/17/2021 1:54:02 PM Referred By: DINAH Confirmed By:JOSE GONZALEZ MD
[2021-07-17 05:01] LABS: International Normalized Ratio 1.2; Prothrombin Time (Protime)PT. 14.6 SECONDS (11.7-14.9)
[2021-07-17 05:04] LABS: AST(SGOT) 21 U/L (15-37); Alanine Aminotransfer ALT/SGPT 28 U/L (13-56); Alkaline Phosphatase 248 U/L (45-117); Anion Gap 7 (5-15); BUN 13 mg/dL (7-18); BUN/Creat Ratio 16.4 RATIO (10-20); Bilirubin, Direct 0.06 mg/dL (0.00-0.30); Calcium,Total 8.4 mg/dL (8.5-10.1); Chloride 110 mmol/L (98-107); Creatinine, Serum 0.79 mg/dL (0.55-1.02); EST Glomerular Filtration Rate 77 mL/min (>60); Est Glom Filt Rate - Afr Amer 93 mL/min (>60); Estimated Creatinine Clearance 55.16 ml/min; Globulin 4.2 g/dL (2.2-4.2); Glucose 100 mg/dL (74-106); Phosphorus 3.4 mg/dL (2.5-4.9); Potassium 3.7 mmol/L (3.5-5.1); Protein, Total 7.2 g/dL (6.4-8.2); Sodium Level 139 mmol/L (136-145)
--- NOTE | 2021-07-17 11:18 | OP.CCLET_ITS ---
07/17/2021 Maxx Hewitt Re : Upper GI endoscopy procedure for September Dear Dr. Hewitt This procedure was performed on Saturday, July 17, 2021. My impressions and recommendations are as follows: Impressions : - Normal esophagus. - Normal stomach. - Normal examined duodenum. - No specimens collected. Recommendations : - [facility]. - Advance diet as tolerated. - Continue present medications. My findings are described in the full procedure note, which is enclosed. If I can be of further assistance, please feel free to contact me at Doctor phone number(s): , Work: . Sincerely, Nickolas Juarez MD 07/17/2021 11:18:02 AM This report has been signed electronically.
--- NOTE | 2021-07-17 11:18 | OP.EGD_ITS ---
Patient Name: Tyra Phelps Procedure Date: 07/17/2021 10:22 AM Date of : 1955 Age: 65 Procedure: Upper GI endoscopy Indications: Hematochezia Providers: Nickolas Juarez MD Medicines: Monitored Anesthesia Care Patient Profile: This is a 65 year old female. Refer to note in patient chart for documentation of history and physical. Complications: No immediate complications. Procedure: Pre-Anesthesia Assessment: - Prior to the procedure, a History and Physical was performed, and patient medications and allergies were reviewed. The patient's tolerance of previous anesthesia was also reviewed. The risks and benefits of the procedure and the sedation options and risks were discussed with the patient. All questions were answered, and informed consent was obtained. Prior Anticoagulants: The patient has taken Plavix (clopidogrel), last dose was 1 day prior to procedure. After reviewing the risks and benefits, the patient was deemed in satisfactory condition to undergo the procedure. After obtaining informed consent, the endoscope was passed under direct vision. Throughout the procedure, the patient's blood pressure, pulse, and oxygen saturations were monitored continuously. The Endoscope was introduced through the mouth, and advanced to the fourth part of duodenum. The upper GI endoscopy was accomplished without difficulty. The patient tolerated the procedure well. Scope In: 10:28:59 AM Scope Out: 10:31:03 AM Total Procedure Duration Time 0 hours 2 minutes 4 seconds Findings: The esophagus was normal. The stomach was normal. The examined duodenum was normal. Impression: - Normal esophagus. - Normal stomach. - Normal examined duodenum. - No specimens collected. Recommendation: - [facility] care. - Advance diet as tolerated. - Continue present medications. Procedure Code(s): --- Professional --- 31146, Esophagogastroduodenoscopy, flexible, transoral; diagnostic, including collection of specimen(s) by brushing or washing, when performed (separate procedure) Diagnosis Code(s): --- Professional --- K92.1, Melena (includes Hematochezia) CPT copyright 2017 [employer]. All rights reserved. The codes documented in this report are preliminary and upon truck rental clerk review may be revised to meet current compliance requirements. Nickolas Juarez MD 07/17/2021 11:18:02 AM This report has been signed electronically. Number of Addenda: 0 Note Initiated On: 07/17/2021 10:22 AM
--- NOTE | 2021-07-17 11:27 | PCM.PN.BLA ---
Progress Note I performed an EGD and colonoscopy on the patient this morning. EGD was normal. On colonoscopy the colon was very tortuous but the cecum was able to be reached. Patient had 3 AVMs in the cecum which were all successfully ablated with bipolar. More distal to this in the ascending colon the patient had 2 more lesions and 1 of these did bleed with bipolar suggesting that this is a bleeding lesion. 3 clips were placed to stop the bleeding. There was no bleeding at the end of the procedure. I recommended the patient be kept on clear liquids for 24 more hours and then advance as tolerated and discharge home if hemoglobin remains stable and bleeding stops. Nickolas Juarez MD Pager: [facility] [address] [place] [address] [address] [place] [address] Office:
--- NOTE | 2021-07-17 11:28 | OP.COLON_ITS ---
Patient Name: Tyra Phelps Procedure Date: 07/17/2021 10:33 AM Date of : 1955 Age: 65 Procedure: Colonoscopy Indications: Hematochezia Providers: Nickolas Juarez MD Medicines: Monitored Anesthesia Care Patient Profile: This is a 65 year old female. Refer to note in patient chart for documentation of history and physical. Last Colonoscopy: 1 year ago. Complications: No immediate complications. Estimated blood loss: Minimal. Procedure: Pre-Anesthesia Assessment: - Prior to the procedure, a History and Physical was performed, and patient medications and allergies were reviewed. The patient's tolerance of previous anesthesia was also reviewed. The risks and benefits of the procedure and the sedation options and risks were discussed with the patient. All questions were answered, and informed consent was obtained. Prior Anticoagulants: The patient has taken Plavix (clopidogrel), last dose was 1 day prior to procedure. After reviewing the risks and benefits, the patient was deemed in satisfactory condition to undergo the procedure. After I obtained informed consent, the scope was passed under direct vision. Throughout the procedure, the patient's blood pressure, pulse, and oxygen saturations were monitored continuously. The pediatric colonoscope was introduced through the anus and advanced to the cecum, identified by appendiceal orifice and ileocecal valve. The colonoscopy was performed without difficulty. The patient tolerated the procedure well. The quality of the bowel preparation was good. Scope In: 10:35:14 AM Scope Withdrawal Time 0 hours 9 minutes 32 seconds Scope Out: 11:15:08 AM Total Procedure Duration Time 0 hours 39 minutes 54 seconds Findings: Three small localized angiodysplastic lesions without bleeding were found in the ascending colon. Fulguration to ablate the lesion to prevent bleeding by bipolar probe was successful. One of these most distal bled with bipolar and 3 clips were placed to stop bleeding. There was no bleeding at the end of the procedure. The exam was otherwise without abnormality on direct and retroflexion views. Impression: - Three non-bleeding colonic angiodysplastic lesions. Treated with bipolar cautery. Clips were placed. - The examination was otherwise normal on direct and retroflexion views. - No specimens collected. Recommendation: - Return patient to [facility] for [facility] care. - Clear liquid diet. - Continue present medications. - Repeat colonoscopy is not recommended due to current age (66 years or older) for screening purposes. Procedure Code(s): --- Professional --- 31995, Colonoscopy, flexible; with control of bleeding, any method Diagnosis Code(s): --- Professional --- K55.20, Angiodysplasia of colon without hemorrhage K92.1, Melena (includes Hematochezia) CPT copyright 2017 [employer]. All rights reserved. The codes documented in this report are preliminary and upon mechanical assembler review may be revised to meet current compliance requirements. Nickolas Juarez MD 07/17/2021 11:27:43 AM This report has been signed electronically. Number of Addenda: 0 Note Initiated On: 07/17/2021 10:33 AM
--- NOTE | 2021-07-17 11:28 | OP.CCLET_ITS ---
07/17/2021 Maxx Hewitt Re : Colonoscopy procedure for September Dear Dr. Hewitt This procedure was performed on Saturday, July 17, 2021. My impressions and recommendations are as follows: Impressions : - Three non-bleeding colonic angiodysplastic lesions. Treated with bipolar cautery. Clips were placed. - The examination was otherwise normal on direct and retroflexion views. - No specimens collected. Recommendations : - Return patient to [facility] for [facility] care. - Clear liquid diet. - Continue present medications. - Repeat colonoscopy is not recommended due to current age (66 years or older) for screening purposes. My findings are described in the full procedure note, which is enclosed. If I can be of further assistance, please feel free to contact me at Doctor phone number(s): , Work: . Sincerely, Nickolas Juarez MD 07/17/2021 11:27:43 AM This report has been signed electronically.
--- NOTE | 2021-07-17 11:50 | PN.HOSP_ITS ---
Subjective Subjective Follow-up on acute GI bleed: Patient was seen and examined. Patient had EGD and colonoscopy done today. EGD was unremarkable. 3 nonbleeding colonic AVM lesions treated with bipolar cautery and clips. She complains of a headache post-procedure. Objective Data Objective Data Vital Signs: Vital Signs Temp Pulse Resp BP Pulse Ox 98.7 F 67 16 114/77 97 07/17/21 11:40 07/17/21 11:40 07/17/21 11:40 07/17/21 11:40 07/17/21 11:40 Oxygen Delivery Method Room Air Weight: 64 kg Body Mass Index (BMI) 20.8 Intake & Output: Intake and Output for Last 24 Hours 07/15/21 07/16/21 07/17/21 23:59 23:59 23:59 Intake Total 500 / 500 100 / 100 Output Total 203 / 203 Balance 297 / 297 100 / 100 Lab / Micro Data Result Diagrams: 07/17/21 16:01 07/17/21 03:52 Labs: Laboratory Results - last 24 hr 07/16/21 10:08: Magnesium 1.7 07/16/21 19:05: Hgb 9.6 L, Hct 31.3 L 07/16/21 23:20: Hgb 9.6 L, Hct 30.6 L 07/17/21 03:52: WBC 7.4, RBC 2.69 L, Hgb 7.8 L, Hct 25.8 L, MCV 95.9, MCH 29.0, MCHC 30.2 L, RDW Std Deviation 58.9 H, RDW Coeff of Sammy 17.2 H, Plt Count 279, MPV 9.0, Immature Gran % (Auto) 0.400, Neut % (Auto) 60.4, Lymph % (Auto) 24.5, [place] % (Auto) 10.8 H, Eos % (Auto) 3.6, Baso % (Auto) 0.3, Absolute Neuts (auto) 4.5, Absolute Lymphs (auto) 1.82, Nucleated RBC % 0 07/17/21 03:52: Sodium 139, Potassium 3.7, Chloride 110 H, Carbon Dioxide 22.0, Anion Gap 7, BUN 13, Creatinine 0.79, Estim Creat Clear Calc 55.16, Est GFR (MDRD) Af Amer 93, Est GFR (MDRD) Non-Af 77, BUN/Creatinine Ratio 16.4, Glucose 100, Calcium 8.4 L, Phosphorus 3.4, Total Bilirubin 0.20, Direct Bilirubin 0.06, AST 21, ALT 28, Alkaline Phosphatase 248 H, Total Protein 7.2, Albumin 3.0 L, Globulin 4.2 07/17/21 03:52: PT 14.6, INR 1.2 Physical Exam Narrative Physical exam: General: Alert, Oriented x3, Cooperative, No apparent distress, Well developed HEENT: Atraumatic Oral: Moist Mucosa Neck: Supple Lungs: Clear to auscultation Cardiovascular: HS I+II, regular, no murmurs Abdomen: Bowel Sounds Present, Soft, Non Tender Extremities: No edema Assessment & Plan Assessment/Plan (1) Rectal/anal hemorrhage: PLAN: 1. Acute GI bleed secondary to colonic AVMs, status post cauterization and clips General surgery consulted Continue on IV PPI drip Continue off Plavix 2 Acute on chronic mixed anemia, secondary to acute blood loss anemia from #1 History of iron deficiency anemia/B12 deficiency Will check H&H, transfuse for hemoglobin less than 7 in the absence of active cardiac complaints. Continue folic acid 3. Rest of her chronic medical conditions including CAD status post stent, chronic systolic CHF/ischemic cardiomyopathy, EF 45%/COPD/polymyositis/hypertension/anxiety remained stable Continue atorvastatin, metoprolol, gabapentin, Xanax as needed 4. DVT prophylaxis, SCDs on account of #1 Charges/Coding Visit Charges Inpatient E&M: 69863 Subs Hosp L2
[2021-07-17] MEDS: Primidone 50 MG Tablet 150 MG PO ×2 (12:22→21:02)
[2021-07-17] MEDS: Acetaminophen 325 MG Tablet 650 MG PO ×2 (12:22→21:04)
[2021-07-17] MEDS: Folic Acid 1 MG Tablet PO ×2 (12:22→21:02)
[2021-07-17] MEDS: ALPRAZolam 0.5 MG Tablet PO ×2 (12:22→23:11)
[2021-07-17] MEDS: Metoprolol(XL)Succ 25 MG Tablet 12.5 MG PO (12:23)
[2021-07-17 16:22] LABS: Hematocrit 24.6 % (37-47); Hemoglobin 7.7 g/dL (12.0-15.0)
[2021-07-17] MEDS: Metoclopramide 10 MG/2 ML Vial IV (16:28)
[2021-07-17 17:28] LABS: Ferritin 102 ng/mL (8-252); Iron 35 ug/dL (50-170); Iron Binding Capacity,Total 234 ug/dL (250-450)
[2021-07-17] MEDS: Nortriptyline 25 MG Capsule 50 MG PO (21:01)
[2021-07-17] MEDS: Atorvastatin Calcium 80 MG Tablet PO (21:02)
[2021-07-17] MEDS: Gabapentin 100 MG Capsule 200 MG PO (23:11)
[2021-07-17] MEDS: 0.9% Saline Lock 10 ML Syringe IV (23:12)
[2021-07-18 02:15] VITALS: BP 143/69; PULSE 65; RESP 15; TEMP 36.6; O2SAT 99
[2021-07-18 05:10] LABS: Absolute Lymphocyte Count 1.77 X10^3/uL (0.83-4.51); Absolute Neutrophil Count 3.2 X10^3/uL (2.0-7.7); Basophil# 0.01 X10^3/uL; Basophil% 0.2 % (0-1); Eosinophil# 0.23 X10^3/uL; Hematocrit 23.9 % (37-47); Hemoglobin 7.4 g/dL (12.0-15.0); Lymphocyte # 1.77 X10^3/ul (0.83-4.51); Lymphocyte % 30.7 % (19-41); Mean Corpuscular Hgb 29.5 pg (27.0-32.0); Mean Corpuscular Volume 95.2 fL (81-99); Monocyte# 0.58 X10^3/uL; Monocyte% 10.1 % (0-10); NRBC Flagged by Analyzer 0 % (0-5); Neutrophil # 3.17 X10^3/uL (2.7-7.7); Neutrophil % 54.8 % (47-70); Platelet Count 260 K/mm3 (150-450); RBC Distribution Width SD 57.6 fl (35.1-43.9); Red Blood Count 2.51 M/mm3 (4.2-5.4); White Blood Count 5.8 K/mm3 (4.4-11.0)
[2021-07-18 05:28] LABS: ALB/GLOB Ratio 0.7 RATIO (0.9-2.4); AST(SGOT) 15 U/L (15-37); Alanine Aminotransfer ALT/SGPT 25 U/L (13-56); Albumin, Serum 2.6 g/dL (3.2-5.0); Alkaline Phosphatase 216 U/L (45-117); Anion Gap 6 (5-15); BUN 8 mg/dL (7-18); BUN/Creat Ratio 10.4 RATIO (10-20); Chloride 112 mmol/L (98-107); Creatinine, Serum 0.77 mg/dL (0.55-1.02); EST Glomerular Filtration Rate 79 mL/min (>60); Est Glom Filt Rate - Afr Amer 96 mL/min (>60); Estimated Creatinine Clearance 55.16 ml/min; Globulin 3.8 g/dL (2.2-4.2); Glucose 94 mg/dL (74-106); Potassium 3.6 mmol/L (3.5-5.1); Protein, Total 6.4 g/dL (6.4-8.2); Sodium Level 141 mmol/L (136-145)
[2021-07-18] MEDS: Acetaminophen 325 MG Tablet 650 MG PO (06:06)
[2021-07-18 08:48] VITALS: BP 138/68; PULSE 66; RESP 16; TEMP 36.4; O2SAT 93
--- NOTE | 2021-07-18 09:16 | PCM.PN.SRG ---
Subjective Subjective No further bloody bowel movements. Patient is hungry Objective Data Objective Data Abdomen is soft Vital Signs: Vital Signs Temp Pulse Resp BP Pulse Ox 97.5 F L 66 16 138/68 H 93 07/18/21 08:48 07/18/21 08:48 07/18/21 08:48 07/18/21 08:48 07/18/21 08:48 Oxygen Delivery Method Room Air Weight: 140 lb 3.424 oz Body Mass Index (BMI) 20.8 Intake & Output: Intake and Output for Last 24 Hours 07/16/21 07/17/21 07/18/21 23:59 23:59 23:59 Intake Total 500 / 500 1783 / 1783 37 37 Output Total 203 / 203 500 / 500 Balance 297 / 297 1283 / 1283 Lab / Micro Data Result Diagrams: 07/18/21 04:40 07/18/21 04:40 Labs: Laboratory Results - last 24 hr 07/17/21 03:52: Iron 35 L, TIBC 234 L, Iron Saturation 15.0, Ferritin 102 07/17/21 16:01: Hgb 7.7 L, Hct 24.6 L 07/18/21 04:40: WBC 5.8, RBC 2.51 L, Hgb 7.4 L, Hct 23.9 L, MCV 95.2, MCH 29.5, MCHC 31.0 L, RDW Std Deviation 57.6 H, RDW Coeff of Sammy 17.0 H, Plt Count 260, MPV 9.0, Immature Gran % (Auto) 0.200, Neut % (Auto) 54.8, Lymph % (Auto) 30.7, [place] % (Auto) 10.1 H, Eos % (Auto) 4.0, Baso % (Auto) 0.2, Absolute Neuts (auto) 3.2, Absolute Lymphs (auto) 1.77, Nucleated RBC % 0 07/18/21 04:40: Sodium 141, Potassium 3.6, Chloride 112 H, Carbon Dioxide 23.0, Anion Gap 6, BUN 8, Creatinine 0.77, Estim Creat Clear Calc 55.16, Est GFR (MDRD) Af Amer 96, Est GFR (MDRD) Non-Af 79, BUN/Creatinine Ratio 10.4, Glucose 94, Calcium 8.0 L, Total Bilirubin 0.10 L, AST 15, ALT 25, Alkaline Phosphatase 216 H, Total Protein 6.4, Albumin 2.6 L, Globulin 3.8, Albumin/Globulin Ratio 0.7 L Assessment & Plan Assessment/Plan (1) Rectal/anal hemorrhage: PLAN: Okay to advance diet.
[2021-07-18] MEDS: Metoclopramide 10 MG/2 ML Vial 5 MG IV (10:40)
[2021-07-18 10:41] VITALS: PULSE 66
[2021-07-18] MEDS: Folic Acid 1 MG Tablet PO (10:41)
[2021-07-18] MEDS: Primidone 50 MG Tablet 150 MG PO (10:41)
[2021-07-18] MEDS: Metoprolol(XL)Succ 25 MG Tablet 12.5 MG PO (10:41)
[2021-07-18] MEDS: 0.9% Saline Lock 10 ML Syringe IV (10:42)
--- NOTE | 2021-07-18 11:47 | DS.PCM_ITS ---
Providers Date of Admission: 07/16/21 Date of Discharge: 07/18/21 Primary Care Physician: Dr. Maxx Hewitt, Consultations 07/16/21 11:34 Consult: General Surgery Routine Consulting Provider: Nickolas Juarez Reason for Consult: RECTAL Bleed EMERGENT Consult: No MD Notified: Yes Date Notified: 07/16/21 Time Notified: 11:34 Method of Notification: Verbal Reason For Visit: GI BLEED Diagnosis Discharge Diagnosis (1) Rectal/anal hemorrhage: Status: Acute Code(s): K62.5 - Hemorrhage of anus and rectum Medications at Discharge Home Medications nitroglycerin 0.4 mg sublingual tablet 0.4 mg SUBLINGUAL Q5M PRN #25 tab 06/04/19 primidone 150 mg PO BID 04/22/20 metoprolol succinate 25 mg tablet,extended release 24 hr 12.5 mg PO DAILY #90 tab 01/29/21 nortriptyline 50 mg capsule 50 mg PO QHS #90 cap 02/17/21 potassium chloride 20 mEq tablet,extended release(part/cryst) 20 meq PO BID tab 02/19/21 alprazolam 0.5 mg tablet 0.5 mg PO BID PRN #60 tablet 04/27/21 hydrocodone-acetaminophen 5-325mg 5mg-325mg 2 tab PO PRN PRN tab 06/04/21 albuterol sulfate 90 mcg/actuation aerosol inhaler 2 puff INHALATION Q6H PRN #18 gm 06/10/21 atorvastatin 80 mg tablet 80 mg PO QHS #90 tab 06/10/21 tiotropium bromide 2.5 mcg/actuation mist for inhalation 2 puff INHALATION DAILY PRN #4 g 06/10/21 diphenoxylate-atropine 1 tab PO DAILY PRN 07/16/21 folic acid 1 mg PO BID 07/16/21 furosemide 40 mg PO DAILY PRN 07/16/21 gabapentin 200 mg PO QHS 07/16/21 ferrous sulfate 325 mg PO BID 30 Days #60 tab 07/18/21 omeprazole 40 mg PO BID 30 Days #120 tablet. 07/18/21 Hospital Course Operations None Procedures Colonoscopy and EGD Summary of Care Provided Minutes Spent on Discharge: 40 Hospital Course: 65-year-old with history of GI bleed status post colonoscopy a year ago which showed gastric inflammation, friable cecum, possible AVM malformation of sigmoid colon comes in with maroon-colored stool. Patient has history of CAD status post stents and is on Brilinta. Patient has a baseline hemoglobin of 9.6, hemoglobin remained about the same on admission. Patient underwent EGD which was unremarkable and colonoscopy on 347188. Findings showed 3 colonic AVMs status post argon beam in and clipping. Her hemoglobin dipped to 7.8. Repeat hemoglobin remained about the same. Patient received IV iron x2 doses during this hospital stay. She was also discharged home on oral iron. Patient was discharged on omeprazole 40 mg p.o. twice daily. She will resume her Brilinta in a couple of days. She will follow-up with general surgery in the outpatient Physical Exam Narrative Physical exam: General: Alert, Oriented x3, Cooperative, No apparent distress, Well developed HEENT: Atraumatic Oral: Moist Mucosa Neck: Supple Lungs: Clear to auscultation Cardiovascular: HS I+II, regular, no murmurs Abdomen: Bowel Sounds Present, Soft, Non Tender Extremities: No edema Weight / BMI Weight Weight: 63.6 kg Body Mass Index (BMI) 20.8 ABG / Lab / Microbiology Data Result Diagrams: 07/18/21 04:40 07/18/21 04:40 Laboratory: Laboratory Results - last 24 hr 07/17/21 03:52: Iron 35 L, TIBC 234 L, Iron Saturation 15.0, Ferritin 102 07/17/21 16:01: Hgb 7.7 L, Hct 24.6 L 07/18/21 04:40: WBC 5.8, RBC 2.51 L, Hgb 7.4 L, Hct 23.9 L, MCV 95.2, MCH 29.5, MCHC 31.0 L, RDW Std Deviation 57.6 H, RDW Coeff of Smamy 17.0 H, Plt Count 260, MPV 9.0, Immature Gran % (Auto) 0.200, Neut % (Auto) 54.8, Lymph % (Auto) 30.7, [place] % (Auto) 10.1 H, Eos % (Auto) 4.0, Baso % (Auto) 0.2, Absolute Neuts (auto) 3.2, Absolute Lymphs (auto) 1.77, Nucleated RBC % 0 07/18/21 04:40: Sodium 141, Potassium 3.6, Chloride 112 H, Carbon Dioxide 23.0, Anion Gap 6, BUN 8, Creatinine 0.77, Estim Creat Clear Calc 55.16, Est GFR (MDRD) Af Amer 96, Est GFR (MDRD) Non-Af 79, BUN/Creatinine Ratio 10.4, Glucose 94, Calcium 8.0 L, Total Bilirubin 0.10 L, AST 15, ALT 25, Alkaline Phosphatase 216 H, Total Protein 6.4, Albumin 2.6 L, Globulin 3.8, Albumin/Globulin Ratio 0.7 L D/C Instructions Discharge Diet: Low fat / Low cholesterol and 2000 mg Sodium Diet Meaningful Use Info Meaningful Use Diagnoses (Choose all that apply): None applicable Discharge Plan Admission Admit Date/Time: 07/16/21 11:26 Primary Reason for Your Visit: Acute GI bleed Attending Provider: Anay Jeong Primary Care Provider: Maxx Hewitt Consulting Providers: Nickolas Juarez Instructions Additional Instructions / Restrictions: Take note of changes to your medications. Do not take any NSAIDs. Continue on your omeprazole. Resume your Brilinta on 07/22/21. Discharge Orders/Prescriptions Prescriptions: New ferrous sulfate 325 mg (65 mg iron) tablet 325 mg PO BID 30 Days Qty: 60 RF: 0 Continued potassium chloride 20 mEq tablet,ER particles/crystals 20 meq PO BID RF: 0 metoprolol succinate 25 mg tablet extended release 24 hr 12.5 mg PO DAILY Qty: 90 RF: 1 hydrocodone-acetaminophen 5-325 mg tablet 2 tab PO PRN PRN (Reason: pain) RF: 0 Spiriva Respimat 2.5 mcg/actuation mist 2 puff INHALATION DAILY PRN (Reason: copd) Qty: 4 RF: 4 albuterol sulfate 90 mcg/actuation HFA aerosol inhaler 2 puff INHALATION Q6H PRN (Reason: Sob &/Or Wheezing) Qty: 18 RF: 1 atorvastatin 80 mg tablet 80 mg PO QHS Qty: 90 RF: 1 primidone 50 MG tablet 150 mg PO BID RF: 0 furosemide 40 mg tablet 40 mg PO DAILY PRN (Reason: edema/swelling) RF: 0 diphenoxylate-atropine 2.5-0.025 mg tablet 1 tab PO DAILY PRN (Reason: Diarrhea) RF: 0 folic acid 1 mg tablet 1 mg PO BID RF: 0 gabapentin 100 mg capsule 200 mg PO QHS RF: 0 nitroglycerin 0.4 mg tablet, sublingual 0.4 mg sublingual Q5M PRN (Reason: Chest Pain) Qty: 25 RF: 4 nortriptyline 50 mg capsule 50 mg PO QHS Qty: 90 RF: 1 alprazolam 0.5 mg tablet 0.5 mg PO BID PRN (Reason: anxiety) Qty: 60 RF: 2 Changed omeprazole 20 mg tablet,delayed release (DR/EC) 40 mg PO BID 30 Days Qty: 120 RF: 2 Discontinued clopidogrel 75 mg tablet 75 mg PO DAILY Qty: 90 RF: 3 Referrals / Follow Up: Nickolas Juarez MD [STAFF PHYSICIAN] - Within 1 Week Maxx Hewitt DO [Primary Care Provider] - Within 2 Weeks Disposition Disposition (needs filled in before D/C Order can be placed): Home, Self Care Charges/Coding Visit Charges Inpatient E&M: 49933 Disch Hosp
[2021-07-18 15:10] VITALS: BP 150/70; PULSE 70; RESP 20; TEMP 36.6; O2SAT 96
== END 2021-07-18 16:48 | disposition home or self-care (01) | DRG 378 ==
LOC: ED 11:49 → MS2 12:08
PROVIDERS: Anesthesiology; Surgery; Admitting Provider Internal Medicine; Emergency Provider Emergency Medicine; PCP Family Medicine; Visit Provider Internal Medicine
PROC: 0DJD8ZZ Inspection of Lower Intestinal Tract, Via Natural or Artificial Opening Endoscopic (ICD-10-PCS; CPT 45378; principal; 2021-07-17 10:25)
DX: K55.21 Angiodysplasia of colon with hemorrhage (principal); I50.22 Chronic systolic (congestive) heart failure; M33.20 Polymyositis, organ involvement unspecified; D62 Acute posthemorrhagic anemia; D51.9 Vitamin B12 deficiency anemia, unspecified; I11.0 Hypertensive heart disease with heart failure; J44.9 Chronic obstructive pulmonary disease, unspecified; E78.5 Hyperlipidemia, unspecified; I25.5 Ischemic cardiomyopathy; E61.1 Iron deficiency; I25.10 Atherosclerotic heart disease of native coronary artery without angina pectoris; I25.2 Old myocardial infarction; Z87.891 Personal history of nicotine dependence; Z79.02 Long term (current) use of antithrombotics/antiplatelets; Z66 Do not resuscitate
CPT/HCPCS: 36415; 80048; 80053; 80076; 82728; 83540; 83550; 83605; 83735; 84100; 85014; 85018; 85025; 85610; 86850; 86900; 86901; 93005; 99251; 99285; J7050; J7120; A4216; G0463; J2405; J2916

== ENCOUNTER 2021-08-01 08:44 | Outpatient (CLI) | payer MEDICARE, SELFPAY ==
--- NOTE | 2021-08-01 08:57 | CT_ITS ---
STUDY: CT CHEST WITHOUT CONTRAST REASON FOR EXAM: Female, 65 years old. Lung Nodule RADIATION DOSAGE (If Supplied By Facility): CTDIvol = ( 7.87 ) mGy, DLP = ( 294.99 ) mGycm TECHNIQUE: Transaxial imaging was performed without the administration of intravenous contrast material. Individualized dose optimization techniques were used for this CT. COMPARISON: 04/21/2021. FINDINGS: Persistent ill-defined groundglass opacity in the posterior segment of the right upper lobe with cystic changes measuring about 1.5 x 0.8 cm essentially unchanged since prior exam. Moderate centrilobular emphysema is again seen. No focal infiltrate is seen. The trachea and mainstem bronchi are unremarkable. There is no demonstrated pleural abnormality. Normal heart size. Coronary calcifications. No evidence of pericardial effusion. No evidence of hilar or mediastinal adenopathy. No axillary nodes are seen. Normal unenhanced pulmonary arteries. Mild atherosclerotic calcifications of the aortic arch with mild tortuosity of the descending thoracic aorta. Mild degenerative changes in the spine. No demonstrated destructive bony process. No demonstrated acute changes in the visualized upper abdomen. CT/Chest without Contrast IMPRESSION: Persistent focal ground glass opacity/nodule in the right upper lobe unchanged since prior examination. Further follow-up exam in 6 months is recommended. Lung RADS category 3. Emphysematous changes. Coronary calcifications. Electronically Signed: Cassius Cochran, at 11:34 EST ,
== END 2021-08-01 23:59 | disposition home or self-care (01) ==
PROVIDERS: PCP Family Medicine; Referring Provider Internal Medicine Critical Care Medicine; Visit Provider Internal Medicine Critical Care Medicine
DX: R91.1 Solitary pulmonary nodule (principal)
CPT/HCPCS: 71250

== ENCOUNTER 2021-08-04 14:59 | Outpatient (CLI) | payer MEDICARE, SELFPAY ==
[2021-08-04 16:44] LABS: Absolute Lymphocyte Count 2.06 X10^3/uL (0.83-4.51); Absolute Neutrophil Count 2.8 X10^3/uL (2.0-7.7); Basophil# 0.03 X10^3/uL; Basophil% 0.5 % (0-1); Eosinophil# 0.25 X10^3/uL; Eosinophils% 4.3 % (0-5); Hematocrit 31.4 % (37-47); Hemoglobin 10.2 g/dL (12.0-15.0); Lymphocyte # 2.06 X10^3/ul (0.83-4.51); Lymphocyte % 35.5 % (19-41); Mean Corp Hgb Conc 32.5 g/dL (32-36); Mean Corpuscular Hgb 31.3 pg (27.0-32.0); Mean Corpuscular Volume 96.3 fL (81-99); Mean Platelet Vol. 9.1 fl (6.2-12.0); Monocyte# 0.62 X10^3/uL; Monocyte% 10.7 % (0-10); NRBC Flagged by Analyzer 0 % (0-5); Neutrophil # 2.83 X10^3/uL (2.7-7.7); Neutrophil % 48.7 % (47-70); Platelet Count 372 K/mm3 (150-450); RBC Distribution Width CV 17.2 % (11.6-14.6); RBC Distribution Width SD 59.5 fl (35.1-43.9); Red Blood Count 3.26 M/mm3 (4.2-5.4); White Blood Count 5.8 K/mm3 (4.4-11.0)
== END 2021-08-04 23:59 | disposition home or self-care (01) ==
LOC: BIMLAB 15:00
PROVIDERS: PCP Family Medicine; Referring Provider Family Medicine; Visit Provider Family Medicine
DX: Z86.73 Personal history of transient ischemic attack (TIA), and cerebral infarction without residual deficits (principal)
CPT/HCPCS: 36415; 85025

== ENCOUNTER → 2021-10-28 | Outpatient (CLI) | payer MEDICARE, SELFPAY ==
[2021-10-28 12:47] LABS: AST(SGOT) 31 U/L (15-37); Alanine Aminotransfer ALT/SGPT 39 U/L (13-56); Albumin, Serum 3.7 g/dL (3.2-5.0); Alkaline Phosphatase 257 U/L (45-117); Bilirubin, Direct 0.06 mg/dL (0.00-0.30); Cholesterol 165 mg/dL (200); Globulin 4.8 g/dL (2.2-4.2); High Density Lipoprotein 54 mg/dL; Protein, Total 8.5 g/dL (6.4-8.2); Triglycerides 176 mg/dL; Very Low Density Lipoprotein 35 mg/dL (5-40)
== END | disposition home or self-care (01) ==
LOC: BIMLAB 09:02
PROVIDERS: PCP Family Medicine; Referring Provider Nurse Practitioner Family; Visit Provider Nurse Practitioner Family
DX: E78.5 Hyperlipidemia, unspecified (principal); I25.10 Atherosclerotic heart disease of native coronary artery without angina pectoris; Z86.73 Personal history of transient ischemic attack (TIA), and cerebral infarction without residual deficits
CPT/HCPCS: 36415; 80061; 80076

== ENCOUNTER → 2022-01-21 | Outpatient (CLI) | payer MEDICARE, SELFPAY ==
--- NOTE | 2022-01-21 08:43 | ART_ITS ---
Reason For Study: Atherosclerosis Procedure A bilateral lower extremity continuous wave Doppler with analog waveform analysis and ankle brachial indexes. Left Segmental Pressures Left brachial= 131mmHg. Left posterior tibial artery = 150mmHg. Left dorsalis pedis artery = 134mmHg. Left digit = 120 mmHg. The left dorsalis pedis waveforms are triphasic. The left posterior tibial artery waveforms are triphasic. Right Segmental Pressures Right brachial= 126mmHg. Right posterior tibial artery = 124mmHg. Right dorsalis pedis artery = 128mmHg. Right digit = 59 mmHg. The right dorsalis pedis waveforms are biphasic. The right posterior tibial artery waveforms are biphasic. Indices The right ankle brachial index by the dorsalis pedis is 0.98. The right ankle brachial index by the posterior tibial artery is 0.95. The right digital-brachial index is 0.45. The left ankle brachial index by the dorsalis pedis is 1.02. The left ankle brachial index by the posterior tibial artery is 1.15. The left digital-brachial index is 0.92. VL/Ankle Brachial Index Interpretation Summary Right lower extremity with no evidence of occlusive disease at rest with tripha sic flow and an BRANDAN 0.98. Left lower extremity with triphasic flow and an BRANDAN 1.15. Digit brachial index of 0.45 and 0.92. Ordering Physician: Jerrod Burt Referring Physician: Silas Hewitt M.D. Performed By: Ebonie Tse RVT
--- NOTE | 2022-01-21 08:44 | ADUL_ITS ---
Reason For Study: Atherosclerosis Right Velocities Ext. Iliac Artery, dist = 77 cm./sec. Common Femoral Artery, mid = 360.5 cm./sec. Supf Femoral Artery, prox = 67.1 cm./sec. Supf Femoral Artery, mid = 57.2 cm./sec. Supf Femoral Artery, dist. = 34.6 cm./sec. Profunda Femoral Artery = 62.1 cm./sec. Popliteal Artery, mid = 38.3 cm./sec. Post. Tibial Artery, prox = 45 cm./sec. Post. Tibial Artery, mid = 44 cm./sec. Post. Tibial Artery, dist = 25.8 cm./sec. Peroneal Artery, prox = 38 cm./sec. Peroneal Artery, mid = 46.7 cm./sec. Peroneal Artery,dist = 36.3 cm./sec. Ant. Tibial Artery, prox = 56.3 cm./sec. Ant. Tibial Artery, mid = 53.5 cm./sec. Ant. Tibial Artery, dist = 45.9 cm./sec. Procedure Exam performed in department. /US Art Duplex Unilat Lower Ext Interpretation Summary Right lower extremity with no evidence of significant occlusive disease at rest . Triphasic flow noted throughout. Ordering Physician: Jerrod Burt Referring Physician: Silas Hewitt M.D. Performed By: Ebonie Tse RVT
--- NOTE | 2022-01-21 08:44 | AAVD_ITS ---
Reason For Study: Atherosclerosis Aorta Measurements Aorta Doppler Measurements Proximal aorta measures2.17 x 2.22cm. in cross- Peak systolic flow velocities within the proximal sectional axis. aorta measure 51 cm/sec. Proximal aorta measures2.23cm. in longitudinal Peak systolic flow velocities within the mid aorta axis. measure 46 cm/sec. Mid aorta measures1.35 x 1.37cm. in cross- Peak systolic flow velocities within the distal sectional axis. aorta measure 52.5 cm/sec. Mid aorta measures1.36cm. in longitudinal axis. Distal aorta measures1.22 x 1.22cm. in cross- sectional axis. Distal aorta measures1.22cm. in longitudinal axis. Left Iliac Artery Left iliac artery measures 0.71 x 0.73 cm. in the cross-sectional axis. Left iliac artery measures 0.72 cm. in the longitudinal axis. Peak systolic velocity in the left iliac artery measures 132.6 cm/sec. Right Iliac Artery Right iliac artery measures 0.65 x 0.63 cm. in the cross-sectional axis. Right iliac artery measures 0.56 cm. in the longitudinal axis. Peak systolic velocity in the right iliac artery measures 125.3 cm/sec. Procedure Aorta IVC Iliac vasculature or bypass grafts 04007. Exam performed in department. VL/Abd Aortic/IVC Duplex scan Interpretation Summary No evidence of aortic iliac aneurysm or stenosis. Ordering Physician: Jerrod Burt Referring Physician: Silas Hewitt M.D. Performed By: Ebonie Tse RVT
== END | disposition home or self-care (01) ==
PROVIDERS: PCP Family Medicine; Referring Provider Surgery Vascular Surgery; Visit Provider Surgery Vascular Surgery
DX: I70.213 Atherosclerosis of native arteries of extremities with intermittent claudication, bilateral legs (principal); I77.1 Stricture of artery; I10 Essential (primary) hypertension
CPT/HCPCS: 93922; 93926; 93978

== ENCOUNTER → 2022-01-25 | Outpatient (CLI) | payer MEDICARE, SELFPAY ==
[2022-01-25 10:11] LABS: Amphetamine Urine VISTA NEGATIVE (<1000 ng/mL); Barbiturate Urine VISTA POSITIVE (< 200 ng/mL); Benzodiazepine Urine VISTA POSITIVE (< 200 ng/mL); Cocaine Urine VISTA NEGATIVE (< 300 ng/mL); Ecstacy Urine VISTA NEGATIVE (< 500 ng/mL); Methadone Urine VISTA NEGATIVE (< 300 ng/mL); PCP Urine VISTA NEGATIVE (< 25 ng/mL); THC Urine VISTA POSITIVE (< 50 ng/mL); Vista UDS pH Range 5
== END | disposition home or self-care (01) ==
PROVIDERS: PCP Family Medicine; Referring Provider Anesthesiology Pain Medicine; Visit Provider Anesthesiology Pain Medicine
DX: F11.20 Opioid dependence, uncomplicated (principal)
CPT/HCPCS: 80307

== ENCOUNTER → 2022-02-25 | Outpatient (CLI) | payer MEDICARE, SELFPAY ==
--- NOTE | 2022-02-25 06:36 | CT_ITS ---
STUDY: CT CHEST WITH CONTRAST REASON FOR EXAM: Female, 66 years old. F/U RUL NODULE RADIATION DOSAGE (If Supplied By Facility): CTDIvol = ( 9.44 ) mGy, DLP = ( 223.14 ) mGycm TECHNIQUE: Transaxial imaging was performed following intravenous administration of IV 75mL Isovue-300. Multiplanar coronal and sagittal images were reformatted. Individualized dose optimization techniques were used for this CT. COMPARISON: Comparison is made with prior study dated 08/01/2021. FINDINGS: CHEST Stable small benign-appearing bilateral axillary lymph nodes. Emphysematous changes more prominent in the upper lobes. Stable partially cystic area of groundglass appearance in the posterior lateral aspect of the right upper lobe. There is no demonstrated pleural abnormality. Normal heart and pericardium. There are multiple small lymph nodes within the mediastinum, which are normal in size and morphology most compatible with reactive lymph hyperplasia. Normal hilar regions. Normal unenhanced pulmonary arteries. Normal aorta arch and descending thoracic aorta. There are mild degenerative changes of the thoracic spine. There is no demonstrated abnormality of the visualized upper abdomen. CT/Chest WITH Contrast IMPRESSION: Stable examination. Electronically Signed: Félix Sofia MD at 10:20 EDT ,
== END | disposition home or self-care (01) ==
PROVIDERS: PCP Family Medicine; Referring Provider Internal Medicine Hematology & Oncology; Visit Provider Internal Medicine Hematology & Oncology
DX: R91.1 Solitary pulmonary nodule (principal)
CPT/HCPCS: 71260; Q9967

== ENCOUNTER → 2022-05-03 | Outpatient (CLI) | payer MEDICARE, SELFPAY ==
--- NOTE | 2022-05-03 07:58 | BI_ITS ---
MAMMOGRAPHY - BILATERAL SCREENING REASON FOR EXAM: Female, 66 years old. Routine annual screening examination. PERTINENT HISTORY: Mother with breast cancer. History of prior left excisional breast biopsies. TECHNIQUE: Digital bilateral breast rosa (3D mammographic acquisition) in the CC and MLO projections. 2-D mediolateral oblique (MLO) and craniocaudad (CC) views of both breasts were obtained. CAD: Full Field Digital Mammography with Computer Added Detection was performed. COMPARISON: Comparison is made with prior study dated 04/14/2021 and 04/01/2020. FINDINGS: Breast Composition: The breasts are extremely dense, which lowers the sensitivity of mammography. There are no dominant masses or suspicious calcifications. Stable small benign-appearing bilateral axillary. No other significant abnormalities are identified. There has been no significant change since the prior study. BI/SCRN MAMM (CAD)W/ROSA BILAT IMPRESSION: Stable bilateral screening mammogram. Yearly follow-up mammogram recommended. (A) ASSESSMENT CATEGORY: BIRADS Category 2: Benign. A letter regarding these results will be sent to the patient by the facility within 30 days. Approximately 10% of breast cancers are not detected by mammography. A normal mammogram should not delay biopsy of a clinically suspicious abnormality. [id number] Electronically Signed: Félix Sofia MD at 9:22 EST ,
== END | disposition home or self-care (01) ==
LOC: OPBI 07:57
PROVIDERS: PCP Family Medicine; Visit Provider Internal Medicine Hematology & Oncology
DX: Z12.31 Encounter for screening mammogram for malignant neoplasm of breast (principal)
CPT/HCPCS: 77063; 77067

== ENCOUNTER → 2022-06-22 | Outpatient (CLI) | payer MEDICARE, SELFPAY ==
--- NOTE | 2022-06-22 17:02 | RAD_ITS ---
ACR Level 3 findings have been noted. An addendum which confirms receipt of the report will follow. INDICATION: FALL EXAMINATION/TECHNIQUE: X-RAY - XR Spine Lumbar 2 or 3 Views COMPARISON: None. FINDINGS: VERTEBRAE: Acute compression deformity of L1. 2 mm anterolisthesis L3 on L4. Straightening of the normal lumbar lordosis. Severe multilevel facet arthropathy. DISCS: Severe multilevel degenerative disc disease and spondylosis. INCLUDED ABDOMEN: Included bowel gas pattern is non-obstructive. RAD/Lumbar Spine 2 or 3 Views IMPRESSION: Acute compression deformity of L1. No significant retropulsion of fragments. Grade 1 anterolisthesis L3 on L4. Severe multilevel degenerative disc disease and spondylosis. Electronically Signed: Lalito Fernández MD at 18:52 EST ,
--- NOTE | 2022-06-22 17:02 | RAD_ITS ---
INDICATION: FALL EXAMINATION/TECHNIQUE: X-RAY - XR Pelvis 1 or 2 Views COMPARISON: 07/17/2020. FINDINGS: PELVIC BONES: No displaced fracture, destructive or sclerotic lesions. Note that overlapping bowel shadows may however obscure fine detail. Sacroiliac joints are unremarkable. No widening of the pubic symphysis. 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 No displaced fracture seen in this frontal view. SOFT TISSUES: No soft tissue swelling or gas. RAD/Pelvis 1 or 2 Views IMPRESSION: No evidence of displaced pelvic or hip fracture. Mild degenerative changes of the bilateral hips. Electronically Signed: Lalito Fernández MD at 18:48 EST ,
== END | disposition home or self-care (01) ==
LOC: RAD 17:00
PROVIDERS: PCP Family Medicine; Referring Provider Anesthesiology Pain Medicine; Visit Provider Anesthesiology Pain Medicine
DX: M43.16 Spondylolisthesis, lumbar region (principal); M47.816 Spondylosis without myelopathy or radiculopathy, lumbar region; M51.36 Other intervertebral disc degeneration, lumbar region; W19.XXXA Unspecified fall, initial encounter
CPT/HCPCS: 72100; 72170

== ENCOUNTER → 2022-08-16 | Outpatient (CLI) | payer MEDICARE, SELFPAY ==
--- NOTE | 2022-08-13 14:27 | NURSING ---
Per pt Dr. Sparks told pt to come off of Plavix for 7-10 days prior to bone marrow aspiration and biopsy.
[2022-08-16] VITALS (10 sets, daily range): BP systolic 105–153; BP diastolic 28–88; PULSE 67–78; RESP 9–20; TEMP 36.6; O2SAT 97–100; BMI 18.7
--- NOTE | 2022-08-16 | IMM_PTH ---
PATIENT: DEEDEE,September LOC: CT U#:[id number] AGE/SX: 66/F ROOM: RE08/16/[address]: Dr. Lydia Sparks MD : 1955 BED: DIS: 08/16/2022 SPEC #: [id number] RECD: 08/17/22 12:30 STATUS: SUJATHA REQ #: [id number] MARY: 08/16/22 00:[address]: Lydia Sparks DEPT: IMMUNOHISTOCHEMISTRY RECD BY: Guillermina Carter ENTERED: 08/17/22 12:31 SP TYPE: IMMUNO OTHR DR: Dr. Maxx Hewitt, DO Tissues: B - Bone marrow of iliac crest Procedures: CD34 (add) CD56 (add) KI-67 (add) MPO (add) Pankeratin (initial) PHYSICIAN & INSTITUTION [place] [phone] SPECIMEN INFORMATION: Tissue Source: B ? Bone marrow clot Clinical Info: Macrocytic anemia Specimen Number: [id number] CPT code: 46133, 58518 x4 METHODOLOGY: Deparaffinized sections of prefer/formalin-fixed tissue or PAP/DQ stained slides are incubated with monoclonal/polyclonal antibodies/oligonucleotide probes. Localization is made via biotin free immunoperoxidase method. Appropriate controls are performed and reacted as expected. Results on target cell population are indicated in the following table: RESULTS: ANTIBODY / CLONE RESULT Block B AE1-3 (AE1/AE3/PCK26) negative MPO (polyclonal) positive CD34 (QBEnd-10) negative CD56 (123C3.D5) negative Ki-67 (30-9) positive These tests were developed and their performance characteristics determined by [facility]. They may not have been cleared or approved by the U.S. Food and Drug Administration. The FDA has determined that such clearance or approval is not necessary. The above immunohistochemical/dualISH markers are ordered and reviewed by the Pathologist. INTERPRETATION: B. Bone marrow clot: No evidence of increased blasts. AM:radhika 08/18/2022
--- NOTE | 2022-08-16 08:53 | CT_ITS ---
PROCEDURE: CT GUIDED BONE marrow biopsy and aspiration of the posterior right iliac bone. DATE: 08/16/2022. INDICATION: Female, 66 years old. Anemia. PHYSICIAN: Félix Sofia M.D. RADIATION DOSAGE (If Supplied By Facility): CTDIvol = ( 14.5 ) mGy, DLP = ( 230.92 ) mGycm. Individualized dose optimization techniques were utilized. PROCEDURE: The risks, benefits, and alternatives to the procedure were explained to the patient. The specific risk of hemorrhage requiring further treatment or intervention was detailed and accepted. Follow-up instructions were discussed with the patient as well. Written informed consent was obtained. The patient was brought into the CT suite and placed in the prone position.. . An appropriate entry site was identified. The overlying skin was prepped and draped in the usual sterile fashion. 2 % lidocaine was administered subcutaneously for local anesthesia. Conscious sedation was performed. The patient received 2 mg of VERSED and 50 mcg of FENTANYL intravenously. Conscious sedation was started at 10:38 AM and terminated at 10:55 AM. The patient was independently monitored by the department nurse. Under CT guidance, a bone marrow biopsy and bone marrow aspirate were performed of the posterior aspect of the right iliac bone utilizing an 11-gauge bone marrow biopsy.. The specimens were then placed in the appropriate fluid and transported to the laboratory for analysis. Hemostasis was obtained. The patient tolerated the procedure well without immediate complications. CT/Biopsy/Inj or Needle Placement IMPRESSION: Successful CT guided bone marrow biopsy and aspirate, as described above. The conscious sedation protocol was followed. Electronically Signed: Félix Sofia MD at 11:20 EST ,
[2022-08-16 08:54] LABS: Absolute Lymphocyte Count 1.87 X10^3/uL (0.83-4.51); Absolute Neutrophil Count 3.8 X10^3/uL (2.0-7.7); Basophil# 0.03 X10^3/uL; Basophil% 0.4 % (0-1); Eosinophil# 0.32 X10^3/uL; Eosinophils% 4.6 % (0-5); Hematocrit 32.1 % (37-47); Hemoglobin 10.2 g/dL (12.0-15.0); Lymphocyte # 1.87 X10^3/ul (0.83-4.51); Lymphocyte % 26.9 % (19-41); Mean Corp Hgb Conc 31.8 g/dL (32-36); Mean Corpuscular Hgb 33.7 pg (27.0-32.0); Mean Corpuscular Volume 105.9 fL (81-99); Mean Platelet Vol. 8.7 fl (6.2-12.0); Monocyte# 0.89 X10^3/uL; Monocyte% 12.8 % (0-10); NRBC Flagged by Analyzer 0 % (0-5); Neutrophil # 3.83 X10^3/uL (2.7-7.7); Platelet Count 317 K/mm3 (150-450); RBC Distribution Width CV 13.8 % (11.6-14.6); RBC Distribution Width SD 53.9 fl (35.1-43.9); Red Blood Count 3.03 M/mm3 (4.2-5.4)
[2022-08-16 09:09] LABS: International Normalized Ratio 1.2; Partial Thromboplast Time 26.2 Seconds (24.1-36.2); Prothrombin Time (Protime)PT. 14.6 SECONDS (11.7-14.9)
[2022-08-16 09:37] LABS: AST(SGOT) 41 U/L (15-37); Alanine Aminotransfer ALT/SGPT 43 U/L (13-56); Albumin, Serum 3.3 g/dL (3.2-5.0); Alkaline Phosphatase 220 U/L (45-117); Cholesterol 126 mg/dL (200); Globulin 4.6 g/dL (2.2-4.2); High Density Lipoprotein 54 mg/dL; Protein, Total 7.9 g/dL (6.4-8.2); Triglycerides 155 mg/dL; Very Low Density Lipoprotein 31 mg/dL (5-40)
[2022-08-16] MEDS: 0.9% Saline Lock 10 ML Syringe IV (09:57)
--- NOTE | 2022-08-16 10:00 | BMB_PTH ---
PATIENT: DEEDEE,September LOC: CT U#:[id number] AGE/SX: 66/F ROOM: RE08/16/[address]: Dr. Lydia Sparks MD : 1955 BED: DIS: 08/16/2022 SPEC #: [id number] RECD: 08/16/22 11:15 STATUS: SUJATHA REIsaac #: [id number] MARY: 08/16/22 10:[address]: Lydia Sparks DEPT: BONE MARROW RECD BY: Laura Hewitt ENTERED: 08/16/22 11:15 SP TYPE: BMB FELIZ DR: Dr. Maxx Hewitt DO Tissues: A - Bone marrow, NOS B - Bone marrow, NOS C - Bone marrow, NOS Procedures: Decalcification bone/plaque Bone Marrow Aspiration Bone Marrow Core Biopsy Iron Stain Bone Marrow HEADER OPERATION: Bone marrow biopsy and aspiration right hip PRE-OP DIAGNOSIS: Macrocytic anemia TISSUE SUBMITTED: A - Core, B - Clot, C - Smears, and send outs (flow, cytogenetics, NGS & FISH) BONE MARROW DIAGNOSIS Bone marrow biopsy, clot and aspiration: Mildly hypercellular bone marrow. No evidence of increased blast population, abnormal lymphoid or myeloid population. See comment. AM:radhika 08/23/2022 COMMENT There is peripheral macrocytic anemia. The bone marrow reveals no evidence of myeloid, lymphoid or plasma cell neoplasm. Flow cytometry analysis does not show significant numbers of blasts or abnormal lymphoid or myeloid cells. Cytogenetic studies are pending and will be reported as an addendum. B. Immunohistochemistry ([id number]) supports the above diagnosis. Case has been reviewed in consultation with Dr. Gudino who concurs with the above diagnosis. IDC:SJ BONE MARROW STUDY Slides are reviewed. CBC DATE: 08/16/22 WBC 7.0; RBC 3.0; HGB 10.2; HCT 32.1; MCV 105.9; RDW 53.9; PLTS 317,000 SEGS 55%; LYMPHS 26%; MONOS 12.8%; EOS 4.6%; BASOS 0.4% PERIPHERAL SMEAR: Submitted. RBC: Macrocytic anemia WBC: Normomorphic PLTS: Normomorphic BONE MARROW ASPIRATE DIFFERENTIAL: 200 cell count. Blasts % (normal 0-2): 2 Promyelocytes % (normal 1-5): 3 Myelocytes and metamyelocytes % (normal 17-41): 20 Bands and Segs % (normal 15-32): 37 Eos % (normal 1-6): 1 Monocytes % (normal 0-4): 0 Erythroid Precursors % (normal 17-35): 22 Lymphocytes % (normal 7-13): 13 Plasma Cells % (normal 0-2): 2 ASPIRATE FINDINGS: Site: Right hip Aspicular Cellular M/E ratio: 2.8 (Normal 1.5 - 4.0) Megakaryocytes: Normomorphic Erythropoiesis: Normoblastic Granulopoiesis: Progressive maturation CORE BIOPSY FINDINGS: Site: Right hip Cellularity %: Not applicable M/E ratio: Not applicable Comment: No bone trabecula. Maturing bone marrow cells present. ASPIRATE CLOT FINDINGS: Site: Right hip Cellularity %: 55-60% M/E ratio: Within normal limits. Megakaryocytes: Adequate Granuloma(s): 0 Lymphoid aggregate(s): 0 SPECIAL STAINS (with matched controls): Iron: Stainable iron present. Reticulin: Within normal limits. PAS: Highlights myeloid elements and megakaryocytes. BONE MARROW GROSS A - Received is a container labeled with the patient's name and designated bone marrow right hip. The specimen consists of multiple fragments of bone clot mixed with possible fragments of fung bone measuring 1.7 x 0.2 x 0.1 cm. The specimen is totally submitted in one cassette after decalcification. B - Received labeled with the patient's name and designated bone marrow right hip is a specimen that consists of approximately 6 ml of bloody fluid that on filtration yields multiple minute fragments of blood clots measuring in aggregate 3.0 x 2.5 x 0.2 cm. The specimen is totally submitted in one cassette. C - Also received are 13 unstained and 1 peripheral stained slides. The unstained slides are submitted for appropriate staining. Also received is one green top tube which is sent to our reference lab for flow, cytogenetics, NGS & FISH. / SJ:radhika 08/16/2022 TC: CPT: 99468, 05139, 47419 x2, 50950 x3, 46947 ADDENDUM ADDENDUM ADDENDUM ADDENDUM ADDENDUM ADDENDUM ADDENDUM ADDENDUM ADDENDUM ADDENDUM ADDENDUM ADDENDUM ADDENDUM ADDENDUM ADDENDUM ADDENDUM ADDENDUM ADDENDUM ADDENDUM ADDENDUM ADDENDUM ADDENDUM ADDENDUM ADDENDUM ADDENDUM ADDENDUM ADDENDUM ADDENDUM ADDENDUM 08/24/2022 09:12 ADDENDUM 08/24/2022 09:12 ADDENDUM 08/24/2022 09:12 ADDENDUM 08/24/2022 09:12 ADDENDUM 08/24/2022 09:12 CYTOGENETICS REPORT FROM [facility] INTERPRETATION: A normal female karyotype was observed in twenty metaphases analyzed. Karyotype: 46,XX[20] [facility] MYELOID REPORT FROM [facility] RESULT SUMMARY: Normal PERTINENT NEGATIVE RESULTS: The following genes are NEGATIVE for clinically relevant mutations. Mutational hotspots and surrounding exonic regions were interrogated for DNA level point mutations and indels (fusions not assayed). ABL1, ANKRD26, ASXL1, ATRX, BCOR, BCORL1, BRAF, CALR, CBL, CCND2, CDKN2A, CEBPA, CSF3R, CUX1, DDX41, DNMT3A, ETNK1, ETV6, EZH2, FBXW7, FLT3, GATA2, HRAS, IDH1, IDH2, JAK2, KDM6A, KIT, KMT2A, KRAS, MAP2K1, MPL, MYD88, NF1, NPM1, NRAS, PDGFRA, PHF6, PTEN, PTPN11, RUNX1, SETBP1, SF3B1, SRSF2, STAG2, TET2, TP53, U2AF1, WT1, ZRSR2 FLUORESCENCE IN-SITU HYBRIDIZATION (FISH) FROM [facility] MDS-RELATED DISEASES INTERPRETATION: 1. No evidence of deletion of 5q or monosomy 5. 2. No evidence of monosomy 7 or deletion of 7q. 3. No evidence of trisomy 8 (+8). 4. No evidence of deletion of 20q12. Please see complete report in e-chart or EMR
[2022-08-16] MEDS: Midazolam 2 MG/2 ML Syringe IV (10:38)
[2022-08-16] MEDS: fentaNYL 100 MCG/2 ML Ampul IV (10:38)
[2022-08-16] MEDS: Lidocaine 2% (20 ml mdv) 20 ML Vial INFILT (10:48)
[2022-08-18 22:06] LABS: Free Kappa Light Chains 107.6 mg/L (3.3-19.4); Free Lambda Light Chains 52.1 mg/L (5.7-26.3)
[2022-08-20 22:05] LABS: Phenobarbital,Serum 5 ug/mL (15-40); Primidone, Serum 9.3 ug/mL (5.0-12.0); Vitamin B1, Thiamine 75.4 nmol/L (66.5-200.0)
== END | disposition home or self-care (01) ==
PROVIDERS: Nurse Practitioner Family; Psychiatry & Neurology Neurology; PCP Family Medicine; Referring Provider Internal Medicine Hematology & Oncology; Visit Provider Internal Medicine Hematology & Oncology
DX: Z01.812 Encounter for preprocedural laboratory examination (principal); I63.9 Cerebral infarction, unspecified; D51.9 Vitamin B12 deficiency anemia, unspecified; D50.0 Iron deficiency anemia secondary to blood loss (chronic); D63.8 Anemia in other chronic diseases classified elsewhere
CPT/HCPCS: 38222; 36415; 77012; 80061; 80076; 80184; 80188; 83883; 84425; 85025; 85610; 85730; 88305; 88311; 88313; 88341; 88342; 99156; J7050; A4216

== ENCOUNTER → 2022-08-24 | Outpatient (CLI) | payer MEDICARE, SELFPAY ==
--- NOTE | 2022-08-24 11:48 | MRI_ITS ---
HISTORY: Fall, kyphoplasty, back pain, lumbar spondylolysis. TECHNIQUE: Multiplanar and multisequence MR images of the lumbar spine were obtained without intravenous contrast. 130 images. COMPARISON: XR 08/04/2022, MRI 01/29/2019. FINDINGS: VERTEBRAE: Chronic mild L1 compression fracture with kyphoplasty and minimal retropulsion into the spinal canal. Degenerative bone marrow endplate changes at L4-5 ALIGNMENT: Unchanged 2 mm anterolisthesis of L3-4. CONUS: Normal morphology and position of the conus medullaris at L1. INTERVERTEBRAL DISCS: T12-L1: Very mild disc bulge with facet arthropathy resulting in no significant central canal stenosis and mild left foraminal narrowing. L1-2: Very mild disc bulge with facet arthropathy. No significant central canal stenosis or foraminal narrowing. L2-3: Very mild disc bulge with facet arthropathy resulting in minimal narrowing of the thecal sac and no significant foraminal narrowing. L3-4: Mild disc bulge with facet arthropathy resulting in increased mild-moderate central canal stenosis and mild bilateral foraminal narrowing. L4-5: Moderate disc bulge eccentric to the left with abutment of the left L4 nerve root, eccentric to the right protrusion with abutment of the right L4 nerve root in the foramen, mild central canal stenosis, and mild-moderate bilateral foraminal narrowing similar to prior. L5-S1: Mild posterior disc protrusion eccentric to the left with facet arthropathy resulting in abutment of the left S1 and L5 nerve roots, no significant central canal stenosis, and left greater than right foraminal narrowing similar to prior. SOFT TISSUES: Mild lower posterior subcutaneous edema. MRI/Spine Lumbar (Routine) IMPRESSION: Progression of degenerative disc disease at L3-4 with mild-moderate spinal canal stenosis and mild bilateral foraminal narrowing. Degenerative disc disease of L4-5 and L5-S1 similar to prior with nerve root abutment as above. Electronically Signed: Mary Austin MD at 15:51 EST ,
== END | disposition home or self-care (01) ==
PROVIDERS: PCP Family Medicine; Referring Provider Orthopaedic Surgery; Visit Provider Orthopaedic Surgery
DX: M43.06 Spondylolysis, lumbar region (principal)
CPT/HCPCS: 72148

== ENCOUNTER → 2022-09-08 | Outpatient (CLI) | payer MEDICARE, SELFPAY ==
--- NOTE | 2022-09-08 15:56 | MRI_ITS ---
STUDY: MRI CERVICAL SPINE WITHOUT CONTRAST REASON FOR EXAM: Female, 66 years old. Ataxia. Gait abnormality. TECHNIQUE: Standardized fat and water weighted pulse sequences were obtained in the sagittal and axial planes. COMPARISON: None FINDINGS: Normal foramen magnum and brainstem-cervical cord junction. Normal craniovertebral junction. Normal anterior atlantoaxial articulation. Normal odontoid process. Mild cervical kyphosis. Normal vertebral bodies and posterior osseous elements. C2-3: Normal endplates. Normal disc height, signal and morphology. Normal central canal and intervertebral neural foramina. C3-4: Normal endplates. Normal disc height and morphology. Minimal degenerative anterolisthesis of C3 on C4. Normal central canal and intervertebral neural foramina. Mild to moderate right degenerative facet arthropathy. C4-5: Normal endplates. Minimal disc space height narrowing. Mild degenerative anterolisthesis of C4 on C5. Normal central canal and intervertebral neural foramina. Mild to moderate left degenerative facet arthropathy. C5-6: Normal endplates. Moderate disc space height narrowing. Normal central canal and left intervertebral neural foramen. Moderately pronounced stenosis of the right intervertebral neural foramen. C6-7: Normal endplates. Moderate disc space height narrowing. Normal central canal. Moderate stenosis of the left intervertebral neural foramen and mild stenosis of the right intervertebral neural foramen. C7-T1: Normal endplates. Normal disc height, signal and morphology. Normal central canal and intervertebral neural foramina. T1-T2: (Sagittal only). Normal endplates. Normal disc height and signal. Mild ventral extradural defect due to small posterior bulging annulus. Normal central canal and intervertebral neural foramina. T2-T3: (Sagittal only). Normal endplates. Normal disc height, signal and morphology. Normal central canal and intervertebral neural foramina. T3-T4: (Sagittal only). Normal endplates. Normal disc height. Mild ventral extradural defect due to small posterior bulging annulus. Normal central canal and intervertebral neural foramina. T4-T5: (Sagittal only). Normal endplates. Normal disc height, signal and morphology. Normal central canal and intervertebral neural foramina. Normal cervical cord. Normal included upper thoracic spinal cord, brainstem and cerebellum. Normal visualized soft tissue structures. MRI/Spine Cervical (Routine) IMPRESSION: 1. Moderately pronounced stenosis of the right C5-C6 intervertebral neural foramen due to osteophytic encroachment. 2. Moderate stenosis of the left C6-C7 intervertebral neural foramen and mild stenosis of the right C6-C7 intervertebral neural foramen due to osteophytic encroachment. 3. Mild degenerative anterolisthesis of C4 on C5 and mild to moderate left degenerative facet arthropathy. 4. Minimal degenerative anterolisthesis of C3 on C4 and mild to moderate right degenerative facet arthropathy. 5. No MRI evidence of cervical extruded disc fragment or disc protrusion. 6. Normal cervical spinal cord. Electronically Signed: Matt Oh MD at 13:17 EDT ,
--- NOTE | 2022-09-08 15:56 | MRI_ITS ---
EXAM: MR HEAD WITHOUT AND WITH INTRAVENOUS CONTRAST CLINICAL INDICATION: Ataxia; clinically: ? possible cerebellar degenera TECHNIQUE: Multiplanar and multisequence MR images of the brain were obtained without and with intravenous contrast. This report was created using [employer] report [employer] technology. CONTRAST: IV CLARISCAN 14mL COMPARISON: None. FINDINGS: BRAIN AND EXTRA-AXIAL SPACES: Periventricular small vessel ischemic change. No midline shift or hydrocephalus. Diffuse parenchymal atrophy. Posterior fossa structures are unremarkable. Basal cisterns are patent. No acute intracranial hemorrhage, mass effect or edema. No evidence of acute cortical stroke. SELLA: Unremarkable. Normal sella turcica, pituitary gland, infundibular stalk, optic chiasm and hypothalamus. AUDITORY SYSTEM: Unremarkable. The internal auditory canals are patent. BONES/JOINTS: Unremarkable. No discrete lytic or blastic abnormalities. SINUSES: Unremarkable as visualized. Clear. MASTOID AIR CELLS: Visualized sinuses and mastoid air cells are clear. ORBITS: Unremarkable as visualized. Both globes, extraocular muscles, optic nerves and retrobulbar fat appear unremarkable. VASCULATURE: Unremarkable as visualized. Normal flow voids in the major intracranial circulation. SOFT TISSUES: Unremarkable. No unusual enhancement. MRI/Brain W/WO Contrast IMPRESSION: 1. No evidence of acute intracranial pathology. 2. Diffuse involutional changes and chronic ischemic small vessel white matter disease. Electronically Signed: Guillermo Holt MD at 21:33 EDT ,
[2022-09-08 17:00] LABS: CREATININE FINGERSTICK < 0.9 mg/dL (0.55-1.02); EGFR FINGERSTICK > 60.0000 mL/min (>60)
== END | disposition home or self-care (01) ==
PROVIDERS: PCP Family Medicine; Referring Provider Psychiatry & Neurology Neurology; Visit Provider Psychiatry & Neurology Neurology
DX: R27.0 Ataxia, unspecified (principal); Z86.79 Personal history of other diseases of the circulatory system
CPT/HCPCS: 70553; 72141; A9575

== ENCOUNTER → 2022-09-28 | Outpatient (CLI) | payer MEDICARE, SELFPAY ==
[2022-09-28 13:32] LABS: Amphetamine Urine VISTA NEGATIVE (<1000 ng/mL); Barbiturate Urine VISTA POSITIVE (< 200 ng/mL); Benzodiazepine Urine VISTA POSITIVE (< 200 ng/mL); Cocaine Urine VISTA NEGATIVE (< 300 ng/mL); Ecstacy Urine VISTA NEGATIVE (< 500 ng/mL); Methadone Urine VISTA NEGATIVE (< 300 ng/mL); PCP Urine VISTA NEGATIVE (< 25 ng/mL); THC Urine VISTA POSITIVE (< 50 ng/mL); Vista UDS pH Range 6
== END | disposition home or self-care (01) ==
PROVIDERS: PCP Family Medicine; Referring Provider Anesthesiology Pain Medicine; Visit Provider Anesthesiology Pain Medicine
DX: F11.20 Opioid dependence, uncomplicated (principal)
CPT/HCPCS: 80307

== ENCOUNTER → 2022-12-16 | Outpatient (CLI) | payer MEDICARE, SELFPAY | END | disposition home or self-care (01) | PROVIDERS: PCP Family Medicine; Referring Provider Psychiatry & Neurology Neurology; Visit Provider Psychiatry & Neurology Neurology | DX: R27.0 Ataxia, unspecified (principal) | CPT/HCPCS: 36415 ==

== ENCOUNTER → 2023-01-25 | Outpatient (CLI) | payer MEDICARE, SELFPAY ==
--- NOTE | 2023-01-25 10:34 | CDU_ITS ---
Reason For Study: Right carotid bruit Rt. Velocities/BP Lt. Velocities/BP Prox CCA 59.8/19.2 cm/sec. Prox CCA 68.3/20.1 cm/sec. Mid CCA 53.2/17.3 cm/sec. Mid CCA 71.1/18.2 cm/sec. Dist CCA 55.1/18.2 cm/sec. Dist CCA 64.5/18.2 cm/sec. Prox ICA 81.5/21.1 cm/sec. Prox ICA 66.4/21.1 cm/sec. Mid ICA 68.3/26.7 cm/sec. Mid ICA 82.2/27.3 cm/sec. Dist ICA 85.3/23 cm/sec. Dist ICA 80.8/31.2 cm/sec. Rt. ICA/CCA = 1.55. Lt. ICA/CCA = 1.20. Prox ECA 43.7/7.8 cm/sec. Prox ECA 49.4/7.8 cm/sec. Rt. Vert. 54.1/15.4 cm/sec. Lt. Vert. 49.5/18.8 cm/sec. Right Extracranial There is homogeneous, smooth atherosclerotic plaque noted in the right common carotid artery. There is heterogeneous, irregular atherosclerotic plaque noted in the right internal carotid artery. There is heterogeneous, smooth atherosclerotic plaque noted in the right external carotid artery. Antegrade flow is noted in the right vertebral artery. Left Extracranial There is heterogeneous, smooth atherosclerotic plaque noted in the left common carotid artery. There is heterogeneous, irregular atherosclerotic plaque noted in the left internal carotid artery. There is heterogeneous, irregular atherosclerotic plaque noted in the left external carotid artery. Antegrade flow is noted in the left vertebral artery. Procedure Carotid Duplex [id number]. This is a Carotid Duplex examination using B-mode, color flow and specral Doppler. Exam performed in department. VL/Carotid Duplex Ultrasound Interpretation Summary Minimal irregular plaque at the proximal right internal carotid artery with les s than 50% stenosis Less than 50% stenosis right external carotid artery Calcific plaque with shadowing at the proximal left internal carotid artery wit h less than 50% stenosis Less than 50% stenosis left external carotid artery Patent antegrade vertebral arteries bilaterally Ordering Physician: Scott Everett Referring Physician: Silas Hewitt M.D. Performed By: Ebonie Tse RVT
== END | disposition home or self-care (01) ==
PROVIDERS: PCP Family Medicine; Referring Provider Psychiatry & Neurology Neurology; Visit Provider Psychiatry & Neurology Neurology
DX: R27.0 Ataxia, unspecified (principal); R09.89 Other specified symptoms and signs involving the circulatory and respiratory systems
CPT/HCPCS: 93880

== ENCOUNTER 2023-02-14 08:42 | Outpatient (CLI) | payer MEDICARE, SELFPAY ==
--- NOTE | 2023-02-14 08:47 | ADUL_ITS ---
Reason For Study: Stricture of artery Right Velocities Ext. Iliac Artery, dist = 90.9 cm./sec. Common Femoral Artery, mid = 429 cm./sec. Supf Femoral Artery, prox = 88.6 cm./sec. Supf Femoral Artery, mid = 82 cm./sec. Supf Femoral Artery, dist. = 40.2 cm./sec. Profunda Femoral Artery = 47.2 cm./sec. Popliteal Artery, mid = 49 cm./sec. Post. Tibial Artery, prox = 62.2 cm./sec. Post. Tibial Artery, mid = 60 cm./sec. Post. Tibial Artery, dist = 42.4 cm./sec. Peroneal Artery, prox = 47.9 cm./sec. Peroneal Artery, mid = 56.7 cm./sec. Peroneal Artery,dist = 42.4 cm./sec. Ant. Tibial Artery, prox = 67.7 cm./sec. Ant. Tibial Artery, mid = 79.8 cm./sec. Ant. Tibial Artery, dist = 71 cm./sec. Procedure Exam performed in department. 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 Ordering Physician: Jerrod Burt Referring Physician: Silas Hewitt M.D. Performed By: Ebonie Tse RVT
--- NOTE | 2023-02-14 08:48 | AAVD_ITS ---
Reason For Study: Stricture of artery Aorta Measurements Aorta Doppler Measurements Proximal aorta measures2.27 x 2.23cm. in cross- Peak systolic flow velocities within the proximal sectional axis. aorta measure 52.4 cm/sec. Proximal aorta measures2.26cm. in longitudinal Peak systolic flow velocities within the mid aorta axis. measure 50.6 cm/sec. Mid aorta measures1.50 x 1.48cm. in cross- Peak systolic flow velocities within the distal sectional axis. aorta measure 59.6 cm/sec. Mid aorta measures1.58cm. in longitudinal axis. Distal aorta measures1.23 x 1.27cm. in cross- sectional axis. Distal aorta measures1.19cm. in longitudinal axis. Left Iliac Artery Left iliac artery measures 0.70 x 0.62 cm. in the cross-sectional axis. Left iliac artery measures 0.72 cm. in the longitudinal axis. Peak systolic velocity in the left iliac artery measures 135.7 cm/sec. Right Iliac Artery Right iliac artery measures 0.68 x 0.66 cm. in the cross-sectional axis. Right iliac artery measures 0.68 cm. in the longitudinal axis. Peak systolic velocity in the right iliac artery measures 124.9 cm/sec. Procedure Aorta IVC Iliac vasculature or bypass grafts 67012. Exam performed in department. VL/Abd Aortic/IVC Duplex scan Interpretation Summary No aortoiliac stenosis or aneurysm seen. Ordering Physician: Jerrod Burt Referring Physician: Silas Hewitt M.D. Performed By: Ebonie Tse RVT
--- NOTE | 2023-02-14 08:49 | ART_ITS ---
Reason For Study: Stricture of artery Procedure A bilateral lower extremity continuous wave Doppler with analog waveform analysis and ankle brachial indexes. Left Segmental Pressures Left brachial= 154mmHg. Left posterior tibial artery = 153mmHg. Left dorsalis pedis artery = 170mmHg. Left digit = 134 mmHg. The left dorsalis pedis waveforms are triphasic. The left posterior tibial artery waveforms are triphasic. Right Segmental Pressures Right brachial= 152mmHg. Right posterior tibial artery = 145mmHg. Right dorsalis pedis artery = 149mmHg. Right digit = 108 mmHg. The right dorsalis pedis waveforms are triphasic. The right posterior tibial artery waveforms are triphasic. Indices The right ankle brachial index by the dorsalis pedis is 0.97. The right ankle brachial index by the posterior tibial artery is 0.94. The right digital-brachial index is 0.70. The left ankle brachial index by the dorsalis pedis is 1.10. The left ankle brachial index by the posterior tibial artery is 0.99. The left digital-brachial index is 0.87. VL/Ankle Brachial Index Interpretation Summary Bilateral normal at rest with BRANDAN 0.97 and 1.1. Digits normal at 0.7 and 0.87. Ordering Physician: Jerrod Burt Referring Physician: Silas Hewitt M.D. Performed By: Ebonie Tse RVT
== END 2023-02-14 23:59 | disposition home or self-care (01) ==
LOC: CVS 08:43
PROVIDERS: PCP Family Medicine; Referring Provider Surgery Vascular Surgery; Visit Provider Surgery Vascular Surgery
DX: I70.213 Atherosclerosis of native arteries of extremities with intermittent claudication, bilateral legs (principal); I77.1 Stricture of artery; I10 Essential (primary) hypertension
CPT/HCPCS: 93922; 93926; 93978

== ENCOUNTER → 2023-03-07 | Outpatient (CLI) | payer MEDICARE, SELFPAY ==
--- NOTE | 2023-03-07 14:19 | NEURO ---
NCS and/or EMG Patient Report Ordering Doctor: Scott Everett DATE OF SERVICE: 03/07/23 Findings: Nerve conduction studies were performed in the bilateral and lower extremities. The right peroneal motor study recording the extensor digitorum brevis showed a normal amplitude, normal distal latency and normal conduction velocity. No conduction block or focal slowing was present across the fibular neck. The right tibial motor study recording the abductor hallucis brevis showed a normal amplitude, normal distal latency and normal conduction velocity. The right sural sensory response showed a normal amplitude and conduction velocity. The right superficial peroneal sensory response showed a normal amplitude and conduction velocity. The left peroneal motor study recording the extensor digitorum brevis showed a normal amplitude, normal distal latency and normal conduction velocity. No conduction block or focal slowing was present across the fibular neck. The left tibial motor study recording the abductor hallucis brevis showed a normal amplitude, normal distal latency and normal conduction velocity. The left sural sensory response showed a normal amplitude and conduction velocity. The left superficial peroneal sensory response showed a normal amplitude and conduction velocity. Needle EMG of the right lower extremity muscles was performed. No denervation was present in any muscle. Motor unit morphology, activation, and recruitment patterns were normal. Needle EMG of the left lower extremity was omitted given the symmetry of symptoms and lack of pertinent findings on the right. Impression: This is a normal study. There is no electrophysiologic evidence of peripheral neuropathy. In addition, there was no electrophysiologic evidence of lumbar radiculopathy in the right lower extremity. The borderline sensory velocities are likely a reflection of cooler limb temperature. Please note: routine nerve conduction studies and needle EMG assess the larger, myelinated motor and sensory fibers. Thus, routine electrodiagnostic studies may be insensitive in detecting a peripheral neuropathy restricted to small fibers alone (i.e., pain, temperature and autonomic fibers). However, most peripheral neuropathies with predominantly small fiber large dysfunction will also involve large fibers to a lesser extent, and will demonstrate abnormalities on electrodiagnostic studies. Thus, clinical correlation is required in the interpretation of this negative electrodiagnostic study if an isolated small fiber neuropathy is considered. Lalito Mosquera D.O. Multi Select Codes Neurology Neurology Interp Codes: 25618-36 Musc test done w/n test comp (interp) and 33485-85 Nrv cndj test 7-8 studies (interp)
== END | disposition home or self-care (01) ==
LOC: PSN 12:48
PROVIDERS: PCP Family Medicine; Referring Provider Psychiatry & Neurology Neurology; Visit Provider Psychiatry & Neurology Neurology
DX: R27.0 Ataxia, unspecified (principal); G62.9 Polyneuropathy, unspecified; M54.50 Low back pain, unspecified
CPT/HCPCS: 95886; 95910

== ENCOUNTER → 2023-03-08 | Outpatient (CLI) | payer MEDICARE, SELFPAY ==
--- NOTE | 2023-03-08 07:51 | CT_ITS ---
STUDY: CT CHEST WITHOUT CONTRAST REASON FOR EXAM: Female, 67 years old. Follow lung mass. History of leukemia. RADIATION DOSAGE (If Supplied By Facility): CTDIvol = ( 8.02 ) mGy, DLP = ( 278.39 ) mGycm TECHNIQUE: Transaxial imaging was performed without the administration of intravenous contrast material. Multiplanar coronal and sagittal images were reformatted. Individualized dose optimization techniques were used for this CT. COMPARISON: Comparison is made with prior study February 25, 2022. FINDINGS: CHEST Stable small bilateral axillary lymph nodes. Mild degree of emphysematous changes. The previously seen partially cystic area of groundglass appearance in the posterolateral aspect of the right upper lobe has decreased in size. A tiny cyst is seen at that level. This is best seen on axial image #48. There is no demonstrated pleural abnormality. There are calcifications of the coronary arteries. There are multiple small lymph nodes within the mediastinum, which are normal in size and morphology most compatible with reactive lymph hyperplasia. Normal hilar regions. Normal unenhanced pulmonary arteries. There is atherosclerotic calcification of the aortic arch. There are mild degenerative changes of the thoracic spine. There is no demonstrated abnormality of the visualized upper abdomen. CT/Chest without Contrast IMPRESSION: Minimal residual cystic change in the posterior-lateral aspect of the right upper lobe. The remainder of the examination is unchanged. Electronically Signed: Félix Sofia MD at 14:59 EDT ,
== END | disposition home or self-care (01) ==
PROVIDERS: PCP Family Medicine; Referring Provider Nurse Practitioner Acute Care; Visit Provider Nurse Practitioner Acute Care
DX: R91.1 Solitary pulmonary nodule (principal)
CPT/HCPCS: 71250

== ENCOUNTER → 2023-03-31 | Outpatient (CLI) | payer MEDICARE, SELFPAY ==
[2023-03-31 10:36] LABS: BUN/Creat Ratio 21.6 RATIO (10-20)
== END | disposition home or self-care (01) ==
PROVIDERS: PCP Family Medicine; Referring Provider Surgery Vascular Surgery; Visit Provider Surgery Vascular Surgery
DX: I70.213 Atherosclerosis of native arteries of extremities with intermittent claudication, bilateral legs (principal); I77.1 Stricture of artery
CPT/HCPCS: 36415

== ENCOUNTER → 2023-04-01 | Outpatient (CLI) | payer MEDICARE, SELFPAY ==
--- NOTE | 2023-04-01 14:58 | CT_ITS ---
HISTORY: Atherosclerosis. Right foot pain, hypertension, on anticoagulants. TECHNIQUE: Axial CT angiography multi-detector data acquisition was obtained from the abdomen and pelvis to the bilateral lower extremities following intravenous administration of 100 mL Isovue-370. Axial images and MIP images were reconstructed from the axial data set. Post-processing of the angiographic images was performed, with multiplanar reformation and 3D reconstruction. Individualized dose optimization techniques were used for this CT. 1172 images. COMPARISON: None. Descriptors of Narrowing: None (0%) Mild (< 50%) Moderate (50-70%) Severe (70-90%) Subtotal/Total Occlusion (90-100%) Non-Evaluable (technically non-diagnostic) FINDINGS: LOWER CHEST: Centrilobular emphysema. Mildly prominent right hilar lymph node. BOWEL: Bowel nondilated. No periappendiceal inflammation. Colonic diverticulosis without acute diverticulitis. PERITONEUM: No significant ascites. LIVER/SPLEEN: No enhancing masses. GALLBLADDER: Contracted. KIDNEYS/PANCREAS/ADRENAL GLANDS: Unremarkable. PELVIC ORGANS: Absent uterus. OSSEOUS STRUCTURES: Vertebroplasty of chronic mild L1 compression fracture. Hardware in the bilateral metatarsals. ABDOMINAL AORTA: Atherosclerosis and mild ectasia without significant stenosis or aneurysm. Moderate calcified plaque at the bifurcation. CELIAC AXIS: Mild atherosclerosis of the origin. SUPERIOR MESENTERIC ARTERY: No significant stenosis. INFERIOR MESENTERIC ARTERY: No demonstrated narrowing. RENAL ARTERIES: Calcified plaque at the origins of the bilateral renal arteries. COMMON ILIAC ARTERIES: 40-50% stenosis with calcified plaque bilaterally. EXTERNAL ILIAC ARTERIES: No demonstrated narrowing. INTERNAL ILIAC ARTERIES: No significant stenosis. Right common femoral artery: Small vascular web. No significant stenosis. Right profundus femoris: No demonstrated narrowing. Right superficial femoral: No demonstrated narrowing. Right popliteal artery: No demonstrated narrowing. Right tibioperoneal trunk: No demonstrated narrowing. Right anterior tibial artery: Patent in the leg. Patent distal to the ankle with flow into the foot on delayed images. Right posterior tibial artery: Patent with flow into the foot. Right peroneal artery: Patent to the ankle. Left common femoral artery: No significant stenosis. Left profundus femoris: No demonstrated narrowing. Left superficial femoral: No demonstrated narrowing. Left popliteal artery: No demonstrated narrowing. Left tibioperoneal trunk: No demonstrated narrowing. Left anterior tibial artery: Patent in the leg. Patent distal to the ankle with flow into the foot on delayed images. Left posterior tibial artery: Patent proximally with occluded segment mid and reconstitution of flow distally. Left peroneal artery: Patent. CT/CTA Abd w/Runoff W/WO Contrast IMPRESSION: Aortoiliac atherosclerosis. 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 Patent three-vessel runoff on the right. Occluded segment of the mid left posterior tibial artery with reconstitution of flow distally. Electronically Signed: Mary Austin MD at 13:31 EDT ,
[2023-04-01 15:32] LABS: CREATININE FINGERSTICK < 0.9 mg/dL (0.55-1.02); EGFR FINGERSTICK > 60.0000 mL/min (>60)
== END | disposition home or self-care (01) ==
PROVIDERS: PCP Family Medicine; Referring Provider Surgery Vascular Surgery; Visit Provider Surgery Vascular Surgery
DX: I70.213 Atherosclerosis of native arteries of extremities with intermittent claudication, bilateral legs (principal); I77.1 Stricture of artery
CPT/HCPCS: 75635; Q9967; A4216

== ENCOUNTER → 2023-05-20 | Outpatient (CLI) | payer MEDICARE, SELFPAY ==
--- NOTE | 2023-05-20 09:02 | BI_ITS ---
MAMMOGRAPHY - BILATERAL SCREENING REASON FOR EXAM: Female, 67 years old. Routine annual screening examination. PERTINENT HISTORY: Sister with breast cancer. Mother with breast cancer. TECHNIQUE: Digital bilateral breast rosa (3D mammographic acquisition) in the CC and MLO projections. 2-D mediolateral oblique (MLO) and craniocaudad (CC) views of both breasts were obtained. CAD: Full Field Digital Mammography with Computer Added Detection was performed. COMPARISON: Comparison is made with prior study May 03, 2022 and April 14, 2021. FINDINGS: Breast Composition: The breasts are extremely dense, which lowers the sensitivity of mammography. There are no dominant masses or suspicious calcifications. Stable small bilateral axillary. No other significant abnormalities are identified. There has been no significant change since the prior study. BI/SCRN MAMM (CAD)W/ROSA BILAT IMPRESSION: Stable bilateral screening mammogram. Yearly follow-up mammogram recommended. (A) ASSESSMENT CATEGORY: BIRADS Category 2: Benign. A letter regarding these results will be sent to the patient by the facility within 30 days. Approximately 10% of breast cancers are not detected by mammography. A normal mammogram should not delay biopsy of a clinically suspicious abnormality. [id number] Electronically Signed: Félix Sofia MD at 9:17 EST ,
== END | disposition home or self-care (01) ==
LOC: OPBI 09:01
PROVIDERS: PCP Family Medicine; Referring Provider Internal Medicine Hematology & Oncology; Visit Provider Internal Medicine Hematology & Oncology
DX: Z12.31 Encounter for screening mammogram for malignant neoplasm of breast (principal)
CPT/HCPCS: 77063; 77067

== ENCOUNTER → 2023-08-13 | Outpatient (CLI) | payer MEDICARE, SELFPAY ==
--- NOTE | 2023-08-13 08:35 | MRI_ITS ---
STUDY: MRI THORACIC SPINE WithoutCONTRAST REASON FOR EXAM: Female, 67 years old. gait disorder; assess for myelopathy TECHNIQUE: MRI examination of the thoracic spine obtained with a standard protocol including multiplanar multiecho noncontrastimaging. Contrast: No contrast administered. COMPARISON: : No relevant prior comparison study available FINDINGS: VERTEBRAL BODIES: 1. Normal kyphosis of the thoracic spine. There is no substantial scoliosis. 2. There is deformity at L1 which appears to represent a compression deformity and likely sequelae of prior kyphoplasty. INTERVERTEBRAL DISC SPACES: T1-2, T2-3, T3-4, T4-5, T5-6, T6-7, T7-8, T8-9, T9-10, T10-11, T11-12: 1. No evidence of acute disc herniation, however there is a central disc bulge/central protrusion and osteophyte complex at C3-4. No cord compression or canal stenosis. SPINAL CORD: 1. Normal visualized thoracic cord. Normal conus medullaris that terminates at the L1. PARASPINOUS SOFT TISSUES: The soft tissue structures are unremarkable. MRI/Spine Thoracic (Routine) IMPRESSION: 1. Mild thoracic spondylosis, there is broad-based disc bulge/borderline protrusion and osteophyte at C3-4 without canal stenosis or cord compression. Remaining disks levels of disc desiccation without herniation, canal stenosis cord or nerve root impingement. 2. Normal appearance of the visualized thoracic cord. 3. Deformity at L1 which appears to represent a remote compression deformity and likely kyphoplasty. Electronically Signed: Robby Huerta MD at 22:10 EST ,
== END | disposition home or self-care (01) ==
PROVIDERS: PCP Family Medicine; Visit Provider Psychiatry & Neurology Neurology
DX: R26.89 Other abnormalities of gait and mobility (principal)
CPT/HCPCS: 72146

== ENCOUNTER → 2023-09-20 | Outpatient (CLI) | payer MEDICARE, SELFPAY ==
[2023-09-20 12:34] LABS: Absolute Lymphocyte Count 1.89 X10^3/uL (0.83-4.51); Absolute Neutrophil Count 3.9 X10^3/uL (2.0-7.7); Basophil# 0.02 X10^3/uL; Basophil% 0.3 % (0-1); Eosinophil# 0.37 X10^3/uL; Eosinophils% 5.2 % (0-5); Hematocrit 33.6 % (37-47); Hemoglobin 10.8 g/dL (12.0-15.0); Lymphocyte # 1.89 X10^3/ul (0.83-4.51); Lymphocyte % 26.8 % (19-41); Mean Corp Hgb Conc 32.1 g/dL (32-36); Mean Corpuscular Hgb 32.3 pg (27.0-32.0); Mean Corpuscular Volume 100.6 fL (81-99); Mean Platelet Vol. 9.5 fl (6.2-12.0); Monocyte% 12.8 % (0-10); NRBC Flagged by Analyzer 0 % (0-5); Neutrophil # 3.85 X10^3/uL (2.7-7.7); Neutrophil % 54.6 % (47-70); Platelet Count 296 K/mm3 (150-450); Red Blood Count 3.34 M/mm3 (4.2-5.4); White Blood Count 7.1 K/mm3 (4.4-11.0)
== END | disposition home or self-care (01) ==
LOC: BIMLAB 09:32
PROVIDERS: PCP Family Medicine; Referring Provider Family Medicine; Visit Provider Family Medicine
DX: M21.611 Bunion of right foot (principal)
CPT/HCPCS: 36415; 85025

== ENCOUNTER → 2023-10-04 | Outpatient (CLI) | payer MEDICARE, SELFPAY ==
[2023-10-04 12:52] LABS: Absolute Lymphocyte Count 1.83 X10^3/uL (0.83-4.51); Basophil# 0.02 X10^3/uL; Basophil% 0.2 % (0-1); Eosinophil# 0.25 X10^3/uL; Eosinophils% 3.1 % (0-5); Hemoglobin 10.5 g/dL (12.0-15.0); Lymphocyte # 1.83 X10^3/ul (0.83-4.51); Lymphocyte % 22.5 % (19-41); Mean Corp Hgb Conc 31.8 g/dL (32-36); Mean Corpuscular Hgb 31.3 pg (27.0-32.0); Mean Corpuscular Volume 98.5 fL (81-99); Mean Platelet Vol. 9.4 fl (6.2-12.0); Monocyte% 12.3 % (0-10); NRBC Flagged by Analyzer 0 % (0-5); Neutrophil # 5.01 X10^3/uL (2.7-7.7); Neutrophil % 61.5 % (47-70); Platelet Count 291 K/mm3 (150-450); RBC Distribution Width CV 13.8 % (11.6-14.6); RBC Distribution Width SD 49.9 fl (35.1-43.9); Red Blood Count 3.35 M/mm3 (4.2-5.4); White Blood Count 8.1 K/mm3 (4.4-11.0)
[2023-10-04 15:21] LABS: ALB/GLOB Ratio 0.8 RATIO (0.9-2.4); AST(SGOT) 23 U/L (15-37); Alanine Aminotransfer ALT/SGPT 21 U/L (13-56); Albumin, Serum 3.3 g/dL (3.2-5.0); Alkaline Phosphatase 206 U/L (45-117); Amylase 72 U/L (25-115); Anion Gap 9 (5-15); BUN 18 mg/dL (7-18); BUN/Creat Ratio 18.1 RATIO (10-20); Calcium,Total 8.8 mg/dL (8.5-10.1); Chloride 103 mmol/L (98-107); EST Glomerular Filtration Rate 59 mL/min (>60); Est Glom Filt Rate - Afr Amer 71 mL/min (>60); Globulin 4.4 g/dL (2.2-4.2); Glucose 93 mg/dL (74-106); Lipase 29 U/L (13-75); Potassium 4.7 mmol/L (3.5-5.1); Protein, Total 7.7 g/dL (6.4-8.2); Sodium Level 132 mmol/L (136-145)
== END | disposition home or self-care (01) ==
LOC: BIMLAB 09:44
PROVIDERS: PCP Family Medicine; Visit Provider Nurse Practitioner
DX: R10.11 Right upper quadrant pain (principal); D64.9 Anemia, unspecified
CPT/HCPCS: 36415; 80053; 82150; 83690; 85025

== ENCOUNTER → 2024-02-23 | Outpatient (CLI) | payer MEDICARE, SELFPAY ==
--- NOTE | 2024-02-23 09:11 | ADUL_ITS ---
Reason For Study: Atheroscelrosis Right Velocities Ext. Iliac Artery, dist = 62.5 cm./sec. Common Femoral Artery, mid = 357 cm./sec. Common Femoral Artery, dist = 148.4 cm./sec. Supf Femoral Artery, prox = 79.7 cm./sec. Supf Femoral Artery, mid = 80.9 cm./sec. Supf Femoral Artery, dist. = 40.6 cm./sec. Profunda Femoral Artery = 46.5 cm./sec. Popliteal Artery, mid = 49.3 cm./sec. Post. Tibial Artery, prox = 46.1 cm./sec. Post. Tibial Artery, mid = 47.2 cm./sec. Post. Tibial Artery, dist = 47.2 cm./sec. Peroneal Artery, prox = 48.3 cm./sec. Peroneal Artery, mid = 51.5 cm./sec. Peroneal Artery,dist = 33.9 cm./sec. Ant. Tibial Artery, prox = 65.1 cm./sec. Ant. Tibial Artery, mid = 69.1 cm./sec. Ant. Tibial Artery, dist = 65.8 cm./sec. Procedure Exam performed in department. 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 Ordering Physician: Jerrod Burt Referring Physician: Silas Hewitt M.D. Performed By: Ebonie Tse RVT
--- NOTE | 2024-02-23 09:12 | ART_ITS ---
Reason For Study: Atherosclerosis Procedure A bilateral lower extremity continuous wave Doppler with analog waveform analysis,segmental pressures,and ankle brachial indexes without exercise. Left Segmental Pressures Left brachial= 121mmHg. Left posterior tibial artery = 132mmHg. Left dorsalis pedis artery = 126mmHg. Left digit = 115 mmHg. The left dorsalis pedis waveforms are triphasic. The left posterior tibial artery waveforms are triphasic. Right Segmental Pressures Right brachial= 117mmHg. Right posterior tibial artery = 117mmHg. Right dorsalis pedis artery = 123mmHg. Right digit = 100 mmHg. The right dorsalis pedis waveforms are triphasic. The right posterior tibial artery waveforms are triphasic. Indices The right ankle brachial index by the dorsalis pedis is 1.02. The right ankle brachial index by the posterior tibial artery is 0.97. The right digital-brachial index is 0.83. The left ankle brachial index by the dorsalis pedis is 1.04. The left ankle brachial index by the posterior tibial artery is 1.09. The left digital-brachial index is 0.95. VL/Ankle Brachial Index Interpretation Summary Resting ankle-brachial indices appear bilaterally normal. Ordering Physician: Jerrod Burt Referring Physician: Silas Hewitt M.D. Performed By: Ebonie Tse RVT
== END | disposition home or self-care (01) ==
LOC: CVS 09:09
PROVIDERS: PCP Family Medicine; Referring Provider Surgery Vascular Surgery; Visit Provider Surgery Vascular Surgery
DX: I77.1 Stricture of artery (principal); I70.213 Atherosclerosis of native arteries of extremities with intermittent claudication, bilateral legs; I10 Essential (primary) hypertension
CPT/HCPCS: 93922; 93926

== ENCOUNTER → 2024-03-16 | Outpatient (CLI) | payer MEDICARE, SELFPAY ==
--- NOTE | 2024-03-16 14:02 | CT_ITS ---
EXAM: CT CHEST, LUNG CANCER SCREENING WITHOUT INTRAVENOUS CONTRAST CLINICAL INDICATION: smoking smoking history which qualifies for lung cancer screening. TECHNIQUE: Helically acquired images were obtained of the chest without intravenous contrast using low dose (LDCT) lung cancer screening protocol. This CT exam was performed using one or more of the following dose reduction techniques: automated exposure control, adjustment of the mA and/or kV according to patient size, and/or use of iterative reconstruction technique. COMPARISON: 04/21/2021; 04/08/2020 FINDINGS: LUNGS AND PLEURAL SPACES: Granuloma in the posterior right lower lobe. Centrilobular emphysema. 2 mm nodule in the periphery of the right lung (series 2, image 73). This is unchanged. No pleural effusion or thickening. No pneumothorax. HEART: No significant abnormality. Heart size is normal. No pericardial effusion. No significant coronary artery calcifications. MEDIASTINUM: No significant abnormality. No mediastinal or hilar adenopathy. Esophagus is unremarkable. No hiatal hernia. THYROID: No significant abnormality. No thyroid lesions. BONES/JOINTS: No significant abnormality. No suspicious lytic or blastic abnormality. VASCULATURE: No significant abnormality. Thoracic aorta is non-dilated. LYMPH NODES: No significant abnormality. No enlarged lymph nodes. CT/Low Dose CT Lung Screening IMPRESSION: ACR Lung CT Screening Reporting And Data System (Lung-RADS) score: 2 - Benign Appearance or Behavior. Recommend continued annual screening with a low-dose CT (LDCT) in 12 months. Electronically Signed: Hernando Ma DO at 22:23 EDT ,
== END | disposition home or self-care (01) ==
PROVIDERS: PCP Family Medicine; Referring Provider Nurse Practitioner Acute Care; Visit Provider Nurse Practitioner Acute Care
DX: Z12.2 Encounter for screening for malignant neoplasm of respiratory organs (principal); F17.210 Nicotine dependence, cigarettes, uncomplicated
CPT/HCPCS: 71271

== ENCOUNTER → 2024-05-11 | Outpatient (CLI) | payer MEDICARE, SELFPAY ==
--- NOTE | 2024-05-11 08:39 | ART_ITS ---
Reason For Study: Atherosclerosis Procedure A bilateral lower extremity continuous wave Doppler with analog waveform analysis and ankle brachial indexes. Left Segmental Pressures Left brachial= 139mmHg. Left posterior tibial artery = 136mmHg. Left dorsalis pedis artery = 141mmHg. Left digit = 118 mmHg. Right Segmental Pressures Right brachial= 134mmHg. Right posterior tibial artery = 133mmHg. Right dorsalis pedis artery = 141mmHg. Right digit = 80 mmHg. The right dorsalis pedis waveforms are triphasic. The right posterior tibial artery waveforms are triphasic. Indices The right ankle brachial index by the dorsalis pedis is 1.01. The right ankle brachial index by the posterior tibial artery is 0.96. The right digital-brachial index is 0.58. The left ankle brachial index by the dorsalis pedis is 1.01. The left ankle brachial index by the posterior tibial artery is 0.98. The left digital-brachial index is 0.85. VL/Ankle Brachial Index Interpretation Summary Resting ankle-brachial indices appear bilaterally normal. Ordering Physician: Jerrod Burt Referring Physician: Silas Hewitt M.D. Performed By: Ebonie Tse RVT
--- NOTE | 2024-05-11 08:39 | ADUL_ITS ---
Reason For Study: Atherosclerosis Right Velocities Ext. Iliac Artery, dist = 72.9 cm./sec. Common Femoral Artery, mid = 341.7 cm./sec. Supf Femoral Artery, prox = 79.3 cm./sec. Supf Femoral Artery, mid = 84.2 cm./sec. Supf Femoral Artery, dist. = 44.6 cm./sec. Profunda Femoral Artery = 64.6 cm./sec. Popliteal Artery, mid = 46.8 cm./sec. Post. Tibial Artery, prox = 49.7 cm./sec. Post. Tibial Artery, mid = 46.9 cm./sec. Post. Tibial Artery, dist = 47.8 cm./sec. Peroneal Artery, prox = 41.2 cm./sec. Peroneal Artery, mid = 50.6 cm./sec. Peroneal Artery,dist = 42.1 cm./sec. Ant. Tibial Artery, prox = 45.9 cm./sec. Ant. Tibial Artery, mid = 59.1 cm./sec. Ant. Tibial Artery, dist = 62 cm./sec. Procedure Exam performed in department. /US Art Duplex Unilat Lower Ext Interpretation Summary The right lower extremity arterial duplex is essentially normal. Ordering Physician: Jerrod Burt Referring Physician: Silas Hewitt M.D. Performed By: Ebonie Tse RVT
--- NOTE | 2024-05-11 08:59 | CDU_ITS ---
Reason For Study: Carotid bruit, right Rt. Velocities/BP Lt. Velocities/BP Prox CCA 67.4/20.1 cm/sec. Prox CCA 104.7/32.3 cm/sec. Mid CCA 57.9/18.2 cm/sec. Mid CCA 103.5/31.1 cm/sec. Dist CCA 57/18.2 cm/sec. Dist CCA 82.6/28.6 cm/sec. Prox ICA 75.3/18.8 cm/sec. Prox ICA 85.1/22.5 cm/sec. Mid ICA 81.4/28.6 cm/sec. Mid ICA 81.4/33.5 cm/sec. Dist ICA 60.5/28.6 cm/sec. Dist ICA 86.7/34.5 cm/sec. Rt. ICA/CCA = 1.41. Lt. ICA/CCA = 0.84. Prox ECA 57/9.7 cm/sec. Prox ECA 135.7/26.1 cm/sec. Rt. Vert. 45.8/10.2 cm/sec. Lt. Vert. 59.3/20 cm/sec. Right Extracranial There is homogeneous, smooth atherosclerotic plaque noted in the right common carotid artery. There is heterogeneous, irregular atherosclerotic plaque noted in the right internal carotid artery. There is intimal thickening but no significant atherosclerotic plaque noted in the right external carotid artery. Antegrade flow is noted in the right vertebral artery. Left Extracranial There is homogeneous, smooth atherosclerotic plaque noted in the left common carotid artery. There is heterogeneous, irregular atherosclerotic plaque noted in the left internal carotid artery. There is heterogeneous, irregular atherosclerotic plaque noted in the left external carotid artery. Antegrade flow is noted in the left vertebral artery. Procedure Carotid Duplex 09281. This is a Carotid Duplex examination using B-mode, color flow and specral Doppler. Exam performed in department. VL/Carotid Duplex Ultrasound Interpretation Summary Normal right extracranial internal carotid. Normal left extracranial internal c arotid. Flow within the vertebral arteries is antegrade bilaterally. Ordering Physician: Scott Everett Referring Physician: Silas Hewitt M.D. Performed By: Ebonie Tse RVT
== END | disposition home or self-care (01) ==
PROVIDERS: PCP Family Medicine; Referring Provider Surgery Vascular Surgery; Visit Provider Surgery Vascular Surgery
DX: I70.209 Unspecified atherosclerosis of native arteries of extremities, unspecified extremity (principal); I70.213 Atherosclerosis of native arteries of extremities with intermittent claudication, bilateral legs; I77.1 Stricture of artery; I10 Essential (primary) hypertension; R09.89 Other specified symptoms and signs involving the circulatory and respiratory systems
CPT/HCPCS: 93880; 93922; 93926

== ENCOUNTER → 2024-05-22 | Outpatient (CLI) | payer MEDICARE, SELFPAY ==
--- NOTE | 2024-05-22 13:45 | BI_ITS ---
MAMMOGRAPHY - BILATERAL SCREENING 3-D TOMOSYNTHESIS REASON FOR EXAM: Female, 68 years old. ANNUAL SCREENING PERTINENT HISTORY: No significant family history. TECHNIQUE: 2-D mammograms and 3-D Tomosynthesis of the breast (s) were performed. CAD was performed. COMPARISON: 05/20/2023 FINDINGS: The breast composition is Extermely dense tissue. Scattered benign calcifications are seen. No dense spiculated masses or suspicious microcalcifications are identified. No architectural distortion is identified. There is no skin thickening or retraction. There has been no significant change since the prior study. BI/SCRN MAMM (CAD)W/ROSA BILAT IMPRESSION: No mammographic signs of malignancy. Routine yearly mammograms recommended. ASSESSMENT CATEGORY: BIRADS Category 1: Negative. A letter regarding these results will be sent to the patient by the facility within 30 days. FOLLOW UP RECOMMENDATION: Yearly follow up mammogram recommended. (A) Approximately 10% of breast cancers are not detected by mammography. A normal mammogram should not delay biopsy of a clinically suspicious abnormality. Electronically Signed: Robby Dubose MD at 14:47 EST ,
== END | disposition home or self-care (01) ==
LOC: OPBI 13:45
PROVIDERS: PCP Family Medicine; Referring Provider Internal Medicine Hematology & Oncology; Visit Provider Internal Medicine Hematology & Oncology
DX: Z12.31 Encounter for screening mammogram for malignant neoplasm of breast (principal)
CPT/HCPCS: 77063; 77067

== ENCOUNTER → 2024-07-10 | Outpatient (CLI) | payer MEDICARE, SELFPAY ==
--- NOTE | 2024-07-10 07:57 | BD_ITS ---
STUDY: DUAL ENERGY X-RAY ABSORPTIOMETRY / DXA REASON FOR EXAM: Female, 68 years old. 733.00OsteoporosisBONE DENSITY REASON FOR EXAM TECHNIQUE: Bone Mineral Density (BMD) measurements of lumbar spine and bilateral hips were obtained. COMPARISON: None. FINDINGS: Lumbar Spine (L1-L4): g/cm2 (0.911) / T-score (-1.7) / Z-score (0.5) Findings are suggestive of osteopenia with a moderate fracture risk. Left Femur Total: g/cm2 (0.730) / T-score (-1.7) / Z-score (-0.2) Left Femoral Neck: g/cm2 (0.586) / T-score (-2.4) / Z-score (-0.5) Right Femur Total: g/cm2 (0.719) / T-score (-1.8) / Z-score (-0.3) Right Femoral Neck: g/cm2 (0.598) / T-score (-2.3) / Z-score (-0.4) BD/Dexa Bone Density Study IMPRESSION: The patient is considered osteopenic as outlined below according to [employer] Organization (WHO) criteria with a high fracture risk. Reference Information: The T-score is the number of standard deviations above or below the standard which is normal for young adults at their peak bone mineral density. The World Health Organization (WHO) interprets the T-scores as follows: Above -1 Normal bone density Between -1 and -2.5 Osteopenia Equal to / or below -2.5 Osteoporosis As a practical clinical guideline, osteopenia may be graded as follows: Mild -1 through -1.5 Moderate -1.6 through -2.0 Severe -2.1 through -2.4 The Z-score is the number of standard deviations above or below age-matched controls. A Z-score of less than -1.5 would be considered abnormal. References: 1. NIH Osteoporosis and Related Bone Diseases www osteo.org 2. International Society for Clinical Densitometry www iscd.org 3. National Osteoporosis Foundation www nof.org Electronically Signed: Félix Sofia MD at 15:01 EST ,
== END | disposition home or self-care (01) ==
LOC: OPBD 07:53
PROVIDERS: PCP Family Medicine
DX: M81.0 Age-related osteoporosis without current pathological fracture (principal)
CPT/HCPCS: 77080

== ENCOUNTER → 2024-10-25 | Outpatient (CLI) | payer MEDICARE, SELFPAY ==
[2024-10-29 14:08] LABS: Vitamin D 1,25-Dihydroxy 37.3 pg/mL (24.8-81.5)
== END | disposition home or self-care (01) ==
LOC: MTLAB 09:19
PROVIDERS: PCP Family Medicine; Referring Provider Psychiatry & Neurology Neurology; Visit Provider Psychiatry & Neurology Neurology
DX: D46.9 Myelodysplastic syndrome, unspecified (principal)
CPT/HCPCS: 36415; 82652

== ENCOUNTER → 2025-02-26 | Outpatient (CLI) | payer MEDICARE, SELFPAY | END | disposition home or self-care (01) | LOC: PSN 09:22 | PROVIDERS: PCP Family Medicine; Referring Provider Nurse Practitioner Acute Care; Visit Provider Nurse Practitioner Acute Care | DX: J43.2 Centrilobular emphysema (principal) | CPT/HCPCS: 94060; 94726; 94729 ==

== ENCOUNTER → 2025-02-28 | Outpatient (CLI) | payer MEDICARE, SELFPAY ==
[2025-02-28 13:24] VITALS: PULSE 61; PULSE 64; PULSE 76; PULSE 77; PULSE 78; PULSE 83; PULSE 86; O2SAT 93; O2SAT 94; O2SAT 95; O2SAT 96
--- NOTE | 2025-02-28 13:26 | CPS ---
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 Attempted ear probe an unable to get a reading. Finally able to maintain an accurate reading for most of testing. Patient stated she was never short of breath during testing but that both of her legs were painful near her hips.
--- NOTE | 2025-03-01 10:16 | WT_ITS ---
PSN 6 Minute Walk Test 6 Minute Walk Test 6 Minute Walk Test: 6 Minute Walk Test PSN:6-Minute Walk Test Start: 02/28/25 13:24 Freq: Status: Active Protocol: [id number] Document 02/28/25 13:24 MARTAMACK (Rec: 02/28/25 13:31 [id number]) 6 Minute Walk Test Date Performed 02/28/25 Time Performed 11:40 Height 5 ft 8 in Weight: 145 lb Weight in Pounds 145.[address]: Daly Stout BEREAVEMENT PROGRAM COORDINATOR Assistive device None used: Pre-test Oxygen Delivery Room Air Method Pulse Ox (%) 95 Pulse Rate (60-100 61 beats/min) Dyspnea Arlene Scale ( 0 0-10) Exertion Arlene Scale 6 (6-20) 1st minute Oxygen Delivery Room Air Method Pulse Ox (%) 95 2nd minute Oxygen Delivery Room Air Method Pulse Ox (%) 96 Pulse Rate (60-100 76 beats/min) 3rd minute Oxygen Delivery Room Air Method Pulse Ox (%) 96 Pulse Rate (60-100 77 beats/min) 4th minute Oxygen Delivery Room Air Method Pulse Ox (%) 94 Pulse Rate (60-100 78 beats/min) 5th minute Oxygen Delivery Room Air Method Pulse Ox (%) 93 Pulse Rate (60-100 83 beats/min) 6th minute Oxygen Delivery Room Air Method Pulse Ox (%) 93 Pulse Rate (60-100 86 beats/min) Dyspnea Arlene Scale ( 1 0-10) Exertion Arlene Scale 14 (6-20) Post-test Oxygen Delivery Room Air Method Pulse Ox (%) 96 Pulse Rate (60-100 64 beats/min) Full Laps Walked 13 Partial Lap, Number 13 of Tiles Walked Total Distance 780 Walked (ft) 02/28/25 13:26 Cardiopulmonary Services by Renetta Hoskins Patient's fingers were very cold and she had gel nail [place] on making it very difficult to pickle cutter a pulse ox reading. Attempted ear probe an unable to get a reading. Finally able to maintain an accurate reading for most of testing. Patient stated she was never short of breath during testing but that both of her legs were painful near her hips. Initialized on 02/28/25 13:26 - END OF NOTE Interpretation Interpretation: The patient ambulated 780 feet over the course of 6 minutes beginning on room air without assistive devices. Pretesting oxygen saturation was noted to be 95% on room air. With ambulation, the moni oxygen saturation was 93%. There was no significant exertional oxygen desaturation. Recommendations Recommendations: There is no indication for the use of supplemental oxygen at this time.
== END | disposition home or self-care (01) ==
LOC: PSN 11:34
PROVIDERS: PCP Family Medicine; Referring Provider Nurse Practitioner Acute Care; Visit Provider Nurse Practitioner Acute Care
DX: J43.2 Centrilobular emphysema (principal)
CPT/HCPCS: 94618

== ENCOUNTER → 2025-03-18 | Outpatient (CLI) | payer MEDICARE, SELFPAY ==
--- NOTE | 2025-03-18 08:30 | CT_ITS ---
PROCEDURE: LOW DOSE CT LUNG SCREENING 03/18/2025 REASON FOR EXAM: SMOKER, QUIT 2019 TECHNIQUE: Procedure Code: [id number] Modality: CT Procedure: LOW DOSE CT LUNG SCREENING Coronal and Sagittal reconstruction series were provided. One or more dose reduction techniques were used (e.g., Automated exposure control, adjustment of the mA and/or kV according to patient size, use of iterative reconstruction technique). REFERENCE LINK: Experience Headphones Lung-RADS RADIATION DOSE SUMMARY: CTDlvol: 2.01 mGy DLP: 65.45 mGycm FINDINGS: PULMONARY NODULES: (Only nodules >3mm are reported) Nodules described below are on series 3 unless otherwise specified. Pulmonary Nodules: Stable 2 mm nodule of the right upper lobe on image 71. Hardware:N/a Lymph Nodes:Unremarkable Heart and Vasculature:Normal heart size Coronary Artery Calcifications: Present Lungs and Airways: Mild emphysematous changes are present. Pleura:Unremarkable Upper Abdomen:Unremarkable Bones:Degenerative changes of the thoracic spine. CT/Low Dose CT Lung Screening IMPRESSION: No new suspicious pulmonary nodules. Coronary artery calcification (CAC) is is present Lung-RADS Category: 2 BENIGN (BASED ON IMAGING FEATURES OR INDOLENT BEHAVIOR). RECOMMEND 12-MONTH SCREENING LDCT. Other Significant Findings: None Reading Location: [id number]
== END | disposition home or self-care (01) ==
LOC: CT 08:29
PROVIDERS: PCP Family Medicine; Referring Provider Nurse Practitioner Acute Care; Visit Provider Nurse Practitioner Acute Care
DX: Z12.2 Encounter for screening for malignant neoplasm of respiratory organs (principal); Z87.891 Personal history of nicotine dependence
CPT/HCPCS: 71271

== ENCOUNTER → 2025-03-27 | Outpatient (CLI) | payer MEDICARE, SELFPAY ==
[2025-03-27 11:23] LABS: Anion Gap 12 (5-15); BUN 20 mg/dL (4-19); BUN/Creat Ratio 20.1 RATIO (10-20); Calcium,Total 9.1 mg/dL (7.6-11.0); Carbon Dioxide 19.3 mmol/L (21.0-32.0); Chloride 107 mmol/L (98-108); Glucose 89 mg/dL (70-99); Potassium 4.6 mmol/L (3.3-5.1)
== END | disposition home or self-care (01) ==
LOC: PAVLAB 10:42
PROVIDERS: PCP Family Medicine; Referring Provider Family Medicine; Visit Provider Family Medicine
DX: E87.5 Hyperkalemia (principal)
CPT/HCPCS: 36415; 80048

== ENCOUNTER → 2025-05-28 | Outpatient (CLI) | payer MEDICARE, SELFPAY ==
--- NOTE | 2025-05-28 12:30 | BI_ITS ---
EXAM: SCRN MAMM (CAD)W/ROSA BILAT DATE: 05/28/2025 CLINICAL HISTORY: F, Age 69 y/o , ANNUAL SCREENING Sister with breast cancer. Mother with breast cancer. History of prior left excisional breast biopsies. TECHNIQUE: Procedure Code: [id number] Modality: MG Procedure: SCRN MAMM (CAD)W/ROSA BILAT COMPARISON: Prior exam(s) dated May 22, 2024.. FINDINGS: TISSUE DENSITY: The breasts are extremely dense, which lowers the sensitivity of mammography. Bilateral Breast Mammographic Findings: No significant masses, calcifications or other abnormalities are identified. Stable enlarged fat containing lymph node in the left axilla. No suspicious masses, areas of developing architectural distortion, or suspicious calcifications. There has been no significant interval change. BI/SCRN MAMM (CAD)W/ROSA BILAT IMPRESSION: Stable bilateral screening mammogram. OVERALL FINAL ASSESSMENT BI-RADS 2: BENIGN RECOMMENDATION: Routine annual follow-up in 1 Year Additional Recommendation none A letter with findings and recommendations will be mailed to the patient. Reading Location: [id number]
== END | disposition home or self-care (01) ==
LOC: OPBI 12:22
PROVIDERS: PCP Family Medicine; Referring Provider Internal Medicine Hematology & Oncology; Visit Provider Internal Medicine Hematology & Oncology
DX: Z12.31 Encounter for screening mammogram for malignant neoplasm of breast (principal)
CPT/HCPCS: 77063; 77067